=== PATIENT | female | born 1980 | race Caucasian/White ===

== ENCOUNTER 2020-10-19 16:21 | Outpatient (REF) | payer OTHER, SELFPAY | END 2020-10-19 16:22 | disposition home or self-care (01) | LOC: HO.HOSX 16:21 | PROVIDERS: Visit Provider Orthopaedic Surgery | DX: Z13.89 Encounter for screening for other disorder (principal) ==

== ENCOUNTER 2020-10-20 08:19 | Outpatient (REF) | payer OTHER, SELFPAY ==
--- NOTE | ~2020-10-20 | XR_ITS ---
EXAMINATION: XR WRIST, RIGHT CLINICAL INFORMATION: Pain right wrist COMPARISON: None TECHNIQUE: PA, lateral, and oblique views of the right wrist. FINDINGS: The bones and soft tissues are normal. No fracture. Alignment is anatomic with normal joint spaces. No erosions or abnormal soft tissue calcifications. XR/XR wrist RT min 3V IMPRESSION: Normal right wrist.
== END 2020-10-20 08:20 | disposition home or self-care (01) ==
LOC: HO.HOSX 08:19
PROVIDERS: Visit Provider Orthopaedic Surgery
DX: M77.8 Other enthesopathies, not elsewhere classified (principal); M25.531 Pain in right wrist
CPT/HCPCS: 73110

== ENCOUNTER 2020-10-28 14:20 | Outpatient (REF) | payer OTHER, SELFPAY ==
[2020-10-28 15:02] LABS: MANUAL DIFF FLAG NO
[2020-10-28 15:05] LABS: Basophils Absolute Auto 0.1 X10*3/uL (0.0-0.2); Basophils Percent Auto 0.5 % (0-2); Eosinophils Percent Auto 0.4 % (0-4); Hematocrit 37.8 % (37-47); Hemoglobin 12.3 g/dl (12.0-16.0); Imm Gran Abs Auto 0.03 X10*3/uL (0.00-0.03); Imm Gran Pct Auto 0.3 % (0.0-0.4); Lymphocytes Absolute Auto 2.3 X10*3/uL (1.2-4.9); Lymphocytes Percent Auto 23.9 % (20-40); Mean Corpuscular HGB Conc 32.5 g/dl (31.0-35.0); Mean Corpuscular Hemoglobin 28.2 pg (27.0-33.0); Mean Corpuscular Volume 86.7 fL (80-98); Mean Platelet Volume 9.1 fL (9.4-12.3); Monocytes Absolute Auto 0.8 X10*3/uL (0.1-1.2); Monocytes Percent Auto 8.7 % (2-11); Neutrophils Absolute Auto 6.4 X10*3/uL (2.0-8.3); Neutrophils Percent Auto 66.2 % (45-73); Platelet Count 349 X10*3/uL (160-400); Red Blood Count 4.36 X10*6/uL (4.20-5.50); Red Cell Distribution Width 14.4 % (11.0-16.0); White Blood Count 9.7 X10*3/uL (4.8-10.8)
[2020-10-28 16:09] LABS: Alanine Aminotransferase < 6 U/L (0-31); Alkaline Phosphatase 47 U/L (39-117); Anion Gap 11 (12-20); Aspartate Amino Transferase 16 U/L (5-31); Bilirubin Total 0.3 mg/dL (0.0-1.0); Blood Urea Nitrogen 9 mg/dL (9-16); Carbon Dioxide 22 mmol/L (22-29); Chloride 113 mmol/L (96-108); Estimated Glomerular Filt Rate > 60; Glucose Random 66 mg/dL (60-115); Iron 50 mcg/dL (30-160); Percent Iron Saturation 11 % (15-50); Potassium 4.2 mmol/L (3.3-5.1); Sodium 142 mmol/L (135-145); Total Iron Binding Capacity 456 mcg/dL (228-428); Total Protein 6.6 g/dL (6.5-8.0); Unsaturated Iron Binding 406 ug/dL
[2020-10-28 16:17] LABS: Thyroid Stimulating Hormone 0.44 uIU/mL (0.32-4.0); Vitamin D 25-OH Total 32.9 ng/mL (>30)
[2020-10-28 16:43] LABS: Ferritin 4 ng/mL (10-122)
[2020-10-29 19:11] LABS: DHEA Sulfate 78 mcg/dL (23-266)
[2020-10-31 18:11] LABS: Iodine, Serum/Plasma 58 mcg/L (52-109)
[2020-11-01 15:07] LABS: Anti Nuclear Antibody Screen POSITIVE (NEGATIVE)
== END 2020-10-28 14:21 | disposition home or self-care (01) ==
LOC: HO.LAB 14:20
PROVIDERS: PCP Family Medicine; Visit Provider Emergency Medicine
DX: L63.8 Other alopecia areata (principal)
CPT/HCPCS: 36415; 80053; 82306; 82627; 82728; 83540; 83789; 84443; 85025; 86038; 86039

== ENCOUNTER → 2020-12-31 09:35 | Outpatient (BNVA) | payer OTHER, SELFPAY | PROVIDERS: PCP Family Medicine; Visit Provider Physician Assistant | DX: M65.4 Radial styloid tenosynovitis [de Quervain] (principal) | CPT/HCPCS: 20550; J1020 ==

== ENCOUNTER 2021-04-16 10:52 | Emergency (ER) | payer OTHER, SELFPAY ==
--- NOTE | ~2021-04-16 | XR_ITS ---
EXAMINATION: XR CHEST CLINICAL INFORMATION: First time seizure COMPARISON: None TECHNIQUE: Frontal view of the chest was obtained. FINDINGS: No significant abnormality is noted involving the heart, lungs, mediastinum, bony thorax or soft tissues. XR/XR chest 1V IMPRESSION: Unremarkable chest examination.
--- NOTE | ~2021-04-16 | CT_ITS ---
EXAMINATION: CT HEAD W/O IV CONTRAST CT CERVICAL SPINE W/O IV CONTRAST CLINICAL INFORMATION: 41-year-old female with history of head strike, fall. First time seizure. COMPARISON: CT imaging of head and cervical spine from 01/26/2020. TECHNIQUE: Head - Contiguous axial imaging of the head was performed from the skull base to the vertex without the administration of intravenous contrast, and axial images are reconstructed at 2 mm and 5 mm slice thickness. Cervical spine - A volumetric, helical CT acquisition of the cervical spine was obtained without contrast; in addition to the standard set of axial images, multiplanar reformatted images were provided in the coronal and sagittal imaging planes. This CT examination was performed using dose optimization techniques as appropriate, variously including the following: *Automated exposure control *Adjustment of mA and/or kV according to patient size (this includes techniques or standardized protocols for targeted exams where dose is matched to indication/reason for exam; i.e. extremities or head) *Use of iterative reconstruction technique DLP: 799 mGy-cm (total) FINDINGS: HEAD: No evidence of intracranial hemorrhage, major vascular territory infarction or midline shift. Lanza to white matter differentiation is preserved. The ventricles have normal size and configuration. No extra-axial fluid collections. A stable, partially calcified extra-axial mass located posterior to the right petrous bone in contact with the undersurface of the right lateral tentorium measures approximately 1.7 x 0.7 x 1.2 cm. This is consistent with a meningioma. The calvarium is intact and the visualized paranasal sinuses, mastoid air cells and middle ear cavities are clear. The temporomandibular joints are unremarkable. The visualized orbits and globes are intact. CERVICAL SPINE: No acute abnormalities. The craniocervical junction is normal. The occipital condyles, dens and atlantodental articulation are intact. The vertebral body heights and alignment are maintained. No fractures in the anterior or posterior elements. No prevertebral soft tissue swelling. There is lack of lordotic curvature of the cervical spine. The disc spaces are preserved. The facet joints and uncovertebral joints are unremarkable. No stenosis of the central spinal canal or neural foramina. No spinal hematoma or focal fluid collection in the visualized neck. The examined lung apices are clear. Thyroid gland is normal. CT/CT cervical spine wo con IMPRESSION: * No hemorrhage or other acute intracranial pathology. * A stable, partially calcified extra-axial mass of the right posterior fossa overlying the cerebellar hemisphere is consistent with meningioma. * No fracture or malalignment in the cervical spine.
[2021-04-16 10:56] VITALS: BP 139/96; PULSE 120; O2SAT 98
[2021-04-16 10:59] VITALS: BP 126/76; PULSE 112; RESP 18; TEMP 36.6; O2SAT 100; BMI 24.9
--- NOTE | 2021-04-16 11:06 | ECG_ITS ---
Test Reason : SEIZURE Blood Pressure : / mmHG Vent. Rate : 073 BPM Atrial Rate : 073 BPM P-R Int : 138 ms QRS Dur : 084 ms QT Int : 366 ms P-R-T Axes : 059 044 028 degrees QTc Int : 403 ms Normal sinus rhythm Normal ECG When compared with ECG of 18-FEB-2011 14:33, No significant change was found Referred By: Nancy Diaz Electronically Signed By:TAZ GARCIA MD
--- NOTE | 2021-04-16 11:20 | ED_ITS ---
HPI - Seizure General Chief Complaint: Seizure Stated Complaint: seizure Time Seen by Provider: 04/16/21 10:55 Source: patient and EMS Mode of arrival: EMS History of Present Illness HPI Narrative: 41-year-old female with a past medical history of hypothyroid, PCOS, chronic migraines, BIBA s/p first-time witnessed tonic-clonic seizure whil e at work. 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 Denies personal history of seizure, headache, neck pain, back pain, abdominal pain, nausea/vomiting, CP/SOB, ETOH/drug use MD complaint: seizure Related Data Home Medications Medication Instructions Recorded Confirmed gabapentin 300 mg capsule 300 mg PO DAILY 10/20/20 02/07/21 hydroxyzine HCl 25 mg tablet 50 mg PO BEDTIME PRN tab 10/20/20 02/07/21 doxepin 25 mg capsule 50 mg PO DAILY cap 02/07/21 02/07/21 Previous Rx's Medication Instructions Recorded sulfamethoxazole 800 1 tab PO Q12H 5 Days #10 tab 02/07/21 mg-trimethoprim 160 mg tablet (Bactrim DS) levetiracetam 500 mg tablet 500 mg PO BID 28 Days #56 tab 04/16/21 (Keppra) Allergies Allergy/AdvReac Type Severity Reaction Status Date / Time hydrocodone [From VICODIN] Allergy Intermediate GI UPSET Verified 02/07/21 13:45 propylene glycol Allergy Intermediate EXTREME Verified 02/07/21 13:45 [PROPYLENE GLYCOL] BURNING/PAIN/RASH cobalt Allergy Unknown Verified 02/07/21 13:45 acetaminophen [Vicodin] AdvReac Unknown nausea and Verified 02/07/21 13:45 vomiting propalyn glycal Allergy Unknown Vomiting Uncoded 10/20/20 08:27 Pt states no known allergy to Allergy Unknown headacches Uncoded 10/20/20 08:27 Review of Systems Review of Systems: Constitutional: No Fever, No Chills, No Fatigue, No Malaise ENT/Mouth: No Ear Pain, No Nasal Congestion, No sore throat, No Rhinorrhea, No Swallowing Difficulty Eyes: No Eye Pain, No Swelling, No Redness, No Discharge Cardiovascular: No Chest Pain, No SOB, No Edema, No Palpitations Respiratory: No Cough, No Sputum, No Wheezing, No Dyspnea Gastrointestinal: No Nausea, No Vomiting, No Diarrhea, No Constipation, No Abdominal pain Genitourinary: No Dysuria, No Urinary Frequency, No Hematuria, No Flank Pain, No Urinary Flow Changes Musculoskeletal: No joint pain, No Myalgias, No Joint Swelling Skin: No Skin Lesions, No rash Neuro: No Weakness, No Numbness, No Paresthesias, +seizure, + Loss of Consciousness, No Dizziness, No Headache Yes all other systems are reviewed and are negative Neurologic: Denies Abnormal speech present [facility] Past Medical History Attestation statement: The following information was validated with the patient. 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 Physical Exam Vital Signs: Vital Signs: Last Vital Signs Temp 98 F 04/16/21 10:59 Pulse 87 04/16/21 12:15 Resp 16 04/16/21 12:15 BP 126/76 04/16/21 10:59 Pulse Ox 100 04/16/21 10:59 Body Mass Index 24.9 Const: General: cooperative, healthy appearing, no acute distress, alert and awake Orientation/consciousness: patient oriented x3 Limitations: no limitations HENMT: Head: Yes normal to inspection and Yes atraumatic Ears: hearing grossly normal bilaterally General nose exam: Normal external nose present Face and sinus: Yes normal facial exam Mouth: Normal oral and palatal mucosa present Eyes: General: appearance normal, both eyes and all related structures Pupils: Equal, round and reactive pupils present EOM: EOMs intact bilaterally Neck: Other: C-collar in place. No midline cervical spinous ttp Neck: Yes normal visual inspection and Yes no meningeal signs Resp: Effort & Inspection: normal respiratory effort and no respiratory distress Auscultation: clear to auscultation bilaterally, no rales, no rh onchi and no wheezes Cardio: Rate: regular rate Heart sounds: S1 normal heart sound present and S2 normal heart sound present GI: Inspection: Yes normal to inspection Palpation (GI): Soft to palpation, nontender, no guarding and not rigid : General: Yes no CVA tenderness Back/Spine/Pelvis: Other: No midline thoracic/lumbar spinous tenderness/step- off or deformity Back: no CVA tenderness Skin: Rashes: no rashes Wounds: no wounds Neuro: General: patient oriented x3, tone normal, moves all extremities, no meningeal signs, no focal motor deficits and CN's II-XI intact bilaterally Cranial nerves: Yes Equal, round and reactive pupils present and Yes Bilaterally intact EOM present Cognition (Neuro): normal cognition Speech: No Abnormal speech present Motor exam (neuro): 5/5 motor strength present throughout, Pronator motor function not present and no tremor noted Extrem: General: Yes normal to inspection and Yes no pedal edema Course Course Course Narrative: -POC low at 62 > patient given p.o. juice -1245-- lactic acid elevated to 2.2 as expected from seizure. Labs otherwise unremarkable. Troponin negative -tox screen unremarkable CT head/brain wo con / CT cervical spine wo con IMPRESSION: *? No hemorrhage or other acute intracranial pathology. *? A stable, partially calcified extra-axial mass of the right posterior fossa overlying the cerebellar hemisphere is consistent with meningioma. *? No fracture or malalignment in the cervical spine. XR chest 1V IMPRESSION: Unremarkable chest examination. -[id number]--spoke to Neurology Dr. Brenner recommended initiating patient on antiepileptics and having her follow-up with Dr. Weir -Repeat lactic acid improved to 1.7 after p.o. hydration. Patient currently eating turkey sandwich/chips in the ED, no need for repeat POC MDM - Seizure MDM Narrative Medical decision making narrative: 41-year-old female with a past medical history of hypothyroid, PCOS, chronic migraines, BIBA s/p first-time witnessed t onic-clonic seizure while at work. On exam tachycardic, awake and alert, NAD, no focal neuro deficits. Concern for first-time seizure. Rule out metabolic and infectious etiology vs IC pathology Plan: EKG, labs, UA/drug screen, head/C-spine CT, Consult neuro Medical Records Attestation: I reviewed the patient's medical records. Lab Data Attestation: I reviewed the patient's lab results. Result diagrams: 04/16/21 11:34 04/16/21 11:34 Labs: Lab Results 04/16/21 04/16/21 04/16/21 Range/Units 11:34 11:34 11:34 WBC 8.9 (4.8-10.8) X10*3/uL RBC 4.89 (4.20-5.50) X10*6/uL Hgb 13.3 (12.0-16.0) g/dl Hct 40.7 (37.0-47.0) % MCV 83.2 (80.0-98.0) fL MCH 27.2 (27.0-33.0) pg MCHC 32.7 (31.0-35.0) g/dl RDW 12.6 (11.0-16.0) % Plt Count 307 (160-400) X10*3/uL MPV 9.1 L (9.4-12.3) fL Immature Gran % (Auto) 0.2 (0.0-0.4) % Neut % (Auto) 68.0 (45-73) % Lymph % (Auto) 23.6 (20-40) % Dougherty % (Auto) 7.1 (2-11) % Eos % (Auto) 0.5 (0-4) % Baso % (Auto) 0.6 (0-2) % Lymph # (Auto) 2.1 (1.2-4.9) X10*3/uL Dougherty # (Auto) 0.6 (0.1-1.2) X10*3/uL Eos # (Auto) 0.0 (0.0-0.4) X10*3/uL Baso # (Auto) 0.1 (0.0-0.2) X10*3/uL Abs Immat Gran (auto) 0.02 (0.00-0.03) X10*3/uL Absolute Neuts (auto) 6.0 (2.0-8.3) x10*3/uL Absolute Nucleated RBC 0.000 (0.0-0.012) X10*3/uL Nucleated RBC % (auto) 0.0 (0.0-0.2) /100WBC Sodium 137 (135-145) mmol/L Potassium 4.2 (3.3-5.1) mmol/L Chloride 108 (96-108) mmol/L Carbon Dioxide 19 L (22-29) mmol/L Anion Gap 14 (12-20) BUN 16 D (9-16) mg/dL Creatinine 0.82 (0.5-1.4) mg/dL Estim Creat Clear Calc 85.9 Estimated GFR > 60 POC Glucose (60-115) mg/dL Random Glucose 83 (60-115) mg/dL Lactic Acid 2.2 H* (0.5-2.0) mmol/L Lactic Acid Fup @ 2Hr (0.5-2.0) mmol/L Calcium 9.0 (8.4-10.2) mg/dL Magnesium 2.2 (1.6-2.6) mg/dL Total Bilirubin 0.2 (0.0-1.0) mg/dL Direct Bilirubin < 0.2 (0.0-0.5) mg/dL AST 24 D (5-31) U/L ALT 8 (0-31) U/L Alkaline Phosphatase 52 (39-117) U/L Troponin I High Sens (<3.5-17.0) ng/L Total Protein 7.2 (6.5-8.0) g/dL Albumin 4.2 (3.5-5.0) g/dL Lipase 25 (8-78) U/L Urine Color Urine Appearance Urine pH (5.0-8.0) Ur Specific Converse (1.005-1.025) Urine Protein (NEG-TRACE) MG/DL Urine Glucose (UA) (NEG) MG/DL Urine Ketones (NEG) MG/DL Urine Blood (NEG) Urine Nitrite (NEG) Ur Leukocyte Esterase (NEG) Urine Opiates Screen (Not Detect) Urine Fentanyl Screen (Not Detect) Ur Barbiturates Screen (Not Detect) Ur Phencyclidine Scrn (Not Detect) Ur Amphetamines Screen (Not Detect) U Benzodiazepines Scrn (Not Detect) Urine Cocaine Screen (Not Detect) U Marijuana (THC) Screen (Not Detect) Ethyl Alcohol mg/dL COVID-19 ([facility]) (Negative) COVID-19 Clin Com 04/16/21 04/16/21 04/16/21 Range/Units 11:34 11:34 11:34 WBC (4.8-10.8) X10*3/uL RBC (4.20-5.50) X10*6/uL Hgb (12.0-16.0) g/dl Hct (37.0-47.0) % MCV (80.0-98.0) fL MCH (27.0-33.0) pg MCHC (31.0-35.0) g/dl RDW (11.0-16.0) % Plt Count (160-400) X10*3/uL MPV (9.4-12.3) fL Immature Gran % (Auto) (0.0-0.4) % Neut % (Auto) (45-73) % Lymph % (Auto) (20-40) % Dougherty % (Auto) (2-11) % Eos % (Auto) (0-4) % Baso % (Auto) (0-2) % Lymph # (Auto) (1.2-4.9) X10*3/uL Dougherty # (Auto) (0.1-1.2) X10*3/uL Eos # (Auto) (0.0-0.4) X10*3/uL Baso # (Auto) (0.0-0.2) X10*3/uL Abs Immat Gran (auto) (0.00-0.03) X10*3/uL Absolute Neuts (auto) (2.0-8.3) x10*3/uL Absolute Nucleated RBC (0.0-0.012) X10*3/uL Nucleated RBC % (auto) (0.0-0.2) /100WBC Sodium (135-145) mmol/L Potassium (3.3-5.1) mmol/L Chloride (96-108) mmol/L Carbon Dioxide (22-29) mmol/L Anion Gap (12-20) BUN (9-16) mg/dL Creatinine (0.5-1.4) mg/dL Estim Creat Clear Calc Estimated GFR POC Glucose (60-115) mg/dL Random Glucose (60-115) mg/dL Lactic Acid (0.5-2.0) mmol/L Lactic Acid Fup @ 2Hr (0.5-2.0) mmol/L Calcium (8.4-10.2) mg/dL Magnesium (1.6-2.6) mg/dL Total Bilirubin (0.0-1.0) mg/dL Direct Bilirubin (0.0-0.5) mg/dL AST (5-31) U/L ALT (0-31) U/L Alkaline Phosphatase (39-117) U/L Troponin I High Sens < 3.5 (<3.5-17.0) ng/L Total Protein (6.5-8.0) g/dL Albumin (3.5-5.0) g/dL Lipase (8-78) U/L Urine Color Urine Appearance Urine pH (5.0-8.0) Ur Specific Converse (1.005-1.025) Urine Protein (NEG-TRACE) MG/DL Urine Glucose (UA) (NEG) MG/DL Urine Ketones (NEG) MG/DL Urine Blood (NEG) Urine Nitrite (NEG) Ur Leukocyte Esterase (NEG) Urine Opiates Screen (Not Detect) Urine Fentanyl Screen (Not Detect) Ur Barbiturates Screen (Not Detect) Ur Phencyclidine Scrn (Not Detect) Ur Amphetamines Screen (Not Detect) U Benzodiazepines Scrn (Not Detect) Urine Cocaine Screen (Not Detect) U Marijuana (THC) Screen (Not Detect) Ethyl Alcohol < 10 mg/dL COVID-19 ([facility]) Negative (Negative) COVID-19 Clin Com See Note 04/16/21 04/16/21 04/16/21 Range/Units 11:44 13:23 13:23 WBC (4.8-10.8) X10*3/uL RBC (4.20-5.50) X10*6/uL Hgb (12.0-16.0) g/dl Hct (37.0-47.0) % MCV (80.0-98.0) fL MCH (27.0-33.0) pg MCHC (31.0-35.0) g/dl RDW (11.0-16.0) % Plt Count (160-400) X10*3/uL MPV (9.4-12.3) fL Immature Gran % (Auto) (0.0-0.4) % Neut % (Auto) (45-73) % Lymph % (Auto) (20-40) % Dougherty % (Auto) (2-11) % Eos % (Auto) (0-4) % Baso % (Auto) (0-2) % Lymph # (Auto) (1.2-4.9) X10*3/uL Dougherty # (Auto) (0.1-1.2) X10*3/uL Eos # (Auto) (0.0-0.4) X10*3/uL Baso # (Auto) (0.0-0.2) X10*3/uL Abs Immat Gran (auto) (0.00-0.03) X10*3/uL Absolute Neuts (auto) (2.0-8.3) x10*3/uL Absolute Nucleated RBC (0.0-0.012) X10*3/uL Nucleated RBC % (auto) (0.0-0.2) /100WBC Sodium (135-145) mmol/L Potassium (3.3-5.1) mmol/L Chloride (96-108) mmol/L Carbon Dioxide (22-29) mmol/L Anion Gap (12-20) BUN (9-16) mg/dL Creatinine (0.5-1.4) mg/dL Estim Creat Clear Calc Estimated GFR POC Glucose 62 (60-115) mg/dL Random Glucose (60-115) mg/dL Lactic Acid (0.5-2.0) mmol/L Lactic Acid Fup @ 2Hr (0.5-2.0) mmol/L Calcium (8.4-10.2) mg/dL Magnesium (1.6-2.6) mg/dL Total Bilirubin (0.0-1.0) mg/dL Direct Bilirubin (0.0-0.5) mg/dL AST (5-31) U/L ALT (0-31) U/L Alkaline Phosphatase (39-117) U/L Troponin I High Sens (<3.5-17.0) ng/L Total Protein (6.5-8.0) g/dL Albumin (3.5-5.0) g/dL Lipase (8-78) U/L Urine Color YELLOW Urine Appearance CLEAR Urine pH 6.0 (5.0-8.0) Ur Specific Converse 1.010 (1.005-1.025) Urine Protein NEG (NEG-TRACE) MG/DL Urine Glucose (UA) NEG (NEG) MG/DL Urine Ketones NEG (NEG) MG/DL Urine Blood NEG (NEG) Urine Nitrite NEG (NEG) Ur Leukocyte Esterase NEG (NEG) Urine Opiates Screen Not Detected (Not Detect) Urine Fentanyl Screen Not Detected (Not Detect) Ur Barbiturates Screen Not Detected (Not Detect) Ur Phencyclidine Scrn Not Detected (Not Detect) Ur Amphetamines Screen Not Detected (Not Detect) U Benzodiazepines Scrn Not Detected (Not Detect) Urine Cocaine Screen Not Detected (Not Detect) U Marijuana (THC) Screen Not Detected (Not Detect) Ethyl Alcohol mg/dL COVID-19 ([facility]) (Negative) COVID-19 Clin Com 04/16/21 Range/Units 13:54 WBC (4.8-10.8) X10*3/uL RBC (4.20-5.50) X10*6/uL Hgb (12.0-16.0) g/dl Hct (37.0-47.0) % MCV (80.0-98.0) fL MCH (27.0-33.0) pg MCHC (31.0-35.0) g/dl RDW (11.0-16.0) % Plt Count (160-400) X10*3/uL MPV (9.4-12.3) fL Immature Gran % (Auto) (0.0-0.4) % Neut % (Auto) (45-73) % Lymph % (Auto) (20-40) % Dougherty % (Auto) (2-11) % Eos % (Auto) (0-4) % Baso % (Auto) (0-2) % Lymph # (Auto) (1.2-4.9) X10*3/uL Dougherty # (Auto) (0.1-1.2) X10*3/uL Eos # (Auto) (0.0-0.4) X10*3/uL Baso # (Auto) (0.0-0.2) X10*3/uL Abs Immat Gran (auto) (0.00-0.03) X10*3/uL Absolute Neuts (auto) (2.0-8.3) x10*3/uL Absolute Nucleated RBC (0.0-0.012) X10*3/uL Nucleated RBC % (auto) (0.0-0.2) /100WBC Sodium (135-145) mmol/L Potassium (3.3-5.1) mmol/L Chloride (96-108) mmol/L Carbon Dioxide (22-29) mmol/L Anion Gap (12-20) BUN (9-16) mg/dL Creatinine (0.5-1.4) mg/dL Estim Creat Clear Calc Estimated GFR POC Glucose (60-115) mg/dL Random Glucose (60-115) mg/dL Lactic Acid (0.5-2.0) mmol/L Lactic Acid Fup @ 2Hr 1.7 (0.5-2.0) mmol/L Calcium (8.4-10.2) mg/dL Magnesium (1.6-2.6) mg/dL Total Bilirubin (0.0-1.0) mg/dL Direct Bilirubin (0.0-0.5) mg/dL AST (5-31) U/L ALT (0-31) U/L Alkaline Phosphatase (39-117) U/L Troponin I High Sens (<3.5-17.0) ng/L Total Protein (6.5-8.0) g/dL Albumin (3.5-5.0) g/dL Lipase (8-78) U/L Urine Color Urine Appearance Urine pH (5.0-8.0) Ur Specific Converse (1.005-1.025) Urine Protein (NEG-TRACE) MG/DL Urine Glucose (UA) (NEG) MG/DL Urine Ketones (NEG) MG/DL Urine Blood (NEG) Urine Nitrite (NEG) Ur Leukocyte Esterase (NEG) Urine Opiates Screen (Not Detect) Urine Fentanyl Screen (Not Detect) Ur Barbiturates Screen (Not Detect) Ur Phencyclidine Scrn (Not Detect) Ur Amphetamines Screen (Not Detect) U Benzodiazepines Scrn (Not Detect) Urine Cocaine Screen (Not Detect) U Marijuana (THC) Screen (Not Detect) Ethyl Alcohol mg/dL COVID-19 ([facility]) (Negative) COVID-19 Clin Com Discharge Plan Discharge Clinical Impression: First time seizure Patient Disposition: Home, Self-Care Instructions: New-Onset Seizure in Adults (ED) Additional Instructions: Edgarppra is a an anti epileptic medication, take twice daily as prescribed Please follow-up with your neurologist, call Sunday to make an appoin tment If you have repeat seizures, persistent seizures, unremitting seizures, fever, please return to the emergency department Prescriptions: New levetiracetam [Keppra] 500 mg tablet 500 mg PO BID 28 Days Qty: 56 RF: 0 No Action doxepin 25 mg capsule 50 mg PO DAILY RF: 0 sulfamethoxazole-trimethoprim [Bactrim DS] 800-160 mg tablet 1 tab PO Q12H 5 Days Qty: 10 RF: 0 gabapentin 300 mg capsule 300 mg PO DAILY RF: 0 hydroxyzine HCl 25 mg tablet 50 mg PO BEDTIME PRNRF: 0 Referrals: Vanesa Ramon MD [Physician] - 2 days
[2021-04-16 11:42] LABS: MANUAL DIFF FLAG NO
[2021-04-16 11:43] LABS: Basophils Absolute Auto 0.1 X10*3/uL (0.0-0.2); Basophils Percent Auto 0.6 % (0-2); Eosinophils Percent Auto 0.5 % (0-4); Hematocrit 40.7 % (37.0-47.0); Hemoglobin 13.3 g/dl (12.0-16.0); Imm Gran Abs Auto 0.02 X10*3/uL (0.00-0.03); Imm Gran Pct Auto 0.2 % (0.0-0.4); Lymphocytes Absolute Auto 2.1 X10*3/uL (1.2-4.9); Lymphocytes Percent Auto 23.6 % (20-40); Mean Corpuscular HGB Conc 32.7 g/dl (31.0-35.0); Mean Corpuscular Hemoglobin 27.2 pg (27.0-33.0); Mean Corpuscular Volume 83.2 fL (80.0-98.0); Mean Platelet Volume 9.1 fL (9.4-12.3); Monocytes Absolute Auto 0.6 X10*3/uL (0.1-1.2); Monocytes Percent Auto 7.1 % (2-11); Platelet Count 307 X10*3/uL (160-400); Red Blood Count 4.89 X10*6/uL (4.20-5.50); Red Cell Distribution Width 12.6 % (11.0-16.0); White Blood Count 8.9 X10*3/uL (4.8-10.8)
[2021-04-16 11:49] LABS: Glucose, Whole Blood 62 mg/dL (60-115)
[2021-04-16 11:59] LABS: COVID-19 Test Negative (Negative); IDNOW Serial# 08D9AD1C
[2021-04-16 12:03] LABS: Ethanol < 10 mg/dL
[2021-04-16 12:06] LABS: Troponin-I High Sensitivity < 3.5 ng/L (<3.5-17.0)
[2021-04-16 12:08] LABS: Lactic Acid 2.2 mmol/L (0.5-2.0)
[2021-04-16 12:12] LABS: Alanine Aminotransferase 8 U/L (0-31); Albumin Level 4.2 g/dL (3.5-5.0); Alkaline Phosphatase 52 U/L (39-117); Anion Gap 14 (12-20); Aspartate Amino Transferase 24 U/L (5-31); Bilirubin Direct < 0.2 mg/dL (0.0-0.5); Bilirubin Total 0.2 mg/dL (0.0-1.0); Blood Urea Nitrogen 16 mg/dL (9-16); Carbon Dioxide 19 mmol/L (22-29); Chloride 108 mmol/L (96-108); Creatinine Clr Calc Pharmacy 85.9; Estimated Glomerular Filt Rate > 60; Glucose Random 83 mg/dL (60-115); Lipase 25 U/L (8-78); Magnesium 2.2 mg/dL (1.6-2.6); Potassium 4.2 mmol/L (3.3-5.1); Sodium 137 mmol/L (135-145); Total Protein 7.2 g/dL (6.5-8.0)
[2021-04-16 12:15] VITALS: PULSE 87; RESP 16
[2021-04-16] MEDS: 0.9 % Sodium Chloride 1,000 ML 999 ML IVCONT (12:16)
--- NOTE | 2021-04-16 12:24 | PC.NURSE ---
pt reporting excruciating pain when receiving IV fluids, line not infiltrated, line intact and patent. IV flow rate slowed, pt offered a hot pack for the area. pt continued to report excruciating pain stating she could not tolerate the IV. IV fluids stopped and pt educated to drink two full ziegler pitchers of water instead. PEDIATRICIAN Nancy dawn
[2021-04-16 13:32] LABS: Appearance Urine CLEAR; Color Urine YELLOW; Glucose Urine UA NEG (NEG); Leukocyte Esterase Urine NEG (NEG); Nitrite Urine NEG (NEG); Urine Blood NEG (NEG); Urine Ketones NEG (NEG); Urine Protein NEG (NEG-TRACE)
[2021-04-16 13:40] LABS: Reflex Lactate? Lactic Acid Added
[2021-04-16 13:46] LABS: Amphetamine Screen Urine Not Detected (Not Detect); Barbiturates, Urine Not Detected (Not Detect); Benzodiazepines Screen Urine Not Detected (Not Detect); Cannabinoid Screen Urine Not Detected (Not Detect); Cocaine Screen Urine Not Detected (Not Detect); Fentanyl, urine Not Detected (Not Detect); Opiate Screen Urine Not Detected (Not Detect); Phencyclidine Screen Urine Not Detected (Not Detect)
[2021-04-16] MEDS: levETIRAcetam 1,000 MG TABLET 1000 MG PO (14:19)
[2021-04-16 14:20] LABS: ~Lactic Acid-LAB USE ONLY 1.7 mmol/L (0.5-2.0)
== END 2021-04-16 14:48 | disposition home or self-care (01) ==
PROVIDERS: Physician Assistant; Emergency Provider Emergency Medicine
DX: G40.409 Other generalized epilepsy and epileptic syndromes, not intractable, without status epilepticus (principal); R00.0 Tachycardia, unspecified; Z20.822 Contact with and (suspected) exposure to COVID-19
CPT/HCPCS: 36415; 70450; 71045; 72125; 80048; 80076; 80307; 81003; 82077; 82947; 83605; 83690; 83735; 84484; 85025; 87635; 93005; 96360; 99284

== ENCOUNTER 2021-06-27 15:31 | Outpatient (REF) | payer BC, SELFPAY ==
--- NOTE | ~2021-06-27 | XR_ITS ---
EXAMINATION: XR SHOULDER, RIGHT XR ELBOW, RIGHT XR WRIST, RIGHT CLINICAL INFORMATION: Pain in the right shoulder, elbow, wrist. COMPARISON: Radiographs dated 10/20/2020 TECHNIQUE: AP external rotation, Grashey, scapular Y, and axillary views of the right shoulder. 3 views of the right elbow. PA, lateral, oblique, and scaphoid views of the right wrist. FINDINGS: SHOULDER: The bones and soft tissues are normal. No fracture. Glenohumeral and acromioclavicular alignment is anatomic with normal joint space. No abnormal soft tissue calcifications. ELBOW: No fracture or malalignment. Bone mineralization is normal. Joint spaces are well-preserved. Normal soft tissues at the elbow. No effusion. RIGHT WRIST: Positive ulnar variance (2 mm). A bone island is again seen within the lunate. No acute fracture or malalignment. Scaphoid is intact. Joint spaces are well-preserved. No erosions, periostitis, or soft tissue mineralization. XR/XR shoulder RT min 2V IMPRESSION: No acute osseous abnormalities in the shoulder, elbow, and wrist. Positive ulnar variance. No radiographic findings of ulnocarpal abutment.
--- NOTE | ~2021-06-27 | XR_ITS ---
EXAMINATION: XR SHOULDER, RIGHT XR ELBOW, RIGHT XR WRIST, RIGHT CLINICAL INFORMATION: Pain in the right shoulder, elbow, wrist. COMPARISON: Radiographs dated 10/20/2020 TECHNIQUE: AP external rotation, Grashey, scapular Y, and axillary views of the right shoulder. 3 views of the right elbow. PA, lateral, oblique, and scaphoid views of the right wrist. FINDINGS: SHOULDER: The bones and soft tissues are normal. No fracture. Glenohumeral and acromioclavicular alignment is anatomic with normal joint space. No abnormal soft tissue calcifications. ELBOW: No fracture or malalignment. Bone mineralization is normal. Joint spaces are well-preserved. Normal soft tissues at the elbow. No effusion. RIGHT WRIST: Positive ulnar variance (2 mm). A bone island is again seen within the lunate. No acute fracture or malalignment. Scaphoid is intact. Joint spaces are well-preserved. No erosions, periostitis, or soft tissue mineralization. XR/XR wrist RT min 3V IMPRESSION: No acute osseous abnormalities in the shoulder, elbow, and wrist. Positive ulnar variance. No radiographic findings of ulnocarpal abutment.
--- NOTE | ~2021-06-27 | XR_ITS ---
EXAMINATION: XR SHOULDER, RIGHT XR ELBOW, RIGHT XR WRIST, RIGHT CLINICAL INFORMATION: Pain in the right shoulder, elbow, wrist. COMPARISON: Radiographs dated 10/20/2020 TECHNIQUE: AP external rotation, Grashey, scapular Y, and axillary views of the right shoulder. 3 views of the right elbow. PA, lateral, oblique, and scaphoid views of the right wrist. FINDINGS: SHOULDER: The bones and soft tissues are normal. No fracture. Glenohumeral and acromioclavicular alignment is anatomic with normal joint space. No abnormal soft tissue calcifications. ELBOW: No fracture or malalignment. Bone mineralization is normal. Joint spaces are well-preserved. Normal soft tissues at the elbow. No effusion. RIGHT WRIST: Positive ulnar variance (2 mm). A bone island is again seen within the lunate. No acute fracture or malalignment. Scaphoid is intact. Joint spaces are well-preserved. No erosions, periostitis, or soft tissue mineralization. XR/XR elbow RT min 3V IMPRESSION: No acute osseous abnormalities in the shoulder, elbow, and wrist. Positive ulnar variance. No radiographic findings of ulnocarpal abutment.
== END 2021-06-27 15:32 | disposition home or self-care (01) ==
LOC: HO.XRAY 15:31
PROVIDERS: Visit Provider Hospitalist
DX: M25.521 Pain in right elbow (principal); M25.531 Pain in right wrist; M79.601 Pain in right arm; M25.512 Pain in left shoulder; M25.532 Pain in left wrist; M79.602 Pain in left arm; W00.9XXA Unspecified fall due to ice and snow, initial encounter
CPT/HCPCS: 73030; 73080; 73110

== ENCOUNTER 2021-06-30 10:50 | Emergency (ER) | payer BC, SELFPAY ==
--- NOTE | ~2021-06-30 | XR_ITS ---
EXAMINATION: XR FOREARM, RIGHT CLINICAL INFORMATION: Pain after fall COMPARISON: Wrist study of June 27, 2021 TECHNIQUE: AP and lateral views of the right forearm were obtained. FINDINGS: There is no evidence of acute fracture or dislocation of the right radius and ulna. Soft tissue swelling seen about the dorsum of the ulnar. No elbow effusion. XR/XR forearm RT 2V IMPRESSION: Soft tissue swelling without underlying bony abnormality of the right forearm.
[2021-06-30 11:51] VITALS: BP 142/85; PULSE 74; RESP 18; TEMP 36.8; O2SAT 100; BMI 22.8
--- NOTE | 2021-06-30 12:11 | ED_ITS ---
HPI - Extremity Problem General Chief complaint: Extremity Injury, Upper Stated complaint: r arm inj Time Seen by Provider: 06/30/21 12:08 Source: patient Mode of arrival: ambulatory Limitations: no limitations History of Present Illness HPI Narrative: 41 y/o female with history of migraines, seizures, PCOS, hypothyrodism who is presenting to the ER for ongoing right forearm pain after she slipped and fell on ice on 06/27. She was seen at an Urgent Care at the time of the injury, had XR's of the elbow, shoulder and wrist that were negative for acute fractures. She was placed in a sling for comfort, prescribed ibuprofen and told to follow up with Orthopedics. She reports her pain has been worsening in her right proximal forearm. She states she has not been sleeping well due to the pain. MD Complaint: extremity pain Onset (ago): day(s) (3) Pain Consistency: constant Location: right and upper extremity Severity scale (1-10): 10 Quality: stabbing and aching Radiation: none Relieving factors: nothing Exacerbating factors: range of motion and palpation Associated symptoms: denies other symptoms Related Data Home Medications Medication Instructions Recorded Confirmed gabapentin 300 mg capsule 300 mg PO DAILY 10/20/20 02/07/21 hydroxyzine HCl 25 mg tablet 50 mg PO BEDTIME PRN tab 10/20/20 02/07/21 doxepin 25 mg capsule 50 mg PO DAILY cap 02/07/21 02/07/21 clonazepam 1 mg tablet 1 mg PO BEDTIME 06/27/21 lamotrigine 100 mg tablet 0 mg PO 06/27/21 Previous Rx's Medication Instructions Recorded levetiracetam 500 mg tablet 500 mg PO BID 28 Days #56 tab 04/16/21 (Keppra) ibuprofen 800 mg tablet 800 mg PO Q8H #90 tab 06/27/21 ketorolac 10 mg tablet 10 mg PO Q8H PRN 5 Days #15 tab 06/30/21 Allergies Allergy/AdvReac Type Severity Reaction Status Date / Time hydrocodone [From VICODIN] Allergy Intermediate GI UPSET Verified 06/27/21 14:03 propylene glycol Allergy Intermediate EXTREME Verified 06/27/21 14:03 [PROPYLENE GLYCOL] BURNING/PAIN/RASH cobalt Allergy Unknown Verified 06/27/21 14:03 acetaminophen [Vicodin] AdvReac Unknown nausea and Verified 06/27/21 14:03 vomiting propalyn glycal Allergy Unknown Vomiting Uncoded 06/27/21 14:03 Pt states no known allergy to Allergy Unknown headacches Uncoded 06/27/21 14:03 Review of Systems Review of Systems: Constitutional: No Fever, No Chills Cardiovascular: No Chest Pain, No SOB Gastrointestinal: No Nausea, No Vomiting Musculoskeletal: + joint pain, + Myalgias Skin: No Skin Lesions, No rash Neuro: No Weakness, No Numbness, No Dizziness, No Headache Psych: + Anxiety/Panic, No Depression Heme/Lymph: No Bruising, No Lymphadenopathy PMFSH Past Medical History Medical History Chronic migraine Hypothyroidism PCOS (polycystic ovarian syndrome) Surgical History H/O gastric bypass History of partial hysterectomy Hx of appendectomy Tubal ligation status Social History Social History Patient Tobacco Use Status: Never used Tobacco Advance Directives: Yes Advance Directives Information Provided: Yes Advance Directives on File: No Patient : No Current occupational status: employed 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 Oriented X3. Appears to be in pain, crying HEENT: normal inspection CVS: Normal heart rate and rhythm. Pulses normal. Respiratory: No respiratory distress. Skin: Skin warm and dry. Normal skin color. Normal skin turgor. No rashes. Extremities: Right upper extremity held in flexion and adduction she is able to fully extend and bend the right elbow with some pain on flexion. Tenderness of the dorsal aspect of the right forearm more so on the ulnar side. Compartments are soft and compressible. No ecchymosis, mild generalized swelling. 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 Neurovascularly intact distally. Neuro: Oriented X 3. No motor deficit. No sensory deficit. Course Course Course Narrative: 41 y/o female presents to the ER with right forarm pain s/p fall on ice 06/27. She had negative x-rays of the shoulder, elbow and wrist at that time. She feels like they did not image the area which is the most painful for her which is her proximal forearm. Explained the elbow XR should have seen any bony abnormality but will get dedicated forearm image today. She seems stiff from being placed in the sling for the last 3 days. She is tearful and crying. Will give a dose of IM Toradol and oral oxycodone as well as oral Ativan given her history of anxiety and her mother reports she is ?very worked up in tense because of the pain. ? Reevaluation(s) Reevaluation #1: X-ray only showing some soft tissue swelling without any bony abnormality. Patient's pain is significantly improved. She is asking for a prescription for oral Toradol to be discharged with. Due to the swelling in pain arm was wrapped in [place] wrap for compression and support. She feels improved. She was advised to stay away from using the sling as this most likely exacerbated the stiffness and muscle pains. She will follow-up with orthopedics as scheduled. Stable for discharge home with supportive care and ortho follow up. Critical Care Time Critical Care Time Critical Care Time: No Discharge Plan Discharge Clinical Impression: Contusion of forearm, right Patient Disposition: Home, Self-Care Instructions: Contusion in Adults (ED) Additional Instructions: Your x-ray today showed soft tissue swelling without any underlying bony abnormality of the right forearm. Your pain is most likely due to a contusion, possibly a sprain or strain. Recommend rest, elevation, application of ice several times a day. Follow-up with orthopedics as scheduled. Take the prescribed Toradol with food as needed for pain. Take Tylenol 975 mg every 6 hours around the clock. Do not exceed 4 g in a 24 hour. If you develop new or worsening symptoms call 911 or come back to the ER for further evaluation. Prescriptions: New ketorolac 10 mg tablet 10 mg PO Q8H PRN (Reason: pain) 5 Days Qty: 15 0RF No Action levetiracetam [Keppra] 500 mg tablet 500 mg PO BID 28 Days Qty: 56 0RF doxepin 25 mg capsule 50 mg PO DAILY 0RF clonazepam 1 mg tablet 1 mg PO BEDTIME 0RF lamotrigine 100 mg tablet 0 mg PO 0RF ibuprofen 800 mg tablet 800 mg PO Q8H Qty: 90 1RF gabapentin 300 mg capsule 300 mg PO DAILY 0RF Rx Instructions: TAKE 1 CAPSULE AT MORNING TIME, 2 CAPSULES AT BEDTIME hydroxyzine HCl 25 mg tablet 50 mg PO BEDTIME PRN0RF Stand Alone Forms: Work/School Release Interventions: ED Discharge Assessment Last Done: 06/30/21 13:54 Discharge Date/Time: 06/30/21 13:54
[2021-06-30] MEDS: oxyCODONE HCl Immed Release 5 MG TABLET PO (12:33)
[2021-06-30] MEDS: Ketorolac Tromethamine 30 MG/ML VIAL IM (12:34)
[2021-06-30] MEDS: LORazepam 1 MG TABLET PO (12:34)
[2021-06-30 13:48] VITALS: RESP 18
== END 2021-06-30 13:54 | disposition home or self-care (01) ==
PROVIDERS: Emergency Provider Emergency Medicine Emergency Medical Services
DX: S50.11XA Contusion of right forearm, initial encounter (principal); M79.631 Pain in right forearm; W00.0XXA Fall on same level due to ice and snow, initial encounter; Y93.9 Activity, unspecified; Y92.9 Unspecified place or not applicable; Y99.9 Unspecified external cause status; Z79.899 Other long term (current) drug therapy
CPT/HCPCS: 73090; 96372; 99284; J1885

== ENCOUNTER → 2021-07-19 13:44 | Outpatient (BNVA) | payer BC, SELFPAY | PROVIDERS: Visit Provider Physician Assistant ==

== ENCOUNTER → 2021-08-16 09:53 | Outpatient (BNVA) | payer BC, SELFPAY | PROVIDERS: PCP Internal Medicine; Visit Provider Surgery Vascular Surgery | DX: Z13.89 Encounter for screening for other disorder (principal) ==

== ENCOUNTER 2021-12-22 10:29 | Outpatient (REF) | payer BC, SELFPAY ==
[2021-12-22 10:51] LABS: MANUAL DIFF FLAG NO
[2021-12-22 11:07] LABS: Basophils Absolute Auto 0.1 X10*3/uL (0.0-0.2); Basophils Percent Auto 0.7 % (0-2); Eosinophils Percent Auto 0.4 % (0-4); Hematocrit 38.1 % (37.0-47.0); Hemoglobin 11.8 g/dl (12.0-16.0); Imm Gran Abs Auto 0.01 X10*3/uL (0.00-0.03); Imm Gran Pct Auto 0.1 % (0.0-0.4); Mean Corpuscular Hemoglobin 25.6 pg (27.0-33.0); Mean Corpuscular Volume 82.6 fL (80.0-98.0); Mean Platelet Volume 9.4 fL (9.4-12.3); Monocytes Absolute Auto 0.7 X10*3/uL (0.1-1.2); Monocytes Percent Auto 9.9 % (2-11); Neutrophils Absolute Auto 3.3 x10*3/uL (2.0-8.3); Neutrophils Percent Auto 46.9 % (45-73); Platelet Count 304 X10*3/uL (160-400); Red Blood Count 4.61 X10*6/uL (4.20-5.50); Red Cell Distribution Width 13.8 % (11.0-16.0); White Blood Count 7.1 X10*3/uL (4.8-10.8)
[2021-12-22 11:35] LABS: Alanine Aminotransferase 9 U/L (0-31); Albumin Level 4.4 g/dL (3.5-5.0); Alkaline Phosphatase 50 U/L (39-117); Anion Gap 17 (12-20); Aspartate Amino Transferase 28 U/L (5-31); Bilirubin Total 0.4 mg/dL (0.0-1.0); Blood Urea Nitrogen 17 mg/dL (9-16); Carbon Dioxide 20 mmol/L (22-29); Chloride 106 mmol/L (96-108); Cholesterol 203 mg/dL; Estimated Glomerular Filt Rate > 60; Glucose Fasting 82 mg/dL (60-99); HDL Cholesterol 82 mg/dL; LDL Cholesterol Calculated 107 mg/dl; Potassium 3.9 mmol/L (3.3-5.1); Sodium 139 mmol/L (135-145); Total Protein 7.2 g/dL (6.5-8.0); Triglycerides 74 mg/dL
[2021-12-22 11:56] LABS: Thyroid Stimulating Hormone 0.87 uIU/mL (0.32-4.0); Vitamin D 25-OH Total 49.7 ng/mL (>30)
[2021-12-22 12:09] LABS: Folate 16.2 ng/mL (> or = 4.0); Vitamin B12 1224 pg/mL (200-900)
== END 2021-12-22 10:30 | disposition home or self-care (01) ==
LOC: HO.LAB 10:29
PROVIDERS: PCP Internal Medicine; Visit Provider Internal Medicine
DX: Z00.00 Encounter for general adult medical examination without abnormal findings (principal); E53.8 Deficiency of other specified B group vitamins; M77.8 Other enthesopathies, not elsewhere classified; E06.3 Autoimmune thyroiditis; E55.9 Vitamin D deficiency, unspecified
CPT/HCPCS: 36415; 80053; 80061; 82306; 82607; 82746; 84443; 85025

== ENCOUNTER 2022-01-22 08:37 | Emergency (ER) | payer BC, SELFPAY ==
[2022-01-22 08:48] VITALS: BP 124/83; PULSE 85; RESP 16; TEMP 36.2; O2SAT 99; BMI 22.8
--- NOTE | 2022-01-22 10:43 | ED_ITS ---
HPI - URI/Sore Throat General Chief Complaint: Ear Problems Stated Complaint: sinus, ear infection, can't hear Time Seen by Provider: 01/22/22 10:43 Source: patient Mode of arrival: ambulatory Limitations: no limitations History of Present Illness HPI Narrative: Patient presents to the emergency department for evaluation of sinusitis type symptoms x3 weeks. She states that she initially began with facial pressure, eyes feeling dry, both ears feeling blocked, pain radiating down into her jaw. She does with the symptoms for approximately 1 week when she presented to urgent care and received a prescription for Augmentin 500-125 x7 days, was taking additionally Claritin, Zyrtec, and Flonase. She took these medications for 5 days and did not have improvement in her symptoms, she returned back to the [facility] where she was given a prescription for azithromycin and was advised to overlap the 2 antibiotics and complete the course of azithrmycin. she has been unable to follow-up with her primary care provider thus far, states that she has an appointment to see ENT, February 2022. Denies fevers or chills. Denies chest pain, shortness of breath, difficulty breathing. Related Data Home Medications Medication Instructions Recorded Confirmed gabapentin 300 mg capsule 300 mg PO DAILY 10/20/20 01/11/22 hydroxyzine HCl 25 mg tablet 50 mg PO BEDTIME PRN 10/20/20 01/11/22 doxepin 25 mg capsule 50 mg PO DAILY 02/07/21 01/11/22 clonazepam 1 mg tablet 1 mg PO BEDTIME 06/27/21 01/11/22 zolpidem 10 mg tablet 10 mg PO BEDTIME PRN 08/16/21 01/11/22 Previous Rx's Medication Instructions Recorded ibuprofen 800 mg tablet 800 mg PO Q8H #90 tabs 06/27/21 amoxicillin 500 mg-potassium 1 tab PO Q12H 7 days #14 tabs 01/11/22 clavulanate 125 mg tablet (Augmentin) fluticasone propionate 50 1 spray intranasal Q12H 30 days 01/11/22 mcg/actuation nasal #16 grams spray,suspension (Flonase Allergy Relief) azithromycin 250 mg tablet 250 mg PO DAILY 5 days #6 tabs 01/16/22 amoxicillin-potassium clavulanate 2 tab PO BID 5 days #20 tabs 09/04/22 1,000 mg-62.5 mg tablet,ext.rel 12hr (Augmentin XR) azelastine 137 mcg (0.1 %) nasal 2 spray intranasal BID 7 days #30 01/22/22 spray aerosol mL Allergies Allergy/AdvReac Type Severity Reaction Status Date / Time hydrocodone [From VICODIN] Allergy Intermediate GI UPSET Verified 01/11/22 11:48 propylene glycol Allergy Intermediate EXTREME Verified 01/11/22 11:48 [PROPYLENE GLYCOL] BURNING/PAIN/RASH cobalt Allergy Unknown Verified 01/11/22 11:48 lamotrigine AdvReac Intermediate foggy Verified 01/11/22 11:48 levetiracetam [From Keppra] AdvReac Intermediate foggy Verified 01/11/22 11:48 propranolol AdvReac Intermediate inadequate Verified 01/11/22 11:48 response acetaminophen [Vicodin] AdvReac Unknown nausea and Verified 01/11/22 11:48 vomiting propalyn glycal Allergy Unknown Vomiting Uncoded 01/11/22 11:48 Pt states no known allergy to Allergy Unknown headacches Uncoded 01/11/22 11:48 ethylene AdvReac Severe Blister Uncoded 01/11/22 11:48 Review of Systems Review of Systems: Constitutional: No fever. no chills. No weakness. no fatigue. ENT/ Mouth: positive Ear Pain, positive Nasal Congestion, positive sinus pressure, positive sore throat, No Rhinorrhea, No Swallowing Difficulty Skin: No rash or itching. Cardiovascular: No chest pain. No palpitations. Respiratory: No shortness of breath. no cough. No sputum production. Gastrointestinal: No nausea. No vomiting. No diarrhea. No abdominal pain. Genitourinary: No burning micturition. No urinary frequency. Neurologic: No headache. No dizziness. No syncope. No numbness or tingling in the extremities. Musculoskeletal: No muscle pain. No back pain. No joint pain or stiffness. Yes all other systems are reviewed and are negative PMFSH Past Medical History Attestation statement: The following information was validated with the patient. Source: old records reviewed Medical History (Updated 01/22/22 @ 10:47 by Nupur Rivera CNP) Chronic migraine Hypothyroidism PCOS (polycystic ovarian syndrome) Surgical History H/O gastric bypass H/O right knee surgery History of intestinal obstruction History of lumbar puncture History of partial hysterectomy Hx of appendectomy Tubal ligation status Family History Family History Mother No problems noted. 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 Blood pressure normal.? Heart rate normal.? Respiration rate normal. Temperature normal.? Oxygen saturation normal. Appearance: Alert.?Oriented to person, place and time. No acute distress.?Normal affect. Eyes: Pupils equal, round and reactive to light.? ENT: Left ear with partial visualization of the tympanic membrane around 06:00 o'clock appears intact, no bulging or erythema, otherwise occluded by cerumen, right ear with cerumen impaction unable to visualize the tympanic membrane. palpable maxillary sinus tenderness bilaterally. Pharynx Mildly erythematous, no hypertrophy, or exudate.?? Neck: Normal inspection.? Neck supple.??No cervical adenopathy CVS: Heart sounds normal. Normal heart rate and rhythm.? Pulses normal.?? Respiratory: No respiratory distress.? Lung sounds clear to auscultation bilaterally?? Abdomen: Soft and non-tender. Normoactive bowel sounds. Skin: Skin warm and dry.? Normal skin color.? ? Extremities: No lower extremity edema.? Neuro: Moves all extremities spontaneously. Sensation intact bilaterally. No motor deficits. Ambulates with normal steady gait. Course Course Course Narrative: Patient is a 41-year-old female with past medical history of chronic migraine, PCOS, hypothyroidism, presenting for evaluation of sinusitis, reportedly failing previous outpatient treatment. Reports having prior COVID- 19 testing which was negative, declines repeat. Physical exam notable for palpable sinus tenderness particularly maxillary bilaterally. cerumen impaction is chronic per patient. Unable to determine whether there is any rupture of the tympanic membrane or acute otitis media. Has appointment with ENT in February 2022. Has failed initial course of treatment with low-dose Augmentin, therefore will trial high-dose Augmentin, azelastine nasal spray as Flonase was not helpful, and she felt dizzy and lightheaded after taking that medication. Advised that should her symptoms not improve after this course of antibiotics she needs to follow-up with her primary care provider or ENT alternatively if they are able to get her in sooner. At this time history and physical exam not consistent with pneumonia. Well-appearing, nontoxic, afebrile, no tachycardia or tachypnea/hypoxia. Speaking clear full sentences, ambulatory with steady gait. Discussed conservative treatment including rest, hydration, Tylenol/ibuprofen as needed for aches, saline nasal spray, humidifier, [id number] cold medications/ antihistamine. Advised to follow-up with primary care provider as needed, discussed reasons to return back to the emergency department. All questions were answered. Patient discharged home in stable condition. MDM - URI/Sore Throat Medical Records Attestation: I reviewed the patient's medical records. Lab Data Attestation: I reviewed the patient's lab results. Discharge Plan Discharge Clinical Impression: Sinusitis, acute maxillary Patient Disposition: Home, Self-Care Instructions: Sinusitis (ED) Additional Instructions: You have been given a new prescription for Augmentin, this is a stronger dosage then your initial course. please complete this entire course. In addition, you have been given a new prescription for a nasal antihistamine spray to trial, you may use this instead of the Flonase. Azelastine 2 sprays to both nostrils once daily. If your symptoms have not improved despite the use of this additional course of antibiotics, you will need to follow-up for further evaluation and treatment. Please contact your primary care provider/ ENT provider to schedule a follow-up visit within 1 week. you may return to the emergency department for any new or worsening symptoms or concerns. Prescriptions: New amoxicillin-pot clavulanate [Augmentin XR] 1,000-62.5 mg tablet extended release 12 hr 2 tab PO BID 5 Days Qty: 20 0RF azelastine 137 mcg (0.1 %) aerosol,spray 2 spray intranasal BID 7 Days Qty: 30 0RF Rx Instructions: administer into each nostril No Action azithromycin 250 mg tablet 250 mg PO DAILY 5 Days Qty: 6 0RF Rx Instructions: Take 2 tabs the first day, then take 1 tab for the next 4 days doxepin 25 mg capsule 50 mg PO DAILY fluticasone propionate [Flonase Allergy Relief] 50 mcg/actuation spray,suspension 1 spray intranasal Q12H 30 Days Qty: 16 0RF Rx Instructions: administer into each nostril amoxicillin-pot clavulanate [Augmentin] 500-125 mg tablet 1 tab PO Q12H 7 Days Qty: 14 0RF clonazepam 1 mg tablet 1 mg PO BEDTIME ibuprofen 800 mg tablet 800 mg PO Q8H Qty: 90 1RF gabapentin 300 mg capsule 300 mg PO DAILY Rx Instructions: TAKE 1 CAPSULE AT MORNING TIME, 2 CAPSULES AT BEDTIME hydroxyzine HCl 25 mg tablet 50 mg PO BEDTIME PRN zolpidem 10 mg tablet 10 mg PO BEDTIME PRN Referrals: Era Yeager MD [Primary Care Provider] - 1 week Interventions: ED Discharge Assessment Last Done: 01/22/22 11:00 Discharge Date/Time: 01/22/22 11:00
== END 2022-01-22 11:00 | disposition home or self-care (01) ==
PROVIDERS: Emergency Provider Emergency Medicine; PCP Internal Medicine
DX: J01.00 Acute maxillary sinusitis, unspecified (principal); Z79.899 Other long term (current) drug therapy
CPT/HCPCS: 99282; 99283

== ENCOUNTER 2022-03-02 14:48 | Outpatient (REF) | payer BC, SELFPAY ==
--- NOTE | ~2022-03-02 | XR_ITS ---
EXAMINATION: XR SINUSES CLINICAL INFORMATION: Recurrent sinusitis COMPARISON: None TECHNIQUE: 3 views of the sinuses were obtained. FINDINGS: There is normal aeration of paranasal sinuses and mastoid air cells. No mucoperiosteal thickening or air-fluid levels seen. The bony sinus miner are normal. The soft tissues are normal. XR/XR sinus <3V IMPRESSION: Unremarkable sinus examination. .
== END 2022-03-02 14:49 | disposition home or self-care (01) ==
LOC: HO.XRAY 14:48
PROVIDERS: PCP Internal Medicine; Visit Provider Otolaryngology
DX: J32.9 Chronic sinusitis, unspecified (principal)
CPT/HCPCS: 70210

== ENCOUNTER 2022-03-21 13:23 | Outpatient (REF) | payer BC, SELFPAY ==
--- NOTE | ~2022-03-21 | US_ITS ---
EXAMINATION: US THYROID CLINICAL INFORMATION: Goiter COMPARISON: 11/24/2010 TECHNIQUE: Linear transducer grayscale and color Doppler examination with attention to the region of the thyroid. FINDINGS: SIZE: Measurements of the thyroid lobes and nodules are given in sagittal, anteroposterior and transverse dimensions respectively. Right Thyroid Lobe: 5.4 x 1.9 x 1.9 cm, volume 10.2 mL. Previously 5.2 x 2.4 x 2.2 cm, volume 14.4 mL. Parenchyma: The gland echotexture is heterogeneous. Thyroid vascularity is increased. Left Thyroid Lobe: 5 x 1.6 x 1.9 cm, volume 7.9 mL. Previously 5.1 x 2 x 2.2 cm, volume 11.7 mL. Parenchyma: The gland echotexture is heterogeneous. Thyroid vascularity is increased. Isthmus: 0.3 cm in maximum AP dimension. Previously 0.4 cm. Estimated total number of nodules greater than or equal to 1 cm: 1. 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 Location: Left mid. Size: 1 x 0.6 x 0.3 cm, volume 0.17 mL. Nodule characteristics: Composition: Solid (2). Echogenicity: Hyperechoic (1). Shape: Not taller than wide (0). Margins: Smooth (0). Echogenic Foci: None (0). ACR TI-RADS total points: 3 ACR TI-RADS category: 3 NODES: No lymphadenopathy is seen in the tissue surrounding the thyroid gland. US/US thyroid IMPRESSION: Mildly enlarged, heterogeneous thyroid with increased vascularity. Correlate with thyroid function. There is a solitary nodule measuring 1 cm in the left lobe identified. Based on the size and appearance, no further follow-up is recommended. ACR TI-RADS RECOMMENDATION REFERENCE: Ultrasound-guided fine-needle aspiration, followup ultrasound, no further follow up. * TR1 (0 point) and TR 2 (2 points): No FNA or follow up. * TR3 (3 points): FNA if more than or equal to 2.5 cm in maximum dimension, followup ultrasound in 1, 3 and 5 years if 1.5 to 2.4 cm in maximum dimension. * TR4 (4-6 points): FNA if more than or equal to 1.5 cm in maximum dimension, followup ultrasound in 1, 2, 3 and 5 years if 1 to 1.4 cm in maximum dimension. * TR5 (more than or equal to 7 points): FNA if more than or equal to 1 cm in maximum dimension, followup ultrasound every year for 5 years if 0.5 to 0.9 cm in maximum dimension. * TR3, TR4 or TR5 nodules that are below the size threshold for followup receive no follow up.
== END 2022-03-21 13:24 | disposition home or self-care (01) ==
LOC: HO.US 13:23
PROVIDERS: Visit Provider Internal Medicine
DX: E04.9 Nontoxic goiter, unspecified (principal)
CPT/HCPCS: 76536

== ENCOUNTER 2022-03-28 09:36 | Outpatient (REF) | payer BC, SELFPAY ==
--- NOTE | ~2022-03-28 | XR_ITS ---
EXAMINATION: XR cervical spine 2V CLINICAL INFORMATION: Pain COMPARISON: None TECHNIQUE: 5 views of the cervical spine were obtained. FINDINGS: The cervical spine is visualized to the level of C7 on the lateral view. Vertebral body alignment is maintained. Vertebral body heights are maintained. Lateral masses of C1 are well aligned on C2. Visualized portion of the dens is intact. Intervertebral disc spaces are preserved. No prevertebral soft tissue swelling. XR/XR cervical spine 2V IMPRESSION: Unremarkable examination.
[2022-03-28 11:21] LABS: Free T4 (Free Thyroxine) 0.96 ng/dL (0.71-1.85); Thyroid Stimulating Hormone 0.81 uIU/mL (0.32-4.0)
== END 2022-03-28 09:37 | disposition home or self-care (01) ==
LOC: HO.LAB 09:36
PROVIDERS: Absent Provider Internal Medicine; PCP Internal Medicine; Visit Provider Internal Medicine Hypertension Specialist
DX: E04.9 Nontoxic goiter, unspecified (principal); M54.2 Cervicalgia
CPT/HCPCS: 36415; 72040; 84439; 84443

== ENCOUNTER 2022-04-25 14:00 | Outpatient (RCR) | payer BC, SELFPAY ==
--- NOTE | 2022-04-07 16:56 | MHC.PT.EP ---
[facility] [place] Office [place] [facility] [place] Office [address] Eloise Fan [address] [phone] F: [phone] F: [phone] F: [phone] F: [phone] Physical Therapy Plan of Care Date of Evaluation: Date of Surgery: NA Diagnosis: cervicalgia Assessment: Pt IS 42 YO F REFERRED TO PT FROM DR HALE WITH CERVICALGIA. Pt REPORTS NO NECK PAIN. REPORTS LONG HX OF MIGRAINES. PRESENTS WITH GOOD CERV AND SHLDER ROM WITHOUT C/O PAIN. MAY HAVE SOME TIGHTNESS HIGH CERV MMS. WILL TRY PT X 2-3 SESSIONS FOR CERV/PEC STRETCH AND UPPER BACK STRENGTHEN TO ASSESS AFFECT ON MIGRAINE Frequency and Duration: The patient will be seen 1X/WK X 3-4 WKS Short Term Goals: 1. INCREASED POSTURE AWARENESS AND AWARENESS NECK CARE 2. I HEP WITH DC EX PLAN Shelter Goals: 1. DECREASED MIGRAINE FREQ 2. DECREASED MIGRAINE INTENSITY Treatment Plan: Modalities to reduce pain, spasms and effusion. Manual therapy to restore motion and function. Therapeutic exercise to improve strength and flexibility. Neuromuscular re-education for posture and balance. Therapeutic activities to return to functional activities of daily living. Electronically signed by: KRISHNA LOPEZ PT Please sign and return to therapist. Thank you for your referral.
--- NOTE | 2022-05-05 10:17 | MHC.PT.DC ---
[facility] [place] Office [place] Office [place] Office [address] Eloise Fan [address] [phone] F: [phone] F: [phone] F: [phone] F: [phone] Physical Therapy Discharge Report Diagnosis: cervicalgia Date of Surgery: NA Date of Evaluation: 04/07/22 Date of Discharge: 05/05/22 Treatments to Date: 3 Cancellations to Date: No Shows to Date: Discharge Status: Patient Elected to Stop Discharge Summary: C SPINE XRAY NEGATIVE. NO RELIEF WITH STRETCHING. REPORTS DIZZY UPON RETURN TO SIT AFTER RELAXATION/BREATHING EXS, TO SEE PCP TOMORROW. Pt TO CALL AFTER FOR CONT (UPPER BACK STRENGTHENING) OR DC. Pt CALLED TO SELF DC. ACCORDING TO PCP NOTE, Pt IS BEING REFERRED TO ENDOCRINOLOGY Electronically signed by: KRISHNA LOPEZ PT Please sign and return to therapist. Thank you for your referral.
== END 2022-05-05 10:17 | disposition home or self-care (01) ==
LOC: HO.PT 14:00
PROVIDERS: PCP Internal Medicine; Visit Provider Psychiatry & Neurology Neurology
DX: M54.2 Cervicalgia (principal)
CPT/HCPCS: 97110; 97140; 97162; 97535

== ENCOUNTER 2022-06-15 14:16 | Outpatient (REF) | payer BC, SELFPAY ==
--- NOTE | 2022-06-15 09:30 | EMG_ITS ---
Right median and ulnar motor and sensory studies were performed. Right radial sensory study was performed. Medial and lateral antecubital sensory studies were performed and needle examination was performed. IMPRESSION: This is an unremarkable study with no evidence of entrapment neuropathy of median or ulnar nerve. MD RANULFO Pride/MAULIK / [id number]
== END 2022-06-15 14:17 | disposition home or self-care (01) ==
LOC: HO.NEURO 14:16
PROVIDERS: Visit Provider Psychiatry & Neurology Neurology
DX: M79.601 Pain in right arm (principal)
CPT/HCPCS: 95886; 95910

== ENCOUNTER → 2022-06-20 13:00 | Outpatient (BNVA) | payer BC, SELFPAY | PROVIDERS: PCP Internal Medicine; Visit Provider Psychiatry & Neurology Neurology | DX: Z13.89 Encounter for screening for other disorder (principal) ==

== ENCOUNTER 2022-07-06 18:22 | Outpatient (REF) | payer BC, SELFPAY ==
--- NOTE | ~2022-07-06 | MR_ITS ---
EXAMINATION: MR BRAIN WITHOUT CONTRAST CLINICAL INFORMATION: Convulsions COMPARISON: MRI of the brain with and without contrast 01/15/2016, CT head without contrast 04/16/2021 TECHNIQUE: Multiplanar multisequence MR imaging of the brain was obtained without intravenous contrast. FINDINGS: There is susceptibility artifact in the right petromastoid region, possibly related to metallic earing demonstrated on CT head from 04/16/2021 and limiting evaluation of the adjacent brain parenchyma. Stable extra-axial calcified mass along the right petrous face measuring up to 2.0 x 1.0 cm in maximal axial dimensions (series 8 image 8), compatible with the meningioma. There is mild mass effect on the right cerebellar hemisphere. There is no acute infarct on diffusion-weighted imaging. There is no intracranial hemorrhage on iron-sensitive imaging. No extra-axial collection or mass effect/herniation. Normal parenchymal signal characteristics. No hydrocephalus. The ventricles are normal in morphology and size. The major flow voids at the skull base are preserved. There is a partially empty sella and tortuosity and mild distention of the optic nerve sheaths, new since MRI of the brain from 01/15/2016 The cerebellar tonsils are normally positioned. The craniocervical junction is normal. Marrow signal is within normal limits. The visualized soft tissues are without significant abnormality. No signal abnormality within the paranasal sinuses or within the mastoid air cells. MR/MR head/brain wo con IMPRESSION: 1. Partially empty sella and tortuosity/distention of the optic nerve sheaths. Recommend clinical correlation for idiopathic intracranial hypertension. 2. Stable appearance of a calcified meningioma along the right petrous face
== END 2022-07-06 18:23 | disposition home or self-care (01) ==
LOC: HO.MRI 18:22
PROVIDERS: Visit Provider Psychiatry & Neurology Neurology
DX: R56.9 Unspecified convulsions (principal); R25.1 Tremor, unspecified
CPT/HCPCS: 70551

== ENCOUNTER → 2022-08-02 12:58 | Outpatient (BNVA) | payer BC, SELFPAY | PROVIDERS: PCP Internal Medicine; Visit Provider Psychiatry & Neurology Neurology | DX: Z13.89 Encounter for screening for other disorder (principal) ==

== ENCOUNTER 2022-09-29 15:11 | Outpatient (REF) | payer BC, SELFPAY ==
--- NOTE | ~2022-09-29 | XR_ITS ---
EXAMINATION: XR WRIST, RIGHT XR HAND, RIGHT CLINICAL INFORMATION: Pain COMPARISON: Previous forearm and wrist x-ray June 2021 TECHNIQUE: PA, lateral, and oblique views of the right wrist and PA, lateral, and oblique views of the right hand FINDINGS: RIGHT WRIST: The bones and soft tissues are normal. No fracture. Alignment is anatomic. Joint spaces are maintained. No erosions or soft tissue calcifications. RIGHT HAND: The bones and soft tissues are normal. No fracture. Alignment is anatomic. Joint spaces are maintained. No erosions or soft tissue calcifications. XR/XR hand wrist RT IMPRESSION: Normal right hand and wrist.
== END 2022-09-29 15:12 | disposition home or self-care (01) ==
LOC: HO.HMGCX 15:11
PROVIDERS: PCP Internal Medicine; Visit Provider Nurse Practitioner Acute Care
DX: M25.531 Pain in right wrist (principal)
CPT/HCPCS: 73110; 73130

== ENCOUNTER 2022-12-01 09:21 | Outpatient (AMB) | payer BC, SELFPAY ==
--- NOTE | 2022-12-01 09:35 | A.OFFVIS_ITS ---
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 Patient reports having ongoing pain for 3 year with her right wrist and her left wrist started to cause her pain about 6 months ago. Pain is on the sides of the wrist also having pain on the dorsal aspect of the wrist and radiates up to mid forearm per patient. Denies numbness and tingling. Allergies hydrocodone [From VICODIN] Allergy (Intermediate, Verified 12/01/22 09:41) GI UPSET propylene glycol [PROPYLENE GLYCOL] Allergy (Intermediate, Verified 12/01/22 09:41) EXTREME BURNING/PAIN/RASH trazodone Allergy (Intermediate, Verified 12/01/22 09:41) Shortness of Breath cobalt Allergy (Verified 12/01/22 09:41) Unknown lamotrigine Adverse Reaction (Intermediate, Verified 12/01/22 09:41) foggy levetiracetam [From Keppra] Adverse Reaction (Intermediate, Verified 12/01/22 09:41) foggy propranolol Adverse Reaction (Intermediate, Verified 12/01/22 09:41) inadequate response acetaminophen [Vicodin] Adverse Reaction (Unknown, Verified 12/01/22 09:41) nausea and vomiting propalyn glycal Allergy (Unknown, Uncoded 10/24/22 14:40) Vomiting Pt states no known allergy to Allergy (Unknown, Uncoded 10/24/22 14:40) headacches ethylene Adverse Reaction (Severe, Uncoded 10/24/22 14:40) Blister diamox Adverse Reaction (Intermediate, Uncoded 10/24/22 14:40) metalic taste, did not feel comfortable HPI 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 The patient reports chronic pain for 3 years, since 2019, in the right wrist. She states the pain in her left wrist has been present for the last 6 months, since 05/2022. She confirms pain on the dorsal aspect of the wrist that radiates up to the mid- forearm. She denies numbness or tingling. 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 Patient is also noted to have resting baseline tremor. PFSH Medical History Anxiety Chronic migraine Hypothyroidism Insomnia PCOS (polycystic ovarian syndrome) Tremors of nervous system Surgical History H/O gastric bypass H/O right knee surgery History of intestinal obstruction History of lumbar puncture History of partial hysterectomy Hx of appendectomy Tubal ligation status Family History Mother No problems noted. 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 Current occupational exposures/hazards: No Cognitive needs: No Hearing needs: No Vision needs: No Review of Systems Const All systems reviewed & are unremarkable except as noted in HPI and below Physical Exam Vital Signs: BMI result Body Mass Index 24.3 Const General: cooperative and no acute distress Orientation/consciousness: patient oriented x3 Resp Effort & Inspection: normal respiratory effort and able to speak in complete sentences Cardio Rate: regular rate Peripheral pulses: Peripheral pulses 2+ throughout GI Palpation (GI): Soft to palpation Skin Lesions: no lesions Rashes: no rashes Neuro General: patient oriented x3 Extrem Other: Right hand: Normal to inspection. No ecchymosis, erythema, or edema. Able to perform full finger flexion, extension, abduction, adduction, finger cross, okay sign, and thumbs up without deficit. Able to make a closed fist. Positive Tamir. Sensation intact. Capillary refill is brisk. Radial pulse intact. Psych Mental Status: mental status grossly normal Assessment & Plan Assessment & Plan (1) De Quervain's tenosynovitis, right: Code(s): M65.4 - Radial styloid tenosynovitis [de Quervain] (2) De Quervain's tenosynovitis, left: Code(s): M65.4 - Radial styloid tenosynovitis [de Quervain] Plan Ms. Baez is a 42-year-old right hand dominant female who presents in the office today, as a new patient, for an evaluation of bilateral hand pain. The patient reports chronic pain for 3 years, since 2019, in the right wrist. She states the pain in her left wrist has been present for the last 6 months, since 05/2022. She confirms pain on the dorsal aspect of the wrist that radiates up to the mid- forearm. She denies numbness or tingling. The patient reports a history of cortisone injections with reported adverse reaction of burning. She has also tried immobilization with no relief. She will follow up with Dr. Carpio for further evaluation and treatment of De Quervain?s tenosynovitis bilaterally. Follow up will be with Dr. Carpio for her next available appointment, or sooner if needed. EMG of the right upper upper extremity, obtained on 06/15/2022, revealed: This is an unremarkable study with no evidence of entrapment neuropathy of median or ulnar nerve. X-rays of the right hand, obtained on 09/29/2022, revealed: Normal right hand and wrist. Patient Instructions: Scribed for Abigail Pham PA-C by Nora Combs biomedical equipment technician, on 12/01/2022 at 9:27 am, EST. Your attestation Coding Level of Care Code Est Pt Level 3 (50397) Diagnoses De Quervain's tenosynovitis, right M65.4 De Quervain's tenosynovitis, left M65.4
[2022-12-01 09:36] VITALS: BMI 24.3
== END 2022-12-01 10:14 | disposition home or self-care (01) ==
PROVIDERS: PCP Internal Medicine; Visit Provider Physician Assistant
DX: M65.4 Radial styloid tenosynovitis [de Quervain] (principal)
CPT/HCPCS: 99213

== ENCOUNTER → 2022-12-01 09:21 | Outpatient (BNVA) | payer BC, SELFPAY | PROVIDERS: PCP Internal Medicine; Visit Provider Physician Assistant ==

== ENCOUNTER 2022-12-20 14:23 | Outpatient (AMB) | payer BC, SELFPAY ==
--- NOTE | 2022-12-20 14:54 | A.OFFVIS_ITS ---
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 Right is currently worse. She has history of cortisone injections with reported adverse reaction of burning. She has also tried immobilization with no relief. Seen with Sara Judd who wants patient to be for further evaluated and treated for De Quervain?s tenosynovitis bilaterally. Allergies hydrocodone [From VICODIN] Allergy (Intermediate, Verified 12/20/22 15:00) GI UPSET propylene glycol [PROPYLENE GLYCOL] Allergy (Intermediate, Verified 12/20/22 15:00) EXTREME BURNING/PAIN/RASH trazodone Allergy (Intermediate, Verified 12/20/22 15:00) Shortness of Breath cobalt Allergy (Verified 12/20/22 15:00) Unknown lamotrigine Adverse Reaction (Intermediate, Verified 12/20/22 15:00) foggy levetiracetam [From Keppra] Adverse Reaction (Intermediate, Verified 12/20/22 15:00) foggy propranolol Adverse Reaction (Intermediate, Verified 12/20/22 15:00) inadequate response acetaminophen [Vicodin] Adverse Reaction (Unknown, Verified 12/20/22 15:00) nausea and vomiting propalyn glycal Allergy (Unknown, Uncoded 12/20/22 15:00) Vomiting Pt states no known allergy to Allergy (Unknown, Uncoded 12/20/22 15:00) headacches ethylene Adverse Reaction (Severe, Uncoded 12/20/22 15:00) Blister diamox Adverse Reaction (Intermediate, Uncoded 12/20/22 15:00) metalic taste, did not feel comfortable HPI OV-B/L hand pain HPI Details Nakita is a 42 year old right hand dominant woman who presents to discuss her bilateral De Quervains'. She has been seen multiple times in the past for right De Quervains', beginning with me on 10/20/20. She declined an injection and was given a brace at that time. She was seen by MASOUD Judd on 12/31/20 and received an injection. She was seen by MASOUD Hayes on 07/19/21 for arm pain, and said the injection caused an extreme burning sensation afterwards. She was seen again by MASOUD Hayes on 12/01/22 for right De Quervains', and newer left De Quervains'. She presents today saying her pain is worsening, and her right side is parti cularly painful. She had no relief from injections or bracing in the past, and evidently had significant pain for a few days after the injection she received on 12/31/2020 She has worse pain with pinching and gripping activities. 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 She says she had some bad reactions to steroids at other times, but did not give more details. She reports having an allergy to both propylene glycol & ethylene glycol, causing severe burning and and a rash. 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 She has a Hx of Janna's disease. She has an upcoming Thyroidectomy sometime in February [facility] Medical History Anxiety Chronic migraine Hypothyroidism Insomnia PCOS (polycystic ovarian syndrome) Tremors of nervous system Surgical History H/O gastric bypass H/O right knee surgery History of intestinal obstruction History of lumbar puncture History of partial hysterectomy Hx of appendectomy Tubal ligation status Family History Mother No problems noted. 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 Current occupational exposures/hazards: No Cognitive needs: No Hearing needs: No Vision needs: No Review of Systems Const All systems reviewed & are unremarkable except as noted in HPI and below Physical Exam Vital Signs: BMI result Body Mass Index 24.3 Const General: cooperative, healthy appearing and no acute distress Orientation/consciousness: patient oriented x3 HEENT Head: Yes normocephalic and Yes atraumatic Eyes EOM: EOMs intact bilaterally Resp Effort & Inspection: normal respiratory effort and able to speak in complete sentences Cardio Jugular venous distension: no JVD Skin General skin exam: turgor normal Rashes: no rashes Neuro General: patient oriented x3 Extrem Other: Evaluation of right Upper Extremity: The patient is alert, oriented, and in no acute distress Neuro: Median, Ulnar, Radial nerves motor and sensory intact and sensation is normal to the tips of all digits No thenar or intrinsic wasting Good APB muscle belly firing and good finger cross Vascular: Cap refill brisk ROM: She can make a fist and extend all her digits No locking or catching Skin: No lacerations or abrasions. General: No Ecchymosis. No Erythema or evidence of infection. Tender over the right 1st dorsal compartment Positive Tamir test No appreciable swelling of the 1st dorsal compartment. No tenderness over the intersection of the 2nd and 3rd dorsal compartments No tenderness over the basal joint No tenderness over the MCP joint No tenderness over the a1 renny Nerve Conduction Study: IMPRESSION: This is an unremarkable study with no evidence of entrapment neuropathy of median or ulnar nerve. Nelia Brenner MD 06/15/2022 Psych Appearance: grossly normal Affect: normal affect Attitude: cooperative Assessment & Plan Assessment & Plan (1) De Quervain's tenosynovitis, right: Code(s): M65.4 - Radial styloid tenosynovitis [de Quervain] (2) De Quervain's tenosynovitis, left: Code(s): M65.4 - Radial styloid tenosynovitis [de Quervain] Plan Assessment & Plan: 1. Right De Quervain's Tenosynovitis, S/P injection by MASOUD Judd Date of injection: 12/31/20, patient reports burning pain and erythema for several days following injection, with no relief Positive Tamir test I educated her about this condition I discussed operative and non-operative treatment options The patient would like to proceed with surgery The risks and benefits of operative treatment were discussed with the patient and the patient wishes to proceed with surgery. These risks include, but are not limited to risk of damage to blood vessels, nerves, tendons, infection, recurrence, incomplete relief of preoperative symptoms, persistent pain, possible need for further surgery and the risks associated with regional blocks and anesthesia. The plan is to take the patient to the operating room sometime on 12/25/22 for the following procedure: 1. Right 1st dorsal compartment release, under general All of the preoperative paperwork including the consent was filled out today. All the patient's questions were answered. The patient understands that they will be contacted by our java systems analyst soon to schedule this procedure She has anxiety and for this reason does not want to have the procedure done under local. She denies Diabetes, blood thinners, asthma, heart, lung, kidney issues She reports having an allergy to both propylene glycol & ethylene glycol which she says is in [id number] lidocaine products. This is listed in her allergies. Scribed for Rachele Heart MD by Leonardo Gonzales, medical genetics director, on 12/20/22 at 3:15 PM, EST. Coding Level of Care Code Est Pt Level 4 (17592) Diagnoses De Quervain's tenosynovitis, right M65.4 De Quervain's tenosynovitis, left M65.4
[2022-12-20 14:56] VITALS: BMI 24.3
== END 2022-12-20 15:54 | disposition home or self-care (01) ==
PROVIDERS: PCP Internal Medicine; Visit Provider Orthopaedic Surgery
DX: M65.4 Radial styloid tenosynovitis [de Quervain] (principal)
CPT/HCPCS: 99214

== ENCOUNTER → 2022-12-20 14:23 | Outpatient (BNVA) | payer BC, SELFPAY | PROVIDERS: PCP Internal Medicine; Visit Provider Orthopaedic Surgery ==

== ENCOUNTER 2022-12-25 06:57 | Day surgery (SDC) | payer BC, SELFPAY ==
[2022-12-25] VITALS (11 sets, daily range): BP systolic 109–124; BP diastolic 51–83; PULSE 65–88; RESP 15–20; TEMP 36.7–36.9; O2SAT 95–98; BMI 23.8
[2022-12-25] MEDS: Lactated Ringers 1,000 ML 100 ML IVCONT (07:45)
--- NOTE | 2022-12-25 08:06 | MHC.SHP ---
Pre-Procedural Eval Section A Date of Service: 12/25/22 The patient is an INPATIENT: No Changes since office visit: No Cold of Flu in the past 2 weeks, No New Medical Problems, No Changes in Medication and No Patient answered all questions The History & Physical has been completed within 30 days and I have reviewed it.: Yes Section B Chief Complaint: Radial styloid tenosynovitis [de Quervain] Allergies: Allergies Allergy/AdvReac Type Severity Reaction Status Date / Time hydrocodone [From VICODIN] Allergy Intermediate GI UPSET Verified 12/25/22 07:30 propylene glycol Allergy Intermediate EXTREME Verified 12/25/22 07:30 [PROPYLENE GLYCOL] BURNING/PAIN/RASH trazodone Allergy Intermediate Shortness Verified 12/25/22 07:30 of Breath cobalt Allergy Unknown Verified 12/25/22 07:30 lamotrigine AdvReac Intermediate foggy Verified 12/25/22 07:30 levetiracetam [From Keppra] AdvReac Intermediate foggy Verified 12/25/22 07:30 propranolol AdvReac Intermediate inadequate Verified 12/25/22 07:30 response acetaminophen [Vicodin] AdvReac Unknown nausea and Verified 12/25/22 07:30 vomiting propalyn glycal Allergy Unknown Vomiting Uncoded 12/20/22 15:00 Pt states no known allergy to Allergy Unknown headacches Uncoded 12/20/22 15:00 ethylene AdvReac Severe Blister Uncoded 12/20/22 15:00 diamox AdvReac Intermediate metalic Uncoded 12/20/22 15:00 taste, did not feel comfortable Plan I have reviewed the history and physical and performed a pertinent physical examination on my patient. No changes have occurred unless specified. Time Spent With Patient Time: Total time managing care of this patient today ____ minutes.
--- NOTE | 2022-12-25 08:06 | W.PM.OPN ---
Operative Note Operative Note Date of Service: 12/25/22 Narrative: Operative Note Preop diagnosis: 1. Right DeQuervain's tenosynovitis Postop diagnosis: 1. Right DeQuervain's tenosynovitis Procedure: 1. Right 1st dorsal compartment release Surgeon: Rachele Heart MD Anesthesia: general Findings: Only very mildly thickened 1st dorsal compartment. No visible inflammation about the tendons. The tendons were in good condition. The EPB tendon which was partially in its own compartment and this was also released longitudinally under direct visualization. As she also complained of pain radiating in the direction of the mild tendinous junction I also evaluated the intersection between the 1st dorsal compartment and the 2nd dorsal compartment. There was no tightness in this area and no evidence of inflammation or irritation in this area. EBL: Less than 5 mL Tourniquet time: 16 minutes Specimens: None Complications: None Disposition: Brought to recovery room in stable condition Plan: Follow-up for 7-10 days for wound check and suture removal Indications: The patient is 42 years old, with right DeQuervain's tenosynovitis that has been unresponsive to nonoperative management. she also had anxiety about having the procedure done under local anesthesia. The risks and benefits of operative treatment including but not limited to risk of damage to blood vessels, nerves, tendons, infection, persistent pain, persistent symptoms, recurrence or possible need for additional surgery were discussed with the patient and the patient wishes to proceed with surgery. Procedure: Once consent was obtained The patient was brought back to the operating suite and placed on the operating table in the supine position. Anesthesia was performed by the anesthesia team. A tourniquet was applied to the proximal aspect of the Rightupper extremity and the limb was prepped and draped in a standard surgical fashion. the limb was elevated and exsanguinated with an Esmarch bandage and the tourniquet inflated for a total tourniquet time of 16 minutes. A 2 cm longitudinal incision was made centered over the 1st dorsal compartment as it passed over the radial styloid of the right wrist. The incision was made through the skin to the subcutaneous tissues using a #15 blade. Careful dissection was made down to the level of the 1st dorsal compartment using tenotomy scissors, with care being taken to protect the nearby branches of the superficial radial nerve. Once the 1st dorsal compartment was exposed, A longitudinal incision was made in the 1st dorsal compartment 1st using a #15 blade, then using tenotomy scissors under direct visualization. The 1st dorsal compartment was noted to be only very mildly thickened. Tendons were in good condition. The EPB tendon was partially in its own compartment and this was also released longitudinally under direct visualization.. Following our release, we saw smooth gliding abductor pollicis longus and extensor pollicis brevis tendons. The myotendinous junction also appeared to be in good condition. I then evaluated the intersection between the 1st dorsal compartment and the underlying tendons of the 2nd dorsal compartment. I did not see any evidence of tightness I did not see any evidence of inflammation or other problems in this area. Once satisfied with our 1st dorsal compartment release the wound was copiously irrigated with normal saline . The tourniquet was deflatedand hemostasis was obtained with a brief period of local pressure. The subcutaneous layer was closed with some 4-0 Vicryl suture, and the skin edges were reapproximated with some 5.0 nylon suture material. A sterile dressing was applied. The patient appears to have tolerated the procedure well and with no complications. All digits were well vascularized at the conclusion of the case.
--- NOTE | 2022-12-25 09:04 | P.CONAN_ITS ---
[facility] Active Problems Active Problems: All Active Problems (Updated 12/01/22 @ 10:17 by Nora Combs) De Quervain's tenosynovitis, left (Acute) Chronic idiopathic constipation (Acute) Bilateral hand pain (Acute) Pseudotumor cerebri (Acute) Pseudotumor cerebri (Acute) Anxiety (Acute) Insomnia (Acute) Cervicalgia (Acute) Pain of right upper extremity (Acute) Chronic migraine with aura (Acute) Tremors of nervous system (Acute) Impacted cerumen of both ears (Acute) Acute sinusitis (Acute) Acute right otitis media (Acute) B12 deficiency (Acute) Goiter (Acute) Seizures (Acute) Janna's thyroiditis (Acute) Physical exam (Acute) Contusion of right forearm (Acute) Right elbow pain (Acute) Right wrist pain (Acute) Right arm pain (Acute) Fall from slipping on ice (Acute) Sinus infection (Acute) De Quervain's tenosynovitis, right (Acute) Right wrist tendinitis (Acute) Pain in joint of right wrist (Acute) Past Medical History Medical History Anxiety Chronic migraine Hypothyroidism Insomnia PCOS (polycystic ovarian syndrome) Tremors of nervous system Family History Family History Mother No problems noted. Father Degenerative disc disease, lumbar Maternal Grandmother Tremors of nervous system Chronic headaches Family history of problems with anesthesia: No Surgical History Surgical History H/O gastric bypass H/O right knee surgery History of intestinal obstruction History of lumbar puncture History of partial hysterectomy Hx of appendectomy Tubal ligation status History of Problems with Anesthesia: No Social History Social History Housing: House Alcohol intake: current Alcohol intake frequency: holidays/special occasions only Patient Tobacco Use Status: Never used Tobacco e-Cigarette/Vaping Use: Never Used Second Hand Smoke Exposure: No Use of substances other than those prescribed or required for medical reasons: No Are you DNR?: No Advance Directives: No Advance Directives Information Provided: Yes service: No Current occupational status: employed 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 Current occupational exposures/hazards: No Cognitive needs: No Hearing needs: No Vision needs: No Meds Allergies Allergy/AdvReac Type Severity Reaction Status Date / Time hydrocodone [From VICODIN] Allergy Intermediate GI UPSET Verified 12/25/22 07:30 propylene glycol Allergy Intermediate EXTREME Verified 12/25/22 07:30 [PROPYLENE GLYCOL] BURNING/PAIN/RASH trazodone Allergy Intermediate Shortness Verified 12/25/22 07:30 of Breath cobalt Allergy Unknown Verified 12/25/22 07:30 lamotrigine AdvReac Intermediate foggy Verified 12/25/22 07:30 levetiracetam [From Keppra] AdvReac Intermediate foggy Verified 12/25/22 07:30 propranolol AdvReac Intermediate inadequate Verified 12/25/22 07:30 response acetaminophen [Vicodin] AdvReac Unknown nausea and Verified 12/25/22 07:30 vomiting propalyn glycal Allergy Unknown Vomiting Uncoded 12/20/22 15:00 Pt states no known allergy to Allergy Unknown headacches Uncoded 12/20/22 15:00 ethylene AdvReac Severe Blister Uncoded 12/20/22 15:00 diamox AdvReac Intermediate metalic Uncoded 12/20/22 15:00 taste, did not feel comfortable Active Medications: Current Medications Fentanyl (Fentanyl Citrate/Pf 100 Mcg/2 Ml Vial) 25 mcg IVPUSH Q5M PRN; Protocol PRN Reason: Pain, Moderate(Pain Scale 4-6) Lactated Ringer's (Lr) 1,000 mls @ 100 mls/hr IVCONT .Q10H KIMBERLI Ondansetron HCl (Ondansetron Hcl 4 Mg/2 Ml Vial) 4 mg IVPUSH ONCE PRN PRN Reason: Nausea and Vomiting Oxycodone HCl (Oxycodone Hcl Immed Release 5 Mg Tablet) 5 mg PO ONCE PRN PRN Reason: Pain, Severe (Pain Scale 7-10) Home Medications Medication Instructions Recorded Confirmed Last Taken Type hydroxyzine HCl 25 mg tablet 50 mg PO BEDTIME PRN Insomnia 10/20/20 12/25/22 Unknown History doxepin 25 mg capsule 50 mg PO DAILY 02/07/21 12/25/22 Unknown History bisacodyl 5 mg tablet 5 mg PO DAILY 03/28/22 12/25/22 Unknown History cholecalciferol (vitamin D3) 25 25 mcg PO DAILY 03/28/22 12/25/22 Unknown History mcg (1,000 unit) capsule magnesium 200 mg tablet 200 mg PO DAILY 03/28/22 12/25/22 Unknown History riboflavin (vitamin B2) 100 mg 100 mg PO DAILY 03/28/22 12/25/22 Unknown History tablet thiamine HCl (vitamin B1) 100 mg 100 mg PO DAILY 03/28/22 12/25/22 Unknown Hi story tablet vitamin B complex (B 1 tab PO DAILY 03/28/22 12/25/22 Unknown History Complex-Vitamin B12 tablet) Exam Exam Date and Time: December 25, 2022 0904 Height,Weight and Vital Signs: Height 5 ft 2 in Weight 58.967 kg Last Vital Signs Temp 98.0 F 12/25/22 08:06 Pulse 65 12/25/22 08:06 Resp 15 12/25/22 08:06 BP 124/62 12/25/22 08:06 Pulse Ox 98 12/25/22 08:06 O2 Del Method Room Air 12/25/22 08:06 Airway Mallampati Class: I TM Dist: >3cm Neck ROM: Full Loose/Missing/Broken Teeth: No Heart: rrr Lungs: lear Assessment and Plan Final Anesthetic Review Family History of Problems with Anesthesia: No History of Problems with Anesthesia: No NPO: Yes ASA Class: II Final Preanesthetic Review: No Changes in Pt Med Stat, Meds/Allgs Chart Reviewed, Consent Obtained/Reviewed and Anes Risks/Benef Reviewed Patient Risk: Low Procedure Risk: Low Anesthetic Plan Anesthetic Plan: GA Disposition: Standard PACU
[2022-12-25] MEDS: oxyCODONE HCl Immed Release 5 MG TABLET PO (10:26)
[2022-12-25] MEDS: fentaNYL citrate/PF 100 MCG/2 ML VIAL 25 MCG IVPUSH ×4 (10:52→11:07)
== END 2022-12-25 11:50 | disposition home or self-care (01) ==
PROVIDERS: PCP Internal Medicine; Visit Provider Orthopaedic Surgery
PROC: (CPT 25000; principal; 2022-12-25 08:40)
DX: M65.4 Radial styloid tenosynovitis [de Quervain] (principal); M79.641 Pain in right hand; E03.9 Hypothyroidism, unspecified; R25.1 Tremor, unspecified; F41.1 Generalized anxiety disorder; Z88.8 Allergy status to other drugs, medicaments and biological substances; Z98.84 Bariatric surgery status; Z98.890 Other specified postprocedural states
CPT/HCPCS: 25000; J0171; J1100; J2250; J2405; J2795; J3010

== ENCOUNTER → 2022-12-25 06:57 | Outpatient (BNV) | payer BC, SELFPAY | PROVIDERS: PCP Internal Medicine; Visit Provider Orthopaedic Surgery | DX: M65.4 Radial styloid tenosynovitis [de Quervain] (principal) | CPT/HCPCS: 25000 ==

== ENCOUNTER 2023-01-04 11:53 | Outpatient (AMB) | payer BC, SELFPAY ==
--- NOTE | 2023-01-04 12:16 | MHC.OFFVIS ---
Intake Intake Visit Reasons: PO- RT DC release 12/25/22 AR Intake Note: Nakita is a 42 year old right hand dominant female who presents today for a post op appointment s/p right DC release, 12/25/22 AR. Patient is doing well and reports no concerns. Allergies hydrocodone [From VICODIN] Allergy (Intermediate, Verified 01/04/23 12:16) GI UPSET propylene glycol [PROPYLENE GLYCOL] Allergy (Intermediate, Verified 01/04/23 12:16) EXTREME BURNING/PAIN/RASH trazodone Allergy (Intermediate, Verified 01/04/23 12:16) Shortness of Breath cobalt Allergy (Verified 01/04/23 12:16) Unknown lamotrigine Adverse Reaction (Intermediate, Verified 01/04/23 12:16) foggy levetiracetam [From Keppra] Adverse Reaction (Intermediate, Verified 01/04/23 12:16) foggy propranolol Adverse Reaction (Intermediate, Verified 01/04/23 12:16) inadequate response acetaminophen [Vicodin] Adverse Reaction (Unknown, Verified 01/04/23 12:16) nausea and vomiting propalyn glycal Allergy (Unknown, Uncoded 12/20/22 15:00) Vomiting Pt states no known allergy to Allergy (Unknown, Uncoded 12/20/22 15:00) headacches ethylene Adverse Reaction (Severe, Uncoded 12/20/22 15:00) Blister diamox Adverse Reaction (Intermediate, Uncoded 12/20/22 15:00) metalic taste, did not feel comfortable HPI PO- RT DC release 12/25/22 AR HPI Details 42-year-old right hand dominant female who presents in the office today 10 days status post right 1st dorsal compartment release, which was performed on 12/25/[address] Heart. The patient reports doing well and reports no concerns. [facility] Medical History Anxiety Chronic migraine Hypothyroidism Insomnia PCOS (polycystic ovarian syndrome) Tremors of nervous system Surgical History (Updated 01/04/23 @ 12:23 by Sunday Chao CMA) H/O gastric bypass H/O right knee surgery History of intestinal obstruction History of lumbar puncture History of partial hysterectomy Hx of appendectomy Hx of hand surgery (12/25/22) Tubal ligation status Family History Mother No problems noted. 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 Sutures intact. No surrounding erythema or drainage. No signs of infection. Able to perform thumb repositioning and opposition with difficulty. Slight stiffness with ROM. Capillary refill is brisk. Sensation intact. Assessment & Plan Assessment & Plan (1) De Quervain's tenosynovitis, right: Code(s): M65.4 - Radial styloid tenosynovitis [de Quervain] (2) De Quervain's tenosynovitis, left: Code(s): M65.4 - Radial styloid tenosynovitis [de Quervain] Plan Ms. Baez is a 42-year-old right hand dominant female who presents in the office today 10 days status post right 1st dorsal compartment release, which was performed on 12/25/[address] Heart. The patient reports doing well and reports no concerns. The patient will be referred to occupational therapy. She will follow up in 2-3 weeks for a ROM check, or sooner if needed. Orders: Orders OT Evaluation and Treatment Today M65.4 - Radial styloid tenosynovitis [de Quervain] Patient Instructions: Scribed for Abigail Pham PA-C by Nora Rodeen, medical receptionist medical assistant, on 01/04/2023 at 11:56 am, EST. Coding Level of Care Code Global (71165) Diagnoses De Quervain's tenosynovitis, right M65.4 De Quervain's tenosynovitis, left M65.4
== END 2023-01-04 13:01 | disposition home or self-care (01) ==
PROVIDERS: PCP Internal Medicine; Visit Provider Physician Assistant
DX: M65.4 Radial styloid tenosynovitis [de Quervain] (principal)
CPT/HCPCS: 99024

== ENCOUNTER → 2023-01-04 11:53 | Outpatient (BNVA) | payer BC, SELFPAY | PROVIDERS: PCP Internal Medicine; Visit Provider Physician Assistant ==

== ENCOUNTER 2023-01-09 15:23 | Outpatient (AMB) | payer BC, SELFPAY ==
--- NOTE | 2023-01-09 15:32 | MHC.PC.OV ---
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 Accompanied by: Self / Same As Patient Allergies hydrocodone [From VICODIN] Allergy (Intermediate, Verified 01/09/23 15:50) GI UPSET propylene glycol [PROPYLENE GLYCOL] Allergy (Intermediate, Verified 01/09/23 15:50) EXTREME BURNING/PAIN/RASH trazodone Allergy (Intermediate, Verified 01/09/23 15:50) Shortness of Breath cobalt Allergy (Verified 01/09/23 15:50) Unknown lamotrigine Adverse Reaction (Intermediate, Verified 01/09/23 15:50) foggy levetiracetam [From Keppra] Adverse Reaction (Intermediate, Verified 01/09/23 15:50) foggy propranolol Adverse Reaction (Intermediate, Verified 01/09/23 15:50) inadequate response acetaminophen [Vicodin] Adverse Reaction (Unknown, Verified 01/09/23 15:50) nausea and vomiting propalyn glycal Allergy (Unknown, Uncoded 01/09/23 15:50) Vomiting Pt states no known allergy to Allergy (Unknown, Uncoded 01/09/23 15:50) headacches ethylene Adverse Reaction (Severe, Uncoded 01/09/23 15:50) Blister diamox Adverse Reaction (Intermediate, Uncoded 01/09/23 15:50) metalic taste, did not feel comfortable Medication List - Last Reconciled 01/09/23 by Era Ham MD bisacodyl 5 mg PO DAILY calcium citrate-vitamin D3 500-200 mg-unit tabs PO cholecalciferol (vitamin D3) 25 mcg PO DAILY doxepin 50 mg PO DAILY gabapentin 300 mg PO Q8H 30 days hydroxyzine HCl 50 mg PO BEDTIME PRN lactulose 15 mL PO BID PRN 30 days magnesium 200 mg PO DAILY riboflavin (vitamin B2) 100 mg PO DAILY thiamine HCl (vitamin B1) 100 mg PO DAILY vitamin B complex (B Complex-Vitamin B12 tablet) 1 tab PO DAILY Tobacco use date assessed: 10/24/22 Dental Screening Dental Screen Date: 01/09/23 Did you have a dental visit in the last 12 months?: Yes Did you have a dental problem in the last 6 months where you did not have access to dental care?: No Was dental information given to patient?: Patient has dentist HPI HPI Comments History of Present Illness Details This is a 42-year-old female that comes for her physical exam. No need for Pap smears due to hysterectomy. Has goiter with symptoms and was evaluated by surgeon Dr. Peace will do thyroidectomy in February. No chest pain or shortness of breath. No fever or cough. Declines mammogram. [facility] Medical History Anxiety Chronic migraine Hypothyroidism Insomnia PCOS (polycystic ovarian syndrome) Tremors of nervous system Surgical History H/O gastric bypass H/O right knee surgery History of intestinal obstruction History of lumbar puncture History of partial hysterectomy Hx of appendectomy Hx of hand surgery (12/25/22) Tubal ligation status Family History Mother No problems noted. 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 Dileep Davidson, Carissa Martini, Julian Rivera and colleagues, with an educational terell from [employer]. Review of Systems Const All systems reviewed & are unremarkable except as noted in HPI and below Eyes Reports no additional complaints, Denies change in vision and Denies other visual disturbances Card Denies chest pain at rest, Denies chest pain with activity, Denies edema, Denies irregular heart rhythm, Denies claudication, Denies dyspnea, Denies dyspnea on exertion, Denies orthopnea, Denies paroxysmal nocturnal dyspnea and Denies slow heart rate Resp Denies cough, Denies dyspnea and Denies dyspnea on exertion GI Denies abdominal pain, Denies change in bowel habits, Denies excessive flatus, Denies nausea and Denies vomiting Denies urinary incontinence, Denies urinary hesitancy and Denies urinary urgency Musc Denies abnormal gait, Denies atrophy, Denies deformity and Denies limited range of motion Skin/Breast Denies bleeding lesions, Denies changing lesions and Denies rash Neuro Denies abnormal gait and Denies lack of coordination Physical exam (Primary Care) Vital Signs: Last Vital Signs BP 110/68 01/09/23 15:33 BMI result Body Mass Index 22.1 Tobacco/Smoking Status: Tobacco use Status Tobacco use date assessed 10/24/22 01/09/23 15:38 Patient Tobacco Use Status Never used Tobacco 01/09/23 15:38 e-Cigarette/Vaping Use Never Used 01/09/23 15:38 Thrive Assessment: Date of Thrive Assessment Date Thrive assessed 10/24/22 01/09/23 15:38 Const Orientation/consciousness: patient oriented x3 HENMT Head: Yes normal to inspection, Yes normocephalic and Yes atraumatic Ears: external ears normal Eyes General: appearance normal, both eyes and all related structures Eyelids: Yes eyelids normal Conjunctivae: conjunctivae normal Neck Thyroid: diffusely enlarged Resp Effort & Inspection: normal respiratory effort Auscultation: clear to auscultation bilaterally Cardio Jugular venous distension: no JVD Rate: regular rate Rhythm: regular rhythm Heart sounds: S1 normal heart sound present and S2 normal heart sound present GI Inspection: Yes normal to inspection Palpation (GI): Soft to palpation and nontender Auscultation: normal bowel sounds Skin General skin exam: no rashes or lesions noted Neuro General: patient oriented x3 and no focal motor deficits Extrem General: Yes full ROM Psych Appearance: grossly normal Assessment and Plan Assessment & Plan (1) Physical exam: Code(s): Z00.00 - Encounter for general adult medical examination without abnormal findings Plan: Repeat in a year Orders: Orders Comprehensive [place]. Panel Fast Today G43.109 - Migraine with aura, not intractable, without status migrainosus Lipid Panel Today Z00.00 - Encounter for general adult medical examination without abnormal findings Vitamin B12 and Folate Today E53.8 - Deficiency of other specified B group vitamins Thyroid Stimulating Hormone 2 Months E06.3 - Autoimmune thyroiditis Vitamin D 25-OH Total Today E55.9 - Vitamin D deficiency, unspecified Referrals General Surgery Referral E04.9 - Nontoxic goiter, unspecified Endocrinology Referral E04.9 - Nontoxic goiter, unspecified, E06.3 - Autoimmune thyroiditis Coding Level of Care Code Est Pt Prev Care 40-64y(30420) Diagnoses Physical exam Z00.00 Time Spent (min) 32
[2023-01-09 15:33] VITALS: BP 110/68; BMI 22.1
== END 2023-01-09 16:09 | disposition home or self-care (01) ==
PROVIDERS: PCP Internal Medicine; Visit Provider Internal Medicine
DX: Z00.00 Encounter for general adult medical examination without abnormal findings (principal)
CPT/HCPCS: 99396

== ENCOUNTER 2023-01-16 13:20 | Outpatient (AMB) | payer BC, SELFPAY ==
--- NOTE | 2023-01-16 13:22 | MHC.OFFVIS ---
Intake Intake Visit Reasons: PO- RT DC release 12/25/22 AR ROM Check Intake Note: Nakita is a 42 year old right hand dominant female who presents today for a ROM check s/p right DC release, 12/25/22 AR. Patient reports still having constant pain. She states that her ROM is still limited. Patient reports that her OT session was yesterday and it was cancelled. Allergies hydrocodone [From VICODIN] Allergy (Intermediate, Verified 01/16/23 13:23) GI UPSET propylene glycol [PROPYLENE GLYCOL] Allergy (Intermediate, Verified 01/16/23 13:23) EXTREME BURNING/PAIN/RASH trazodone Allergy (Intermediate, Verified 01/16/23 13:23) Shortness of Breath cobalt Allergy (Verified 01/16/23 13:23) Unknown lamotrigine Adverse Reaction (Intermediate, Verified 01/16/23 13:23) foggy levetiracetam [From Keppra] Adverse Reaction (Intermediate, Verified 01/16/23 13:23) foggy propranolol Adverse Reaction (Intermediate, Verified 01/16/23 13:23) inadequate response acetaminophen [Vicodin] Adverse Reaction (Unknown, Verified 01/16/23 13:23) nausea and vomiting propalyn glycal Allergy (Unknown, Uncoded 01/16/23 13:23) Vomiting Pt states no known allergy to Allergy (Unknown, Uncoded 01/16/23 13:23) headacches ethylene Adverse Reaction (Severe, Uncoded 01/16/23 13:23) Blister diamox Adverse Reaction (Intermediate, Uncoded 01/16/23 13:23) metalic taste, did not feel comfortable [facility] Medical History Anxiety Chronic migraine Hypothyroidism Insomnia PCOS (polycystic ovarian syndrome) Tremors of nervous system Surgical History H/O gastric bypass H/O right knee surgery History of intestinal obstruction History of lumbar puncture History of partial hysterectomy Hx of appendectomy Hx of hand surgery (12/25/22) Tubal ligation status Family History Mother No problems noted. 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
--- NOTE | 2023-01-16 13:22 | MHC.OFFVIS ---
Intake Intake Visit Reasons: PO- RT DC release 12/25/22 AR ROM Check Intake Note: Nakita is a 42 year old right hand dominant female who presents today for a ROM check s/p right DC release, 12/25/22 AR. Patient reports - . Allergies hydrocodone [From VICODIN] Allergy (Intermediate, Verified 01/16/23 13:23) GI UPSET propylene glycol [PROPYLENE GLYCOL] Allergy (Intermediate, Verified 01/16/23 13:23) EXTREME BURNING/PAIN/RASH trazodone Allergy (Intermediate, Verified 01/16/23 13:23) Shortness of Breath cobalt Allergy (Verified 01/16/23 13:23) Unknown lamotrigine Adverse Reaction (Intermediate, Verified 01/16/23 13:23) foggy levetiracetam [From Keppra] Adverse Reaction (Intermediate, Verified 01/16/23 13:23) foggy propranolol Adverse Reaction (Intermediate, Verified 01/16/23 13:23) inadequate response acetaminophen [Vicodin] Adverse Reaction (Unknown, Verified 01/16/23 13:23) nausea and vomiting propalyn glycal Allergy (Unknown, Uncoded 01/16/23 13:23) Vomiting Pt states no known allergy to Allergy (Unknown, Uncoded 01/16/23 13:23) headacches ethylene Adverse Reaction (Severe, Uncoded 01/16/23 13:23) Blister diamox Adverse Reaction (Intermediate, Uncoded 01/16/23 13:23) metalic taste, did not feel comfortable HPI PO- RT DC release 12/25/22 AR ROM Check HPI Details 42-year-old right hand dominant female who presents in the office today for a ROM check; 3 weeks status post right 1st dorsal compartment release, which was performed on 12/25/[address] Heart. [facility] Medical History Anxiety Chronic migraine Hypothyroidism Insomnia PCOS (polycystic ovarian syndrome) Tremors of nervous system Surgical History H/O gastric bypass H/O right knee surgery History of intestinal obstruction History of lumbar puncture History of partial hysterectomy Hx of appendectomy Hx of hand surgery (12/25/22) Tubal ligation status Family History Mother No problems noted. 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 Current occupational exposures/hazards: No Cognitive needs: No Hearing needs: No Vision needs: Yes Review of Systems Const All systems reviewed & are unremarkable except as noted in HPI and below Physical Exam Const General: cooperative, healthy appearing and no acute distress Resp Effort & Inspection: normal respiratory effort and able to speak in complete sentences Cardio Rate: regular rate Peripheral pulses: Peripheral pulses 2+ throughout GI Palpation (GI): Soft to palpation Skin Lesions: no lesions Rashes: no rashes Extrem Other: Right hand: Incision site is nicely healing with no signs of infection. Some stiffness with wrist extension. Able to perform full finger flexion, extension, abduction, adduction, finger cross, okay sign, and thumbs up without deficit. Able to make a closed fist. Sensation intact. Capillary refill is brisk. Radial pulse intact. Assessment & Plan Assessment & Plan (1) De Quervain's tenosynovitis, right: Code(s): M65.4 - Radial styloid tenosynovitis [de Quervain] Plan Ms. Baez is a 42-year-old right hand dominant female who presents in the office today for a ROM check; 3 weeks status post right 1st dorsal compartment release, which was performed on 12/25/[address] Heart. The patient was supposed to attend occupational therapy yesterday (01/15/2023), however, the therapist was sick therefore she was unable to attend. Her next scheduled appointment is on 01/23/2023. She will follow up in 2-3 weeks for a ROM check, or sooner if needed. Patient Instructions: Scribed for Abigail Pham PA-C by Nora Combs medical education coordinator, on 01/16/2023 at 1:40 pm, EST. Coding Level of Care Code Global (02290) Diagnoses De Quervain's tenosynovitis, right M65.4
== END 2023-01-16 14:29 | disposition home or self-care (01) ==
PROVIDERS: PCP Internal Medicine; Visit Provider Physician Assistant
DX: M65.4 Radial styloid tenosynovitis [de Quervain] (principal)
CPT/HCPCS: 99024

== ENCOUNTER → 2023-01-16 13:20 | Outpatient (BNVA) | payer BC, SELFPAY | PROVIDERS: PCP Internal Medicine; Visit Provider Physician Assistant ==

== ENCOUNTER 2023-01-23 13:32 | Outpatient (RCR) | payer BC, SELFPAY ==
--- NOTE | 2023-01-23 14:59 | MHC.OT.EP ---
[address] [phone] Occupational Therapy Plan of Care Patient Name: Nakita Baez Date of Evaluation: 01/23/23 Diagnosis: 1st Dorsal Compartment Release Pain Location: 4/10 resting pain in right radial wrist over surgical site, sharp 10/10 sharp stabbing pain at times w/ forceful use Pain Score: 10 Pain Scale Used: Numeric (0 - 10) Aggravating Factors: General use, lifting Alleviating Factors: Mortin, Ice daily Assessment: 42 yo female w/ hx of right wrist pain for several years. She was referred to [facility] w/ trials of immobilization periods and cortisone injection. She is now four weeks post-op 1st dorsal compartment release 12/25/22 w/ Dr Heart. 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 On assessment today, she is minimal swelling, localized to right radial wrist. She has good ROM, but strength is low and she reports occasional numbness over radial wrist into dorsal thumb. She also continues to have tenderness and hypersensitivity over well healed surgical incision. We have discussed therapy process and progression of exercise and use of desensitization for pain and sensitivity. I anticipate she will do well w/ course of OT to progress strength, sensation and overall functional return. Frequency and Duration: The patient will be seen 1x/wk for 6 weeks Short Term Goals: Ind w/ AROM exercises Ind w/ scar massage/mobilization Ind w/ desensitization techniques w/ tapping and textures Right gross grasp >15lb Skilled Nursing Goals: Progress to strengthening program Right gross grasp >40lb Pt to demo good use of right hand w/ modified lifting/grasping/stirring for work tasks Pain free right radial wrist Treatment Plan: Therapeutic Exercise Therapeutic Activity Home Exercise Program Patient Education Desensitization/Sensory Re-ed Edema Control ADL Training Ultrasound Paraffin Fluidotherapy Cold Packs Soft Tissue Mobilization Kinesiotaping Electronically Signed By: Aleisha Del Rosario OTR/L CHT Please Sign and return to therapist. Thank you once again for your referral.
--- NOTE | 2023-03-01 14:24 | MHC.OT.DC ---
[address] [phone] F: [phone] Occupational Therapy Discharge Note Patient Name: Nakita Baez Provider: Abigail Pham PA-C Diagnosis: 1st Dorsal Compartment Release Date of Surgery: 12/25/22 Date of Evaluation: 01/23/23 Date of Discharge: 03/01/23 Treatments to Date: 1 Cancellations to Date: 2 Discharge Status: Patient Elected to Stop Visit Non-compliance Discharge Summary: Nakita is a 42 yo female w/ hx of right wrist pain and 1st dorsal compartment release 12/25/22. She was referred to OT for post-op management and recommendation was for continued therapy services. She has missed all scheduled therapy sessions and has not followed up for further visits. We will be discharging at this time due to visit non-compliance policy. Electronically Signed By: CANDACE Oliveira/Maggie CHT Reviewed/agree with student documentation: Therapist: Please Sign and return to therapist, thank you for your referral.
== END 2023-03-01 14:25 | disposition home or self-care (01) ==
LOC: HO.OT 13:32
PROVIDERS: PCP Internal Medicine; Visit Provider Physician Assistant
DX: M65.4 Radial styloid tenosynovitis [de Quervain] (principal)
CPT/HCPCS: 97110; 97165

== ENCOUNTER 2023-01-24 07:31 | Outpatient (REF) | payer BC, SELFPAY ==
[2023-01-24 07:40] LABS: MANUAL DIFF FLAG NO
[2023-01-24 08:03] LABS: Basophils Absolute Auto 0.1 X10*3/uL (0.0-0.2); Basophils Percent Auto 0.6 % (0-2); Eosinophils Absolute Auto 0.1 X10*3/uL (0.0-0.4); Eosinophils Percent Auto 1.6 % (0-4); Hematocrit 36.2 % (37.0-47.0); Hemoglobin 11.2 g/dl (12.0-16.0); Imm Gran Abs Auto 0.02 X10*3/uL (0.00-0.03); Imm Gran Pct Auto 0.3 % (0.0-0.4); Lymphocytes Absolute Auto 3.7 X10*3/uL (1.2-4.9); Mean Corpuscular HGB Conc 30.9 g/dl (31.0-35.0); Mean Corpuscular Hemoglobin 23.9 pg (27.0-33.0); Mean Corpuscular Volume 77.2 fL (80.0-98.0); Monocytes Absolute Auto 0.7 X10*3/uL (0.1-1.2); Monocytes Percent Auto 8.2 % (2-11); Neutrophils Absolute Auto 3.5 x10*3/uL (2.0-8.3); Neutrophils Percent Auto 43.3 % (45-73); Platelet Count 342 X10*3/uL (160-400); Red Blood Count 4.69 X10*6/uL (4.20-5.50); Red Cell Distribution Width 15.7 % (11.0-16.0)
[2023-01-24 08:40] LABS: Alanine Aminotransferase < 5 U/L (0-31); Albumin Level 3.8 g/dL (3.5-5.0); Alkaline Phosphatase 52 U/L (39-117); Anion Gap 11 (12-20); Aspartate Amino Transferase 17 U/L (5-31); Bilirubin Total 0.3 mg/dL (0.0-1.0); Blood Urea Nitrogen 15 mg/dL (9-16); Calcium 8.8 mg/dL (8.4-10.2); Carbon Dioxide 22 mmol/L (22-29); Chloride 110 mmol/L (96-108); Cholesterol 180 mg/dL (<200); Estimated Glomerular Filt Rate > 60; Glucose Fasting 77 mg/dL (60-99); HDL Cholesterol 67 mg/dL (>40); Iron 27 mcg/dL (30-160); LDL Cholesterol Calculated 95 mg/dL (<100); Percent Iron Saturation 7 % (15-50); Potassium 3.7 mmol/L (3.3-5.1); Sodium 139 mmol/L (135-145); Total Iron Binding Capacity 376 mcg/dL (228-428); Total Protein 6.5 g/dL (6.5-8.0); Triglycerides 92 mg/dL (<150); Unsaturated Iron Binding 349 ug/dL
[2023-01-24 08:58] LABS: Free T4 (Free Thyroxine) 0.87 ng/dL (0.71-1.85); Thyroid Stimulating Hormone 0.88 uIU/mL (0.32-4.0); Vitamin D 25-OH Total 40.8 ng/mL (>30)
[2023-01-24 09:04] LABS: Folate 10.4 ng/mL (> or = 4.0); Vitamin B12 847 pg/mL (200-900)
== END 2023-01-24 07:32 | disposition home or self-care (01) ==
LOC: HO.LAB 07:31
PROVIDERS: PCP Internal Medicine; Visit Provider Internal Medicine
DX: Z00.00 Encounter for general adult medical examination without abnormal findings (principal); E55.9 Vitamin D deficiency, unspecified; E53.8 Deficiency of other specified B group vitamins; E04.9 Nontoxic goiter, unspecified; D64.9 Anemia, unspecified; G43.109 Migraine with aura, not intractable, without status migrainosus
CPT/HCPCS: 36415; 80053; 80061; 82306; 82607; 82746; 83540; 84439; 84443; 85025

== ENCOUNTER 2023-07-10 15:35 | Outpatient (AMB) | payer BC, SELFPAY ==
--- NOTE | 2023-07-10 15:45 | MHC.PC.OV ---
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 Required: No Accompanied by: Self / Same As Patient Allergies hydrocodone [From VICODIN] Allergy (Intermediate, Verified 07/10/23 15:56) GI UPSET propylene glycol [PROPYLENE GLYCOL] Allergy (Intermediate, Verified 07/10/23 15:56) EXTREME BURNING/PAIN/RASH trazodone Allergy (Intermediate, Verified 07/10/23 15:56) Shortness of Breath cobalt Allergy (Verified 07/10/23 15:56) Unknown lamotrigine Adverse Reaction (Intermediate, Verified 07/10/23 15:56) foggy levetiracetam [From Keppra] Adverse Reaction (Intermediate, Verified 07/10/23 15:56) foggy propranolol Adverse Reaction (Intermediate, Verified 07/10/23 15:56) inadequate response acetaminophen [Vicodin] Adverse Reaction (Unknown, Verified 07/10/23 15:56) nausea and vomiting propalyn glycal Allergy (Unknown, Uncoded 07/10/23 15:56) Vomiting Pt states no known allergy to Allergy (Unknown, Uncoded 07/10/23 15:56) headacches ethylene Adverse Reaction (Severe, Uncoded 07/10/23 15:56) Blister diamox Adverse Reaction (Intermediate, Uncoded 07/10/23 15:56) metalic taste, did not feel comfortable Medication List - Last Reconciled 07/10/23 by Era Ham MD bisacodyl 5 mg PO DAILY calcium citrate-vitamin D3 500-200 mg-unit tabs PO doxepin 50 mg PO DAILY gabapentin 300 mg PO Q8H 30 days hydroxyzine HCl 50 mg PO BEDTIME PRN lactulose 15 mL PO BID PRN 30 days levothyroxine (Levoxyl) 100 mcg PO DAILY magnesium 200 mg PO DAILY ondansetron 8 mg PO Q8H PRN 10 days riboflavin (vitamin B2) 100 mg PO DAILY thiamine HCl (vitamin B1) 100 mg PO DAILY vitamin B complex (B Complex-Vitamin B12 tablet) 1 tab PO DAILY Tobacco use date assessed: 07/10/23 Dental Screening Dental Screen Date: 02/20/24 Did you have a dental visit in the last 12 months?: Yes Did you have a dental problem in the last 6 months where you did not have access to dental care?: No Was dental information given to patient?: Patient has dentist HPI HPI Comments History of Present Illness Details This is 43-year-old female with hypothyroidism and constipation that comes today for follow-up on her conditions. Constipation stable with lactulose as needed. Had thyroidectomy in February and has not had thyroid labs since March 2023. TSH will be order. Compliant with medications. No chest pain or shortness of breath. No tingling. [facility] Medical History (Updated 07/10/23 @ 16:00 by Era Ham MD) Anxiety Insomnia Tremors of nervous system Hypothyroidism Chronic migraine PCOS (polycystic ovarian syndrome) Surgical History History of thyroidectomy Hx of hand surgery (12/25/22) H/O right knee surgery History of intestinal obstruction History of lumbar puncture Tubal ligation status Hx of appendectomy H/O gastric bypass History of partial hysterectomy Family History Mother No problems noted. 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 1. Little interest or pleasure in doing things: not at all 2. Feeling down, depressed, or hopeless: not at all 3. Trouble falling or staying asleep, or sleeping too much: not at all 4. Feeling tired or having little energy: not at all 5. Poor appetite or overeating: not at all 6. Feeling bad about yourself - or that you are a failure or have let yourself or your family down: not at all 7. Trouble concentrating on things, such as reading the newspaper or watching television: not at all 8. Moving or speaking so slowly that other people could have noticed. Or the opposite - being so fidgety or restless that you have been moving around a lot more than usual: not at all 9. Thoughts that you would be better off or of hurting yourself in some way: not at all Total score: 0 Depression Screening Interpretation: Negative Depression Screening Done: Yes 91617 - PHQ-9 Billing: Yes Source: Developed by Drs. Dileep Davidson, Carissa Martini, Julian Rivera and colleagues, with an educational terell from [employer]. Thrive Questionnaire Date Thrive assessed: 07/10/23 I am a: Patient What is your living situation today?: I have a steady place to live Within the past 12 months, did the food you bought not last and you didn't have the money to get more?: Never true Within the past 12 months, did you worry whether your food would run out before you got money to buy more?: Never true Do you have trouble paying for medicines?: No Do you have trouble getting transportation to medical appointments?: No Do you have trouble paying your heating and electricity bill?: No Do you have trouble taking care of your child, family member or friend?: No Do you have trouble with day-to-day activities such as bathing, preparing meals, shopping, managing finances, etc.?: No Are you currently unemployed and looking for a job?: No Are you interested in more education?: No Please select the resources that you would like help with: None Currently or been in a relationship where the following occur: no concerns reported THRIVE Score: 0 AUDIT C Alcohol Use Questionnaire (AUDIT-C) 1. How often do you have a drink containing alcohol?: Never Total Score: 0 ROSSY-7 AMB Questionnaire ROSSY-7 Date ROSSY - 7 assessed: 07/10/23 Feeling nervous, anxious, or on edge: 0 = Not at all Not being able to stop or control worryin = Not at all Worrying too much about different things: 0 = Not at all Trouble relaxin = Not at all Being so restless that it is hard to sit still: 0 = Not at all Becoming easily annoyed or irritable: 0 = Not at all Feeling afraid as if something awful might happen: 0 = Not at all Total ROSSY-7 score (0-4 normal; 5-9 mild; 10-14 moderate; 15-21 severe): 0 Source: Developed by Drs. Dileep Davidson, Carissa Martini, Julian Rivera and colleagues, with an educational terell from [employer]. ROSSY-7 Assessment Billing ROSSY-7 Assessment Tool: ROSSY-7 Assessment 11753 Review of Systems Const All systems reviewed & are unremarkable except as noted in HPI and below Eyes Reports no additional complaints, Denies change in vision and Denies other visual disturbances Card Denies chest pain at rest, Denies chest pain with activity, Denies edema, Denies irregular heart rhythm, Denies claudication, Denies dyspnea, Denies dyspnea on exertion, Denies orthopnea, Denies paroxysmal nocturnal dyspnea and Denies slow heart rate Resp Denies cough, Denies dyspnea and Denies dyspnea on exertion GI Denies abdominal pain, Denies change in bowel habits, Denies excessive flatus, Denies nausea and Denies vomiting Denies urinary incontinence, Denies urinary hesitancy and Denies urinary urgency Musc Denies abnormal gait, Denies atrophy, Denies deformity and Denies limited range of motion Skin/Breast Denies bleeding lesions, Denies changing lesions and Denies rash Neuro Denies abnormal gait and Denies lack of coordination Physical exam (Primary Care) Vital Signs: Last Vital Signs BP 110/70 07/10/23 15:47 BMI result Body Mass Index 23.6 Tobacco/Smoking Status: Tobacco use Status Tobacco use date assessed 07/10/23 07/10/23 15:52 Patient Tobacco Use Status Never used Tobacco 07/10/23 15:51 e-Cigarette/Vaping Use Never Used 07/10/23 15:51 PHQ-9: PHQ-9 Score PHQ-9: Total score 0 07/10/23 16:03 Depression Screening Interpretation: Negative Thrive Assessment: Date of Thrive Assessment Date Thrive assessed 07/10/23 07/10/23 15:52 Currently or been in a relationship where the following occur: no concerns reported Eyes General: appearance normal, both eyes and all related structures Eyelids: Yes eyelids normal Conjunctivae: conjunctivae normal Neck Neck: Yes normal visual inspection and Yes supple Resp Effort & Inspection: normal respiratory effort Auscultation: clear to auscultation bilaterally Cardio Jugular venous distension: no JVD Rate: regular rate Rhythm: regular rhythm Heart sounds: S1 normal heart sound present and S2 normal heart sound present Extrem General: Yes full ROM Assessment and Plan Assessment & Plan (1) Postoperative hypothyroidism: Code(s): E89.0 - Postprocedural hypothyroidism Plan: Continue levothyroxine. Follow-up with endocrinology in August 2023. (2) Chronic idiopathic constipation: Code(s): K59.04 - Chronic idiopathic constipation Plan: Continue lactulose as needed. Orders: Orders Thyroid Stimulating Hormone Today E89.0 - Postprocedural hypothyroidism Coding Level of Care Code Est Pt Level 3 (33716) Diagnoses Postoperative hypothyroidism E89.0 Chronic idiopathic constipation K59.04 Additional Codes ROSSY-7 Assessment Billing - ROSSY-7 Assessment Tool: ROSSY-7 Assessment 45230 ([id number]) Time Spent (min) 19
[2023-07-10 15:47] VITALS: BP 110/70; BMI 23.6
== END 2023-07-10 16:04 | disposition home or self-care (01) ==
PROVIDERS: PCP Internal Medicine; Visit Provider Internal Medicine
DX: E89.0 Postprocedural hypothyroidism (principal); K59.04 Chronic idiopathic constipation
CPT/HCPCS: 99213

== ENCOUNTER 2023-07-10 16:12 | Outpatient (REF) | payer BC, SELFPAY ==
[2023-07-10 17:48] LABS: Thyroid Stimulating Hormone 12.54 uIU/mL (0.32-4.0)
== END 2023-07-10 16:13 | disposition home or self-care (01) ==
LOC: HO.LAB 16:12
PROVIDERS: PCP Internal Medicine; Visit Provider Internal Medicine
DX: E89.0 Postprocedural hypothyroidism (principal)
CPT/HCPCS: 36415; 84443

== ENCOUNTER 2023-10-01 17:08 | Emergency (ER) | payer BC, SELFPAY ==
--- NOTE | ~2023-10-01 | XR_ITS ---
EXAMINATION: XR SOFT TISSUE NECK CLINICAL INDICATION: Odynophagia and dysphagia COMPARISON: Cervical spine radiographs 03/28/2022 CT cervical spine 04/16/2021 TECHNIQUE: 2 views of the soft tissue neck were obtained. FINDINGS: Soft tissue films of the neck demonstrate a normal larynx, pharynx and upper trachea. No soft tissue swelling is demonstrated. On the lateral radiograph, 4 surgical clips project over the trachea which are new when compared to the prior, on the eighth PE radiograph these are most likely superimposed over the left thyroid bed. XR/XR soft tissue neck IMPRESSION: No acute finding.
[2023-10-01 17:54] VITALS: BP 130/50; PULSE 76; RESP 18; TEMP 36.6; O2SAT 100; BMI 20.2
--- NOTE | 2023-10-01 17:57 | ED_ITS ---
HPI - General Adult General Chief complaint: General Medical Stated complaint: throat pain trouble swallowing Time Seen by Provider: 10/01/23 20:09 Source: patient Mode of arrival: ambulatory Limitations: no limitations History of Present Illness HPI narrative: Patient's history of Graves disease status post thyroid lobectomy about 6 months ago asymptomatic for last few days noticed pain in the throat when she swallows other liquids or solids no sore throat no fever no chills does feels pain in lower part of the neck when she swallows or drinks Related Data Home Medications ?Medication ?Instructions ?Recorded ?Confirmed hydroxyzine HCl 25 mg tablet 50 mg PO BEDTIME PRN Insomnia 10/20/20 07/10/23 doxepin 25 mg capsule 50 mg PO DAILY 02/07/21 07/10/23 bisacodyl 5 mg tablet 5 mg PO DAILY 03/28/22 07/10/23 magnesium 200 mg tablet 200 mg PO DAILY 03/28/22 07/10/23 riboflavin (vitamin B2) 100 mg 100 mg PO DAILY 03/28/22 07/10/23 tablet thiamine HCl (vitamin B1) 100 mg 100 mg PO DAILY 03/28/22 07/10/23 tablet vitamin B complex (B 1 tab PO DAILY 03/28/22 07/10/23 Complex-Vitamin B12 tablet) calcium citrate-vitamin D3 500 tab PO 01/09/23 07/10/23 mg-200 unit chewable tablet Previous Rx's ?Medication ?Instructions ?Recorded lactulose 10 gram/15 mL oral 15 ml PO BID PRN constipation 30 02/26/23 solution days #473 mL ondansetron 8 mg disintegrating 8 mg PO Q8H PRN nausea and 06/17/23 tablet vomiting 10 days #30 tabs levothyroxine 125 mcg tablet 125 mcg PO DAILY 90 days #90 tabs 07/10/23 gabapentin 300 mg capsule 300 mg PO Q8H migraines 30 days 08/13/23 #150 caps Allergies Allergy/AdvReac Type Severity Reaction Status Date / Time hydrocodone [From VICODIN] Allergy Intermediate GI UPSET Verified 10/01/23 17:58 propylene glycol Allergy Intermediate EXTREME Verified 10/01/23 17:58 [PROPYLENE GLYCOL] BURNING/PAIN/RASH trazodone Allergy Intermediate Shortness Verified 10/01/23 17:58 of Breath cobalt Allergy Unknown Verified 10/01/23 17:58 lamotrigine AdvReac Intermediate foggy Verified 10/01/23 17:58 levetiracetam [From Keppra] AdvReac Intermediate foggy Verified 10/01/23 17:58 propranolol AdvReac Intermediate inadequate Verified 10/01/23 17:58 response acetaminophen [Vicodin] AdvReac Unknown nausea and Verified 10/01/23 17:58 vomiting propalyn glycal Allergy Unknown Vomiting Uncoded 07/10/23 15:56 Pt states no known allergy to Allergy Unknown headacches Uncoded 07/10/23 15:56 ethylene AdvReac Severe Blister Uncoded 07/10/23 15:56 diamox AdvReac Intermediate metalic Uncoded 07/10/23 15:56 taste, did not feel comfortable Review of Systems Review of Systems: Yes all other systems are reviewed and are negative [facility] Past Medical History Medical History Anxiety Insomnia Tremors of nervous system Hypothyroidism Chronic migraine PCOS (polycystic ovarian syndrome) Surgical History History of thyroidectomy Hx of hand surgery (12/25/22) H/O right knee surgery History of intestinal obstruction History of lumbar puncture Tubal ligation status Hx of appendectomy H/O gastric bypass History of partial hysterectomy Family History Family History Mother No problems noted. 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 Oriented X3. No acute distress. ENT: Pharynx normal. Oral Mucosa moist thyroid not palpable post surgical no stridor Neck: Normal inspection. Neck supple. CVS: Normal heart rate and rhythm. Pulses normal. Respiratory: No respiratory distress. Equal air entry bilateral, no wheezing/rales/rhonchi Abdomen: Soft and nontender. Bowel sounds are present, no mass palpable, no CVA tenderness Skin: Skin warm and dry. Normal skin color. Normal skin turgor. Extremities: No lower extremity edema. No calf tenderness Neuro: Oriented X 3. Course Course Course Narrative: This is a Rapid Medical Examination (RME) performed by Elo Knight PA-C in triage. Full HPI, ROS, assessment and treatment plan per primary provider in the Main ED. 43 yo female with history of thyroidectomy Feb 2023 who is presenting w/ dysphagia and odonophagia that started a couple of weeks ago and has been worsening. Present with both liquids and solids. Plan: X-ray soft tissue of the neck, strep swab Medical Decision Making Medical Decision Making MDM Narrative: Patient with dysphagia advised to follow with GI Lab Data [facility] Lab Attestation statement: I reviewed the patient's lab results. Labs: Lab Results 10/01/23 Range/Units 18:19 S. pyogenes GrpA BETTYE Negative (Negative) Independent Interpretation I performed an independent interpretation of an: Plain X-Ray Radiology Impression Discussion of test interpretation with radiology: I have reviewed the radiologist's reading. Discharge Plan Discharge Clinical Impression: Dysphagia Patient Disposition: Home, Self-Care Instructions: Dysphagia (ED) Additional Instructions: Follow with churner for further evaluation Have liquids/semi solid diet Prescriptions: No Action lactulose 10 gram/15 mL solution 15 ml PO BID PRN (Reason: constipation) 30 Days Qty: 473 1RF ondansetron 8 mg tablet,disintegrating 8 mg PO Q8H PRN (Reason: nausea and vomiting) 10 Days Qty: 30 0RF levothyroxine 125 mcg tablet 125 mcg PO DAILY 90 Days Qty: 90 1RF gabapentin 300 mg capsule 300 mg PO Q8H 30 Days Qty: 150 0RF Rx Instructions: Take 1 at am, 1 in the afternoon and 3 at bedtime doxepin 25 mg capsule 50 mg PO DAILY calcium citrate-vitamin D3 500-200 mg-unit tablet,chewable PO hydroxyzine HCl 25 mg tablet 50 mg PO BEDTIME PRN (Reason: Insomnia) bisacodyl 5 mg tablet 5 mg PO DAILY thiamine HCl (vitamin B1) 100 mg tablet 100 mg PO DAILY vitamin B complex [B Complex-Vitamin B12] Tablet 1 tab PO DAILY riboflavin (vitamin B2) 100 mg tablet 100 mg PO DAILY magnesium 200 mg tablet 200 mg PO DAILY Referrals: Maryam Hollins MD [Physician] - 1 week Interventions: ED Discharge Assessment Last Done: 10/01/23 21:47 Discharge Date/Time: 10/01/23 21:45 Print Language: Amharic
[2023-10-01 18:46] LABS: IDNOW Serial# 58CA691E; Strep A Nucleic Acid Negative (Negative)
[2023-10-01 20:59] VITALS: BP 115/48; PULSE 66; RESP 16; TEMP 36.8; O2SAT 100
[2023-10-01 21:47] VITALS: BP 106/56; PULSE 57; RESP 18; TEMP 36.6; O2SAT 100
== END 2023-10-01 21:45 | disposition home or self-care (01) ==
PROVIDERS: Physician Assistant; Emergency Provider Internal Medicine; PCP Internal Medicine
DX: R13.10 Dysphagia, unspecified (principal); R07.0 Pain in throat; M54.2 Cervicalgia; Z79.899 Other long term (current) drug therapy
CPT/HCPCS: 70360; 87651; 99283

== ENCOUNTER 2023-11-09 15:19 | Outpatient (AMB) | payer BC, SELFPAY ==
[2023-11-09 15:21] VITALS: BP 107/52; PULSE 75; BMI 20.4
--- NOTE | 2023-11-09 15:21 | A.OFFVIS_ITS ---
Vital Signs 11/09/23 15:21 Height 5 ft 6 in Weight 126 lb 1.671 oz BMI 20.4 BP 107/52 L Blood Pressure Location Lt brachial Position Sitting Pulse 75 Intake Visit Reasons: Dysphagia Intake Note: New patient in office today for evaluation and management of dysphagia. CC: Patient reports that she feels her throat is sometimes very tight and food gets stuck and, she is gasping and struggling to get it down. She also coughs a lot. Onset of symptoms around the end of August per patient. She was seen in the ER on 09/30 with c/o dysphagia. She also c/o heartburn, constipation, blood in stool sometimes. She is s/p gastric bypass 06/2016. 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[employer] Required: No Accompanied by: Self / Same As Patient Allergies hydrocodone [From VICODIN] Allergy (Intermediate, Verified 11/09/23 15:29) GI UPSET propylene glycol [PROPYLENE GLYCOL] Allergy (Intermediate, Verified 11/09/23 15:29) EXTREME BURNING/PAIN/RASH trazodone Allergy (Intermediate, Verified 11/09/23 15:29) Shortness of Breath cobalt Allergy (Verified 11/09/23 15:29) Unknown lamotrigine Adverse Reaction (Intermediate, Verified 11/09/23 15:29) foggy levetiracetam [From Keppra] Adverse Reaction (Intermediate, Verified 11/09/23 15:29) foggy propranolol Adverse Reaction (Intermediate, Verified 11/09/23 15:29) inadequate response acetaminophen [Vicodin] Adverse Reaction (Unknown, Verified 11/09/23 15:29) nausea and vomiting diamox Adverse Reaction (Intermediate, Uncoded 07/10/23 15:56) metalic taste, did not feel comfortable HPI HPI Dysphagia: Details: 43-year-old female here for initial evaluation of dysphagia. She is referred by Era Yeager X Seizures Hypothyroid PCOS Pseudotumor cerebri Chronic migraines Tremor Anxiety/insomnia History of small-bowel obstruction * SURGICAL HISTORY Thyroidectomy Hand surgery Right knee surgery Tubal ligation Appendectomy Gastric bypass Partial hysterectomy Lymphadema unknown etiology * ALLERGIES Hydrocodone Propylene glycol adn ethylene glycol - chemical burn, welts wit ingestion Trazodone Cascilla Lamictal Propranolol Diamox Levetiracetam * [employer] LABS: No labs since 02/2023 except elevated TSH XR NECK FINDINGS: Soft tissue films of the neck demonstrate a normal larynx, pharynx and upper trachea. No soft tissue swelling is demonstrated. On the lateral radiograph, 4 surgical clips project over the trachea which are new when compared to the prior, on the eighth PE radiograph these are most likely superimposed over the left thyroid bed. XR/XR soft tissue neck IMPRESSION: No acute finding. TODAY'S VISIT Onset end of 08/2023 may of gradual onset and then she got to a point where she couod only swallow liquids. It is a very tight feeling around the voicebox area and at times she will feel like she is gasping for air. She can't cough strong enough to get it back up and can't swallow hard enough to get it back down. She has been unable to get in to see her PCP about this so she presented to the ER. She was starving because she could not eat any solid foods. She has a thyroidectomy in February of 2023. She was doing very well with swallowing and her recovery initially. She has only experienced GERd when she was , which has been over 17 years!! But she at times feels a sort of burning in the area. She suffers chronic CIC and she is on chronic lactulose and dulcolax. Her father suffers bad HB no other familial problems. ROV 8 weeks. to eval omeprazole [facility] Medical History (Updated 11/09/23 @ 16:20 by ROD Briones) Janna's thyroiditis Bilateral hand pain Pain in joint of right wrist Right wrist tendinitis Pseudotumor cerebri Goiter Impacted cerumen of both ears Acute sinusitis Acute right otitis media Contusion of right forearm Sinus infection Right elbow pain Right wrist pain Right arm pain Fall from slipping on ice Physical exam Dysphagia Anxiety Insomnia Tremors of nervous system Hypothyroidism Chronic migraine PCOS (polycystic ovarian syndrome) Surgical History History of thyroidectomy Hx of hand surgery (12/25/22) H/O right knee surgery History of intestinal obstruction History of lumbar puncture Tubal ligation status Hx of appendectomy H/O gastric bypass History of partial hysterectomy Family History Mother No problems noted. 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 Current occupational exposures/hazards: No Cognitive needs: No Hearing needs: No Vision needs: Yes Review of Systems Const Denies fatigue, Denies fever(s), Denies night sweats, Denies poor appetite and Denies weight loss Eyes Details: glasses Reports requires corrective lenses ENT Reports Normal hearing present, Denies dental pain, Reports dysphagia, Denies hearing loss, Denies mouth pain, Denies odynophagia, Denies throat swelling, Denies tongue swelling and Reports other (Dentition adequate) Card Reports no additional complaints Resp Reports no additional complaints GI Details: Denies abdominal pain, Denies melena, Denies bloating, Denies hematochezia, Reports constipation, Denies GI cramping, Reports dysphagia, Denies excessive flatus, Denies early satiety, Denies heartburn, Denies diarrhea, Denies nausea, Denies odynophagia, Denies vomiting and Denies hematemesis Skin/Breast Denies pruritus, Denies lesions, Denies rash and Denies jaundice Neuro Reports Normal hearing present and Denies Abnormal speech present Endo Denies fatigue Aller/Immun Denies throat swelling and Denies tongue swelling Physical Exam Vital Signs: Last Vital Signs Pulse 75 11/09/23 15:21 BP 107/52 L 11/09/23 15:21 BMI result Body Mass Index 20.4 Const General: cooperative, no acute distress, well developed and well groomed Nutritional Appearance: average body habitus and well nourished Orientation/consciousness: oriented to person, oriented to place and oriented to time Limitations: No language barrier HEENT Head: Yes normocephalic and Yes atraumatic Eyes General: appearance normal, both eyes and all related structures Pupils: Equal, round and reactive pupils present Neck Neck: Yes normal visual inspection and Yes no lymphadenopathy Thyroid: Thyroid normal Resp Effort & Inspection: normal respiratory effort and able to speak in complete sentences Auscultation: clear to auscultation bilaterally Cardio Rate: regular rate Rhythm: regular rhythm Heart sounds: Normal, physiologic split S2 sound present Peripheral pulses: radial pulses present and posterior tibial pulses present GI Inspection: No distended and No Abdominal panniculus present Palpation (GI): Soft to palpation, nontender, no guarding, not rigid and No hepatosplenomegaly present Percussion: Yes normal to percussion Auscultation: normal bowel sounds Rectal Exam - Female: deferred Skin General skin exam: no rashes or lesions noted, turgor normal, skin not dry, no jaundice, No spider nevi and no striae Rashes: no rashes Nails: normal Neuro General: oriented to person, oriented to place and oriented to time Cranial nerves: Yes Equal, round and reactive pupils present and Yes Normal hearing present Speech: No Abnormal speech present Extrem General: Yes normal to inspection, No clubbing, No cyanosis and Yes edema (non pitting bilaterally) Psych Appearance: grossly normal and well kempt Mental Status: mental status grossly normal Speech and movement: Normal speech and movement present Affect: normal affect Attitude: cooperative Thought process: Normal thought process present and not confabulating Thought content: Normal thought content present Insight: Fair insight present (Psych) Judgement: Fair judgement present (Psych) Assessment & Plan Assessment & Plan (1) Oropharyngeal dysphagia: Code(s): R13.12 - Dysphagia, oropharyngeal phase Category: Medical (2) Multiple drug allergies: Code(s): Z88.9 - Allergy status to unspecified drugs, medicaments and biological substances Category: Medical Plan Onset end of 08/2023 may of gradual onset and then she got to a point where she couod only swallow liquids. It is a very tight feeling around the voicebox area and at times she will feel like she is gasping for air. She can't cough strong enough to get it back up and can't swallow hard enough to get it back down. She has been unable to get in to see her PCP about this so she presented to the ER. She was starving because she could not eat any solid foods. She has a thyroidectomy in February of 2023. She was doing very well with swallowing and her recovery initially. She has only experienced GERd when she was , which has been over 17 years!! But she at times feels a sort of burning in the area. She suffers chronic CIC and she is on chronic lactulose and dulcolax. Her father suffers bad HB no other familial problems. ROV 8 weeks. to eval omeprazole next office visit have her get basic lab work for the EGD. Orders: Orders Comprehensive Met. Panel Today R13.12 - Dysphagia, oropharyngeal phase Complete Blood Count Auto Diff Today R13.12 - Dysphagia, oropharyngeal phase EGD with Mcneal - GI Use Only Today R13.12 - Dysphagia, oropharyngeal phase FL barium swallow modified Today R13.12 - Dysphagia, oropharyngeal phase Medications: New omeprazole 40 mg PO DAILY 30 days 30 caps 6RF Coding Level of Care Code New Pt Level 3 (89217) Diagnoses Oropharyngeal dysphagia R13.12 Multiple drug allergies Z88.9
== END 2023-11-09 15:57 | disposition home or self-care (01) ==
PROVIDERS: PCP Internal Medicine; Visit Provider Nurse Practitioner
DX: R13.12 Dysphagia, oropharyngeal phase (principal); Z88.9 Allergy status to unspecified drugs, medicaments and biological substances
CPT/HCPCS: 99203

== ENCOUNTER → 2023-11-09 15:19 | Outpatient (BNVA) | payer BC, SELFPAY | PROVIDERS: PCP Internal Medicine; Visit Provider Nurse Practitioner ==

== ENCOUNTER 2023-11-19 11:47 | Day surgery (SDC) | payer BC, SELFPAY ==
--- NOTE | 2023-11-16 10:06 | HO.ANESPROP2 ---
Documented by User: Nakita Martinez NP 11/16/23 10:07 HPI - Anesthesia Eval Consult details Narrative: 43yo F for Upper Endoscopy PMFSH Active Problems Active Problems: All Active Problems Lymphedema (Acute) Oropharyngeal dysphagia (Acute) Multiple drug allergies (Acute) Postoperative hypothyroidism (Acute) De Quervain's tenosynovitis, left (Acute) Chronic idiopathic constipation (Acute) Pseudotumor cerebri (Acute) Anxiety (Acute) Insomnia (Acute) Cervicalgia (Acute) Pain of right upper extremity (Acute) Chronic migraine with aura (Acute) Tremors of nervous system (Acute) B12 deficiency (Acute) Seizures (Acute) De Quervain's tenosynovitis, right (Acute) Past Medical History Medical History Janna's thyroiditis Bilateral hand pain Pain in joint of right wrist Right wrist tendinitis Pseudotumor cerebri Goiter Impacted cerumen of both ears Acute sinusitis Acute right otitis media Contusion of right forearm Sinus infection Right elbow pain Right wrist pain Right arm pain Fall from slipping on ice Physical exam Dysphagia Anxiety Insomnia Tremors of nervous system Hypothyroidism Chronic migraine PCOS (polycystic ovarian syndrome) Family History Family History Mother No problems noted. Father Degenerative disc disease, lumbar Maternal Grandmother Tremors of nervous system Chronic headaches Family history of problems with anesthesia: No Surgical History Surgical History History of thyroidectomy Hx of hand surgery (12/25/22) H/O right knee surgery History of intestinal obstruction History of lumbar puncture Tubal ligation status Hx of appendectomy H/O gastric bypass History of partial hysterectomy History of Problems with Anesthesia: No Social History Social History Housing: House Alcohol intake: former Patient Tobacco Use Status: Never used Tobacco e-Cigarette/Vaping Use: Never Used Second Hand Smoke Exposure: No Are you DNR?: No Advance Directives: No Advance Directives Information Provided: Yes Nutrition Risks: No Nutritional Risk FDLMP: NA service: No Current occupational status: employed 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 Current occupational exposures/hazards: No Cognitive needs: No Hearing needs: No Vision needs: Yes Meds Allergies Allergy/AdvReac Type Severity Reaction Status Date / Time hydrocodone [From VICODIN] Allergy Intermediate GI UPSET Verified 11/19/23 13:09 propylene glycol Allergy Intermediate EXTREME Verified 11/19/23 13:09 [PROPYLENE GLYCOL] BURNING/PAIN/RASH trazodone Allergy Intermediate Shortness Verified 11/19/23 13:09 of Breath cobalt Allergy Unknown Verified 11/19/23 13:09 lamotrigine AdvReac Intermediate foggy Verified 11/19/23 13:09 propranolol AdvReac Intermediate inadequate Verified 11/19/23 13:09 response acetaminophen [Vicodin] AdvReac Unknown nausea and Verified 11/19/23 13:09 vomiting levetiracetam [From Keppra] AdvReac foggy Verified 11/19/23 13:09 diamox AdvReac Intermediate metalic Uncoded 11/19/23 13:09 taste, did not feel comfortable Home Medications ?Medication ?Instructions ?Recorded ?Confirmed ?Last Taken ?Type hydroxyzine HCl 25 mg tablet 50 mg PO BEDTIME PRN Insomnia 10/20/20 11/19/23 Unknown History doxepin 25 mg capsule 50 mg PO DAILY 02/07/21 11/19/23 11/19/23 History bisacodyl 5 mg tablet 5 mg PO DAILY 03/28/22 11/19/23 Unknown History magnesium 200 mg tablet 200 mg PO DAILY 03/28/22 11/19/23 Unknown History riboflavin (vitamin B2) 100 mg 100 mg PO DAILY 03/28/22 11/19/23 Unknown History tablet thiamine HCl (vitamin B1) 100 mg 100 mg PO DAILY 03/28/22 11/19/23 Unknown History tablet vitamin B complex (B 1 tab PO DAILY 03/28/22 11/19/23 Unknown History Complex-Vitamin B12 tablet) calcium citrate-vitamin D3 500 tab PO 01/09/23 07/10/23 Unknown History mg-200 unit chewable tablet Assessment and Plan Assessment Anesthesia Assessment: Chart Reviewed Final Anesthetic Review Family History of Problems with Anesthesia: No History of Problems with Anesthesia: No Documented by User: Darcy Walker MD 11/19/23 14:01 [facility] Past Medical History Medical History Janna's thyroiditis Bilateral hand pain Pain in joint of right wrist Right wrist tendinitis Pseudotumor cerebri Goiter Impacted cerumen of both ears Acute sinusitis Acute right otitis media Contusion of right forearm Sinus infection Right elbow pain Right wrist pain Right arm pain Fall from slipping on ice Physical exam Dysphagia Anxiety Insomnia Tremors of nervous system Hypothyroidism Chronic migraine PCOS (polycystic ovarian syndrome) Family History Family History Mother No problems noted. Father Degenerative disc disease, lumbar Maternal Grandmother Tremors of nervous system Chronic headaches Surgical History Surgical History History of thyroidectomy Hx of hand surgery (12/25/22) H/O right knee surgery History of intestinal obstruction History of lumbar puncture Tubal ligation status Hx of appendectomy H/O gastric bypass History of partial hysterectomy Social History Social History Housing: House Alcohol intake: former Patient Tobacco Use Status: Never used Tobacco e-Cigarette/Vaping Use: Never Used Second Hand Smoke Exposure: No Are you DNR?: No Advance Directives: No Advance Directives Information Provided: Yes Nutrition Risks: No Nutritional Risk FDLMP: NA service: No Current occupational status: employed 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 Current occupational exposures/hazards: No Cognitive needs: No Hearing needs: No Vision needs: Yes Meds Allergies Allergy/AdvReac Type Severity Reaction Status Date / Time hydrocodone [From VICODIN] Allergy Intermediate GI UPSET Verified 11/19/23 13:09 propylene glycol Allergy Intermediate EXTREME Verified 11/19/23 13:09 [PROPYLENE GLYCOL] BURNING/PAIN/RASH trazodone Allergy Intermediate Shortness Verified 11/19/23 13:09 of Breath cobalt Allergy Unknown Verified 11/19/23 13:09 lamotrigine AdvReac Intermediate foggy Verified 11/19/23 13:09 propranolol AdvReac Intermediate inadequate Verified 11/19/23 13:09 response acetaminophen [Vicodin] AdvReac Unknown nausea and Verified 11/19/23 13:09 vomiting levetiracetam [From Keppra] AdvReac foggy Verified 11/19/23 13:09 diamox AdvReac Intermediate metalic Uncoded 11/19/23 13:09 taste, did not feel comfortable Home Medications ?Medication ?Instructions ?Recorded ?Confirmed ?Last Taken ?Type hydroxyzine HCl 25 mg tablet 50 mg PO BEDTIME PRN Insomnia 10/20/20 11/19/23 Unknown History doxepin 25 mg capsule 50 mg PO DAILY 02/07/21 11/19/23 11/19/23 History bisacodyl 5 mg tablet 5 mg PO DAILY 03/28/22 11/19/23 Unknown History magnesium 200 mg tablet 200 mg PO DAILY 03/28/22 11/19/23 Unknown History riboflavin (vitamin B2) 100 mg 100 mg PO DAILY 03/28/22 11/19/23 Unknown History tablet thiamine HCl (vitamin B1) 100 mg 100 mg PO DAILY 03/28/22 11/19/23 Unknown History tablet vitamin B complex (B 1 tab PO DAILY 03/28/22 11/19/23 Unknown History Complex-Vitamin B12 tablet) calcium citrate-vitamin D3 500 tab PO 01/09/23 07/10/23 Unknown History mg-200 unit chewable tablet Exam Airway Mallampati Class: II TM Dist: >3cm Neck ROM: Full Heart: rrr Lungs: cta Assessment and Plan Assessment Anesthesia Assessment: Anesthesia Plan Discussed Final Anesthetic Review NPO: Yes ASA Class: II Final Preanesthetic Review: No Changes in Pt Med Stat, Meds/Allgs Chart Reviewed and Consent Obtained/Reviewed Patient Risk: Low Procedure Risk: Intermediate Anesthetic Plan Anesthetic Plan: MAC: Disposition: Standard PACU
[2023-11-19 13:11] VITALS: BMI 20.4
[2023-11-19] MEDS: Lactated Ringers 1,000 ML 100 ML IVCONT (13:17)
[2023-11-19 13:41] VITALS: BP 104/42; PULSE 62; RESP 18; TEMP 36.9; O2SAT 100
--- NOTE | 2023-11-19 13:41 | PC.NURSE ---
Patient is a difficult IV access. One attempt by autor. Attempt and insertion by shree alcala rn.
[2023-11-19 14:59] VITALS: BP 90/43; PULSE 69; RESP 16; TEMP 36.8; O2SAT 100
--- NOTE | 2023-11-19 14:59 | W.PM.OPN ---
Operative Note Operative Note Date of Service: 11/19/23 Narrative: FLEXIBLE TRANSORAL UPPER GASTROINTESTINAL ENDOSCOPY WITH BIOPSIES AND ESOPHAGEAL BRUSHINGS Pre-op diagnosis: Dysphagia and odynophagia Post-op diagnosis: Esophageal candidiasis, small bowel erosions/ulcers, gastric bypass status Endoscopist:? Ghulma Villa MD Anesthesia:?MAC UPPER ENDOSCOPY Consent: Indications for the procedure and potential complications of bleeding, perforation, reaction to medications and missed diagnosis were discussed with the patient and informed consent was obtained. Instrument: Olympus GIF H 190 mid size upper endoscope Monitoring: Vital signs and clinical assessment, continuous EKG monitoring, Pulse oximetry, Carbon Dioxide monitoring and blood pressure monitoring were done throughout the procedure. Procedure: The patient was placed in the left lateral decubitis position and pre-procedure medications were administered and a bite block was placed. The endoscope was inserted into the mouth and advanced under direct vision to the third part of duodenum. A careful inspection was made as the upper endoscope was withdrawn including a retroflexed examination of the proximal stomach; Findings and interventions are described below. Findings: Larynx: Normal Esophagus: GE junction at 35 cms. Esophageal erythema with white exudate throughout the esophagus. No stricture or narrowing noted. Stomach: Gastrojejunal anastomosis at 38 cms. Biopsies are obtained from the gastric pouch to check for Helicobacter pylori Grade 2 flap valve on retroflexed examination of the cardia. Duodenum: Superficial erosions and ulcers in the jejunum just distal to the anastomosis Intervention: Biopsies as noted above Impression and Post Procedure Diagnosis: Endoscopy Findings: ESOPHAGUS: GE junction at 35 cms. Mildly tortuous esophagus STOMACH: Nodular appearing mucosa in the gastric body and fundus - biopsied. Moderate diffuse gastric erythema - biopsies were obtained from the antrum. Plan: Pt has a FU appointment on [] with [MASOUD Tovar], [Noemi Ryan NP]. Above findings were reviewed with the patient and relevant handouts were given and the discharge area.
[2023-11-19 15:14] VITALS: BP 98/53; PULSE 69; RESP 60; TEMP 36.7; O2SAT 100
== END 2023-11-19 15:33 | disposition home or self-care (01) ==
PROVIDERS: PCP Internal Medicine; Visit Provider Internal Medicine Gastroenterology
PROC: 0DJ08ZZ Inspection of Upper Intestinal Tract, Via Natural or Artificial Opening Endoscopic (ICD-10-PCS; CPT 43235; principal; 2023-11-19 13:50)
DX: K31.7 Polyp of stomach and duodenum (principal); K52.9 Noninfective gastroenteritis and colitis, unspecified; K63.3 Ulcer of intestine; K29.60 Other gastritis without bleeding; B37.81 Candidal esophagitis; K22.2 Esophageal obstruction; K63.89 Other specified diseases of intestine; R13.12 Dysphagia, oropharyngeal phase; Z98.84 Bariatric surgery status
CPT/HCPCS: 43239; 87102; 87106; 88305; 88313; 88342; J2704

== ENCOUNTER 2023-11-21 15:33 | Outpatient (REF) | payer BC, SELFPAY ==
[2023-11-21 16:56] LABS: Albumin Level 3.9 g/dL (3.5-5.0); Calcium 8.8 mg/dL (8.4-10.2)
[2023-11-21 17:12] LABS: PTH Intact Intraoperative 70.4 pg/mL (8.7-77.1)
[2023-11-21 17:17] LABS: Free T4 (Free Thyroxine) 1.01 ng/dL (0.71-1.85); Thyroid Stimulating Hormone 0.58 uIU/mL (0.32-4.0); Vitamin D 25-OH Total 27.1 ng/mL (>30)
== END 2023-11-21 15:34 | disposition home or self-care (01) ==
LOC: HO.LAB 15:33
PROVIDERS: PCP Internal Medicine; Referring Provider Internal Medicine; Visit Provider Student in an Organized Health Care Education/Training Program
DX: E03.9 Hypothyroidism, unspecified (principal); E83.51 Hypocalcemia
CPT/HCPCS: 36415; 82040; 82306; 82310; 83970; 84439; 84443

== ENCOUNTER 2023-12-12 13:52 | Outpatient (REF) | payer BC, SELFPAY ==
--- NOTE | ~2023-12-12 | FL_ITS ---
EXAMINATION: Modified Barium Swallows CLINICAL INFORMATION: Dysphagia COMPARISON: None TECHNIQUE: Modified barium swallow was performed under lateral fluoroscopy with patient in standing position. Barium mixed with solids and liquids of different consistencies was administered by the speech pathologist. Examination was recorded in the fluoroscopy suite. FINDINGS: No laryngeal penetration or aspiration was observed during this examination. FLUOROSCOPY TIME: 1 minute 9 seconds Number of Spot Images: N/A DOSE AREA PRODUCT: 392.1 uGy-m2 (microgray-meter squared) FL/FL barium swallow modified IMPRESSION: No laryngeal penetration or aspiration was observed during this examination. Refer to the speech therapy report for further clarification This procedure was performed by Kraig Meehan PA-C, and supervised by Dr. Shannon
--- NOTE | 2023-12-14 10:09 | MHC.SL.IMP ---
Date of Plan of Treatment: 12/12/23 Onset of Symptoms/Illness: 10/01/23 Date Treatment Started: 12/12/23 Admitting Diagnosis: Dysphagia Primary Speech & Language Diagnosis: R13.12 Oropharyngeal Phase Dysphagia Reason for Today's Visit: 24017 Modified Barium Swallow Study Pre-evaluation Dietary Consistencies: Regular Pre-evaluation Liquid Consistency: Thin Pre-evaluation Medication Administration: Whole with Liquid Medical History: Modified Barium Swallow Study Fluoroscopic Evaluation of Swallowing Function CPT Code 19299 Evaluation Year: 2023 Reason for Study: Patient reporting difficulty swallowing. Referring Physician: Noemi VELASCO Evaluating Clinician: Lizette Zaidi MA, CCC-EMAIL DEVELOPER Study Number: 1 Patient Name: Nakita Baez Status: Outpatient, Ambulatory Age: 43 Gender: Female Medical History Medical History (Updated 07/10/23 @ 16:00 by Era Ham MD) Anxiety Insomnia Tremors of nervous system Hypothyroidism Chronic migraine PCOS (polycystic ovarian syndrome) Surgical History History of thyroidectomy Hx of hand surgery (12/25/22) H/O right knee surgery History of intestinal obstruction History of lumbar puncture Tubal ligation status Hx of appendectomy H/O gastric bypass History of partial hysterectomy Current (pre-evaluation) Intake/Diet: Route: PO Diet Grade: Regular Liquid Consistencies: Thin Pre-Study Functional Oral Intake Scale (FOIS): 7- Total oral intake with no restrictions Pain: None reported at time of study SUBJECTIVE: Patient is a 43 year old female with history of thyroidectomy and gastric bypass presenting today for a modified barium swallow study. She reported that her throat felt tight and at times feeling like she is gasping for air when eating and drinking. She stated she could not cough strong enough to expel the food or liquid, but could not swallow it down either. She reported her difficulties got to the point of only being able to swallow liquids, which prompted her to go to the ED in September 2023 because she was ?starving? and could not eat any solid food. Her work-up included a strep swab and an x-ray of the soft tissue of the neck, which came out without any acute findings. At discharge, she was recommended a liquid/semi-solid diet and to follow-up with Gastroenterology. She was seen by Noemi VELASCO from the G.I. office on 11/09/23. She reported that her recovery after her thyroidectomy in February 2023 was uncomplicated and that she was swallowing well for about 6 months after this procedure. She reports she experienced GERD in the past, only during her 17 years ago, but does feel some burning sensation. She was sent for a flexible trans-oral upper gastrointestinal endoscopy on 11/19/23 with post-op diagnoses including esophageal candidiasis, small bowel erosions, and s/p gastric bypass. Patient says her symptoms have mostly improved after the fungal infection was treated, though she feels she now has oral thrush from the medication and still has trouble with large pills sticking in her throat. Oral Motor Exam Facial Symmetry: Symmetrical Mouth Occlusion: Normal Oral-Facial Teeth Characteristics: Intact/Normal Oral-Facial Lip Pucker Description: Normal Oral-Facial Smile (Lips) Description: Normal Oral-Facial Puff Cheeks Description: Normal Tongue Size: Normal Tongue Excursion Description: Normal Tongue Range of Movement Description: Normal Tongue Speed of Movement Description: Normal Tongue Strength of Movement (against opposing pressure): Normal Tongue Movement Characteristics: Normal/Absent Food and Liquid Trials: Oral Impairment: Lip Closure: 1=Interlabial escape; no progression to anterior tip Oral Impairment: Tongue Control During Bolus Hold: 0=Cohesive bolus between tongue to palatal seal Oral Impairment: Bolus Preparation/Mastication: 1=Slow prolonged chewing/mashing with complete re-collection Oral Impairment: Bolus Transport/Lingual Motion: 0=Brisk tongue motion Oral Impairment: Oral Residue: 2=Residue collection on oral structures Oral Impairment:Initiation of Pharyngeal Swallow: 0=Bolus head at posterior angle of ramus (first hyoid excursion) Pharyngeal Impairment: Soft Palate Elevation: 0=No bolus between soft palate (SP)/pharyngeal wall (PW) Pharyngeal Impairment: Laryngeal Elevation: 1=Partial thyroid cartilage/arytenoids to epiglottic petiole movement Pharyngeal Impairment: Anterior Hyoid Excursion: 1=Partial anterior movement Pharyngeal Impairment: Epiglottic Movement: 0=Complete inversion Pharyngeal Impairment: Laryngeal Vestibular Closure:: 0=Complete: no air/contrast in laryngeal vestibule Pharyngeal Impairment: Pharyngeal Stripping Wave: 0=Present: complete Pharyngeal Impairment: Pharyngeal Contraction: Did not test Pharyngeal Impairment: Pharyngoesophageal Segment Openin=Partial distention/partial duration: partial obstruction of flow Pharyngeal Impairment: Tongue Base (TB) Retraction: 0=No contrast between tongue base and posterior pharyngeal wall Pharyngeal Impairment: Pharyngeal Residue: 2=Collection of residue within or on pharyngeal structures Pharyngeal Impairment: Esophageal Clearance Upright Position: Did not test Impressions and Recommendations Clinical Observations: OBJECTIVE: Time-out: performed at 15:00 Evaluation Start: 14:30; Stop: 14:35 Patient Positioning: Standing Viewing Planes: LATERAL ONLY Contrast: MBSImP? Standardized Protocol using commercially prepared, standardized Barium viscosities, including: Varibar? THIN LIQUID (40% w/v, <15 cps) , 1/2 Shortbread Cookie (1 x1 x.25 ) [facility]BS[facility] ID: [id number] [facility]: Lip closure for intraoral bolus containment resulted in interlabial escape, without progression to the anterior lip. Tongue control during bolus hold maintained a cohesive bolus held between tongue to palate seal. Bolus preparation and mastication resulted in slow, prolonged chewing/mashing but with complete re-collection. Bolus transport/lingual motion was with brisk tongue motion. Oral residue was a collection on oral structures. Initiation of the pharyngeal swallow occurred as the bolus head reached the posterior angle of the mandibular ramus. Soft palate elevation resulted in no bolus between the soft palate and the pharyngeal wall. Laryngeal elevation was decreased, with partial superior movement of the thyroid cartilage/partial approximation of the arytenoids to the epiglottic petiole. Anterior hyoid excursion demonstrated partial anterior movement. Epiglottic movement resulted in complete inversion. Laryngeal vestibular closure was complete, as indicated by no air or contrast within the laryngeal vestibule at the height of the swallow. Pharyngeal stripping wave was present and complete. Pharyngeal contraction could not be determined due to logistical reasons not related to physiologic impairment. Pharyngoesophageal segment opening demonstrated partial distension/partial duration, with partial obstruction of bolus flow. Tongue base retraction allowed no contrast between the retracted tongue base and the posterior pharyngeal wall. Pharyngeal residue was a collection of residue within or on pharyngeal structures. Esophageal clearance in the upright position could not be assessed due to logistical reasons not related to physiologic impairment. Oral Impairment Score: 3 Pharyngeal Impairment Score: 5 (absence of score, component 13) Esophageal Impairment Score: --- (absence of score, component 17) Laryngeal Penetration and Aspiration: Neither penetration nor aspiration was observed in today's study with Cookie, Puree, Thin. ASSESSMENT: This exam was conducted by the radiologist and the speech pathologist. Patient was standing for lateral and AP views. She was able to feed herself without any difficulty and trialed the following liquid and solid consistencies: -Thin Liquid (via cup; individual sips and rapid sequential sips) -Puree (applesauce) -Regular Solid (shortbread cookies) Patient demonstrated good lingual control with no premature posterior escape of bolus. Mastication was mildly prolonged with piece meal deglutition. Brisk lingual movement. Timely pharyngeal swallow trigger. Post-swallow there was minimal residue coating the tongue, which cleared with sips of liquid. No evidence of nasopharyngeal reflux. Partial laryngeal elevation. Complete epiglottic inversion and complete laryngeal vestibular closure. No evidence of penetration or aspiration during this exam. There was mild residue collecting in the valleculae and pyriform sinuses, which cleared with a dry swallow or liquid wash. Partial distention through the pharyngoesophageal segment opening. Patient swallowed whole barium pill tablet, which passed through the oral cavity, pharynx, and esophagus without any hang up. The following compensatory strategies have not been used until today's study, but when employed, improved swallowing function: Liquid Wash eliminated Oral Residue, Pharyngeal Residue Additional Swallow(s) per Bolus eliminated Oral Residue, Pharyngeal Residue Liquid Intake Recommendation: Thin Liquid Intake Strategies: Unrestricted Dietary Recommendations: Regular Medication Administration: Whole with Liquid Please contact the pharmacy regarding appropriate crushable or liquid drug formulations that are available whenever modified delivery is recommended. Compensatory Strategies Recommended: Sitting Upright (90 deg), Small Bites and Sips, Alternate Liquids/Solids, Rate of Ingestion Change Supervision during eating and or drinking: None Needed Recommendation for Speech Therapy: NA:Typical Evaluation Text Comment: Intake Recommendations: Route: PO Diet Grade: Regular Liquid Consistencies: Thin Post-Study Functional Oral Intake Scale (FOIS): 7- Total oral intake with no restrictions No evidence of aspiration or penetration during this exam. Mild residue in the oral cavity and the pharynx completely cleared with liquid wash. Suggested Referrals: The patient might benefit from a referral to: Gastroenterology Indication for Referral: Follow-up to dx esophageal candidiasis, hx reflux The patient might benefit from a referral to: General Physician Indication for Referral: ? Oral thrush Therapy Recommendations: We discussed recommendation for patient to take small bites, chew food well, alternate bites with sips of liquid or dry swallow to promote oral and pharyngeal clearance, take pills one at a time with multiple sips of liquid or in puree medium if needed. Patient verbalized understanding and denied having any further questions. Therapy will be discontinued at this time. Patient says she has a follow-up with [facility]. the first week of December. This report will be faxed to the G.[facility]. office. Clinician - Supplemental, Miscellaneous Communication: It is important to note MBSS objective studies are snapshots in time and Patient function might vary with factors such as time of day or concomitant medical conditions. For this reason, the final treatment plan for this patient should rest with their medical care team. Additional recommendations should be considered with the totality of the Patient in mind. Thank for the opportunity to participate in the care of this patient. If you have any questions about the content of this report, please contact the [facility] at [facility]. Education: Education regarding findings from today's study and plans for therapy were provided to Patient only through Verbal Instruction. Understanding was expressed by the Patient only. Coin Machine Service Repairer Clinician/Clinical Fellow: No Supervisory Statement: N/A Speech Language Pathologist: Lizette Zaidi M.A., CCC-EMAIL DEVELOPER
== END 2023-12-12 13:53 | disposition home or self-care (01) ==
LOC: HO.XRAY 13:52
PROVIDERS: PCP Internal Medicine; Visit Provider Nurse Practitioner
DX: R13.12 Dysphagia, oropharyngeal phase (principal)
CPT/HCPCS: 74230; 92611

== ENCOUNTER → 2023-12-12 13:54 | Outpatient (BNV) | payer BC, SELFPAY | PROVIDERS: PCP Internal Medicine; Visit Provider Physician Assistant Surgical | DX: R13.10 Dysphagia, unspecified (principal) | CPT/HCPCS: 74230 ==

== ENCOUNTER 2024-01-04 15:19 | Outpatient (AMB) | payer BC, SELFPAY ==
--- NOTE | 2024-01-04 15:24 | A.OFFVIS_ITS ---
Vital Signs 01/04/24 15:39 Height 5 ft 6 in Weight 127 lb 13.89 oz BMI 20.6 BP 95/54 L Blood Pressure Location Lt brachial Position Sitting Pulse 70 Intake Visit Reasons: 8 week follow up Intake Note: Nakita presents to in office follow up s/p EGD and barium swallow. CC: Patient reports that she is doing better from dysphagia. Denies other GI concerns today. Hand Booked Folder And Stitcher Required: No Accompanied by: Self / Same As Patient Allergies hydrocodone [From VICODIN] Allergy (Intermediate, Verified 01/30/24 14:27) GI UPSET propylene glycol [PROPYLENE GLYCOL] Allergy (Intermediate, Verified 01/30/24 14:27) EXTREME BURNING/PAIN/RASH trazodone Allergy (Intermediate, Verified 01/30/24 14:27) Shortness of Breath cobalt Allergy (Verified 01/30/24 14:27) Unknown lamotrigine Adverse Reaction (Intermediate, Verified 01/30/24 14:27) foggy propranolol Adverse Reaction (Intermediate, Verified 01/30/24 14:27) inadequate response acetaminophen [Vicodin] Adverse Reaction (Unknown, Verified 01/30/24 14:27) nausea and vomiting levetiracetam [From Keppra] Adverse Reaction (Verified 01/30/24 14:27) foggy diamox Adverse Reaction (Intermediate, Uncoded 01/30/24 14:27) metalic taste, did not feel comfortable HPI HPI 8 week follow up: Details: Assessment & Plan (1) Oropharyngeal dysphagia: Code(s): R13.12 - Dysphagia, oropharyngeal phase Category: Medical (2) Multiple drug allergies: Code(s): Z88.9 - Allergy status to unspecified drugs, medicaments and biological substances Category: Medical Plan Onset end of 08/2023 may of gradual onset and then she got to a point where she could only swallow liquids. It is a very tight feeling around the voicebox area and at times she will feel like she is gasping for air. She can't cough strong enough to get it back up and can't swallow hard enough to get it back down. She has been unable to get in to see her PCP about this so she presented to the ER. She was starving because she could not eat any solid foods. She has a thyroidectomy in February of 2023. She was doing very well with swallowing and her recovery initially. She has only experienced GERd when she was , which has been over 17 years!! But she at times feels a sort of burning in the area. She suffers chronic CIC and she is on chronic lactulose and dulcolax. Her father suffers bad HB no other familial problems. ROV 8 weeks. to eval omeprazole next office visit have her get basic lab work for the EGD. Orders: Orders Comprehensive Met. Panel Today R13.12 - Dysphagia, oropharyngeal phase Complete Blood Count Auto Diff Today R13.12 - Dysphagia, oropharyngeal phase EGD with [facility] - GI Use Only Today R13.12 - Dysphagia, oropharyngeal phase FL barium swallow modified Today R13.12 - Dysphagia, oropharyngeal phase Medications: New omeprazole 40 mg PO DAILY 30 days 30 caps 6RF LABS: not obtained. MODIFIED BARIUM SWALLOW 12/12/23 FINDINGS: No laryngeal penetration or aspiration was observed during this examination. FLUOROSCOPY TIME: 1 minute 9 seconds Number of Spot Images: N/A DOSE AREA PRODUCT: 392.1 uGy-m2 (microgray-meter squared) FL/FL barium swallow modified IMPRESSION: No laryngeal penetration or aspiration was observed during this examination. Refer to the speech therapy report for further clarification SPEECH THERAPY REPORT Patient demonstrated good lingual control with no premature posterior escape of bolus. Mastication was mildly prolonged with piece meal deglutition. Brisk lingual movement. Timely pharyngeal swallow trigger. Post-swallow there was minimal residue coating the tongue, which cleared with sips of liquid. No evidence of nasopharyngeal reflux. Partial laryngeal elevation. Complete epiglottic inversion and complete laryngeal vestibular closure. No evidence of penetration or aspiration during this exam. There was mild residue collecting in the valleculae and pyriform sinuses, which cleared with a dry swallow or liquid wash. Partial distention through the pharyngoesophageal segment opening. Patient swallowed whole barium pill tablet, which passed through the oral cavity, pharynx, and esophagus without any hang up. The following compensatory strategies have not been used until today's study, but when employed, improved swallowing function: Liquid Wash eliminated Oral Residue, Pharyngeal Residue Additional Swallow(s) per Bolus eliminated Oral Residue, Pharyngeal Residue Liquid Intake Recommendation: Thin Liquid Intake Strategies: Unrestricted Dietary Recommendations: Regular Medication Administration: Whole with Liquid Please contact the pharmacy regarding appropriate crushable or liquid drug formulations that are available whenever modified delivery is recommended. Compensatory Strategies Recommended: Sitting Upright (90 deg), Small Bites and Sips, Alternate Liquids/Solids, Rate of Ingestion Change Supervision during eating and or drinking: None Needed Recommendation for Speech Therapy: NA:Typical EvaluationText Comment: Intake Recommendations: Route: PO Diet Grade: Regular Liquid Consistencies: Thin EGD 11/20/23 Findings: Larynx: Normal Esophagus: GE junction at 35 cms. Esophageal erythema with white exudate throughout the esophagus. No stricture or narrowing noted. Stomach: Gastrojejunal anastomosis at 38 cms. Biopsies are obtained from the gastric pouch to check for Helicobacter pylori Grade 2 flap valve on retroflexed examination of the cardia. Duodenum: Superficial erosions and ulcers in the jejunum just distal to the anastomosis Intervention: Biopsies as noted above Impression and Post Procedure Diagnosis: Endoscopy Findings: ESOPHAGUS: GE junction at 35 cms. Mildly tortuous esophagus STOMACH: Nodular appearing mucosa in the gastric body and fundus - biopsied. Moderate diffuse gastric erythema - biopsies were obtained from the antrum. BIOPSY Received: 11/20/23 Diagnosis A. Small bowel, biopsy: Mild active enteritis with mildly blunted villi; no granulomas or dysplasia; no evidence of celiac disease (see comment). B. Gastric pouch, biopsy: Gastric antral mucosa with focal lamina propria hemorrhage and minimal chronic inactive gastritis; negative for H pylori, intestinal metaplasia and dysplasia. Comment: (A): The findings may be due to infection, NSAID/drugs, or reactive secondary to gastric bypass, and clinical correlation is necessary TODAY'S VISIT She is doing much better Will treat with diflucan for another 14 days as she still will have to hard swallow at times. ROV 6 weeks. [facility] Medical History (Updated 02/08/24 @ 17:16 by ROD Briones) Physical exam Janna's thyroiditis Bilateral hand pain Pain in joint of right wrist Right wrist tendinitis Pseudotumor cerebri Goiter Impacted cerumen of both ears Acute sinusitis Acute right otitis media Contusion of right forearm Sinus infection Right elbow pain Right wrist pain Right arm pain Fall from slipping on ice Dysphagia Anxiety Insomnia Tremors of nervous system Hypothyroidism Chronic migraine PCOS (polycystic ovarian syndrome) Surgical History History of esophagogastroduodenoscopy (EGD) History of thyroidectomy Hx of hand surgery (12/25/22) H/O right knee surgery History of intestinal obstruction History of lumbar puncture Tubal ligation status Hx of appendectomy H/O gastric bypass History of partial hysterectomy Family History Mother No problems noted. 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 Current occupational exposures/hazards: No Cognitive needs: No Hearing needs: No Vision needs: Yes Review of Systems Const Denies fatigue, Denies fever(s), Denies night sweats, Denies poor appetite and Denies weight loss Eyes Details: glasses Reports requires corrective lenses ENT Reports Normal hearing present, Denies dental pain, Reports dysphagia, Denies hearing loss, Denies mouth pain, Denies odynophagia, Denies throat swelling, Denies tongue swelling and Reports other (Dentition adequate) Card Reports no additional complaints Resp Reports no additional complaints GI Details: Denies abdominal pain, Denies melena, Denies bloating, Denies hematochezia, Denies constipation, Denies GI cramping, Reports dysphagia, Denies excessive flatus, Denies early satiety, Reports heartburn, Denies diarrhea, Denies nausea, Denies odynophagia, Denies vomiting and Denies hematemesis Skin/Breast Denies pruritus, Denies lesions, Denies rash and Denies jaundice Neuro Reports Normal hearing present and Denies Abnormal speech present Endo Denies fatigue Aller/Immun Denies throat swelling and Denies tongue swelling Physical Exam Vital Signs: Last Vital Signs Pulse 70 01/04/24 15:39 BP 95/54 L 01/04/24 15:39 BMI result Body Mass Index 20.6 Const General: cooperative, no acute distress, well developed and well groomed Nutritional Appearance: average body habitus and well nourished Orientation/consciousness: oriented to person, oriented to place and oriented to time Limitations: No language barrier HEENT Head: Yes normocephalic and Yes atraumatic Eyes General: appearance normal, both eyes and all related structures Pupils: Equal, round and reactive pupils present Neck Neck: Yes normal visual inspection and Yes no lymphadenopathy Thyroid: Thyroid normal Resp Effort & Inspection: normal respiratory effort and able to speak in complete sentences Auscultation: clear to auscultation bilaterally Cardio Rate: regular rate Rhythm: regular rhythm Heart sounds: Normal, physiologic split S2 sound present Peripheral pulses: radial pulses present and posterior tibial pulses present GI Inspection: No distended and No Abdominal panniculus present Palpation (GI): Soft to palpation, nontender, no guarding, not rigid and No hepatosplenomegaly present Percussion: Yes normal to percussion Auscultation: normal bowel sounds Rectal Exam - Female: deferred Skin General skin exam: no rashes or lesions noted, turgor normal, skin not dry, no jaundice, No spider nevi and no striae Rashes: no rashes Nails: normal Neuro General: oriented to person, oriented to place and oriented to time Cranial nerves: Yes Equal, round and reactive pupils present and Yes Normal hearing present Speech: No Abnormal speech present Extrem General: Yes normal to inspection, No clubbing, No cyanosis and No edema Psych Appearance: grossly normal and well kempt Mental Status: mental status grossly normal Speech and movement: Normal speech and movement present Affect: normal affect Attitude: cooperative Thought process: Normal thought process present and not confabulating Thought content: Normal thought content present Insight: Fair insight present (Psych) Judgement: Fair judgement present (Psych) Assessment & Plan Assessment & Plan (1) Oropharyngeal dysphagia: Code(s): R13.12 - Dysphagia, oropharyngeal phase Category: Medical (2) Esophageal candidiasis: Code(s): B37.81 - Candidal esophagitis Category: Medical (3) Chronic idiopathic constipation: Code(s): K59.04 - Chronic idiopathic constipation Category: Medical Plan She is doing much better Will treat with diflucan for another 14 days as she still will have to hard swallow at times. ROV 6 weeks. Medications: Refilled fluconazole Advise to hold hydroxyzine while taking Fluconazole due to drug interaction 200 mg PO DAILY 14 tabs 0RF 14 days B37.81 - Candidal esophagitis Coding Level of Care Code Est Pt Level 3 (99418) Diagnoses Oropharyngeal dysphagia R13.12 Esophageal candidiasis B37.81 Chronic idiopathic constipation K59.04
[2024-01-04 15:39] VITALS: BP 95/54; PULSE 70; BMI 20.6
== END 2024-01-04 16:06 | disposition home or self-care (01) ==
PROVIDERS: PCP Internal Medicine; Visit Provider Nurse Practitioner
DX: R13.12 Dysphagia, oropharyngeal phase (principal); B37.81 Candidal esophagitis; K59.04 Chronic idiopathic constipation
CPT/HCPCS: 99213

== ENCOUNTER → 2024-01-04 15:19 | Outpatient (BNVA) | payer BC, SELFPAY | PROVIDERS: PCP Internal Medicine; Visit Provider Nurse Practitioner ==

== ENCOUNTER 2024-01-24 16:16 | Outpatient (AMB) | payer BC, SELFPAY ==
--- NOTE | 2024-01-24 16:30 | MHC.PC.OV ---
Vital Signs 01/24/24 16:31 Height 5 ft 6 in Weight 122 lb BMI 19.7 BP 118/70 Blood Pressure Location Lt brachial Position Sitting Intake Visit Reasons: annual exam Intake Note: Patient here for an annual physical exam [employer] Required: No Accompanied by: Self / Same As Patient Allergies hydrocodone [From VICODIN] Allergy (Intermediate, Verified 01/25/24 10:45) GI UPSET propylene glycol [PROPYLENE GLYCOL] Allergy (Intermediate, Verified 01/25/24 10:45) EXTREME BURNING/PAIN/RASH trazodone Allergy (Intermediate, Verified 01/25/24 10:45) Shortness of Breath cobalt Allergy (Verified 01/25/24 10:45) Unknown lamotrigine Adverse Reaction (Intermediate, Verified 01/25/24 10:45) foggy propranolol Adverse Reaction (Intermediate, Verified 01/25/24 10:45) inadequate response acetaminophen [Vicodin] Adverse Reaction (Unknown, Verified 01/25/24 10:45) nausea and vomiting levetiracetam [From Keppra] Adverse Reaction (Verified 01/25/24 10:45) foggy diamox Adverse Reaction (Intermediate, Uncoded 01/24/24 16:45) metalic taste, did not feel comfortable Medication List - Last Reconciled 01/24/24 by Era Ham MD bisacodyl 5 mg PO DAILY calcium citrate-vitamin D3 500-200 mg-unit tabs PO doxepin 50 mg PO DAILY gabapentin 300 mg PO Q8H 30 days gabapentin 1/2 qam and q noon 1 1/2 at bedtime orally 3 times a day; hydroxyzine HCl 50 mg PO BEDTIME PRN lactulose 15 mL PO BID PRN 30 days levothyroxine 125 mcg PO DAILY 90 days magnesium 200 mg PO DAILY omeprazole 40 mg PO DAILY 30 days ondansetron 8 mg PO Q8H PRN 10 days riboflavin (vitamin B2) 100 mg PO DAILY thiamine HCl (vitamin B1) 100 mg PO DAILY vitamin B complex (B Complex-Vitamin B12 tablet) 1 tab PO DAILY Tobacco use date assessed: 07/10/23 Dental Screening Dental Screen Date: 07/10/23 HPI HPI Comments History of Present Illness Details This is a 43-year-old female with seizures that comes for her physical exam. She complains of an epigastric pain that started last week and radiates to the thoracic spine. Laying down flat relieves this pain. Does not recall any association with food. Started be nauseous today. Was recommended to screening her mammogram. [facility] Medical History (Updated 01/24/24 @ 17:06 by Era Ham MD) Physical exam Janna's thyroiditis Bilateral hand pain Pain in joint of right wrist Right wrist tendinitis Pseudotumor cerebri Goiter Impacted cerumen of both ears Acute sinusitis Acute right otitis media Contusion of right forearm Sinus infection Right elbow pain Right wrist pain Right arm pain Fall from slipping on ice Dysphagia Anxiety Insomnia Tremors of nervous system Hypothyroidism Chronic migraine PCOS (polycystic ovarian syndrome) Surgical History History of esophagogastroduodenoscopy (EGD) History of thyroidectomy Hx of hand surgery (12/25/22) H/O right knee surgery History of intestinal obstruction History of lumbar puncture Tubal ligation status Hx of appendectomy H/O gastric bypass History of partial hysterectomy Family History Mother No problems noted. 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 1. Little interest or pleasure in doing things: not at all 2. Feeling down, depressed, or hopeless: not at all 3. Trouble falling or staying asleep, or sleeping too much: nearly every day 4. Feeling tired or having little energy: more than half the days 5. Poor appetite or overeating: not at all 6. Feeling bad about yourself - or that you are a failure or have let yourself or your family down: not at all 7. Trouble concentrating on things, such as reading the newspaper or watching television: not at all 8. Moving or speaking so slowly that other people could have noticed. Or the opposite - being so fidgety or restless that you have been moving around a lot more than usual: not at all 9. Thoughts that you would be better off or of hurting yourself in some way: not at all Total score: 5 Depression Screening Interpretation: Positive Depression Screening Follow-up: Existing condition and Follow-up Visit Requested Depression Screening Done: Yes 43483 - PHQ-9 Billing: Yes Source: Developed by Drs. Dileep Davidson, Carissa Martini, Julian Rivera and colleagues, with an educational terell from [employer]. Thrive Questionnaire Date Thrive assessed: 01/24/24 I am a: Patient What is your living situation today?: I have a steady place to live Within the past 12 months, did the food you bought not last and you didn't have the money to get more?: Never true Within the past 12 months, did you worry whether your food would run out before you got money to buy more?: Never true Do you have trouble paying for medicines?: No Do you have trouble getting transportation to medical appointments?: No Do you have trouble paying your heating and electricity bill?: No Do you have trouble taking care of your child, family member or friend?: No Do you have trouble with day-to-day activities such as bathing, preparing meals, shopping, managing finances, etc.?: No Are you currently unemployed and looking for a job?: No Are you interested in more education?: No Please select the resources that you would like help with: None Currently or been in a relationship where the following occur: No concerns reported THRIVE Score: 0 AUDIT C Alcohol Use Questionnaire (AUDIT-C) 1. How often do you have a drink containing alcohol?: Monthly or less 2. How many drinks containing alcohol do you have on a typical day when you are drinking?: 1 or 2 3. How often do you have six or more drinks on one occasion?: Less than monthly Total Score: 2 ROSSY-7 AMB Questionnaire ROSSY-7 Date ROSSY - 7 assessed: 09/05/24 Feeling nervous, anxious, or on edge: 0 = Not at all Not being able to stop or control worryin = Not at all Worrying too much about different things: 0 = Not at all Trouble relaxin = Not at all Being so restless that it is hard to sit still: 0 = Not at all Becoming easily annoyed or irritable: 0 = Not at all Feeling afraid as if something awful might happen: 0 = Not at all Total ROSSY-7 score (0-4 normal; 5-9 mild; 10-14 moderate; 15-21 severe): 0 Source: Developed by Drs. Dileep Davidson, Carissa Martini, Julian Rivera and colleagues, with an educational terell from [employer]. Review of Systems Const All systems reviewed & are unremarkable except as noted in HPI and below Card Denies chest pain at rest, Denies chest pain with activity, Denies edema, Denies irregular heart rhythm, Denies claudication, Denies dyspnea, Denies dyspnea on exertion, Denies orthopnea, Denies paroxysmal nocturnal dyspnea and Denies slow heart rate Resp Denies cough, Denies dyspnea and Denies dyspnea on exertion GI Reports abdominal pain, Denies change in bowel habits, Denies excessive flatus, Denies nausea and Denies vomiting Physical exam (Primary Care) Vital Signs: Last Vital Signs BP 118/70 01/24/24 16:31 BMI result Body Mass Index 19.7 Tobacco/Smoking Status: Tobacco use Status Tobacco use date assessed 07/10/23 01/24/24 16:37 Patient Tobacco Use Status Never used Tobacco 01/24/24 16:37 e-Cigarette/Vaping Use Never Used 01/24/24 16:37 PHQ-9: PHQ-9 Score PHQ-9: Total score 5 01/24/24 16:50 Depression Screening Interpretation: Positive Depression Screening Follow-up: Existing condition and Follow-up Visit Requested Thrive Assessment: Date of Thrive Assessment Date Thrive assessed 01/24/24 01/24/24 16:37 Currently or been in a relationship where the following occur: No concerns reported [facility] Head: Yes normal to inspection, Yes normocephalic and Yes atraumatic Ears: external ears normal Eyes General: appearance normal, both eyes and all related structures Eyelids: Yes eyelids normal Conjunctivae: conjunctivae normal Neck Neck: Yes normal visual inspection and Yes supple Resp Effort & Inspection: normal respiratory effort Auscultation: clear to auscultation bilaterally Cardio Jugular venous distension: no JVD Rate: regular rate Rhythm: regular rhythm Heart sounds: S1 normal heart sound present and S2 normal heart sound present GI Inspection: Yes normal to inspection Palpation (GI): Soft to palpation and Tenderness to palpation present (GI) in the epigastrum Auscultation: normal bowel sounds Skin General skin exam: no rashes or lesions noted Neuro General: no focal motor deficits Extrem General: Yes full ROM Psych Appearance: grossly normal Assessment and Plan Assessment & Plan (1) Physical exam: Code(s): Z00.00 - Encounter for general adult medical examination without abnormal findings Plan: Repeat in a year. (2) Thoracic spine pain: Code(s): M54.6 - Pain in thoracic spine Plan: X-ray ordered. (3) Epigastric pain: Code(s): R10.13 - Epigastric pain Plan: CT scan of abdomen order urgently. Labs ordered. (4) Seizures: Code(s): R56.9 - Unspecified convulsions Plan: Continue gabapentin. Orders: Orders Lipase 01/24/24 R10.13 - Epigastric pain Comprehensive [place]. Panel Fast 01/24/24 R10.13 - Epigastric pain Vitamin B12 and Folate 01/24/24 E53.8 - Deficiency of other specified B group vitamins Thyroid Stimulating Hormone 01/24/24 E89.0 - Postprocedural hypothyroidism Complete Blood Count Auto Diff 01/24/24 G25.81 - Restless legs syndrome Lipid Panel 01/24/24 Z00.00 - Encounter for general adult medical examination without abnormal findings CT abdomen wo IV con 01/24/24 R10.13 - Epigastric pain Vitamin D 25-OH Total 01/24/24 E55.9 - Vitamin D deficiency, unspecified XR thoracic spine 2V 01/24/24 M54.6 - Pain in thoracic spine Medications: New sucralfate (Carafate) swish in mouth and swallow; use after food/drink 5 mL PO QID 30 days 600 mL 0RF ropinirole administer 1-3 hours before bedtime 0.5 mg PO BEDTIME 30 days 30 tabs 0RF ropinirole administer 1-3 hours before bedtime 0.5 mg PO BEDTIME 30 days 30 tabs 0RF G25.81 - Restless legs syndrome Coding Level of Care Code Est Pt Level 3 (40320) Est Pt Prev Care 40-64y(15266) Diagnoses Physical exam Z00.00 Thoracic spine pain M54.6 Epigastric pain R10.13 Seizures R56.9 Time Spent (min) 31
[2024-01-24 16:31] VITALS: BP 118/70; BMI 19.7
== END 2024-01-24 17:27 | disposition home or self-care (01) ==
PROVIDERS: PCP Internal Medicine; Visit Provider Internal Medicine
DX: Z00.00 Encounter for general adult medical examination without abnormal findings (principal); M54.6 Pain in thoracic spine; R10.13 Epigastric pain; R56.9 Unspecified convulsions
CPT/HCPCS: 99213; 99396

== ENCOUNTER 2024-01-25 10:23 | Emergency (ER) | payer BC, SELFPAY ==
--- NOTE | ~2024-01-25 | CT_ITS ---
EXAMINATION: CT ABDOMEN AND PELVIS WITH CONTRAST CLINICAL INFORMATION: Epigastric pain COMPARISON: None available. TECHNIQUE: Multidetector volumetric images were obtained from the superior aspect of the liver through the pubic symphysis following administration 85 mL of Omnipaque 350 intravenous contrast. Sagittal and coronal reformatted images were obtained on the technologist's workstation. Oral contrast: No This CT examination was performed using dose optimization techniques as appropriate, variously including the following: *Automated exposure control *Adjustment of mA and/or kV according to patient size (this includes techniques or standardized protocols for targeted exams where dose is matched to indication/reason for exam; i.e. extremities or head) *Use of iterative reconstruction technique DLP: 423 mGy-cm FINDINGS: LUNG BASES: The visualized lung bases are unremarkable. LIVER, GALLBLADDER, AND BILIARY TREE: The liver is normal in size, shape, and attenuation. No focal hepatic lesion or biliary ductal dilatation is present. The gallbladder is unremarkable with no evidence of radiopaque gallstones, gallbladder wall thickening, or obvious pericholecystic inflammatory changes. PANCREAS: Unremarkable. SPLEEN: Unremarkable. ADRENAL GLANDS: Unremarkable. KIDNEYS AND URETERS: The kidneys are normal in size, shape, and attenuation. No hydronephrosis, hydroureter, or calculi seen. No perinephric stranding. BLADDER: Unremarkable. GASTROINTESTINAL TRACT: Moderate amount stool throughout the colon. There is circumferential thickening of the colon at the level of the hepatic flexure. Please see adkins images. This is suspicious for potentially infiltrating tumor as opposed to focal colitis. Elective GI assessment recommended for further evaluation. No obstruction. Cecum unremarkable. Terminal ileum normal. No free fluid or ascites. ABDOMINAL WALL: No significant hernia is appreciated. LYMPH NODES: Normal. VASCULAR: Unremarkable. PELVIC VISCERA: Appears to be surgically absent. OSSEOUS STRUCTURES: Unremarkable. CT/CT abdomen pelvis w IV con IMPRESSION: Circumferential thickening of the colon at the level of the hepatic flexure. Please see adkins images. This is suspicious for potentially at infiltrating tumor as opposed to focal colitis. Elective GI assessment recommended for further evaluation. Fleischner guidelines were followed. Electronically signed by: Jaswinder Dinero MD 01/25/2024 08:34 PM EDT
[2024-01-25 10:43] VITALS: BP 113/59; PULSE 72; RESP 18; TEMP 36.7; O2SAT 100; BMI 22.6
[2024-01-25 11:00] LABS: MANUAL DIFF FLAG NO
[2024-01-25 11:01] LABS: Basophils Absolute Auto 0.1 X10*3/uL (0.0-0.2); Basophils Percent Auto 1.1 % (0-2); Eosinophils Percent Auto 0.7 % (0-4); Hematocrit 30.8 % (37.0-47.0); Hemoglobin 9.2 g/dl (12.0-16.0); Imm Gran Abs Auto 0.01 X10*3/uL (0.00-0.03); Imm Gran Pct Auto 0.2 % (0.0-0.4); Lymphocytes Absolute Auto 1.7 X10*3/uL (1.2-4.9); Lymphocytes Percent Auto 38.1 % (20-40); Mean Corpuscular HGB Conc 29.9 g/dl (31.0-35.0); Mean Corpuscular Hemoglobin 20.3 pg (27.0-33.0); Mean Corpuscular Volume 67.8 fL (80.0-98.0); Mean Platelet Volume 8.8 fL (9.4-12.3); Monocytes Absolute Auto 0.4 X10*3/uL (0.1-1.2); Monocytes Percent Auto 8.1 % (2-11); Neutrophils Absolute Auto 2.3 x10*3/uL (2.0-8.3); Neutrophils Percent Auto 51.8 % (45-73); Platelet Count 465 X10*3/uL (160-400); Red Blood Count 4.54 X10*6/uL (4.20-5.50); Red Cell Distribution Width 18.3 % (11.0-16.0); White Blood Count 4.4 X10*3/uL (4.8-10.8)
[2024-01-25 11:21] LABS: Alanine Aminotransferase 6 U/L (0-31); Albumin Level 3.7 g/dL (3.5-5.0); Alkaline Phosphatase 50 U/L (39-117); Anion Gap 12 (12-20); Aspartate Amino Transferase 18 U/L (5-31); Bilirubin Direct < 0.2 mg/dL (0.0-0.5); Bilirubin Total 0.2 mg/dL (0.0-1.0); Blood Urea Nitrogen 22 mg/dL (9-16); Calcium 8.5 mg/dL (8.4-10.2); Carbon Dioxide 22 mmol/L (22-29); Chloride 109 mmol/L (96-108); Creatinine Clr Calc Pharmacy 79.1; Estimated Glomerular Filt Rate > 60; Glucose Random 93 mg/dL (60-115); Lipase 26 U/L (8-78); Potassium 3.6 mmol/L (3.3-5.1); Sodium 139 mmol/L (135-145); Total Protein 6.4 g/dL (6.5-8.0)
[2024-01-25 13:30] VITALS: BP 120/53; PULSE 75; RESP 18; TEMP 36.8; O2SAT 100
--- NOTE | 2024-01-25 13:31 | ED.GENADULT ---
HPI - General Adult General Chief complaint: Abdominal Pain Stated complaint: Stomach Pain Nausea Time Seen by Provider: 01/25/24 13:49 Source: patient Mode of arrival: ambulatory Limitations: no limitations History of Present Illness ED Provider: Dr. Ciro Ocampo HPI narrative: 43-year-old female history of Janna's thyroiditis, goiter status post thyroidectomy, dysphagia, exam of the, insomnia, chronic migraines, PCOS, gastric bypass who presents emergency department for evaluation 1 week of epigastric abdominal pain radiating to her back. She states the pain came on suddenly in his got progressively worse. She states the pain is 10/10. The patient has constant nausea with dry heaves. She denies feeling bloated or distended. She states that her last bowel movement was 2 days ago but she has not been eating or drinking. She has had no food or fluid in the last 2 days. Patient states that she has had small-bowel obstructions in the past but this feels different than her small-bowel obstruction. Related Data Home Medications ?Medication ?Instructions ?Recorded ?Confirmed hydroxyzine HCl 25 mg tablet 50 mg PO BEDTIME PRN Insomnia 10/20/20 01/24/24 doxepin 25 mg capsule 50 mg PO DAILY 02/07/21 01/24/24 bisacodyl 5 mg tablet 5 mg PO DAILY 03/28/22 01/24/24 magnesium 200 mg tablet 200 mg PO DAILY 03/28/22 01/24/24 riboflavin (vitamin B2) 100 mg 100 mg PO DAILY 03/28/22 01/24/24 tablet thiamine HCl (vitamin B1) 100 mg 100 mg PO DAILY 03/28/22 01/24/24 tablet vitamin B complex (B 1 tab PO DAILY 03/28/22 01/24/24 Complex-Vitamin B12 tablet) calcium citrate-vitamin D3 500 tab PO 01/09/23 01/24/24 mg-200 unit chewable tablet Previous Rx's ?Medication ?Instructions ?Recorded lactulose 10 gram/15 mL oral 15 ml PO BID PRN constipation 30 02/26/23 solution days #473 mL ondansetron 8 mg disintegrating 8 mg PO Q8H PRN nausea and 06/17/23 tablet vomiting 10 days #30 tabs levothyroxine 125 mcg tablet 125 mcg PO DAILY 90 days #90 tabs 07/10/23 omeprazole 40 mg capsule,delayed 40 mg PO DAILY 30 days #30 caps 11/09/23 release gabapentin 300 mg capsule 300 mg PO Q8H migraines 30 days 01/23/24 #150 caps gabapentin 600 mg tablet See Rx Instructions PO TID #90 tabs 01/24/24 ropinirole 0.5 mg tablet 0.5 mg PO BEDTIME 30 days #30 tabs 01/24/24 sucralfate 100 mg/mL oral 5 ml PO QID 30 days #600 mL 01/24/24 suspension (Carafate) Allergies Allergy/AdvReac Type Severity Reaction Status Date / Time hydrocodone [From VICODIN] Allergy Intermediate GI UPSET Verified 01/25/24 10:45 propylene glycol Allergy Intermediate EXTREME Verified 01/25/24 10:45 [PROPYLENE GLYCOL] BURNING/PAIN/RASH trazodone Allergy Intermediate Shortness Verified 01/25/24 10:45 of Breath cobalt Allergy Unknown Verified 01/25/24 10:45 lamotrigine AdvReac Intermediate foggy Verified 01/25/24 10:45 propranolol AdvReac Intermediate inadequate Verified 01/25/24 10:45 response acetaminophen [Vicodin] AdvReac Unknown nausea and Verified 01/25/24 10:45 vomiting levetiracetam [From Keppra] AdvReac foggy Verified 01/25/24 10:45 diamox AdvReac Intermediate metalic Uncoded 01/24/24 16:45 taste, did not feel comfortable Review of Systems Review of Systems: Yes all other systems are reviewed and are negative [facility] Past Medical History [facility] Narrative: Social history: She denies tobacco use. She does drink alcohol. She denies drug use. Medical History (Updated 01/25/24 @ 17:18 by Ciro Ocampo MD) Physical exam Janna's thyroiditis Bilateral hand pain Pain in joint of right wrist Right wrist tendinitis Pseudotumor cerebri Goiter Impacted cerumen of both ears Acute sinusitis Acute right otitis media Contusion of right forearm Sinus infection Right elbow pain Right wrist pain Right arm pain Fall from slipping on ice Dysphagia Anxiety Insomnia Tremors of nervous system Hypothyroidism Chronic migraine PCOS (polycystic ovarian syndrome) Surgical History History of esophagogastroduodenoscopy (EGD) History of thyroidectomy Hx of hand surgery (12/25/22) H/O right knee surgery History of intestinal obstruction History of lumbar puncture Tubal ligation status Hx of appendectomy H/O gastric bypass History of partial hysterectomy Family History Family History Mother No problems noted. 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 Current occupational exposures/hazards: No Cognitive needs: No Hearing needs: No Vision needs: Yes Physical Exam ED Vital Signs: Vital Signs - 24 hr 01/25/24 10:43 01/25/24 13:30 01/25/24 14:29 Temperature 98.1 F 98.2 F Pulse Rate 72 75 55 Respiratory Rate 18 18 16 Blood Pressure 113/59 L 120/53 L 113/63 Pulse Oximetry 100 100 100 Oxygen Delivery Method Room Air Room Air Room Air BMI result Body Mass Index 22.6 Vital signs were normal Exam: General: Awake, alert in no distress, weight 56 kg, low BMI 22.6 Head: Normocephalic, atraumatic EENT: PERRL, Lids normal, sclera normal, conjunctiva normal, nose normal , ears normal, throat without erythema or exudates Neck: Supple, no adenopathy Lung: breath sounds symmetric, no wheezing, rales or rhonchi Chest: symmetric movement, nontender Heart: regular rate and rhythm, normal S1, S2 no murmurs or rubs Abdomen: soft, moderate right lower quadrant and right upper quadrant tenderness, negative Roper sign, mild to moderate left lower quadrant tenderness, no rebound, no voluntary or involuntary guarding Back: no vertebral tenderness, moderate right CVA tenderness Extremities: no deformities, moves all extremities symmetrically Neuro: Awake, alert, oriented, normal speech, cranial nerves intact, moves all extremities symmetrically Psych: Pleasant, cooperative Course Course Course Narrative: RME performed by Valorie Melchor PA-C. Patient is a 43 year old assigned female at presenting to the emergency department with abdominal pain. Patient states that she has been having severe abdominal pain and back pain over the last week with nausea. Detailed physical exam and review of systems are deferred to the technical support representative. Labs ordered. Patient placed back in the waiting room pending room availability and results. Medications Administered Discontinued Medications Generic Name Dose Route Start Last Admin Trade Name Jorgeq PRN Reason Stop Dose Admin Diatrizoate Meglum/Diatrizoate Sod 30 ml 01/25/24 15:31 01/25/24 15:32 Diatrizoate Meglumine, Sodium 30 Ml Solution PO 01/25/24 15:32 30 ml ONCE ONE Administration Lorazepam 2 mg 01/25/24 14:44 01/25/24 15:07 Lorazepam 1 Mg Tablet PO 01/25/24 14:45 2 mg ONCE STA Administration Medical Decision Making Medical Decision Making [facility] Narrative: 43-year-old female history of Janna's thyroiditis, goiter status post thyroidectomy, dysphagia, exam of the, insomnia, chronic migraines, PCOS, gastric bypass who presents emergency department for evaluation 1 week of epigastric abdominal pain radiating to her back with constant nausea, dry heaving, unable to eat and drink for 2 days, no bowel movement x2 days. Vital signs were normal. Examination revealed right upper quadrant, right lower quadrant and left lower quadrant tenderness with no rebound. Differential diagnosis: ?Includes but is not limited to gastritis, peptic ulcer disease, pancreatitis, cholecystitis, small-bowel obstruction, anemia, electrolyte abnormalities Following evaluation was ordered: CBC, CMP, lipase, CT scan abdomen pelvis with IV and oral contrast Patient was initially treated with the following: Dilaudid 1 mg IV, Zofran 4 mg IV, lorazepam 2 mg orally, normal saline x1 L Course: 17:14 Patient's laboratory evaluation revealed a low white blood cell count of 4400 which is new. She had a chronic microcytic anemia consistent with her baseline. LFTs and lipase were normal. The patient's CT scan of the abdomen pelvis has not been completed yet. Patient was started her oral contrast but nursing staff has had difficulty starting an IV in the patient. An ultrasound IV will be attempted. At the end of my shift, patient's care was turned over to my colleague, Dr. San. Admission/Observation Consideration of admission/observation: Escalation of care including admission/observation considered Lab Data MDM Lab Attestation statement: I reviewed the patient's lab results. My interpretation patient's laboratory evaluation: WBC low 4400, platelet count elevated 465,000. Microcytic anemia with an H&H of 9.2 and 30.8. Chloride elevated 109. BUN elevated 22 with a normal creatinine of 0.74. LFTs were normal. Lipase was normal. 01/25/24 10:56 01/25/24 10:56 Labs: Lab Results 01/25/24 Range/Units 10:56 WBC 4.4 L (4.8-10.8) X10*3/uL RBC 4.54 (4.20-5.50) X10*6/uL Hgb 9.2 L (12.0-16.0) g/dl Hct 30.8 L (37.0-47.0) % MCV 67.8 L (80.0-98.0) fL MCH 20.3 L (27.0-33.0) pg MCHC 29.9 L (31.0-35.0) g/dl RDW 18.3 H (11.0-16.0) % Plt Count 465 H D (160-400) X10*3/uL MPV 8.8 L (9.4-12.3) fL Immature Gran % (Auto) 0.2 (0.0-0.4) % Neut % (Auto) 51.8 (45-73) % Lymph % (Auto) 38.1 (20-40) % Dickson % (Auto) 8.1 (2-11) % Eos % (Auto) 0.7 (0-4) % Baso % (Auto) 1.1 (0-2) % Lymph # (Auto) 1.7 (1.2-4.9) X10*3/uL Dickson # (Auto) 0.4 (0.1-1.2) X10*3/uL Eos # (Auto) 0.0 (0.0-0.4) X10*3/uL Baso # (Auto) 0.1 (0.0-0.2) X10*3/uL Abs Immat Gran (auto) 0.01 (0.00-0.03) X10*3/uL Absolute Neuts (auto) 2.3 (2.0-8.3) x10*3/uL Absolute Nucleated RBC 0.000 (0.0-0.012) X10*3/uL Nucleated RBC % (auto) 0.0 (0.0-0.2) /100WBC Sodium 139 (135-145) mmol/L Potassium 3.6 (3.3-5.1) mmol/L Chloride 109 H (96-108) mmol/L Carbon Dioxide 22 (22-29) mmol/L Anion Gap 12 (12-20) BUN 22 H (9-16) mg/dL Creatinine 0.74 (0.5-1.4) mg/dL Estim Creat Clear Calc 79.1 Estimated GFR > 60 Random Glucose 93 (60-115) mg/dL Calcium 8.5 (8.4-10.2) mg/dL Total Bilirubin 0.2 (0.0-1.0) mg/dL Direct Bilirubin < 0.2 (0.0-0.5) mg/dL AST 18 (5-31) U/L ALT 6 (0-31) U/L Alkaline Phosphatase 50 (39-117) U/L Total Protein 6.4 L (6.5-8.0) g/dL Albumin 3.7 (3.5-5.0) g/dL Lipase 26 (8-78) U/L Chronic Conditions Patient?s care impacted by: Other (Gastric bypass surgery) Discharge Plan Discharge Clinical Impression: Abdominal pain, Nausea & vomiting Patient Disposition: Still a Patient Prescriptions: No Action lactulose 10 gram/15 mL solution 15 ml PO BID PRN (Reason: constipation) 30 Days Qty: 473 1RF ondansetron 8 mg tablet,disintegrating 8 mg PO Q8H PRN (Reason: nausea and vomiting) 10 Days Qty: 30 0RF levothyroxine 125 mcg tablet 125 mcg PO DAILY 90 Days Qty: 90 1RF gabapentin 300 mg capsule 300 mg PO Q8H 30 Days Qty: 150 0RF Rx Instructions: Take 1 at am, 1 in the afternoon and 3 at bedtime gabapentin 600 mg tablet See Rx Instructions PO TID Qty: 90 6RF Rx Instructions: 1/2 qam and q noon 1 1/2 at bedtime orally 3 times a day; doxepin 25 mg capsule 50 mg PO DAILY calcium citrate-vitamin D3 500-200 mg-unit tablet,chewable PO sucralfate [Carafate] 100 mg/mL suspension 5 ml PO QID 30 Days Qty: 600 0RF Rx Instructions: swish in mouth and swallow; use after food/drink ropinirole 0.5 mg tablet 0.5 mg PO BEDTIME 30 Days Qty: 30 0RF Rx Instructions: administer 1-3 hours before bedtime hydroxyzine HCl 25 mg tablet 50 mg PO BEDTIME PRN (Reason: Insomnia) bisacodyl 5 mg tablet 5 mg PO DAILY thiamine HCl (vitamin B1) 100 mg tablet 100 mg PO DAILY vitamin B complex [B Complex-Vitamin B12] Tablet 1 tab PO DAILY riboflavin (vitamin B2) 100 mg tablet 100 mg PO DAILY magnesium 200 mg tablet 200 mg PO DAILY omeprazole 40 mg capsule,delayed release(DR/EC) 40 mg PO DAILY 30 Days Qty: 30 6RF Print Language: Greek
[2024-01-25 14:29] VITALS: BP 113/63; PULSE 55; RESP 16; O2SAT 100
[2024-01-25] MEDS: LORazepam 1 MG TABLET 2 MG PO (15:07)
[2024-01-25] MEDS: Diatrizoate Meglumine, Sodium 30 ML SOLUTION PO (15:32)
--- NOTE | 2024-01-25 16:19 | PC.NURSE ---
pt a difficult poke, multiple nurses attempt without success. will have provider attempt with U/S guidance
[2024-01-25] MEDS: HYDROmorphone HCl 1 MG/ML SYRINGE IVPUSH (17:18)
[2024-01-25] MEDS: ondansetron HCL 4 MG/2 ML VIAL IVPUSH (17:19)
[2024-01-25] MEDS: 0.9 % Sodium Chloride 1,000 ML 999 ML IV (17:19)
[2024-01-25 17:22] VITALS: BP 128/82; PULSE 71; RESP 16; O2SAT 100
[2024-01-25] MEDS: iohexoL 350 MG/ML 100 ML INFUS..BTL 85 ML IV (17:33)
[2024-01-25] MEDS: Famotidine/PF 20 MG/2 ML VIAL IVPUSH (19:49)
[2024-01-25] MEDS: Magnesium Hydrox/Alum Hydrox 30 ML ORAL.SUSP PO (19:50)
--- NOTE | 2024-01-25 20:29 | PC.NURSE ---
Report taken from Twila BLACKWOOD assumed care of pt at 1900. Resting on stretcher A&Ox3 skin pwd respirations even unlabored. Awaiting results and MD reeval. Medicated per JUL, endorsing continued epigastric pain. VSAmara. JANAY.
--- NOTE | 2024-01-25 20:34 | PC.NURSE ---
MD to bedside for reeval, plan for meds and dc home.
--- NOTE | 2024-01-25 20:42 | PC.NURSE ---
MD to bedside for reeval.
[2024-01-25] MEDS: Prochlorperazine Edisylate 10 MG/2 ML VIAL IVPUSH (20:50)
--- NOTE | 2024-01-25 20:55 | PC.NURSE ---
Attempted to medicate pt prior to discharge, pt agitated with RN questioning why she is not getting more pain meds. notified. Pt refused milk of mag stating I'm not constipated I'm all laxatived out
[2024-01-25 21:26] VITALS: BP 108/60; PULSE 69; RESP 17; TEMP 36.7; O2SAT 97
[2024-01-25 21:41] VITALS: BP 108/60; PULSE 69; RESP 17; TEMP 36.7; O2SAT 97
== END 2024-01-25 21:42 | disposition home or self-care (01) ==
PROVIDERS: Emergency Provider Emergency Medicine Emergency Medical Services; PCP Internal Medicine
DX: R10.13 Epigastric pain (principal); R11.2 Nausea with vomiting, unspecified
CPT/HCPCS: 36415; 74177; 80053; 82248; 83690; 85025; 96361; 96374; 96375; 99284; 99285; J0737; J1170; J2405; Q9967

== ENCOUNTER 2024-01-28 14:11 | Outpatient (REF) | payer BC, SELFPAY ==
--- NOTE | ~2024-01-28 | XR_ITS ---
EXAMINATION: XR THORACIC SPINE CLINICAL INFORMATION: Pain dorsal spine. COMPARISON: None available. TECHNIQUE: 3 views of the thoracic spine were obtained. FINDINGS: Vertebral bodies normally aligned with normal height. Mild multilevel endplate osteophytes without disc space narrowing indicative of mild multilevel degenerative disc changes Incidental note made of postsurgical changes in the epigastric region. XR/XR thoracic spine 2V IMPRESSION: Mild spondylosis of the thoracic spine. Electronically signed by: Best Nguyen MD 02/13/2024 07:06 AM EDT RP
[2024-01-28 14:35] LABS: MANUAL DIFF FLAG NO
[2024-01-28 15:11] LABS: Basophils Absolute Auto 0.1 X10*3/uL (0.0-0.2); Basophils Percent Auto 0.6 % (0-2); Eosinophils Absolute Auto 0.1 X10*3/uL (0.0-0.4); Eosinophils Percent Auto 0.6 % (0-4); Hematocrit 30.1 % (37.0-47.0); Imm Gran Abs Auto 0.01 X10*3/uL (0.00-0.03); Imm Gran Pct Auto 0.1 % (0.0-0.4); Lymphocytes Absolute Auto 2.9 X10*3/uL (1.2-4.9); Mean Corpuscular HGB Conc 29.9 g/dl (31.0-35.0); Mean Corpuscular Hemoglobin 20.5 pg (27.0-33.0); Mean Corpuscular Volume 68.7 fL (80.0-98.0); Mean Platelet Volume 8.9 fL (9.4-12.3); Monocytes Absolute Auto 0.6 X10*3/uL (0.1-1.2); Monocytes Percent Auto 7.3 % (2-11); Neutrophils Absolute Auto 4.3 x10*3/uL (2.0-8.3); Neutrophils Percent Auto 54.4 % (45-73); Platelet Count 479 X10*3/uL (160-400); Red Blood Count 4.38 X10*6/uL (4.20-5.50); Red Cell Distribution Width 18.3 % (11.0-16.0); White Blood Count 7.9 X10*3/uL (4.8-10.8)
[2024-01-28 17:20] LABS: Alanine Aminotransferase 9 U/L (0-31); Albumin Level 3.7 g/dL (3.5-5.0); Alkaline Phosphatase 52 U/L (39-117); Anion Gap 13 (12-20); Aspartate Amino Transferase 25 U/L (5-31); Bilirubin Total 0.2 mg/dL (0.0-1.0); Blood Urea Nitrogen 11 mg/dL (9-16); Calcium 8.4 mg/dL (8.4-10.2); Carbon Dioxide 25 mmol/L (22-29); Chloride 108 mmol/L (96-108); Cholesterol 176 mg/dL (<200); Estimated Glomerular Filt Rate > 60; Glucose Fasting 91 mg/dL (60-99); Glucose Random 91 mg/dL (60-115); HDL Cholesterol 55 mg/dL (>40); LDL Cholesterol Calculated 87 mg/dL (<100); Lipase 29 U/L (8-78); Potassium 3.5 mmol/L (3.3-5.1); Sodium 142 mmol/L (135-145); Total Protein 6.1 g/dL (6.5-8.0); Triglycerides 173 mg/dL (<150)
[2024-01-28 17:25] LABS: Vitamin D 25-OH Total 30.2 ng/mL (>30)
[2024-01-28 17:29] LABS: Thyroid Stimulating Hormone 0.72 uIU/mL (0.32-4.0)
[2024-01-28 17:58] LABS: Folate 10.3 ng/mL (> or = 4.0); Vitamin B12 > 2000 pg/mL (200-900)
== END 2024-01-28 14:12 | disposition home or self-care (01) ==
LOC: HO.XRAY 14:11
PROVIDERS: Nurse Practitioner; PCP Internal Medicine; Visit Provider Internal Medicine
DX: Z00.00 Encounter for general adult medical examination without abnormal findings (principal); M54.6 Pain in thoracic spine; R13.12 Dysphagia, oropharyngeal phase; R10.13 Epigastric pain; E53.8 Deficiency of other specified B group vitamins; E55.9 Vitamin D deficiency, unspecified; E89.0 Postprocedural hypothyroidism
CPT/HCPCS: 36415; 72070; 80053; 80061; 82306; 82607; 82746; 83690; 84443; 85025

== ENCOUNTER 2024-01-30 14:14 | Emergency (ER) | payer BC, SELFPAY ==
--- NOTE | ~2024-01-30 | XR_ITS ---
EXAMINATION: XR CHEST CLINICAL INFORMATION: Epigastric pain, dry heaving since days COMPARISON: Chest radiograph 04/16/2021 TECHNIQUE: 2 views of the chest were obtained. FINDINGS: The lungs are adequately expanded. No focal consolidation. No pleural effusions, edema or pneumothorax. The cardiac mediastinal silhouette is within normal limits. No acute osseous abnormality. Surgical clips and suture material in the epigastric region. Surgical clips in the right upper quadrant. XR/XR chest 2V IMPRESSION: No acute pulmonary disease. Electronically signed by: Ricardo Casillas MD 01/30/2024 04:22 PM EDT
--- NOTE | ~2024-01-30 | CT_ITS ---
EXAMINATION: CT ABDOMEN AND PELVIS WITH CONTRAST CLINICAL INFORMATION: Epigastric pain with constant dry heaving COMPARISON: CT abdomen pelvis 01/25/2024 TECHNIQUE: Multidetector volumetric images were obtained from the superior aspect of the liver through the pubic symphysis following administration 85 mL of Omnipaque 350 intravenous contrast. Sagittal and coronal reformatted images were obtained on the technologist's workstation. Oral contrast: No This CT examination was performed using dose optimization techniques as appropriate, variously including the following: *Automated exposure control *Adjustment of mA and/or kV according to patient size (this includes techniques or standardized protocols for targeted exams where dose is matched to indication/reason for exam; i.e. extremities or head) *Use of iterative reconstruction technique DLP: 430 mGy-cm FINDINGS: LUNG BASES: The visualized lung bases are unremarkable. LIVER, GALLBLADDER, AND BILIARY TREE: The liver is normal in size, shape, and attenuation. No focal hepatic lesion or biliary ductal dilatation is present. The gallbladder is unremarkable with no evidence of radiopaque gallstones, gallbladder wall thickening, or obvious pericholecystic inflammatory changes. PANCREAS: Unremarkable. SPLEEN: Unremarkable. ADRENAL GLANDS: Unremarkable. KIDNEYS AND URETERS: The kidneys are normal in size, shape, and attenuation. No hydronephrosis, hydroureter, or calculi seen. No perinephric stranding. BLADDER: Unremarkable. GASTROINTESTINAL TRACT: Status post gastric surgery. Previously seen thickening of the colon at the hepatic flexure is not apparent and this may have been secondary to poor distention on the prior study. The small and large bowel are unremarkable. The appendix is not seen but there is no evidence of appendicitis. ABDOMINAL WALL: No significant hernia is appreciated. LYMPH NODES: Normal. VASCULAR: Unremarkable. PELVIC VISCERA: The uterus is not seen. An abnormal adnexal mass is not detected. No free intraperitoneal fluid is present. OSSEOUS STRUCTURES: Unremarkable. CT/CT abdomen pelvis w IV con IMPRESSION: A cause for the patient's epigastric pain has not been found. Incidental findings as described above. Fleischner guidelines were followed. Electronically signed by: Adithya Corbett MD 01/30/2024 06:52 PM EDT
[2024-01-30 14:26] VITALS: BP 102/61; PULSE 90; RESP 18; TEMP 36.8; O2SAT 99; BMI 22.3
--- NOTE | 2024-01-30 14:26 | ED_ITS ---
HPI - Abdominal Pain General Chief Complaint: Abdominal Pain Stated Complaint: abd pain Time Seen by Provider: 01/30/24 14:40 Source: patient Mode of arrival: ambulatory Limitations: no limitations History of Present Illness ED Provider: nicholas SCHUSTER narrative: Patient is a 43-year-old female with history of Janna's thyroiditis, goiter status post thyroidectomy, dysphagia with recent EGD, insomnia, chronic migraines, PCOS, gastric bypass, gastrointestinal obstruction in the past presenting to the emergency department with complaint of epigastric abdominal pain, nausea, and dry heaving for the past week and a half. Denies diarrhea or constipation. Denies fevers. States she has not vomited at all since symptoms started but has been unable to eat/drink due to nausea and dry heaving. Seen in this ED on 01/24, had CT A/P which showed colonic thickening at hepatic flexure. MD elicited complaint: abdominal pain Pertinent past history: constipation and other Onset (ago): week(s) Pain Consistency: constant Location: epigastric Severity: severe Radiation: back Associated symptoms: nausea Related Data Home Medications ?Medication ?Instructions ?Recorded ?Confirmed hydroxyzine HCl 25 mg tablet 50 mg PO BEDTIME PRN Insomnia 10/20/20 01/24/24 doxepin 25 mg capsule 50 mg PO DAILY 02/07/21 01/24/24 bisacodyl 5 mg tablet 5 mg PO DAILY 03/28/22 01/24/24 magnesium 200 mg tablet 200 mg PO DAILY 03/28/22 01/24/24 riboflavin (vitamin B2) 100 mg 100 mg PO DAILY 03/28/22 01/24/24 tablet thiamine HCl (vitamin B1) 100 mg 100 mg PO DAILY 03/28/22 01/24/24 tablet vitamin B complex (B 1 tab PO DAILY 03/28/22 01/24/24 Complex-Vitamin B12 tablet) calcium citrate-vitamin D3 500 tab PO 01/09/23 01/24/24 mg-200 unit chewable tablet Previous Rx's ?Medication ?Instructions ?Recorded ondansetron 8 mg disintegrating 8 mg PO Q8H PRN nausea and 06/17/23 tablet vomiting 10 days #30 tabs levothyroxine 125 mcg tablet 125 mcg PO DAILY 90 days #90 tabs 07/10/23 omeprazole 40 mg capsule,delayed 40 mg PO DAILY 30 days #30 caps 11/09/23 release gabapentin 300 mg capsule 300 mg PO Q8H migraines 30 days 01/23/24 #150 caps gabapentin 600 mg tablet See Rx Instructions PO TID #90 tabs 01/24/24 ropinirole 0.5 mg tablet 0.5 mg PO BEDTIME 30 days #30 tabs 01/24/24 sucralfate 100 mg/mL oral 5 ml PO QID 30 days #600 mL 01/24/24 suspension (Carafate) bisacodyl 5 mg tablet,delayed 5 mg PO BEDTIME PRN constipation 01/25/24 release (Dulcolax (bisacodyl)) #30 tabs ondansetron 4 mg disintegrating 4 mg PO Q6-8H PRN nausea and 01/25/24 tablet vomiting #14 tabs lactulose 10 gram/15 mL oral 15 ml PO BID PRN constipation 30 01/28/24 solution days #473 mL tramadol 50 mg tablet 50 mg PO Q6H PRN severe pain 01/30/24 (scale score 7-10) #12 tabs Allergies Allergy/AdvReac Type Severity Reaction Status Date / Time hydrocodone [From VICODIN] Allergy Intermediate GI UPSET Verified 01/30/24 14:27 propylene glycol Allergy Intermediate EXTREME Verified 01/30/24 14:27 [PROPYLENE GLYCOL] BURNING/PAIN/RASH trazodone Allergy Intermediate Shortness Verified 01/30/24 14:27 of Breath cobalt Allergy Unknown Verified 01/30/24 14:27 lamotrigine AdvReac Intermediate foggy Verified 01/30/24 14:27 propranolol AdvReac Intermediate inadequate Verified 01/30/24 14:27 response acetaminophen [Vicodin] AdvReac Unknown nausea and Verified 01/30/24 14:27 vomiting levetiracetam [From Keppra] AdvReac foggy Verified 01/30/24 14:27 diamox AdvReac Intermediate metalic Uncoded 01/30/24 14:27 taste, did not feel comfortable Review of Systems Review of Systems As per HPI. Yes all other systems are reviewed and are negative Constitutional: Reports as per HPI [facility] Past Medical History Medical History (Updated 01/30/24 @ 15:50 by Cece Joaquin NP) Physical exam Janna's thyroiditis Bilateral hand pain Pain in joint of right wrist Right wrist tendinitis Pseudotumor cerebri Goiter Impacted cerumen of both ears Acute sinusitis Acute right otitis media Contusion of right forearm Sinus infection Right elbow pain Right wrist pain Right arm pain Fall from slipping on ice Dysphagia Anxiety Insomnia Tremors of nervous system Hypothyroidism Chronic migraine PCOS (polycystic ovarian syndrome) Surgical History History of esophagogastroduodenoscopy (EGD) History of thyroidectomy Hx of hand surgery (12/25/22) H/O right knee surgery History of intestinal obstruction History of lumbar puncture Tubal ligation status Hx of appendectomy H/O gastric bypass History of partial hysterectomy Family History Family History Mother No problems noted. 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 Current occupational exposures/hazards: No Cognitive needs: No Hearing needs: No Vision needs: Yes Physical Exam ED Vital Signs: Vital Signs - 24 hr 01/30/24 14:26 01/30/24 14:38 01/30/24 16:00 Temperature 98.2 F 97.7 F Pulse Rate 90 95 75 Respiratory Rate 18 16 18 Blood Pressure 102/61 116/44 L 122/74 Pulse Oximetry 99 99 100 Oxygen Delivery Method Room Air Room Air Room Air 01/30/24 17:02 01/30/24 18:57 Temperature 98.2 F Pulse Rate 69 Respiratory Rate 16 18 Blood Pressure 115/68 Pulse Oximetry 97 Oxygen Delivery Method Room Air BMI result Body Mass Index 22.3 Vital signs have been reviewed and appear to be correct. Blood pressure normal. Heart rate normal. Respiratory rate normal. Temperature normal. Oxygen saturation normal. Const General: cooperative, healthy appearing, no acute distress and anxious Orientation/consciousness: oriented to person, oriented to place, oriented to time and patient oriented x3 Limitations: no limitations [facility] Head: Yes normocephalic and Yes atraumatic Ears: external ears normal General nose exam: Normal external nose present Face and sinus: Yes face symmetric Mouth: oropharynx normal and moist mucous membranes Throat: Yes uvula midline Eyes Pupils: Equal, round and reactive pupils present Neck Neck: Yes normal visual inspection and Yes supple Resp Effort & Inspection: normal respiratory effort and able to speak in complete sentences Auscultation: clear to auscultation bilaterally Cardio Rate: regular rate Rhythm: regular rhythm Heart sounds: S1 normal heart sound present and S2 normal heart sound present GI Other: actively dry heaving during exam Inspection: Yes normal to inspection and Yes scar Palpation (GI): Soft to palpation, Tenderness to palpation present (GI) in the epigastrum, no guarding and No Rebound tenderness present Auscultation: normoactive bowel sounds General: Yes no CVA tenderness Back/Spine/Pelvis Back: no CVA tenderness Skin General skin exam: elasticity normal and turgor normal Neuro General: oriented to person, oriented to place, oriented to time, patient oriented x3, moves all extremities, no focal motor deficits and CN's II-XI intact bilaterally Cranial nerves: Yes Equal, round and reactive pupils present Cognition (Neuro): normal cognition Extrem General: Yes full ROM, Yes no pedal edema and Yes no calf tenderness Psych Mental Status: mental status grossly normal Affect: normal affect Thought process: Normal thought process present Course Course Course Narrative: This is an RME done by [facility] Rm: Additional HPI, ROS, PE not included below will be deferred to primary provider. 43yo F presents upon referral from GI provider was seen 01/25/24 with the same complaints of abd pain, nausea and retching but no actual emesis. CT abdomen from 01/24 showed Circumferential thickening of the colon at the level of the hepatic flexure concerning for possible infiltrating tumor. Denies fevers, chills, weight loss Appearance: Alert.? Oriented X3.? No acute cardiopulmonary distress distress.?Retching throughout exam. Head: Normocephalic, atraumatic CVS: Pulses normal.? Respiratory: No respiratory distress.? Skin: ? Normal skin color. Neuro: Oriented X 3.? Reevaluation(s) Reevaluation #1: Patient received in sign-out at change of shift pending CT scan of the abdomen pelvis. I reviewed this report and discussed with the patient. There is no evidence of colitis or infiltrative mass at the hepatic flexure. However I still did recommend the patient follow up with GI for an outpatient colonoscopy. She states that she is already on a bowel regimen for constipation. She was requesting something to go home for pain, I will prescribe her a short course of tramadol in did discuss the side effect of constipation with her Time: 19:03 Medical Decision Making Medical Decision Making [facility] Narrative: Patient is a 43-year-old female with history of Janna's thyroiditis, goiter status post thyroidectomy, dysphagia with recent EGD, insomnia, chronic migraines, PCOS, gastric bypass, gastrointestinal obstruction in the past presenting to the emergency department with complaint of epigastric abdominal pain, nausea, and dry heaving for the past week and a half. On exam patient is awake, A+Ox3, VS WNL, afebrile, normal neurological exam without focal deficits, physical exam findings as above. Given reported symptoms and physical exam findings, initial differential includes obstruction, volvulus, pneumomediastinum, GERD, PUD, pancreatitis, cholecystitis, electrolyte abnormalities, dehydration. CT A/P obtained on 01/24 notable for colonic thickening at hepatic flexure suspicious for infiltrating tumor versus focal colitis. Will repeat CT A/P with PO and IV contast today. Labs notable for no leukocytosis, stable anemia, no significant electrolyte abnormalities, negative HCG. EKG shows normal sinus rhythm. Patient signed out to [facility] [place] pending results of CXR, CT A/P. Differential Diagnosis Differential Diagnoses: The differential diagnosis associated with the presentation includes As per [facility] Lab Data [facility] Lab Attestation statement: I reviewed the patient's lab results. As per [facility] 01/30/24 14:52 01/30/24 14:52 Labs: Lab Results 01/30/24 Range/Units 14:52 WBC 8.3 (4.8-10.8) X10*3/uL RBC 4.17 L (4.20-5.50) X10*6/uL Hgb 8.7 L (12.0-16.0) g/dl Hct 28.5 L (37.0-47.0) % MCV 68.3 L (80.0-98.0) fL MCH 20.9 L (27.0-33.0) pg MCHC 30.5 L (31.0-35.0) g/dl RDW 18.2 H (11.0-16.0) % Plt Count 432 H (160-400) X10*3/uL MPV 8.6 L (9.4-12.3) fL Immature Gran % (Auto) 0.4 (0.0-0.4) % Neut % (Auto) 55.9 (45-73) % Lymph % (Auto) 34.1 (20-40) % Dodge % (Auto) 8.2 (2-11) % Eos % (Auto) 0.7 (0-4) % Baso % (Auto) 0.7 (0-2) % Lymph # (Auto) 2.8 (1.2-4.9) X10*3/uL Dodge # (Auto) 0.7 (0.1-1.2) X10*3/uL Eos # (Auto) 0.1 (0.0-0.4) X10*3/uL Baso # (Auto) 0.1 (0.0-0.2) X10*3/uL Abs Immat Gran (auto) 0.03 (0.00-0.03) X10*3/uL Absolute Neuts (auto) 4.7 (2.0-8.3) x10*3/uL Absolute Nucleated RBC 0.000 (0.0-0.012) X10*3/uL Nucleated RBC % (auto) 0.0 (0.0-0.2) /100WBC Sodium 141 (135-145) mmol/L Potassium 3.6 (3.3-5.1) mmol/L Chloride 110 H (96-108) mmol/L Carbon Dioxide 24 (22-29) mmol/L Anion Gap 11 L (12-20) BUN 11 (9-16) mg/dL Creatinine 0.75 (0.5-1.4) mg/dL Estim Creat Clear Calc 78.0 Estimated GFR > 60 Random Glucose 93 (60-115) mg/dL Calcium 8.1 L (8.4-10.2) mg/dL Magnesium 2.1 (1.6-2.6) mg/dL Total Bilirubin 0.2 (0.0-1.0) mg/dL AST 29 (5-31) U/L ALT 11 (0-31) U/L Alkaline Phosphatase 61 (39-117) U/L Total Protein 6.3 L (6.5-8.0) g/dL Albumin 3.7 (3.5-5.0) g/dL Lipase 26 (8-78) U/L Beta HCG, Quant < 2 mIU/mL Independent Interpretation I performed an independent interpretation of an: EKG (normal sinus rhythm, rate 61bpm, normal NV interval and QTc) External Record Review External record reviewed: Inpatient record, Office record and Outpatient record Medications Administered Discontinued Medications Generic Name Dose Route Start Last Admin Trade Name Freq PRN Reason Stop Dose Admin Barium Sulfate 450 ml 01/30/24 17:15 01/30/24 17:15 Barium Sulfate Oral (Vanilla) 450 Ml Oral.Susp PO 01/30/24 17:16 450 ml ONCE ONE Administration Droperidol 1.25 mg 01/30/24 14:44 01/30/24 15:01 Droperidol 5 Mg/2 Ml Vial IVPUSH 01/30/24 14:45 1.25 mg ONCE ONE Administration Sodium Chloride 1,000 mls @ 999 mls/hr 01/30/24 14:45 01/30/24 17:05 Ns IV 01/30/24 15:45 Infused .Q1H1M KIMBERLI Infusion Iohexol 100 ml 01/30/24 16:50 01/30/24 16:50 Iohexol 350 Mg/Ml 100 Ml Infus..Btl IV 01/30/24 16:51 85 ml ONCE ONE Administration Morphine Sulfate 4 mg 01/30/24 16:54 01/30/24 17:02 Morphine Sulfate 4 Mg/Ml Cartridge IVPUSH 01/30/24 16:55 4 mg ONCE ONE Administration Protocol Ondansetron HCl 4 mg 01/30/24 16:54 01/30/24 17:02 Ondansetron Hcl 4 Mg/2 Ml Vial IVPUSH 01/30/24 16:55 4 mg ONCE ONE Administration Discharge Plan Discharge Clinical Impression: Epigastric pain, Nausea & vomiting Patient Disposition: Home, Self-Care Instructions: Acute Nausea and Vomiting (ED) Additional Instructions: Your CT scan did not show any abnormality at the hepatic flexure where there was concern for colitis versus mass. I still recommend that you follow-up with GI for an outpatient colonoscopy Continue your bowel regimen for constipation Return for new or worsening symptoms Prescriptions: New tramadol 50 mg tablet 50 mg PO Q6H PRN (Reason: severe pain (scale score 7-10)) Qty: 12 0RF No Action ondansetron 8 mg tablet,disintegrating 8 mg PO Q8H PRN (Reason: nausea and vomiting) 10 Days Qty: 30 0RF levothyroxine 125 mcg tablet 125 mcg PO DAILY 90 Days Qty: 90 1RF gabapentin 300 mg capsule 300 mg PO Q8H 30 Days Qty: 150 0RF Rx Instructions: Take 1 at am, 1 in the afternoon and 3 at bedtime gabapentin 600 mg tablet See Rx Instructions PO TID Qty: 90 6RF Rx Instructions: 1/2 qam and q noon 1 1/2 at bedtime orally 3 times a day; lactulose 10 gram/15 mL solution 15 ml PO BID PRN (Reason: constipation) 30 Days Qty: 473 1RF bisacodyl [Dulcolax (bisacodyl)] 5 mg tablet,delayed release (DR/EC) 5 mg PO BEDTIME PRN (Reason: constipation) Qty: 30 0RF ondansetron 4 mg tablet,disintegrating 4 mg PO Q6-8H PRN (Reason: nausea and vomiting) Qty: 14 0RF doxepin 25 mg capsule 50 mg PO DAILY calcium citrate-vitamin D3 500-200 mg-unit tablet,chewable PO sucralfate [Carafate] 100 mg/mL suspension 5 ml PO QID 30 Days Qty: 600 0RF Rx Instructions: swish in mouth and swallow; use after food/drink ropinirole 0.5 mg tablet 0.5 mg PO BEDTIME 30 Days Qty: 30 0RF Rx Instructions: administer 1-3 hours before bedtime hydroxyzine HCl 25 mg tablet 50 mg PO BEDTIME PRN (Reason: Insomnia) bisacodyl 5 mg tablet 5 mg PO DAILY thiamine HCl (vitamin B1) 100 mg tablet 100 mg PO DAILY vitamin B complex [B Complex-Vitamin B12] Tablet 1 tab PO DAILY riboflavin (vitamin B2) 100 mg tablet 100 mg PO DAILY magnesium 200 mg tablet 200 mg PO DAILY omeprazole 40 mg capsule,delayed release(DR/EC) 40 mg PO DAILY 30 Days Qty: 30 6RF Referrals: Ghulam Villa MD [Physician] - (chronic abdominal pain, 3 er visits) Print Language: [place] Islander
[2024-01-30 14:38] VITALS: BP 116/44; PULSE 95; RESP 16; O2SAT 99
[2024-01-30] MEDS: 0.9 % Sodium Chloride 1,000 ML 999 ML IV (14:53)
[2024-01-30 14:57] LABS: MANUAL DIFF FLAG NO
[2024-01-30 14:59] LABS: Basophils Absolute Auto 0.1 X10*3/uL (0.0-0.2); Basophils Percent Auto 0.7 % (0-2); Eosinophils Absolute Auto 0.1 X10*3/uL (0.0-0.4); Eosinophils Percent Auto 0.7 % (0-4); Hematocrit 28.5 % (37.0-47.0); Hemoglobin 8.7 g/dl (12.0-16.0); Imm Gran Abs Auto 0.03 X10*3/uL (0.00-0.03); Imm Gran Pct Auto 0.4 % (0.0-0.4); Lymphocytes Absolute Auto 2.8 X10*3/uL (1.2-4.9); Lymphocytes Percent Auto 34.1 % (20-40); Mean Corpuscular HGB Conc 30.5 g/dl (31.0-35.0); Mean Corpuscular Hemoglobin 20.9 pg (27.0-33.0); Mean Corpuscular Volume 68.3 fL (80.0-98.0); Mean Platelet Volume 8.6 fL (9.4-12.3); Monocytes Absolute Auto 0.7 X10*3/uL (0.1-1.2); Monocytes Percent Auto 8.2 % (2-11); Neutrophils Absolute Auto 4.7 x10*3/uL (2.0-8.3); Neutrophils Percent Auto 55.9 % (45-73); Platelet Count 432 X10*3/uL (160-400); Red Blood Count 4.17 X10*6/uL (4.20-5.50); Red Cell Distribution Width 18.2 % (11.0-16.0); White Blood Count 8.3 X10*3/uL (4.8-10.8)
--- NOTE | 2024-01-30 15:00 | ECG_ITS ---
Test Reason : RODRISA Blood Pressure : / mmHG Vent. Rate : 061 BPM Atrial Rate : 061 BPM P-R Int : 130 ms QRS Dur : 084 ms QT Int : 430 ms P-R-T Axes : -02 040 009 degrees QTc Int : 432 ms Normal sinus rhythm Normal ECG When compared with ECG of 16-APR-2021 11:35, No significant change was found Referred By: Cece Joaquin Electronically Signed By:MAI HANKS
[2024-01-30] MEDS: droPERidol 5 MG/2 ML VIAL 1.25 MG IVPUSH (15:01)
[2024-01-30 15:22] LABS: Alanine Aminotransferase 11 U/L (0-31); Albumin Level 3.7 g/dL (3.5-5.0); Alkaline Phosphatase 61 U/L (39-117); Anion Gap 11 (12-20); Aspartate Amino Transferase 29 U/L (5-31); Bilirubin Total 0.2 mg/dL (0.0-1.0); Blood Urea Nitrogen 11 mg/dL (9-16); Calcium 8.1 mg/dL (8.4-10.2); Carbon Dioxide 24 mmol/L (22-29); Chloride 110 mmol/L (96-108); Estimated Glomerular Filt Rate > 60; Glucose Random 93 mg/dL (60-115); HCG Quantitative < 2 mIU/mL; Lipase 26 U/L (8-78); Magnesium 2.1 mg/dL (1.6-2.6); Potassium 3.6 mmol/L (3.3-5.1); Sodium 141 mmol/L (135-145); Total Protein 6.3 g/dL (6.5-8.0)
[2024-01-30 16:00] VITALS: BP 122/74; PULSE 75; RESP 18; TEMP 36.5; O2SAT 100
[2024-01-30] MEDS: iohexoL 350 MG/ML 100 ML INFUS..BTL IV (16:50)
[2024-01-30 17:02] VITALS: RESP 16
[2024-01-30] MEDS: Morphine Sulfate 4 MG/ML CARTRIDGE IVPUSH (17:02)
[2024-01-30] MEDS: ondansetron HCL 4 MG/2 ML VIAL IVPUSH (17:02)
[2024-01-30] MEDS: Barium Sulfate Oral (Vanilla) 450 ML ORAL.SUSP PO (17:15)
[2024-01-30 18:57] VITALS: BP 115/68; PULSE 69; RESP 18; TEMP 36.8; O2SAT 97
[2024-01-30 19:31] VITALS: BP 115/68; PULSE 69; RESP 18; TEMP 36.8; O2SAT 97
== END 2024-01-30 19:34 | disposition home or self-care (01) ==
PROVIDERS: Physician Assistant; Emergency Provider Emergency Medicine Emergency Medical Services; PCP Internal Medicine
DX: R10.13 Epigastric pain (principal); M54.50 Low back pain, unspecified; R11.0 Nausea; R10.2 Pelvic and perineal pain; R06.02 Shortness of breath; K59.00 Constipation, unspecified; Z98.84 Bariatric surgery status; Z79.899 Other long term (current) drug therapy
CPT/HCPCS: 36415; 71046; 74177; 80053; 83690; 83735; 84702; 85025; 93005; 96361; 96374; 96375; 99284; 99285; J1790; J2270; J2405; Q9967

== ENCOUNTER 2024-02-19 15:58 | Outpatient (AMB) | payer BC, SELFPAY ==
[2024-02-19 16:06] VITALS: BP 137/67; PULSE 74; BMI 22.6
--- NOTE | 2024-02-19 16:06 | MHC.OFFVIS ---
Vital Signs 02/19/24 16:06 Height 5 ft 2 in Weight 123 lb 7.342 oz BMI 22.6 BP 137/67 Blood Pressure Location Rt brachial Position Sitting Pulse 74 Intake Visit Reasons: 6 weeks eosph emerita Intake Note: CC: Patient states that she is feeling awful. She states reports that she had been seen in the ER twice since her last visit with epigastric pain, upper abdominal pain with radiation to her back. Per patient her symptoms have not resolved. She still she is having a lot of nausea, dry heaves, but she states that she is unable to vomit since after her gastric bypass surgery. 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 Accompanied by: Self / Same As Patient Allergies hydrocodone [From VICODIN] Allergy (Intermediate, Verified 04/10/24 12:40) GI UPSET propylene glycol [PROPYLENE GLYCOL] Allergy (Intermediate, Verified 04/10/24 12:40) EXTREME BURNING/PAIN/RASH trazodone Allergy (Intermediate, Verified 04/10/24 12:40) Shortness of Breath cobalt Allergy (Verified 04/10/24 12:40) Unknown acetaminophen [Vicodin] Adverse Reaction (Severe, Verified 04/10/24 12:40) Constipation lamotrigine Adverse Reaction (Intermediate, Verified 04/10/24 12:40) foggy propranolol Adverse Reaction (Intermediate, Verified 04/10/24 12:40) inadequate response levetiracetam [From Keppra] Adverse Reaction (Verified 04/10/24 12:40) foggy diamox Adverse Reaction (Intermediate, Uncoded 04/01/24 12:49) metalic taste, did not feel comfortable HPI HPI 6 weeks eosph emerita: Details: Assessment & Plan (1) Oropharyngeal dysphagia: Code(s): R13.12 - Dysphagia, oropharyngeal phase Category: Medical (2) Esophageal candidiasis: Code(s): B37.81 - Candidal esophagitis Category: Medical (3) Chronic idiopathic constipation: Code(s): K59.04 - Chronic idiopathic constipation Category: Medical Plan She is doing much better Will treat with diflucan for another 14 days as she still will have to hard swallow at times. ROV 6 weeks. Medications: Refilled fluconazole Advise to hold hydroxyzine while taking Fluconazole due to drug interaction 200 mg PO DAILY 14 tabs 0RF 14 days B37.81 - Candidal esophagitis REVIEW OF ER NOTES FROM 2 VISITS FINDINGS: LUNG BASES: The visualized lung bases are unremarkable. LIVER, GALLBLADDER, AND BILIARY TREE: The liver is normal in size, shape, and attenuation. No focal hepatic lesion or biliary ductal dilatation is present. The gallbladder is unremarkable with no evidence of radiopaque gallstones, gallbladder wall thickening, or obvious pericholecystic inflammatory changes. PANCREAS: Unremarkable. SPLEEN: Unremarkable. ADRENAL GLANDS: Unremarkable. KIDNEYS AND URETERS: The kidneys are normal in size, shape, and attenuation. No hydronephrosis, hydroureter, or calculi seen. No perinephric stranding. BLADDER: Unremarkable. GASTROINTESTINAL TRACT: Moderate amount stool throughout the colon. There is circumferential thickening of the colon at the level of the hepatic flexure. Please see adkins images. This is suspicious for potentially infiltrating tumor as opposed to focal colitis. Elective GI assessment recommended for further evaluation. No obstruction. Cecum unremarkable. Terminal ileum normal. No free fluid or ascites. ABDOMINAL WALL: No significant hernia is appreciated. LYMPH NODES: Normal. VASCULAR: Unremarkable. PELVIC VISCERA: Appears to be surgically absent. OSSEOUS STRUCTURES: Unremarkable. CT/CT abdomen pelvis w IV con IMPRESSION: Circumferential thickening of the colon at the level of the hepatic flexure. Please see adkins images. This is suspicious for potentially at infiltrating tumor as opposed to focal colitis. Elective GI assessment recommended for further evaluation. Fleischner guidelines were followed. 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 LIVER, GALLBLADDER, AND BILIARY TREE: The liver is normal in size, shape, and attenuation. No focal hepatic lesion or biliary ductal dilatation is present. The gallbladder is unremarkable with no evidence of radiopaque gallstones, gallbladder wall thickening, or obvious pericholecystic inflammatory changes. PANCREAS: Unremarkable. SPLEEN: Unremarkable. ADRENAL GLANDS: Unremarkable. KIDNEYS AND URETERS: The kidneys are normal in size, shape, and attenuation. No hydronephrosis, hydroureter, or calculi seen. No perinephric stranding. BLADDER: Unremarkable. GASTROINTESTINAL TRACT: Status post gastric surgery. Previously seen thickening of the colon at the hepatic flexure is not apparent and this may have been secondary to poor distention on the prior study. The small and large bowel are unremarkable. The appendix is not seen but there is no evidence of appendicitis. ABDOMINAL WALL: No significant hernia is appreciated. LYMPH NODES: Normal. VASCULAR: Unremarkable. PELVIC VISCERA: The uterus is not seen. An abnormal adnexal mass is not detected. No free intraperitoneal fluid is present. OSSEOUS STRUCTURES: Unremarkable. CT/CT abdomen pelvis w IV con IMPRESSION: A cause for the patient's epigastric pain has not been found. Incidental findings as described above. Fleischner guidelines were followed. Electronically signed by: Adithya Corbett MD 01/30/2024 06:52 PM EDT RP Dictated By: Adithya Corbett MD Signed By: <Electronically signed by Adithya Corbett MD in [place]> 01/30/24 TODAY'S VISIT She continues on her bisacodyl, omeprazole, sucralfate, lactulose and Zofran. The pain is severe and in the epigastric area that radiates to her back. She was seen twice in the ER and only told she was constipated. She was given sucralfate which did not make any difference in her symptoms. This does not surprise me since she had a fairly recent endoscopy that did not show any gastritis or other concerning problems. She does note that the last severe symptoms set seem to start after eating pizza. Although the CT scan did not show gallstones it is possible that biliary dyskinesia is at the root of this problem so I think a HIDA scan would be appropriate. I do not think it is pancreatitis as the pancreas appears normal on CT scan and her lipase has not been elevated despite the copious vomiting. The Viviana really isn't doing enough when she has a severe attack so I will try giving her metoclopramide as well as a backup. But I also think it is worth a trial to put her on Creon to rest the gallbladder in case this is biliary dyskinesia. If it is this should help decrease the frequency and intensity of these attacks and help keep her out of the ER. The only relief that she has from the pain is trying to lie completely flat. This also is not consistent with pancreatitis. The 1 good thing is that her swallowing has completely resolved by treating the esophageal Emerita. Her constipation is well controlled and this pain definitely is different than what she experiences when she is constipated ROV 6 weeks. [facility] Medical History Seizure Chest pain Elevated d-dimer Cough Nausea & vomiting Epigastric pain Esophageal candidiasis Lymphedema Oropharyngeal dysphagia Dysphagia De Quervain's tenosynovitis, left Bilateral hand pain Pseudotumor cerebri Anxiety Insomnia Pain of right upper extremity Tremors of nervous system Impacted cerumen of both ears Acute sinusitis Acute right otitis media Goiter Janna's thyroiditis Physical exam Contusion of right forearm Right elbow pain Right wrist pain Right arm pain Fall from slipping on ice Sinus infection De Quervain's tenosynovitis, right Right wrist tendinitis Hypothyroidism Chronic migraine PCOS (polycystic ovarian syndrome) Pain in joint of right wrist Surgical History Hx of tubal ligation History of esophagogastroduodenoscopy (EGD) History of thyroidectomy Hx of hand surgery (12/25/22) H/O right knee surgery History of intestinal obstruction History of lumbar puncture Hx of appendectomy H/O gastric bypass History of partial hysterectomy Family History Mother No problems noted. 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 Current occupational exposures/hazards: No Cognitive needs: No Hearing needs: No Vision needs: Yes Review of Systems Const Denies fatigue, Denies fever(s), Denies night sweats, Denies poor appetite and Denies weight loss Eyes Details: glasses Reports requires corrective lenses ENT Reports Normal hearing present, Denies dental pain, Denies dysphagia, Denies hearing loss, Denies mouth pain, Denies odynophagia, Denies throat swelling, Denies tongue swelling and Reports other (Dentition adequate) Card Reports no additional complaints Resp Reports no additional complaints GI Details: Reports abdominal pain, Denies melena, Denies bloating, Denies hematochezia, Reports constipation, Denies GI cramping, Denies dysphagia, Denies excessive flatus, Denies early satiety, Reports heartburn, Denies diarrhea, Reports nausea, Denies odynophagia, Reports vomiting and Denies hematemesis Musc Reports back pain Skin/Breast Denies pruritus, Denies lesions, Denies rash and Denies jaundice Neuro Reports Normal hearing present and Denies Abnormal speech present Endo Denies fatigue Aller/Immun Denies throat swelling and Denies tongue swelling Physical Exam Vital Signs: Last Vital Signs Pulse 74 02/19/24 16:06 BP 137/67 02/19/24 16:06 BMI result Body Mass Index 22.6 Const General: cooperative, no acute distress, well developed and well groomed Nutritional Appearance: average body habitus and well nourished Orientation/consciousness: oriented to person, oriented to place and oriented to time Limitations: No language barrier HEENT Head: Yes normocephalic and Yes atraumatic Eyes General: appearance normal, both eyes and all related structures Pupils: Equal, round and reactive pupils present Neck Neck: Yes normal visual inspection and Yes no lymphadenopathy Thyroid: Thyroid normal Resp Effort & Inspection: normal respiratory effort and able to speak in complete sentences Auscultation: clear to auscultation bilaterally Cardio Rate: regular rate Rhythm: regular rhythm Heart sounds: Normal, physiologic split S2 sound present Peripheral pulses: radial pulses present and posterior tibial pulses present GI Inspection: No distended and No Abdominal panniculus present Palpation (GI): Soft to palpation, nontender, no guarding, not rigid and No hepatosplenomegaly present Percussion: Yes normal to percussion Auscultation: normal bowel sounds Rectal Exam - Female: deferred Skin General skin exam: no rashes or lesions noted, turgor normal, skin not dry, no jaundice, No spider nevi and no striae Rashes: no rashes Nails: normal Neuro General: oriented to person, oriented to place and oriented to time Cranial nerves: Yes Equal, round and reactive pupils present and Yes Normal hearing present Speech: No Abnormal speech present Extrem General: Yes normal to inspection, No clubbing, No cyanosis and No edema Psych Appearance: grossly normal and well kempt Mental Status: mental status grossly normal Speech and movement: Normal speech and movement present Affect: normal affect Attitude: cooperative Thought process: Normal thought process present and not confabulating Thought content: Normal thought content present Insight: Limited insight present (Psych) Judgement: Limited judgement present (Psych) Results Reviewed Results Reviewed: REVIEW OF ER NOTES FROM 2 VISITS FINDINGS: LUNG BASES: The visualized lung bases are unremarkable. LIVER, GALLBLADDER, AND BILIARY TREE: The liver is normal in size, shape, and attenuation. No focal hepatic lesion or biliary ductal dilatation is present. The gallbladder is unremarkable with no evidence of radiopaque gallstones, gallbladder wall thickening, or obvious pericholecystic inflammatory changes. PANCREAS: Unremarkable. SPLEEN: Unremarkable. ADRENAL GLANDS: Unremarkable. KIDNEYS AND URETERS: The kidneys are normal in size, shape, and attenuation. No hydronephrosis, hydroureter, or calculi seen. No perinephric stranding. BLADDER: Unremarkable. GASTROINTESTINAL TRACT: Moderate amount stool throughout the colon. There is circumferential thickening of the colon at the level of the hepatic flexure. Please see adkins images. This is suspicious for potentially infiltrating tumor as opposed to focal colitis. Elective GI assessment recommended for further evaluation. No obstruction. Cecum unremarkable. Terminal ileum normal. No free fluid or ascites. ABDOMINAL WALL: No significant hernia is appreciated. LYMPH NODES: Normal. VASCULAR: Unremarkable. PELVIC VISCERA: Appears to be surgically absent. OSSEOUS STRUCTURES: Unremarkable. CT/CT abdomen pelvis w IV con IMPRESSION: Circumferential thickening of the colon at the level of the hepatic flexure. Please see adkins images. This is suspicious for potentially at infiltrating tumor as opposed to focal colitis. Elective GI assessment recommended for further evaluation. Fleischner guidelines were followed. Electronically signed by: Jaswinder Dinero MD 01/25/2024 08:34 PM EDT RP Dictated By: Jaswinder Dinero MD Signed By: <Electronically signed by Jaswinder Dinero MD in [place]> 01/25/242033 No signs of obstruction patient does not have any pain in the right upper quadrant asking for Dilaudid for the pain no acute vomiting in the ER patient advised to follow with compressor operator portable FINDINGS: LUNG BASES: The visualized lung bases are unremarkable. LIVER, GALLBLADDER, AND BILIARY TREE: The liver is normal in size, shape, and attenuation. No focal hepatic lesion or biliary ductal dilatation is present. The gallbladder is unremarkable with no evidence of radiopaque gallstones, gallbladder wall thickening, or obvious pericholecystic inflammatory changes. PANCREAS: Unremarkable. SPLEEN: Unremarkable. ADRENAL GLANDS: Unremarkable. KIDNEYS AND URETERS: The kidneys are normal in size, shape, and attenuation. No hydronephrosis, hydroureter, or calculi seen. No perinephric stranding. BLADDER: Unremarkable. GASTROINTESTINAL TRACT: Status post gastric surgery. Previously seen thickening of the colon at the hepatic flexure is not apparent and this may have been secondary to poor distention on the prior study. The small and large bowel are unremarkable. The appendix is not seen but there is no evidence of appendicitis. ABDOMINAL WALL: No significant hernia is appreciated. LYMPH NODES: Normal. VASCULAR: Unremarkable. PELVIC VISCERA: The uterus is not seen. An abnormal adnexal mass is not detected. No free intraperitoneal fluid is present. OSSEOUS STRUCTURES: Unremarkable. CT/CT abdomen pelvis w IV con IMPRESSION: A cause for the patient's epigastric pain has not been found. Incidental findings as described above. Fleischner guidelines were followed. Electronically signed by: Adithya Corbett MD 01/30/2024 06:52 PM EDT RP Dictated By: Adithya Corbett MD Signed By: <Electronically signed by Adithya Corbett MD in [place]> 01/30/24 Assessment & Plan Assessment & Plan (1) Esophageal candidiasis: Code(s): B37.81 - Candidal esophagitis Category: Medical (2) Oropharyngeal dysphagia: Code(s): R13.12 - Dysphagia, oropharyngeal phase Category: Medical (3) Chronic idiopathic constipation: Code(s): K59.04 - Chronic idiopathic constipation Category: Medical (4) GERD (gastroesophageal reflux disease): Code(s): K21.9 - Gastro-esophageal reflux disease without esophagitis Category: Medical (5) Nausea & vomiting: Code(s): R11.2 - Nausea with vomiting, unspecified Category: Medical Qualifiers: Vomiting type: unspecified Qualified Code(s): R11.2 - Nausea with vomiting, unspecified (6) Epigastric pain: Code(s): R10.13 - Epigastric pain Category: Medical Plan She continues on her bisacodyl, omeprazole, sucralfate, lactulose and Zofran. The pain is severe and in the epigastric area that radiates to her back. She was seen twice in the ER and only told she was constipated. She was given sucralfate which did not make any difference in her symptoms. This does not surprise me since she had a fairly recent endoscopy that did not show any gastritis or other concerning problems. She does note that the last severe symptoms set seem to start after eating pizza. Although the CT scan did not show gallstones it is possible that biliary dyskinesia is at the root of this problem so I think a HIDA scan would be appropriate. I do not think it is pancreatitis as the pancreas appears normal on CT scan and her lipase has not been elevated despite the copious vomiting. The Zofran really isn't doing enough when she has a severe attack so I will try giving her metoclopramide as well as a backup. But I also think it is worth a trial to put her on Creon to rest the gallbladder in case this is biliary dyskinesia. If it is this should help decrease the frequency and intensity of these attacks and help keep her out of the ER. The only relief that she has from the pain is trying to lie completely flat. This also is not consistent with pancreatitis. The 1 good thing is that her swallowing has completely resolved by treating the esophageal Emerita. Her constipation is well controlled and this pain definitely is different than what she experiences when she is constipated ROV 6 weeks. Orders: Orders NM hepatobiliary w pharm 02/19/24 R11.2 - Nausea with vomiting, unspecified, R10.13 - Epigastric pain Medications: New metoclopramide HCl (Reglan) 10 mg PO QIDACHS 90 tabs 3RF R11.2 - Nausea with vomiting, unspecified, K21.9 - Gastro-esophageal reflux disease without esophagitis [id number] 24,000-76,000 -120,000 unit (Creon) 2 caps PO BID 120 caps 1RF 30 days K58.9 - Irritable bowel syndrome, unspecified Changed From ondansetron 8 mg PO Q8H 10 days PRN 30 tabs 0RF nausea and vomiting To ondansetron 8 mg PO Q8H 30 tabs 0RF nausea and vomiting 10 days Discontinued ondansetron Discontinued Reason: Doctor's Order 4 mg PO Q6-8H PRN 14 tabs 0RF nausea and vomiting sucralfate swish in mouth and swallow; use after food/drink Discontinued Reason: Doctor's Order 5 mL PO QID 30 days 600 mL 0RF Coding Level of Care Code Est Pt Level 4 (63188) Diagnoses Esophageal candidiasis B37.81 Oropharyngeal dysphagia R13.12 Chronic idiopathic constipation K59.04 GERD (gastroesophageal reflux disease) K21.9 Nausea & vomiting R11.2 Vomiting type: unspecified Epigastric pain R10.13 Time Spent (min) 33
== END 2024-02-19 17:03 | disposition home or self-care (01) ==
PROVIDERS: PCP Internal Medicine; Visit Provider Nurse Practitioner
DX: B37.81 Candidal esophagitis (principal); R13.12 Dysphagia, oropharyngeal phase; K59.04 Chronic idiopathic constipation; K21.9 Gastro-esophageal reflux disease without esophagitis; R11.2 Nausea with vomiting, unspecified; R10.13 Epigastric pain
CPT/HCPCS: 99214

== ENCOUNTER → 2024-02-19 15:58 | Outpatient (BNVA) | payer BC, SELFPAY | PROVIDERS: PCP Internal Medicine; Visit Provider Nurse Practitioner ==

== ENCOUNTER 2024-02-25 15:14 | Emergency (ER) | payer BC, SELFPAY ==
--- NOTE | ~2024-02-25 | US_ITS ---
EXAMINATION: US ABDOMEN LIMITED CLINICAL INFORMATION: Right upper quadrant pain. COMPARISON: CT abdomen/pelvis 01/30/2024. TECHNIQUE: Real-time imaging of the right upper quadrant abdominal viscera. FINDINGS: PANCREAS: The pancreatic tail is not well seen due to shadowing from overlying bowel gas, otherwise unremarkable. LIVER: The liver is normal in size. The liver contour is normal. Slightly increased liver parenchymal echogenicity. No focal hepatic lesion. There is no intrahepatic biliary duct dilatation seen. GALLBLADDER: Technologist reports a positive Roper sign. The gallbladder is physiologically distended without evidence of stones, sludge, polyps, wall thickening or pericholecystic fluid. COMMON BILE DUCT: Normal in caliber measuring 0.4 cm in diameter. RIGHT KIDNEY: Normal. No hydronephrosis. No renal calculi or focal parenchymal lesions. The kidney measures 11 cm in maximum dimension. FREE FLUID: None. US/US abdomen limited IMPRESSION: 1. Technologist reports a positive Roper's sign which is nonspecific in the absence of cholelithiasis or gallbladder wall thickening. If there is clinical concern for acute cholecystitis, correlation with a CT of the abdomen could be obtained. 2. Slightly increased liver parenchymal echogenicity which could be seen in the setting of hepatic steatosis. Electronically signed by: Adelaide Toussaint MD 02/25/2024 05:29 PM EDT
--- NOTE | ~2024-02-25 | NM_ITS ---
EXAMINATION: BILIARY TRACT IMAGING STUDY WITH CCK CLINICAL INFORMATION: Right upper quadrant pain.. COMPARISON: No previous biliary scan is available for comparison. Abdominal ultrasound dated 02/25/[address] scan of the abdomen and pelvis dated 01/30/2024 are available for comparison.. TECHNIQUE: Serial gamma scintillation camera images were obtained over the abdomen for a total observation period of 96 minutes following the intravenous administration of 5.0 mCi Tc-99m mebrofenin. FINDINGS: There is good concentration of activity in the liver by 5 minutes post injection. Biliary activity is visualized by 12 minutes. The gallbladder is well visualized by 25 minutes. Small bowel is well visualized by 75 minutes. At 60 minutes post radiopharmaceutical injection, a 30-minute infusion of 1.1 micrograms Sincalide was then begun and an additional 40 minutes of images were obtained. There is good emptying of the gallbladder. By the end of the study there is good clearance of activity from the liver and visualization of diffuse small bowel activity. The calculated gallbladder ejection fraction is 60% (normal gallbladder ejection fraction is greater than 35%). NM/NM hepatobiliary wo pharm IMPRESSION: Visualization of the gallbladder is evidence of a patent cystic duct and strong evidence against the diagnosis of acute cholecystitis. The common bile duct is patent. Gallbladder emptying and ejection fraction are normal. Liver function appears normal. Electronically signed by: Mike Cleary MD 02/26/2024 01:48 PM EDT
[2024-02-25 15:22] VITALS: BP 149/78; PULSE 98; RESP 20; TEMP 36.9; O2SAT 100; BMI 22.1
--- NOTE | 2024-02-25 15:22 | ED.ABDPAIN ---
HPI - Abdominal Pain General Chief Complaint: Abdominal Pain Stated Complaint: abd pain Time Seen by Provider: 02/25/24 21:49 Source: patient and family Mode of arrival: ambulatory Limitations: no limitations History of Present Illness ED Provider: DR. Roman HPI narrative: this is a 44-year-old female s/p gastric bypass surgery, partial hysterectomy, appendectomy history of intestinal obstruction came in for 1 month history of upper abdominal pain and right upper quadrant pain patient has been evaluated by GI and scheduled to have HIDA scan scheduled in 3 weeks from now patient having and hopeful pain for the past month, unable to eat or drink any food because of the pain, pain is associated with nausea, patient was seen in the emergency department 3 times in the last month for pain, had CT abdomen pelvis x2 which showed no acute intra-abdominal pathology. patient is crying from pain and express her frustration from the situation. Had a small bowel movement this morning and passing flatus. Related Data Home Medications ?Medication ?Instructions ?Recorded ?Confirmed hydroxyzine HCl 25 mg tablet 50 mg PO BEDTIME PRN Insomnia 10/20/20 02/26/24 doxepin 25 mg capsule 50 mg PO DAILY 02/07/21 02/26/24 magnesium 200 mg tablet 200 mg PO DAILY 03/28/22 02/26/24 riboflavin (vitamin B2) 100 mg 100 mg PO DAILY 03/28/22 02/26/24 tablet thiamine HCl (vitamin B1) 100 mg 100 mg PO DAILY 03/28/22 02/26/24 tablet vitamin B complex (B 1 tab PO DAILY 03/28/22 02/26/24 Complex-Vitamin B12 tablet) cyanocobalamin (vitamin B-12) 1,000 mcg PO DAILY 02/26/24 02/26/24 1,000 mcg tablet (Vitamin B-12) levothyroxine 125 mcg tablet 125 mcg PO DAILY@0600 02/26/24 02/26/24 (Levoxyl) Previous Rx's ?Medication ?Instructions ?Recorded gabapentin 600 mg tablet See Rx Instructions PO TID #90 tabs 01/24/24 bisacodyl 5 mg tablet,delayed 5 mg PO BEDTIME PRN constipation 01/25/24 release (Dulcolax (bisacodyl)) #30 tabs lactulose 10 gram/15 mL oral 15 ml PO BID PRN constipation 30 01/28/24 solution days #473 mL muqqce-etvjgnan-cqoebjq 2 cap PO BID 30 days #120 caps 02/19/24 24,000-76,000-120,000 unit capsule,delayed rel (Creon) ondansetron 4 mg disintegrating 4 mg PO Q8H PRN nausea and 02/26/24 tablet vomiting #20 tabs Allergies Allergy/AdvReac Type Severity Reaction Status Date / Time hydrocodone [From VICODIN] Allergy Intermediate GI UPSET Verified 02/25/24 15:24 propylene glycol Allergy Intermediate EXTREME Verified 02/25/24 15:24 [PROPYLENE GLYCOL] BURNING/PAIN/RASH trazodone Allergy Intermediate Shortness Verified 02/25/24 15:24 of Breath cobalt Allergy Unknown Verified 02/25/24 15:24 lamotrigine AdvReac Intermediate foggy Verified 02/25/24 15:24 propranolol AdvReac Intermediate inadequate Verified 02/25/24 15:24 response acetaminophen [Vicodin] AdvReac Unknown nausea and Verified 02/25/24 15:24 vomiting levetiracetam [From Keppra] AdvReac foggy Verified 02/25/24 15:24 diamox AdvReac Intermediate metalic Uncoded 02/25/24 15:24 taste, did not feel comfortable Review of Systems Review of Systems All other systems are reviewed and are negative Constitutional: Reports as per HPI and Reports no additional constitutional complaints Eyes: Reports as per HPI and Reports no additional eye complaints Reports system reviewed and no additional complaints, except as documented Cardiovascular: Reports as per HPI and Reports no additional cardiovascular complaints Respiratory: Reports as per HPI and Reports no additional respiratory complaints Gastrointestinal: Reports as per HPI and Reports no additional gastrointestinal complaints Genitourinary: Reports no additional female genitourinary complaints Musculoskeletal: Reports no additional musculoskeletal complaints Skin/Breast: Reports system reviewed and no additional complaints, except as docu Psychiatric: Reports no additional psychiatric complaints Endocrine: Reports no additional endocrine complaints Hematologic/Lymphatic: Reports no additional hematologic/lymphatic complaints Allergic/Immunologic: Reports no additional allergic/immunologic complaints Reports system reviewed and no additional complaints, except as documented and Reports Abnormal speech present [facility] Past Medical History Medical History Epigastric pain Physical exam Janna's thyroiditis Bilateral hand pain Pain in joint of right wrist Right wrist tendinitis Pseudotumor cerebri Goiter Impacted cerumen of both ears Acute sinusitis Acute right otitis media Contusion of right forearm Sinus infection Right elbow pain Right wrist pain Right arm pain Fall from slipping on ice Dysphagia Anxiety Insomnia Tremors of nervous system Hypothyroidism Chronic migraine PCOS (polycystic ovarian syndrome) Surgical History History of esophagogastroduodenoscopy (EGD) History of thyroidectomy Hx of hand surgery (12/25/22) H/O right knee surgery History of intestinal obstruction History of lumbar puncture Tubal ligation status Hx of appendectomy H/O gastric bypass History of partial hysterectomy Family History Family History Mother No problems noted. 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 Current occupational exposures/hazards: No Cognitive needs: No Hearing needs: No Vision needs: Yes Physical Exam ED Vital Signs: Vital Signs - 24 hr 02/25/24 15:22 02/25/24 22:28 02/25/24 22:35 Temperature 98.4 F 98.2 F Pulse Rate 98 67 Respiratory Rate 20 14 16 Blood Pressure 149/78 H 115/65 Pulse Oximetry 100 96 Oxygen Delivery Method Room Air Room Air 02/26/24 00:05 02/26/24 00:48 02/26/24 02:53 Temperature 98.0 F Pulse Rate 66 Respiratory Rate 16 18 16 Blood Pressure 113/63 Pulse Oximetry 100 Oxygen Delivery Method Room Air 02/26/24 04:49 02/26/24 05:57 02/26/24 06:33 Temperature 98.1 F Pulse Rate 60 68 Respiratory Rate 16 14 18 Blood Pressure 110/70 119/73 Pulse Oximetry 99 97 Oxygen Delivery Method Room Air Room Air 02/26/24 08:23 02/26/24 09:20 02/26/24 12:18 Temperature 98.2 F 97.9 F Pulse Rate 65 66 Respiratory Rate 14 20 16 Blood Pressure 114/72 124/63 Pulse Oximetry 98 100 Oxygen Delivery Method Room Air Room Air BMI result Body Mass Index 22.1 Vital signs have been reviewed and appear to be correct. Blood pressure elevated. Heart rate normal. Respiratory rate normal. Temperature normal. Oxygen saturation normal. Appearance: Alert. Oriented X3. No acute distress. Head: Normal external exam. Normocephalic. Atraumatic. No Santos signs noted. No raccoon eyes noted Eyes: PERRLA. EOMI. Conjunctiva and sclera normal. Eyelids normal. ENT: TM's Normal. Pharynx normal. Uvula midline. Moist mucous membranes. No trismus noted. No drooling noted. No muffled voice noted. Neck: Normal inspection. Neck supple. FROM. No adenopathy. Thyroid Normal. No meningeal signs. No neck mass noted. CVS: Normal heart rate and rhythm. Heart sound normal. No murmurs noted. Pulses normal throughout. Respiratory: No respiratory distress. Painless inspiration. Breath sounds normal. No wheezes/rales/rhonchi noted. Chest nontender. No accessory muscle usage noted or decreased air movement noted. Abdomen: Soft , epigastric tenderness, no rebound tenderness, no guarding. Bowel sounds normal in all 4 quadrants. No distention noted. No organomegaly noted. No visible injury noted. Back: No CVA tenderness. Full range of motion noted. Skin: Skin warm and dry. Normal skin color. Normal skin turgor. No rashes/lesions/lacerations noted. Extremities: No lower extremity edema. Extremities exhibit normal range of motion. Extremities nontender. Neuro: Oriented X 3. Cranial nerve exam: II-XII are grossly intact No motor deficit. No sensory deficit. Reflexes normal. Course Course Course Narrative: This is a Rapid Medical Examination (RME) performed by Elo Knight PA-C in triage. Full HPI, ROS, assessment and treatment plan per primary provider in the Main ED. 44 yo female with history of gastric bypass, dysphagia, constipation, GERD, ?biliary dyskinesia who is due for a HIDA scan per GI provdier here at the end of the month presents to the ER for evaluation of worsening RUQ pain for the last 1 month. unable to eat due to the pain. severe nausea but no vomiting. last BM was this morning and was normal. seen here twice in the last month for similar complaints. Plan: RUQ U/S, labs Reevaluation(s) Reevaluation #1: A 1 month of upper abdominal /right upper quadrant abdominal pain, negative outpatient workup patient is waiting for HIDA scan, patient is declining discharging home before doing the HIDA scan today. Case is signed out to Dr. Tucker. will keep the patient in the ER for IV hydration/pain control /nausea control. Time: 22:12 Reevaluation #2: chronic abdominal pain with negative labs, US and HIDA scan can be DC home at is time. Medical Decision Making Differential Diagnosis Differential Diagnoses: The differential diagnosis associated with the presentation includes ( biliary dyskinesia, acute acalculous cholecystitis, pancreatitis, gastritis, electrolyte derangement, severe anemia.) Admission/Observation Consideration of admission/observation: Escalation of care including admission/observation considered Lab Data MDM Lab Attestation statement: I reviewed the patient's lab results. 02/25/24 17:50 02/25/24 17:50 Labs: Lab Results 02/25/24 Range/Units 17:50 WBC 8.8 (4.8-10.8) X10*3/uL RBC 4.65 (4.20-5.50) X10*6/uL Hgb 9.2 L (12.0-16.0) g/dl Hct 31.8 L (37.0-47.0) % MCV 68.4 L (80.0-98.0) fL MCH 19.8 L (27.0-33.0) pg MCHC 28.9 L (31.0-35.0) g/dl RDW 17.3 H (11.0-16.0) % Plt Count 553 H D (160-400) X10*3/uL MPV 9.0 L (9.4-12.3) fL Immature Gran % (Auto) 0.5 H (0.0-0.4) % Neut % (Auto) 54.2 (45-73) % Lymph % (Auto) 36.0 (20-40) % Frontier % (Auto) 7.6 (2-11) % Eos % (Auto) 1.0 (0-4) % Baso % (Auto) 0.7 (0-2) % Lymph # (Auto) 3.2 (1.2-4.9) X10*3/uL Frontier # (Auto) 0.7 (0.1-1.2) X10*3/uL Eos # (Auto) 0.1 (0.0-0.4) X10*3/uL Baso # (Auto) 0.1 (0.0-0.2) X10*3/uL Abs Immat Gran (auto) 0.04 H (0.00-0.03) X10*3/uL Absolute Neuts (auto) 4.8 (2.0-8.3) x10*3/uL Absolute Nucleated RBC 0.000 (0.0-0.012) X10*3/uL Nucleated RBC % (auto) 0.0 (0.0-0.2) /100WBC Sodium 140 (135-145) mmol/L Potassium 3.7 (3.3-5.1) mmol/L Chloride 109 H (96-108) mmol/L Carbon Dioxide 24 (22-29) mmol/L Anion Gap 11 L (12-20) BUN 15 (9-16) mg/dL Creatinine 0.74 (0.5-1.4) mg/dL Estim Creat Clear Calc 78.3 Estimated GFR > 60 Random Glucose 92 (60-115) mg/dL Calcium 8.9 D (8.4-10.2) mg/dL Magnesium 2.1 (1.6-2.6) mg/dL Total Bilirubin 0.2 (0.0-1.0) mg/dL Direct Bilirubin < 0.2 (0.0-0.5) mg/dL AST 22 (5-31) U/L ALT 9 (0-31) U/L Alkaline Phosphatase 57 (39-117) U/L Total Protein 7.0 (6.5-8.0) g/dL Albumin 4.0 (3.5-5.0) g/dL Lipase 37 (8-78) U/L Urine Color Dark Yellow Urine Appearance Cloudy Urine pH 6.0 (5.0-9.0) Ur Specific [place] >= 1.030 H (1.005-1.025) Urine Protein Trace (Neg-Trace) mg/dL Urine Glucose (UA) Negative (Negative) mg/dL Urine Ketones Trace (Negative) mg/dL Urine Blood Negative (Negative) Urine Nitrite Negative (Negative) Ur Leukocyte Esterase Negative (Negative) Urine Test NEGATIVE (NEGATIVE) Independent Interpretation I performed an independent interpretation of an: Ultrasound ( Abdomen:1. Technologist reports a positive Roper's sign which is nonspecific in the absence of cholelithiasis or gallbladder wall thickening. If there is clinical concern for acute cholecystitis, correlation with a CT of the abdomen could be obtained. 2. Slightly increased liver parenchymal ) Radiology Impression Discussion of test interpretation with radiology: I have reviewed the radiologist's reading. Medications Administered Discontinued Medications Generic Name Dose Route Start Last Admin Trade Name Freq PRN Reason Stop Dose Admin Droperidol 1.25 mg 02/26/24 09:15 02/26/24 09:19 Droperidol 5 Mg/2 Ml Vial IVPUSH 02/26/24 09:16 1.25 mg ONCE ONE Administration Hydromorphone HCl 0.1 mg 02/25/24 23:25 02/26/24 00:05 Hydromorphone Hcl 0.5 Mg/0.5 Ml Syringe IVPUSH 02/25/24 23:26 0.1 mg ONCE ONE Administration Protocol Hydromorphone HCl 1 mg 02/26/24 02:24 02/26/24 02:53 Hydromorphone Hcl 1 Mg/Ml Syringe IVPUSH 02/26/24 02:25 1 mg ONCE ONE Administration Protocol Hydromorphone HCl 1 mg 02/26/24 05:53 02/26/24 05:57 Hydromorphone Hcl 1 Mg/Ml Syringe IVPUSH 02/26/24 05:54 1 mg ONCE ONE Administration Protocol Hydromorphone HCl 0.5 mg 02/26/24 09:15 02/26/24 09:20 Hydromorphone Hcl 0.5 Mg/0.5 Ml Syringe IVPUSH 02/26/24 09:16 0.5 mg ONCE ONE Administration Protocol Sodium Chloride 1,000 mls @ 999 mls/hr 02/25/24 22:05 02/26/24 00:04 Ns IV 02/25/24 23:05 Infused .Q1H1M ONE Infusion Metoclopramide HCl 10 mg 02/25/24 22:05 02/25/24 22:28 Metoclopramide Hcl 10 Mg/2 Ml Vial IVPUSH 02/25/24 22:06 10 mg ONCE ONE Administration Morphine Sulfate 1 mg 02/25/24 22:05 02/25/24 22:28 Morphine Sulfate 2 Mg/Ml Cartridge IVPUSH 02/25/24 22:06 1 mg ONCE ONE Administration Protocol Discharge Plan Discharge Clinical Impression: Abdominal pain Qualifiers: Abdominal location: right upper quadrant Qualified Code(s): R10.11 - Right upper quadrant pain Patient Disposition: Home, Self-Care Instructions: Abdominal Pain (ED) Additional Instructions: labs reassuring ultrasound no acute findings HIDA SCAN - normal please follow up with your doctors return for any worsening symptoms or concerns. NM/NM hepatobiliary wo pharm IMPRESSION: Visualization of the gallbladder is evidence of a patent cystic duct and strong evidence against the diagnosis of acute cholecystitis. The common bile duct is patent. Gallbladder emptying and ejection fraction are normal. Liver function appears normal. Prescriptions: New ondansetron 4 mg tablet,disintegrating 4 mg PO Q8H PRN (Reason: nausea and vomiting) Qty: 20 0RF No Action gabapentin 600 mg tablet See Rx Instructions PO TID Qty: 90 6RF Rx Instructions: 1/2 qam and q noon 1 1/2 at bedtime orally 3 times a day; lactulose 10 gram/15 mL solution 15 ml PO BID PRN (Reason: constipation) 30 Days Qty: 473 1RF bisacodyl [Dulcolax (bisacodyl)] 5 mg tablet,delayed release (DR/EC) 5 mg PO BEDTIME PRN (Reason: constipation) Qty: 30 0RF cyanocobalamin (vitamin B-12) [Vitamin B-12] 1,000 mcg Tablet 1,000 mcg PO DAILY levothyroxine [Levoxyl] 125 mcg Tablet 125 mcg PO DAILY@0600 doxepin 25 mg capsule 50 mg PO DAILY hydroxyzine HCl 25 mg tablet 50 mg PO BEDTIME PRN (Reason: Insomnia) thiamine HCl (vitamin B1) 100 mg tablet 100 mg PO DAILY vitamin B complex [B Complex-Vitamin B12] Tablet 1 tab PO DAILY riboflavin (vitamin B2) 100 mg tablet 100 mg PO DAILY magnesium 200 mg tablet 200 mg PO DAILY Creon 24,000-76,000 -120,000 unit capsule,delayed release(DR/EC) 2 cap PO BID 30 Days Qty: 120 1RF Stand Alone Forms: Work/School Release Print Language: Sudanese
[2024-02-25 17:55] LABS: MANUAL DIFF FLAG NO
[2024-02-25 18:02] LABS: Appearance Urine Cloudy; Color Urine Dark Yellow; Glucose Urine UA Negative (Negative); Leukocyte Esterase Urine Negative (Negative); Nitrite Urine Negative (Negative); Specific Gravity - Urine >= 1.030 (1.005-1.025); Urine Blood Negative (Negative); Urine Ketones Trace mg/dL (Negative); Urine Protein Trace mg/dL (Neg-Trace)
[2024-02-25 18:04] LABS: UPreg QC Valid YES; Urine Pregnancy NEGATIVE (NEGATIVE)
[2024-02-25 18:14] LABS: Alanine Aminotransferase 9 U/L (0-31); Alkaline Phosphatase 57 U/L (39-117); Anion Gap 11 (12-20); Aspartate Amino Transferase 22 U/L (5-31); Bilirubin Direct < 0.2 mg/dL (0.0-0.5); Bilirubin Total 0.2 mg/dL (0.0-1.0); Blood Urea Nitrogen 15 mg/dL (9-16); Calcium 8.9 mg/dL (8.4-10.2); Carbon Dioxide 24 mmol/L (22-29); Chloride 109 mmol/L (96-108); Creatinine Clr Calc Pharmacy 78.3; Estimated Glomerular Filt Rate > 60; Glucose Random 92 mg/dL (60-115); Lipase 37 U/L (8-78); Magnesium 2.1 mg/dL (1.6-2.6); Potassium 3.7 mmol/L (3.3-5.1); Sodium 140 mmol/L (135-145)
[2024-02-25 18:18] LABS: Basophils Absolute Auto 0.1 X10*3/uL (0.0-0.2); Basophils Percent Auto 0.7 % (0-2); Eosinophils Absolute Auto 0.1 X10*3/uL (0.0-0.4); Hematocrit 31.8 % (37.0-47.0); Hemoglobin 9.2 g/dl (12.0-16.0); Imm Gran Abs Auto 0.04 X10*3/uL (0.00-0.03); Imm Gran Pct Auto 0.5 % (0.0-0.4); Lymphocytes Absolute Auto 3.2 X10*3/uL (1.2-4.9); Mean Corpuscular HGB Conc 28.9 g/dl (31.0-35.0); Mean Corpuscular Hemoglobin 19.8 pg (27.0-33.0); Mean Corpuscular Volume 68.4 fL (80.0-98.0); Monocytes Absolute Auto 0.7 X10*3/uL (0.1-1.2); Monocytes Percent Auto 7.6 % (2-11); Neutrophils Absolute Auto 4.8 x10*3/uL (2.0-8.3); Neutrophils Percent Auto 54.2 % (45-73); Platelet Count 553 X10*3/uL (160-400); Red Blood Count 4.65 X10*6/uL (4.20-5.50); Red Cell Distribution Width 17.3 % (11.0-16.0); White Blood Count 8.8 X10*3/uL (4.8-10.8)
[2024-02-25 22:28] VITALS: RESP 14
[2024-02-25] MEDS: Morphine Sulfate 2 MG/ML CARTRIDGE 1 MG IVPUSH (22:28)
[2024-02-25] MEDS: Metoclopramide HCl 10 MG/2 ML VIAL IVPUSH (22:28)
[2024-02-25] MEDS: 0.9 % Sodium Chloride 1,000 ML 999 ML IV (22:29)
[2024-02-25 22:35] VITALS: BP 115/65; PULSE 67; RESP 16; TEMP 36.8; O2SAT 96
[2024-02-26] VITALS (11 sets, daily range): BP systolic 110–133; BP diastolic 63–76; PULSE 60–76; RESP 14–20; TEMP 36.6–36.9; O2SAT 97–100
[2024-02-26] MEDS: HYDROmorphone HCl 0.5 MG/0.5 ML SYRINGE 0.1 MG IVPUSH (00:05)
[2024-02-26] MEDS: HYDROmorphone HCl 1 MG/ML SYRINGE IVPUSH ×2 (02:53→05:57)
--- NOTE | 2024-02-26 06:12 | PC.NURSE ---
Patient is alert and oriented x4, VSS. Patient complaints of RUQ pain ranging from 4/10-10/10, medicated per MAR, plan for HIDA scan in am.
--- NOTE | 2024-02-26 07:19 | PC.NURSE ---
report recieved from previous RN, patient resting comfortably on stretcher at this time, endorsing some relief from pain after medication administration on previous shift. states she feels as if her nausea is coming back, states she recieved reglan last night with good effect. patient awaiting HIDA scan this morning, remains NPO at this time
--- NOTE | 2024-02-26 08:07 | PC.NURSE ---
nuclear med called, will be taking patient for HIDA scan at around 9am
--- NOTE | 2024-02-26 09:15 | PC.NURSE ---
patient complainign of nausea and pain, MD made aware, medicated per MAR, awaiting HIDA scan at this time
[2024-02-26] MEDS: droPERidol 5 MG/2 ML VIAL 1.25 MG IVPUSH (09:19)
[2024-02-26] MEDS: HYDROmorphone HCl 0.5 MG/0.5 ML SYRINGE IVPUSH (09:20)
--- NOTE | 2024-02-26 09:47 | PC.NURSE ---
patient to nuclear med at this time
--- NOTE | 2024-02-26 14:43 | PHA.MEDREC ---
Addendum entered by Aislinn Singh 02/26/24 14:50: incomplete note. Original Note: Pharmacy Consult ? Medication Reconciliation Pharmacy has completed the medication reconciliation. Confirmed medications with patient. Patient confirmed she only takes name brand Levoxyl 125mcg and does not want to take generic we will have pt bring in medication from home due to us only having generic in the pharmacy. She states she has not started the metoclopramide 10mg and states its sitting filled at her pharmacy. She also states she has not started Ropinirole 0.5mg tabs due to her not feeling well at all and her Dr telling her to not start it if she has stomach pains. She claims she took her medications yesterday.
--- NOTE | 2024-02-26 14:52 | PHA.MEDREC ---
Pharmacy Consult ? Medication Reconciliation Pharmacy has completed the medication reconciliation. Confirmed medications with patient. Patient confirmed she only takes name brand Levoxyl 125mcg and does not want to take generic we will have pt bring in medication from home due to us only having generic in the pharmacy. She states she has not started the metoclopramide 10mg and states its sitting filled at her pharmacy. She also states she has not started Ropinirole 0.5mg tabs due to her not feeling well at all and her Dr telling her to not start it if she has stomach pains. She claims she took her medications yesterday.
== END 2024-02-26 14:59 | disposition home or self-care (01) ==
PROVIDERS: Physician Assistant; Emergency Provider Emergency Medicine; PCP Internal Medicine
DX: R10.11 Right upper quadrant pain (principal)
CPT/HCPCS: 36415; 76705; 78226; 80048; 80076; 81003; 81025; 83690; 83735; 85025; 96361; 96374; 96375; 96376; 99285; A9537; J1171; J1790; J2270; J2765; J2805

== ENCOUNTER 2024-02-27 11:25 | Outpatient (AMB) | payer BC, SELFPAY ==
--- NOTE | 2024-02-27 11:37 | A.OFFVIS_ITS ---
Vital Signs 02/27/24 11:38 Height 5 ft 2 in Weight 121 lb 4.068 oz BMI 22.2 BP 108/58 L Blood Pressure Location Lt brachial Position Sitting Pulse 84 Intake Visit Reasons: abd pain Intake Note: CC: Patient c/o LUQ abdominal pain with radiation to her back, pain feels like a burning pain and like she is being torn apart . Per patient pain is worst since last Sunday her daughter grabbed her from her back and lift her up holding her through her abdomen. Patient reports nausea, dry heaving, and loose stools. Per patient her stool are a light calderón color and they had been that color for a long time but she thought this was normal. The patient has not started taking the Creon because she is not sure if she needs to take before meals and she has not been eating much d/f pain. Internet Sales Associate Required: No Accompanied by: Mother Allergies hydrocodone [From VICODIN] Allergy (Intermediate, Verified 02/25/24 15:24) GI UPSET propylene glycol [PROPYLENE GLYCOL] Allergy (Intermediate, Verified 02/25/24 15:24) EXTREME BURNING/PAIN/RASH trazodone Allergy (Intermediate, Verified 02/25/24 15:24) Shortness of Breath cobalt Allergy (Verified 02/25/24 15:24) Unknown lamotrigine Adverse Reaction (Intermediate, Verified 02/25/24 15:24) foggy propranolol Adverse Reaction (Intermediate, Verified 02/25/24 15:24) inadequate response acetaminophen [Vicodin] Adverse Reaction (Unknown, Verified 02/25/24 15:24) nausea and vomiting levetiracetam [From Keppra] Adverse Reaction (Verified 02/25/24 15:24) foggy diamox Adverse Reaction (Intermediate, Uncoded 02/25/24 15:24) metalic taste, did not feel comfortable HPI HPI abd pain: Details: Assessment & Plan (1) Oropharyngeal dysphagia: Code(s): R13.12 - Dysphagia, oropharyngeal phase Category: Medical (2) Esophageal candidiasis: Code(s): B37.81 - Candidal esophagitis Category: Medical (3) Chronic idiopathic constipation: Code(s): K59.04 - Chronic idiopathic constipation Category: Medical Plan She is doing much better Will treat with diflucan for another 14 days as she still will have to hard swallow at times. ROV 6 weeks. Medications: Refilled fluconazole Advise to hold hydroxyzine while taking Fluconazole due to drug interaction 200 mg PO DAILY 14 tabs 0RF 14 days B37.81 - Candidal esophagitis REVIEW OF 02/24 ER NOTES this is a 44-year-old female s/p gastric bypass surgery, partial hysterectomy, appendectomy history of intestinal obstruction came in for 1 month history of upper abdominal pain and right upper quadrant pain patient has been evaluated by GI and scheduled to have HIDA scan scheduled in 3 weeks from now patient having and hopeful pain for the past month, unable to eat or drink any food because of the pain, pain is associated with nausea, patient was seen in the emergency department 3 times in the last month for pain, had CT abdomen pelvis x2 which showed no acute intra-abdominal pathology. patient is crying from pain and express her frustration from the situation. Had a small bowel movement this morning and passing flatus. Reevaluation(s) Reevaluation #1: A 1 month of upper abdominal /right upper quadrant abdominal pain, negative outpatient workup patient is waiting for HIDA scan, patient is declining discharging home before doing the HIDA scan today. Case is signed out to Dr. Tucker. will keep the patient in the ER for IV hydration/pain control /nausea control. Time: 22:12 Medical Decision Making Differential Diagnosis Differential Diagnoses: The differential diagnosis associated with the presentation includes ( biliary dyskinesia, acute acalculous cholecystitis, pancreatitis, gastritis, electrolyte derangement, severe anemia.) Independent Interpretation I performed an independent interpretation of an: Ultrasound ( Abdomen:1. Technologist reports a positive Roper's sign which is nonspecific in the absence of cholelithiasis or gallbladder wall thickening. If there is clinical concern CORRESPONDENCE On 02/25/24 @ 15:13 Allyson Harrison Wrote To Connor,August patient still experiencing the same symptoms that were discussed on 02/19/24 visit and has HIDA scan scheduled but not until 03/17 - just , patient going back to the ED Gastric emptying study 02/26/24 FINDINGS: There is good concentration of activity in the liver by 5 minutes post injection. Biliary activity is visualized by 12 minutes. The gallbladder is well visualized by 25 minutes. Small bowel is well visualized by 75 minutes. At 60 minutes post radiopharmaceutical injection, a 30-minute infusion of 1.1 micrograms Sincalide was then begun and an additional 40 minutes of images were obtained. There is good emptying of the gallbladder. By the end of the study there is good clearance of activity from the liver and visualization of diffuse small bowel activity. The calculated gallbladder ejection fraction is 60% (normal gallbladder ejection fraction is greater than 35%). NM/NM hepatobiliary wo pharm IMPRESSION: Visualization of the gallbladder is evidence of a patent cystic duct and strong evidence against the diagnosis of acute cholecystitis. The common bile duct is patent. Gallbladder emptying and ejection fraction are normal. Liver function appears normal. Laboratory Tests 07/10/23 02/25/24 Unknown 17:50 WBC 8.8 Hgb 9.2 L Hct 31.8 L MCV 68.4 L MCH 19.8 L MCHC 28.9 L Plt Count 553 H D Estimated GFR > 60 Total Bilirubin 0.2 Direct Bilirubin < 0.2 AST 22 ALT 9 Alkaline Phosphatase 57 Lipase 37 TSH 12.54 H TODAY'S VISIT She is here today with her mother who is supportive She ate chicken parmesan at a friend's mother's and that is when the onset of her severe symptoms began. It got increasingly worse with the nausea and vomiting was severe and the pain under her ribcage was more acute and stabbing than she had ever experienced in the past. At 1 point she had to sit on her front steps and could not get in until her carried her in. She presented to the ER and had her HIDA scan but it was normal. Her lab also looks normal so clearly we have not yet uncovered the source of her severe pain. She has not had a chance yet to try the Reglan because there was a delay in filling it because there is a seizure disorder on her medical history list, but this was a 1 time thing that never had a source of any sustained diagnosis. It is also possible this was caused by severe hypoglycemia since she goes for long periods without eating. I am starting to think she may have intermittent gastroparesis related to an unknown underlying mechanism. Her mother does seem to notice that this is worse when the patient becomes very stressed and there is an intimate relationship between the GI system and the fight or flight hormones and various dysfunctions. However, I do not want to miss anything important so I think will encourage her to start the Reglan (she had also requested Phenergan which I sent but apparently the pharmacy would out stock) but I will also get a mesenteric ultrasound to rule out superior mesenteric artery syndrome given the location of her pain. She is getting quite discouraged that no one can seem to find the source of this. They are comforted by the fact that I am continuing to try to present clinical options but I did tell them that sometimes people have underlying idiopathic problems that never carry a specific diagnosis but that does not mean we can not try to find a treatment that improves the quality of life. This would be the goal with the Reglan even if she has a normal gastric emptying study. Apparently she has a lot of the same symptoms as her grandmother. Her grandmother had a normal gastric emptying study but again if it was done on a day when she was feeling better and it is an intermittent problem this could happen. Also her grandmother has unexplained tremors from which the patient suffers; so again this could be some kind of intermittent neurologic dysfunction. Return office visit in 2 weeks to evaluate her response to the Reglan. [facility] Medical History (Updated 02/27/24 @ 12:20 by ROD Briones) Nausea & vomiting Epigastric pain Physical exam Janna's thyroiditis Bilateral hand pain Pain in joint of right wrist Right wrist tendinitis Pseudotumor cerebri Goiter Impacted cerumen of both ears Acute sinusitis Acute right otitis media Contusion of right forearm Sinus infection Right elbow pain Right wrist pain Right arm pain Fall from slipping on ice Dysphagia Anxiety Insomnia Tremors of nervous system Hypothyroidism Chronic migraine PCOS (polycystic ovarian syndrome) Surgical History History of esophagogastroduodenoscopy (EGD) History of thyroidectomy Hx of hand surgery (12/25/22) H/O right knee surgery History of intestinal obstruction History of lumbar puncture Tubal ligation status Hx of appendectomy H/O gastric bypass History of partial hysterectomy Family History Mother No problems noted. 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 Current occupational exposures/hazards: No Cognitive needs: No Hearing needs: No Vision needs: Yes Review of Systems Const Denies fatigue, Denies fever(s), Denies night sweats, Denies poor appetite and Denies weight loss Eyes Details: glasses Reports requires corrective lenses ENT Reports Normal hearing present, Denies dental pain, Denies dysphagia, Denies h earing loss, Denies mouth pain, Denies odynophagia, Denies throat swelling, Denies tongue swelling and Reports other (Dentition adequate) Card Reports no additional complaints Resp Reports no additional complaints GI Details: Reports abdominal pain, Denies melena, Denies bloating, Denies hematochezia, Reports constipation, Denies GI cramping, Denies dysphagia, Denies excessive flatus, Reports early satiety, Denies heartburn, Denies diarrhea, Reports nausea, Denies odynophagia, Reports vomiting and Denies hematemesis Skin/Breast Denies pruritus, Denies lesions, Denies rash and Denies jaundice Neuro Reports Normal hearing present and Denies Abnormal speech present Endo Denies fatigue Aller/Immun Denies throat swelling and Denies tongue swelling Physical Exam Vital Signs: Last Vital Signs Pulse 84 02/27/24 11:38 BP 108/58 L 02/27/24 11:38 BMI result Body Mass Index 22.2 Const General: cooperative, no acute distress, well developed and well groomed Nutritional Appearance: well nourished and thin Orientation/consciousness: oriented to person, oriented to place and oriented to time Limitations: No language barrier HEENT Head: Yes normocephalic and Yes atraumatic Eyes General: appearance normal, both eyes and all related structures Pupils: Equal, round and reactive pupils present Neck Neck: Yes normal visual inspection and Yes no lymphadenopathy Thyroid: Thyroid normal Resp Effort & Inspection: normal respiratory effort and able to speak in complete sentences Auscultation: clear to auscultation bilaterally Cardio Rate: regular rate Rhythm: regular rhythm Heart sounds: Normal, physiologic split S2 sound present Peripheral pulses: radial pulses present and posterior tibial pulses present GI Inspection: No distended and No Abdominal panniculus present Palpation (GI): Soft to palpation, Tenderness to palpation present (GI) in the epigastrum and in the RUQ, no guarding, not rigid and No hepatosplenomegaly present Percussion: Yes normal to percussion Auscultation: normal bowel sounds Rectal Exam - Female: deferred Skin General skin exam: no rashes or lesions noted, turgor normal, skin not dry, no jaundice, No spider nevi and no striae Rashes: no rashes Nails: normal Neuro General: oriented to person, oriented to place and oriented to time Cranial nerves: Yes Equal, round and reactive pupils present and Yes Normal hearing present Speech: No Abnormal speech present Extrem General: Yes normal to inspection, No clubbing, No cyanosis and No edema Psych Appearance: grossly normal and well kempt Mental Status: mental status grossly normal Speech and movement: Normal speech and movement present Affect: normal affect Attitude: cooperative Thought process: Normal thought process present and not confabulating Thought content: Normal thought content present Insight: Fair insight present (Psych) and Limited insight present (Psych) Judgement: Fair judgement present (Psych) and Limited judgement present (Psych) Results Reviewed Results Reviewed: REVIEW OF 02/24 ER NOTES this is a 44-year-old female s/p gastric bypass surgery, partial hysterectomy, appendectomy history of intestinal obstruction came in for 1 month history of upper abdominal pain and right upper quadrant pain patient has been evaluated by GI and scheduled to have HIDA scan scheduled in 3 weeks from now patient having and hopeful pain for the past month, unable to eat or drink any food because of the pain, pain is associated with nausea, patient was seen in the emergency department 3 times in the last month for pain, had CT abdomen pelvis x2 which showed no acute intra-abdominal pathology. patient is crying from pain and express her frustration from the situation. Had a small bowel movement this morning and passing flatus. Reevaluation(s) Reevaluation #1: A 1 month of upper abdominal /right upper quadrant abdominal pain, negative outpatient workup patient is waiting for HIDA scan, patient is declining discharging home before doing the HIDA scan today. Case is signed out to Dr. Tucker. will keep the patient in the ER for IV hydration/pain control /nausea control. Time: 22:12 Medical Decision Making Differential Diagnosis Differential Diagnoses: The differential diagnosis associated with the presentation includes ( biliary dyskinesia, acute acalculous cholecystitis, pancreatitis, gastritis, electrolyte derangement, severe anemia.) Independent Interpretation I performed an independent interpretation of an: Ultrasound ( Abdomen:1. Technologist reports a positive Roper's sign which is nonspecific in the absence of cholelithiasis or gallbladder wall thickening. If there is clinical concern CORRESPONDENCE On 02/25/24 @ 15:13 Allyson Harrison Wrote To ConnorAugust patient still experiencing the same symptoms that were discussed on 02/19/24 visi t and has HIDA scan scheduled but not until 03/17 - just , patient going back to the ED Gastric emptying study 02/26/24 FINDINGS: There is good concentration of activity in the liver by 5 minutes post injection. Biliary activity is visualized by 12 minutes. The gallbladder is well visualized by 25 minutes. Small bowel is well visualized by 75 minutes. At 60 minutes post radiopharmaceutical injection, a 30-minute infusion of 1.1 micrograms Sincalide was then begun and an additional 40 minutes of images were obtained. There is good emptying of the gallbladder. By the end of the study there is good clearance of activity from the liver and visualization of diffuse small bowel activity. The calculated gallbladder ejection fraction is 60% (normal gallbladder ejection fraction is greater than 35%). NM/NM hepatobiliary wo pharm IMPRESSION: Visualization of the gallbladder is evidence of a patent cystic duct and strong evidence against the diagnosis of acute cholecystitis. The common bile duct is patent. Gallbladder emptying and ejection fraction are normal. Liver function appears normal. Laboratory Tests 07/10/23 02/25/24 Unknown 17:50 WBC 8.8 Hgb 9.2 L Hct 31.8 L MCV 68.4 L MCH 19.8 L MCHC 28.9 L Plt Count 553 H D Estimated GFR > 60 Total Bilirubin 0.2 Direct Bilirubin < 0.2 AST 22 ALT 9 Alkaline Phosphatase 57 Lipase 37 TSH 12.54 H Assessment & Plan Assessment & Plan (1) GERD (gastroesophageal reflux disease): Code(s): K21.9 - Gastro-esophageal reflux disease without esophagitis Category: Medical (2) Epigastric pain: Code(s): R10.13 - Epigastric pain Category: Medical (3) Esophageal candidiasis: Code(s): B37.81 - Candidal esophagitis Category: Medical (4) Chronic idiopathic constipation: Code(s): K59.04 - Chronic idiopathic constipation Category: Medical (5) Multiple drug allergies: Code(s): Z88.9 - Allergy status to unspecified drugs, medicaments and biological substances Category: Medical (6) Nausea & vomiting: Code(s): R11.2 - Nausea with vomiting, unspecified Category: Medical Qualifiers: Vomiting type: unspecified Qualified Code(s): R11.2 - Nausea with vomiting, unspecified Plan She is here today with her mother who is supportive She ate chicken parmesan at a friend's mother's and that is when the onset of her severe symptoms began. It got increasingly worse with the nausea and vomiting was severe and the pain under her ribcage was more acute and stabbing than she had ever experienced in the past. At 1 point she had to sit on her front steps and could not get in until her carried her in. She presented to the ER and had her HIDA scan but it was normal. Her lab also looks normal so clearly we have not yet uncovered the source of her severe pain. She has not had a chance yet to try the Reglan because there was a delay in filling it because there is a seizure disorder on her medical history list, but this was a 1 time thing that never had a source of any sustained diagnosis. It is also possible this was caused by severe hypoglycemia since she goes for long periods without eating. I am starting to think she may have intermittent gastroparesis related to an unknown underlying mechanism. Her mother does seem to notice that this is worse when the patient becomes very stressed and there is an intimate relationship between the GI system and the fight or flight hormones and various dysfunctions. However, I do not want to miss anything important so I think will encourage her to start the Reglan (she had also requested Phenergan which I sent but apparently the pharmacy would out stock) but I will also get a mesenteric ultrasound to rule out superior mesenteric artery syndrome given the location of her pain. She is getting quite discouraged that no one can seem to find the source of this. They are comforted by the fact that I am continuing to try to present clinical options but I did tell them that sometimes people have underlying idiopathic problems that never carry a specific diagnosis but that does not mean we can not try to find a treatment that improves the quality of life. This would be the goal with the Reglan even if she has a normal gastric emptying study. Apparently she has a lot of the same symptoms as her grandmother. Her grandmother had a normal gastric emptying study but again if it was done on a day when she was feeling better and it is an intermittent problem this could happen. Also her grandmother has unexplained tremors from which the patient suffers; so again this could be some kind of intermittent neurologic dysfunction. Return office visit in 2 weeks to evaluate her response to the Reglan. Orders: Orders NM gastric emptying study Today R10.13 - Epigastric pain, R11.2 - Nausea with vomiting, unspecified [facility] Today R10.13 - Epigastric pain, R11.2 - Nausea with vomiting, unspecified Medications: New metoclopramide HCl (Reglan) 10 mg PO QIDACHS 120 tabs 3RF Coding Level of Care Code Est Pt Level 4 (99734) Diagnoses GERD (gastroesophageal reflux disease) K21.9 Epigastric pain R10.13 Esophageal candidiasis B37.81 Chronic idiopathic constipation K59.04 Multiple drug allergies Z88.9 Nausea & vomiting R11.2 Vomiting type: unspecified Time Spent (min) 40
[2024-02-27 11:38] VITALS: BP 108/58; PULSE 84; BMI 22.2
== END 2024-02-27 12:29 | disposition home or self-care (01) ==
PROVIDERS: PCP Internal Medicine; Visit Provider Nurse Practitioner
DX: K21.9 Gastro-esophageal reflux disease without esophagitis (principal); R10.13 Epigastric pain; B37.81 Candidal esophagitis; K59.04 Chronic idiopathic constipation; Z88.9 Allergy status to unspecified drugs, medicaments and biological substances; R11.2 Nausea with vomiting, unspecified
CPT/HCPCS: 99214

== ENCOUNTER → 2024-02-27 11:25 | Outpatient (BNVA) | payer BC, SELFPAY | PROVIDERS: PCP Internal Medicine; Visit Provider Nurse Practitioner ==

== ENCOUNTER → 2024-03-12 16:05 | Outpatient (BNVA) | payer BC, SELFPAY | PROVIDERS: PCP Internal Medicine; Visit Provider Nurse Practitioner ==

== ENCOUNTER → 2024-03-12 16:05 | Outpatient (AMB) | payer BC, SELFPAY ==
[2024-03-12 16:07] VITALS: BP 113/66; PULSE 69; BMI 22.4
--- NOTE | 2024-03-12 16:07 | MHC.OFFVIS ---
Vital Signs 03/12/24 16:07 Height 5 ft 2 in Weight 122 lb 9.232 oz BMI 22.4 BP 113/66 Blood Pressure Location Rt brachial Position Sitting Pulse 69 Intake Visit Reasons: 2 week follow up Intake Note: Nakita in office today in follow up of HIDA scan and US. CC: Patient states that she continues having the same symptoms and is now having a cough. She was seen at [facility] on 03/01/24. 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 Accompanied by: Mother Allergies hydrocodone [From VICODIN] Allergy (Intermediate, Verified 03/12/24 16:19) GI UPSET propylene glycol [PROPYLENE GLYCOL] Allergy (Intermediate, Verified 03/12/24 16:19) EXTREME BURNING/PAIN/RASH trazodone Allergy (Intermediate, Verified 03/12/24 16:19) Shortness of Breath cobalt Allergy (Verified 03/12/24 16:19) Unknown lamotrigine Adverse Reaction (Intermediate, Verified 03/12/24 16:19) foggy propranolol Adverse Reaction (Intermediate, Verified 03/12/24 16:19) inadequate response acetaminophen [Vicodin] Adverse Reaction (Unknown, Verified 03/12/24 16:19) nausea and vomiting levetiracetam [From Keppra] Adverse Reaction (Verified 03/12/24 16:19) foggy diamox Adverse Reaction (Intermediate, Uncoded 02/25/24 15:24) metalic taste, did not feel comfortable HPI HPI 2 week follow up: Details: Assessment & Plan (1) GERD (gastroesophageal reflux disease): Code(s): K21.9 - Gastro-esophageal reflux disease without esophagitis Category: Medical (2) Epigastric pain: Code(s): R10.13 - Epigastric pain Category: Medical (3) Esophageal candidiasis: Code(s): B37.81 - Candidal esophagitis Category: Medical (4) Chronic idiopathic constipation: Code(s): K59.04 - Chronic idiopathic constipation Category: Medical (5) Multiple drug allergies: Code(s): Z88.9 - Allergy status to unspecified drugs, medicaments and biological substances Category: Medical (6) Nausea & vomiting: Code(s): R11.2 - Nausea with vomiting, unspecified Category: Medical Qualifiers: Vomiting type: unspecified Qualified Code(s): R11.2 - Nausea with vomiting, unspecified Plan She is here today with her mother who is supportive She ate chicken parmesan at a friend's mother's and that is when the onset of her severe symptoms began. It got increasingly worse with the nausea and vomiting was severe and the pain under her ribcage was more acute and stabbing than she had ever experienced in the past. At 1 point she had to sit on her front steps and could not get in until her carried her in. She presented to the ER and had her HIDA scan but it was normal. Her lab also looks normal so clearly we have not yet uncovered the source of her severe pain. She has not had a chance yet to try the Reglan because there was a delay in filling it because there is a seizure disorder on her medical history list, but this was a 1 time thing that never had a source of any sustained diagnosis. It is also possible this was caused by severe hypoglycemia since she goes for long periods without eating. I am starting to think she may have intermittent gastroparesis related to an unknown underlying mechanism. Her mother does seem to notice that this is worse when the patient becomes very stressed and there is an intimate relationship between the GI system and the fight or flight hormones and various dysfunctions. However, I do not want to miss anything important so I think will encourage her to start the Reglan (she had also requested Phenergan which I sent but apparently the pharmacy would out stock) but I will also get a mesenteric ultrasound to rule out superior mesenteric artery syndrome given the location of her pain. She is getting quite discouraged that no one can seem to find the source of this. They are comforted by the fact that I am continuing to try to present clinical options but I did tell them that sometimes people have underlying idiopathic problems that never carry a specific diagnosis but that does not mean we can not try to find a treatment that improves the quality of life. This would be the goal with the Reglan even if she has a normal gastric emptying study. Apparently she has a lot of the same symptoms as her grandmother. Her grandmother had a normal gastric emptying study but again if it was done on a day when she was feeling better and it is an intermittent problem this could happen. Also her grandmother has unexplained tremors from which the patient suffers; so again this could be some kind of intermittent neurologic dysfunction. Return office visit in 2 weeks to evaluate her response to the Reglan. Orders: Orders NM gastric emptying study Today R10.13 - Epigastric pain, R11.2 - Nausea with vomiting, unspecified US [facility] Today R10.13 - Epigastric pain, R11.2 - Nausea with vomiting, unspecified Medications: New metoclopramide HCl (Reglan) 10 mg PO QIDACHS 120 tabs 3RF HIDA SCAN 02/26/24 IMPRESSION: Visualization of the gallbladder is evidence of a patent cystic duct and strong evidence against the diagnosis of acute cholecystitis. The common bile duct is patent. Gallbladder emptying and ejection fraction are normal. Liver function appears normal. ULTRASOUND OF THE ABDOMEN? SMA VERSUS REGULAR 02/25/24 FINDINGS: PANCREAS: The pancreatic tail is not well seen due to shadowing from overlying bowel gas, otherwise unremarkable. LIVER: The liver is normal in size. The liver contour is normal. Slightly increased liver parenchymal echogenicity. No focal hepatic lesion. There is no intrahepatic biliary duct dilatation seen. GALLBLADDER: Technologist reports a positive Roper sign. The gallbladder is physiologically distended without evidence of stones, sludge, polyps, wall thickening or pericholecystic fluid. COMMON BILE DUCT: Normal in caliber measuring 0.4 cm in diameter. RIGHT KIDNEY: Normal. No hydronephrosis. No renal calculi or focal parenchymal lesions. The kidney measures 11 cm in maximum dimension. FREE FLUID: None. US/US abdomen limited IMPRESSION: 1. Technologist reports a positive Roper's sign which is nonspecific in the absence of cholelithiasis or gallbladder wall thickening. If there is clinical concern for acute cholecystitis, correlation with a CT of the abdomen could be obtained. 2. Slightly increased liver parenchymal echogenicity which could be seen in the setting of hepatic steatosis. CORRESPNDENCE On 02/25/24 @ 15:13 Allyson Harrison Wrote To Ryan patient still experiencing the same symptoms that were discussed on 02/19/24 visit and has HIDA scan scheduled but not until 03/17 - just , patient going back to the ED REVIEW OF [facility] ER VISIT Reexamination/ Reevaluation Time: 03/01/2024 04:35:00?.? Notes:?On my independent review of patient's labs, she without a white count, H&H stable, electrolytes and renal function appropriate, no LFT abnormalities, lactate is 1, UA without hematuria or evidence of UTI. ? Given patient's history of bariatric surgery, will place surgical consult per protocol..? Time: 03/01/2024 07:07:00?.? Notes:?Patient was seen and evaluated by our surgical colleagues, they have no acute recommendations or further suggestions. ?On my reevaluation patient is feeling much better, reassured her and went over lab findings and imaging findings. ?We discussed return precautions and follow-up plan, patient exhibits understanding. ?She is stable and appropriate for discharge home this time..? Appear/Color, Urine ? ? ? COLORLESS ? Specific [place], Urine ? 1.007 ? pH, Urine ? 6.5 ? Albumin, Urine ?NEGATIVE ? Glucose, Urine ?NEGATIVE ? Ketones, Urine ?NEGATIVE ? Bilirubin, Urine ?NEGATIVE ? Hemoglobin, Urine ? NEGATIVE ? Nitrite, Urine ?NEGATIVE ? Leukocyte, Urine ?NEGATIVE ? Urobilinogen ?NORMAL mg/dL ? WBC's, Urine ?1 /HPF ? RBC's, Urine ?<1 /HPF ?Bacteria ?SLIGHT HPF? Squamous Epith ?<1 /HPF ? Mucus ? SLIGHT /LPF ? Hold Urine Culture ?Testing available 48 hours from time of collection. ? 03/01/2024 3:16 EDT ? ? ?WBC ? 8.0 k/mm3 ? RBC ? 4.65 m/mm3 ?Hgb ? 9.1 Gm/dL ?L?Hct ? 32.2 % ?L?MCV ? 69.2 femtoliters ?L?MCH ? 19.6 pg ?L?MCHC ?28.3 Gm/dL ?L?Platelet Count ?502 k/mm3 ?H? RDW-SD ?42.5 femtoliters ?MPV ? 8.9 femtoliters ?L? Nucleated RBC (Automated) 0.0 #/100 WBC'S ? Abs. NRBC ? 0.0 k/mm3 ? Abs. Neut ? 4.4 k/mm3 ? Abs. Lymph ?2.8 k/mm3 ? Abs. [place] ? 0.7 k/mm3 ? Abs. Eo ? 0.1 k/mm3 ? Abs. Baso ? 0.1 k/mm3 ? Neut % ?54.4 % ? Lymph % ? 34.5 % ? [place] % ?8.4 % ? Eos % ? 1.3 % ? Baso % ?1.1 % ? Imm Gran ?0.3 % ? Abs. Imm Gran ? 0.0 k/mm3 ? Hold Blue [place] ? SPECIMEN DISCARDED AFTER 4 HOURS. ? Sodium ?139 mmol/L ? Potassium ? 3.9 mmol/L ?Chloride ?108 mmol/L ?H?Bicarbonate Level ? 20 mmol/L ?L? Anion Gap ? 11 ? Glucose Level ? 92 mg/dL ? BUN ? 12 mg/dL ? Creatinine-Blood ?0.63 mg/dL ? Estimated GFR Creatinine ?114 ML/MIN/1.73 M2 ? Calcium ? 9.0 mg/dL ? Protein, Total ?6.4 Gm/dL ? Albumin ? 3.9 Gm/dL ? AG Ratio ?1.6 ? Alkaline Phosphatase ? ? ?60 units/L ? Lipase ?40 units/L ? AST (SGOT) ?16 units/L ? ALT (SGPT) ?6 units/L ? Bilirubin, Total ?<0.2 mg/dL ? Lactate ? 1.0 mmol/L ? ER US FINDINGS: Liver: Normal in size and echotexture, although evaluation of the left lobe was obscured by bowel gas. No focal lesion. Smooth hepatic contour. Main portal vein patent with normal hepatopetal direction of flow. Gallbladder: No gallstones. The gallbladder measured 3 cm in diameter, within the normal range. Normal wall thickness. No pericholecystic fluid. Right upper quadrant tenderness without specific evidence of positive Roper sign. Biliary Tree: No intrahepatic or extrahepatic bile duct dilation is identified. Common duct measures: 0.3 cm. Pancreas: Partially obscured by overlying bowel gas. No abnormality in the visualized portions of the pancreas. Right kidney: 10.4 cm in length. Normal parenchymal echotexture and thickness. No hydronephrosis, stone or mass. IMPRESSION: Normal ultrasound appearance of the gallbladder. There was generalized tenderness not focal to the gallbladder. No biliary dilation. TODAY'S VISIT She is here today with her mother who is supportive. 44-year-old female presented to or February 18 with sudden onset of epigastric pain that radiates around the bottom and underneath the ribcage to her back. She has associated severe nausea and vomiting. The only relief she will get for the pain is lying down flat. Prior to presenting to or she was seen twice in the ER with the unremarkable workup. To date, she had an endoscopy in November that seem to show superficial erosions but had no improvement with her pain with both sucralfate and omeprazole. The EGD initially was scheduled for dysphagia which ended up being Sana. she has also had [address] scans both here and at [facility] that were unremarkable along with unremarkable ultrasound and HIDA scan. Blood work including lipase have been normal except for increasing anemia which is thought to be due to dietary deficiencies related to her nausea vomiting and pain. She presents frequently to the ER for pain management. Therapies that have been attempted that have not been successful are omeprazole, Carafate, Zofran, Reglan, Phenergan, Creon, lactulose and bisacodyl (because CT suggested constipation). She is currently having loose stools but I am increasingly at a loss for why she is having this pain. She has had several unremarkable EKGs and a echocardiogram in the distant that seem to be normal. Because I am at a loss I will try doing stool studies, a D-dimer to rule out PE, a fecal calprotectin, and we have pending orders for an ultrasound SMA and a gastric emptying study. She says her grandmother had similar unexplainable symptoms. At this point I am really struggling with what to do next. No change in sx, no apparent help with reglan. She could not take the phenergen r/t bad reaction she has body twitches. Presented to [facility] but no explanation for her pain with this w/u either. Pain is worse and spreading more to the chest. Pending US SMA and GES, will add d dimer and since stools are loose stool studies. Also asking for MD second opinion ROV either US or GES. [facility] Medical History (Updated 03/12/24 @ 16:47 by ROD Briones) Oropharyngeal dysphagia Esophageal candidiasis Nausea & vomiting Epigastric pain Physical exam Janna's thyroiditis Bilateral hand pain Pain in joint of right wrist Right wrist tendinitis Pseudotumor cerebri Goiter Impacted cerumen of both ears Acute sinusitis Acute right otitis media Contusion of right forearm Sinus infection Right elbow pain Right wrist pain Right arm pain Fall from slipping on ice Dysphagia Anxiety Insomnia Tremors of nervous system Hypothyroidism Chronic migraine PCOS (polycystic ovarian syndrome) Surgical History History of esophagogastroduodenoscopy (EGD) History of thyroidectomy Hx of hand surgery (12/25/22) H/O right knee surgery History of intestinal obstruction History of lumbar puncture Tubal ligation status Hx of appendectomy H/O gastric bypass History of partial hysterectomy Family History Mother No problems noted. 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 Current occupational exposures/hazards: No Cognitive needs: No Hearing needs: No Vision needs: Yes Review of Systems Const Denies fatigue, Denies fever(s), Denies night sweats, Denies poor appetite and Reports weight loss Eyes Details: glasses Reports requires corrective lenses ENT Reports Normal hearing present, Denies dental pain, Denies dysphagia, Denies hearing loss, Denies mouth pain, Denies odynophagia, Denies throat swelling, Denies tongue swelling and Reports other (Dentition adequate) Card Reports chest pain Resp Reports no additional complaints GI Details: Reports abdominal pain, Denies melena, Denies bloating, Denies hematochezia, Denies constipation, Denies GI cramping, Denies dysphagia, Denies excessive flatus, Denies early satiety, Denies heartburn, Denies diarrhea, Reports loose stools, Reports nausea, Denies odynophagia, Reports vomiting and Denies hematemesis Skin/Breast Denies pruritus, Denies lesions, Denies rash and Denies jaundice Neuro Reports Normal hearing present and Denies Abnormal speech present Psych Reports anxiety Endo Denies fatigue Aller/Immun Denies throat swelling and Denies tongue swelling Physical Exam Vital Signs: Last Vital Signs Pulse 69 03/12/24 16:07 BP 113/66 03/12/24 16:07 BMI result Body Mass Index 22.4 Const General: cooperative, no acute distress, well developed and well groomed Nutritional Appearance: average body habitus and well nourished Orientation/consciousness: oriented to person, oriented to place and oriented to time Limitations: No language barrier HEENT Head: Yes normocephalic and Yes atraumatic Eyes General: appearance normal, both eyes and all related structures Pupils: Equal, round and reactive pupils present Neck Neck: Yes normal visual inspection and Yes no lymphadenopathy Thyroid: Thyroid normal Resp Effort & Inspection: normal respiratory effort and able to speak in complete sentences Auscultation: clear to auscultation bilaterally Cardio Rate: regular rate Rhythm: regular rhythm Heart sounds: Normal, physiologic split S2 sound present Peripheral pulses: radial pulses present and posterior tibial pulses present GI Inspection: No distended and No Abdominal panniculus present Palpation (GI): Soft to palpation, nontender, no guarding, not rigid and No hepatosplenomegaly present Percussion: Yes normal to percussion Auscultation: normal bowel sounds Rectal Exam - Female: deferred Skin General skin exam: no rashes or lesions noted, turgor normal, skin not dry, no jaundice, No spider nevi and no striae Rashes: no rashes Nails: normal Neuro General: oriented to person, oriented to place and oriented to time Cranial nerves: Yes Equal, round and reactive pupils present and Yes Normal hearing present Speech: No Abnormal speech present Extrem General: Yes normal to inspection, No clubbing, No cyanosis and No edema Psych Appearance: grossly normal and well kempt Mental Status: mental status grossly normal Speech and movement: Normal speech and movement present Affect: normal affect Attitude: cooperative Thought process: Normal thought process present and not confabulating Thought content: Normal thought content present Insight: Limited insight present (Psych) Judgement: Limited judgement present (Psych) Results Reviewed Results Reviewed: HIDA SCAN 02/26/24 IMPRESSION: Visualization of the gallbladder is evidence of a patent cystic duct and strong evidence against the diagnosis of acute cholecystitis. The common bile duct is patent. Gallbladder emptying and ejection fraction are normal. Liver function appears normal. ULTRASOUND OF THE ABDOMEN? SMA VERSUS REGULAR 02/25/24 FINDINGS: PANCREAS: The pancreatic tail is not well seen due to shadowing from overlying bowel gas, otherwise unremarkable. LIVER: The liver is normal in size. The liver contour is normal. Slightly increased liver parenchymal echogenicity. No focal hepatic lesion. There is no intrahepatic biliary duct dilatation seen. GALLBLADDER: Technologist reports a positive Roper sign. The gallbladder is physiologically distended without evidence of stones, sludge, polyps, wall thickening or pericholecystic fluid. COMMON BILE DUCT: Normal in caliber measuring 0.4 cm in diameter. RIGHT KIDNEY: Normal. No hydronephrosis. No renal calculi or focal parenchymal lesions. The kidney measures 11 cm in maximum dimension. FREE FLUID: None. US/US abdomen limited IMPRESSION: 1. Technologist reports a positive Roper's sign which is nonspecific in the absence of cholelithiasis or gallbladder wall thickening. If there is clinical concern for acute cholecystitis, correlation with a CT of the abdomen could be obtained. 2. Slightly increased liver parenchymal echogenicity which could be seen in the setting of hepatic steatosis. CORRESPNDENCE On 02/25/24 @ 15:13 Allyson Harrison Wrote To Ryan patient still experiencing the same symptoms that were discussed on 02/19/24 visit and has HIDA scan scheduled but not until 03/17 - just , patient going back to the ED REVIEW OF [facility] ER VISIT Reexamination/ Reevaluation Time: 03/01/2024 04:35:00?.? Notes:?On my independent review of patient's labs, she without a white count, H&H stable, electrolytes and renal function appropriate, no LFT abnormalities, lactate is 1, UA without hematuria or evidence of UTI. ? Given patient's history of bariatric surgery, will place surgical consult per protocol..? Time: 03/01/2024 07:07:00?.? Notes:?Patient was seen and evaluated by our surgical colleagues, they have no acute recommendations or further suggestions. ?On my reevaluation patient is feeling much better, reassured her and went over lab findings and imaging findings. ?We discussed return precautions and follow-up plan, patient exhibits understanding. ?She is stable and appropriate for discharge home this time..? Appear/Color, Urine ? ? ? COLORLESS ? Specific [place], Urine ? 1.007 ? pH, Urine ? 6.5 ? Albumin, Urine ?NEGATIVE ? Glucose, Urine ?NEGATIVE ? Ketones, Urine ?NEGATIVE ? Bilirubin, Urine ?NEGATIVE ? Hemoglobin, Urine ? NEGATIVE ? Nitrite, Urine ?NEGATIVE ? Leukocyte, Urine ?NEGATIVE ? Urobilinogen ?NORMAL mg/dL ? WBC's, Urine ?1 /HPF ? RBC's, Urine ?<1 /HPF ?Bacteria ?SLIGHT HPF? Squamous Epith ?<1 /HPF ? Mucus ? SLIGHT /LPF ? Hold Urine Culture ?Testing available 48 hours from time of collection. ? 03/01/2024 3:16 EDT ? ? ?WBC ? 8.0 k/mm3 ? RBC ? 4.65 m/mm3 ?Hgb ? 9.1 Gm/dL ?L?Hct ? 32.2 % ?L?MCV ? 69.2 femtoliters ?L?MCH ? 19.6 pg ?L?MCHC ?28.3 Gm/dL ?L?Platelet Count ?502 k/mm3 ?H? RDW-SD ?42.5 femtoliters ?MPV ? 8.9 femtoliters ?L? Nucleated RBC (Automated) 0.0 #/100 WBC'S ? Abs. NRBC ? 0.0 k/mm3 ? Abs. Neut ? 4.4 k/mm3 ? Abs. Lymph ?2.8 k/mm3 ? Abs. [place] ? 0.7 k/mm3 ? Abs. Eo ? 0.1 k/mm3 ? Abs. Baso ? 0.1 k/mm3 ? Neut % ?54.4 % ? Lymph % ? 34.5 % ? [place] % ?8.4 % ? Eos % ? 1.3 % ? Baso % ?1.1 % ? Imm Gran ?0.3 % ? Abs. Imm Gran ? 0.0 k/mm3 ? Hold Blue [place] ? SPECIMEN DISCARDED AFTER 4 HOURS. ? Sodium ?139 mmol/L ? Potassium ? 3.9 mmol/L ?Chloride ?108 mmol/L ?H?Bicarbonate Level ? 20 mmol/L ?L? Anion Gap ? 11 ? Glucose Level ? 92 mg/dL ? BUN ? 12 mg/dL ? Creatinine-Blood ?0.63 mg/dL ? Estimated GFR Creatinine ?114 ML/MIN/1.73 M2 ? Calcium ? 9.0 mg/dL ? Protein, Total ?6.4 Gm/dL ? Albumin ? 3.9 Gm/dL ? AG Ratio ?1.6 ? Alkaline Phosphatase ? ? ?60 units/L ? Lipase ?40 units/L ? AST (SGOT) ?16 units/L ? ALT (SGPT) ?6 units/L ? Bilirubin, Total ?<0.2 mg/dL ? Lactate ? 1.0 mmol/L ? ER US FINDINGS: Liver: Normal in size and echotexture, although evaluation of the left lobe was obscured by bowel gas. No focal lesion. Smooth hepatic contour. Main portal vein patent with normal hepatopetal direction of flow. Gallbladder: No gallstones. The gallbladder measured 3 cm in diameter, within the normal range. Normal wall thickness. No pericholecystic fluid. Right upper quadrant tenderness without specific evidence of positive Roper sign. Biliary Tree: No intrahepatic or extrahepatic bile duct dilation is identified. Common duct measures: 0.3 cm. Pancreas: Partially obscured by overlying bowel gas. No abnormality in the visualized portions of the pancreas. Right kidney: 10.4 cm in length. Normal parenchymal echotexture and thickness. No hydronephrosis, stone or mass. IMPRESSION: Normal ultrasound appearance of the gallbladder. There was generalized tenderness not focal to the gallbladder. No biliary dilation. Assessment & Plan Assessment & Plan (1) Epigastric pain: Code(s): R10.13 - Epigastric pain Category: Medical (2) GERD (gastroesophageal reflux disease): Code(s): K21.9 - Gastro-esophageal reflux disease without esophagitis Category: Medical (3) Chronic idiopathic constipation: Code(s): K59.04 - Chronic idiopathic constipation Category: Medical (4) Cough: Code(s): R05.9 - Cough, unspecified Category: Medical Plan She is here today with her mother who is supportive. 44-year-old female presented to or February 18 with sudden onset of epigastric pain that radiates around the bottom and underneath the ribcage to her back. She has associated severe nausea and vomiting. The only relief she will get for the pain is lying down flat. She can not identify many exacerbating factors except that once it seemed to onset after eating pizza. Prior to presenting to or she was seen twice in the ER with the unremarkable workup. To date, she had an endoscopy in November that seem to show superficial erosions but had no improvement with her pain with both sucralfate and omeprazole. The EGD initially was scheduled for dysphagia which ended up being Sana. she has also had [address] scans both here and at [facility] that were unremarkable along with unremarkable ultrasound and HIDA scan. Blood work including lipase have been normal except for increasing anemia which is thought to be due to dietary deficiencies related to her nausea vomiting and pain. She presents frequently to the ER for pain management. Therapies that have been attempted that have not been successful are omeprazole, Carafate, Zofran, Reglan, Phenergan, Creon, lactulose and bisacodyl (because CT suggested constipation). She is currently having loose stools but I am increasingly at a loss for why she is having this pain. She has had several unremarkable EKGs and a echocardiogram in the distant that seem to be normal. Because I am at a loss I will try doing stool studies, a D-dimer to rule out PE, a fecal calprotectin, and we have pending orders for an ultrasound SMA and a gastric emptying study. She says her grandmother had similar unexplainable symptoms. At this point I am really struggling with what to do next. No change in sx, no apparent help with reglan. She could not take the phenergen r/t bad reaction she has body twitches. Presented to [facility] but no explanation for her pain with this w/u either. Pain is worse and spreading more to the chest. Pending US SMA and GES, will add d dimer and since stools are loose stool studies. Also asking for MD second opinion ROV either US or GES. Orders: Orders GI Panel 03/12/24 K21.9 - Gastro-esophageal reflux disease without esophagitis, R05.9 - Cough, unspecified, R10.13 - Epigastric pain Calprotectin, Fecal 03/12/24 K21.9 - Gastro-esophageal reflux disease without esophagitis, R05.9 - Cough, unspecified, R10.13 - Epigastric pain D Dimer High Sensitivity 03/12/24 K21.9 - Gastro-esophageal reflux disease without esophagitis, R05.9 - Cough, unspecified, R10.13 - Epigastric pain Coding Level of Care Code Est Pt Level 4 (58076) Diagnoses Epigastric pain R10.13 GERD (gastroesophageal reflux disease) K21.9 Chronic idiopathic constipation K59.04 Cough R05.9 Time Spent (min) 42
== END ==
PROVIDERS: PCP Internal Medicine; Visit Provider Nurse Practitioner
DX: R10.13 Epigastric pain (principal); K21.9 Gastro-esophageal reflux disease without esophagitis; K59.04 Chronic idiopathic constipation; R05.9 Cough, unspecified
CPT/HCPCS: 99214

== ENCOUNTER 2024-03-14 13:52 | Outpatient (REF) | payer BC, SELFPAY ==
--- NOTE | ~2024-03-14 | US_ITS ---
EXAMINATION: US RENAL WITH DOPPLER CLINICAL INFORMATION: Epigastric pain COMPARISON: CT abdomen pelvis on 01/30/2024 TECHNIQUE: Ultrasound along with color Doppler imaging and spectral analysis was performed of the abdomen. FINDINGS: There are separate origins of the common hepatic artery and the splenic artery arising from the aorta. Aortic velocities, SMA velocities, and splenic artery velocities are normal. There is increase in velocity of the common hepatic artery during inspiration to 244 cm/s. This resolves during expiration. US/US SMA IMPRESSION: Increased velocity of the common hepatic artery during inspiration. Electronically signed by: Nemo Dorsey MD 03/15/2024 01:16 PM EDT
[2024-03-14 16:38] LABS: D Dimer High Sensitivity 380 NG/ML
== END 2024-03-14 13:53 | disposition home or self-care (01) ==
LOC: HO.US 13:52
PROVIDERS: PCP Internal Medicine; Visit Provider Nurse Practitioner
DX: R10.13 Epigastric pain (principal); R11.2 Nausea with vomiting, unspecified; K21.9 Gastro-esophageal reflux disease without esophagitis; R05.9 Cough, unspecified
CPT/HCPCS: 36415; 85379; 93976

== ENCOUNTER 2024-03-24 11:26 | Outpatient (AMB) | payer BC, SELFPAY ==
--- NOTE | 2024-03-24 11:33 | A.OFFVIS_ITS ---
VS Expanded 03/24/24 11:47 BP 126/58 L Blood Pressure Location Rt brachial Blood Pressure Position Sitting Pulse 76 Pulse Source Pulse Oximeter Temp 97.9 F Temperature Source Temporal Artery Scan Pulse Oximetry 100 Oxygen Delivery Method Room Air Height 5 ft 2 in Weight 119 lb BMI 21.8 Body Fat % 17.8 Body Fat Mass 21.2 Fat Free Mass 97.6 Visceral Fat Rating 2.0 Body Water % 58.6 Body Water Mass 69.6 Muscle Mass/Score 92.6 Basal Metabolic Rate/Score 1,292 Intake Visit Reasons: OV GBP 07/06/16 Allergies hydrocodone [From VICODIN] Allergy (Intermediate, Verified 03/24/24 11:37) GI UPSET propylene glycol [PROPYLENE GLYCOL] Allergy (Intermediate, Verified 03/24/24 11:37) EXTREME BURNING/PAIN/RASH trazodone Allergy (Intermediate, Verified 03/24/24 11:37) Shortness of Breath cobalt Allergy (Verified 03/24/24 11:37) Unknown lamotrigine Adverse Reaction (Intermediate, Verified 03/24/24 11:37) foggy propranolol Adverse Reaction (Intermediate, Verified 03/24/24 11:37) inadequate response acetaminophen [Vicodin] Adverse Reaction (Unknown, Verified 03/24/24 11:37) nausea and vomiting levetiracetam [From Keppra] Adverse Reaction (Verified 03/24/24 11:37) foggy diamox Adverse Reaction (Intermediate, Uncoded 02/25/24 15:24) metalic taste, did not feel comfortable HPI Comments Details: Pt is a 44 year old female with hx LRYGB 07/06/2016. Last visit with our office in 2018. She has been following closely with GI recently for abdominal pain. Last endoscopy was by GI in November 2023 with findings of esophageal candidiasis, small bowel erosions/ulcers, gastric bypass status . Was treated for this and was also started on omeprazole (was not having heartburn prior to this). Having epigastric pain and nausea for the last 2 months, started January 17 with a meal of chicken parmesan. Pain radiates to back. Pain is there all the time , worse with eating or drinking, even water. Has had 3 episodes of vomiting over the last few weeks, never had issues with vomiting before. Pt reports very pale stools, no blood in stools or dark stools. Also reports some trouble swallowing starting in August. Has had multiple ED visits. No tobacco, no EtOH, no cannabis, ibuprofen taken a couple times a week. Has had RUQ US which did not show stones or cholecystitis. Current meal plan: does not follow a meal plan, rarely does shakes Have you been diagnosed with reflux (GERD)? yes Score 0-5: 0=no symptoms, 1=noticeable but not bothersome (slight or occasional), 2=noticeable, bothersome but not daily, 3=bothersome and daily, 4=affects daily activities, 5=incapacitating, unable to do daily activities How bad is the heartburn: 3 Heartburn when lying down: 3 Heartburn when standing up: 3 Heartburn after meals: 3 Does heartburn change your diet: 0 Does heartburn wake you up from sleep: 0 Do you have difficulty swallowin Do you have pain with swallowin If you take medication for reflux, does this affect your daily life: 3 Total score: 15 [facility] Medical History (Updated 03/14/24 @ 17:41 by ROD Briones) Oropharyngeal dysphagia Esophageal candidiasis Nausea & vomiting Epigastric pain Physical exam Janna's thyroiditis Bilateral hand pain Pain in joint of right wrist Right wrist tendinitis Pseudotumor cerebri Goiter Impacted cerumen of both ears Acute sinusitis Acute right otitis media Contusion of right forearm Sinus infection Right elbow pain Right wrist pain Right arm pain Fall from slipping on ice Dysphagia Anxiety Insomnia Tremors of nervous system Hypothyroidism Chronic migraine PCOS (polycystic ovarian syndrome) Surgical History History of esophagogastroduodenoscopy (EGD) History of thyroidectomy Hx of hand surgery (12/25/22) H/O right knee surgery History of intestinal obstruction History of lumbar puncture Tubal ligation status Hx of appendectomy H/O gastric bypass History of partial hysterectomy Family History Mother No problems noted. 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 Current occupational exposures/hazards: No Cognitive needs: No Hearing needs: No Vision needs: Yes Physical Exam Const General: cooperative, comfortable and no acute distress Orientation/consciousness: patient oriented x3 GI Other: soft, nondistended, incisions well healed, no hernia, no masses, tenderness to palpation in upper quadrants particularly in epigastrium Neuro General: patient oriented x3 Assessment & Plan Assessment & Plan (1) Gastric bypass status for obesity: Code(s): Z98.84 - Bariatric surgery status Category: Surgical (2) Abdominal pain: Code(s): R10.9 - Unspecified abdominal pain Category: Medical Qualifiers: Abdominal location: unspecified location Qualified Code(s): R10.9 - Unspecified abdominal pain Plan I am concerned pt has an ulcer. Her previous EGD prior to worsening pain showed inflammation. Her anemia has worsened. She takes NSAIDs occasionally. She is not on a good meal plan. Start 4 protein shakes a day, mix Premier half bottle with 3oz unsweetened almond milk. 7:30-9:30am, 11am-1pm, 2:30-4:30pm, 6-8pm. Start p antoprazole BID and carafate QID, avoid NSAIDs. Had some labs done last month, will order additional. Will discuss endoscopy with Dr. Kristine Ochoa spent a total of 50 minutes reviewing/updating records, examining the patient and counseling the patient on weight management as detailed above. Orders: Orders Insulin Today Z98.84 - Bariatric surgery status Hemoglobin A1c Today Z98.84 - Bariatric surgery status Zinc Today Z98.84 - Bariatric surgery status C Reactive Protein Today Z98.84 - Bariatric surgery status Vitamin A Today Z98.84 - Bariatric surgery status TSH reflex Free T4 Today Z98.84 - Bariatric surgery status Ferritin Today Z98.84 - Bariatric surgery status Lipid Panel Today Z98.84 - Bariatric surgery status IRON PROFILE Today Z98.84 - Bariatric surgery status Vitamin B12 and Folate Today Z98.84 - Bariatric surgery status Vitamin B1 Today Z98.84 - Bariatric surgery status Vitamin D 25-OH Total Today Z98.84 - Bariatric surgery status Medications: New pantoprazole 40 mg PO Q12H 90 tabs 3RF sucralfate (Carafate) swish in mouth and swallow; use after food/drink 10 mL PO QID 420 mL 3RF
[2024-03-24 11:47] VITALS: BP 126/58; PULSE 76; TEMP 36.6; O2SAT 100; BMI 21.8
== END 2024-03-24 12:22 | disposition home or self-care (01) ==
LOC: HO.HBS 11:27
PROVIDERS: PCP Internal Medicine; Visit Provider Physician Assistant Surgical
DX: R10.9 Unspecified abdominal pain (principal); Z98.84 Bariatric surgery status
CPT/HCPCS: 99215

== ENCOUNTER 2024-03-24 11:26 | Outpatient (REF) | payer BC, SELFPAY ==
[2024-03-24 14:02] LABS: MANUAL DIFF FLAG NO
[2024-03-24 15:23] LABS: Basophils Absolute Auto 0.1 X10*3/uL (0.0-0.2); Eosinophils Absolute Auto 0.1 X10*3/uL (0.0-0.4); Eosinophils Percent Auto 1.3 % (0-4); Hematocrit 29.1 % (37.0-47.0); Hemoglobin 8.6 g/dl (12.0-16.0); Imm Gran Abs Auto 0.03 X10*3/uL (0.00-0.03); Imm Gran Pct Auto 0.3 % (0.0-0.4); Lymphocytes Absolute Auto 3.3 X10*3/uL (1.2-4.9); Lymphocytes Percent Auto 38.4 % (20-40); Mean Corpuscular HGB Conc 29.6 g/dl (31.0-35.0); Mean Corpuscular Hemoglobin 20.1 pg (27.0-33.0); Mean Corpuscular Volume 68.1 fL (80.0-98.0); Monocytes Absolute Auto 0.6 X10*3/uL (0.1-1.2); Monocytes Percent Auto 6.4 % (2-11); Neutrophils Absolute Auto 4.6 x10*3/uL (2.0-8.3); Neutrophils Percent Auto 52.6 % (45-73); Platelet Count 635 X10*3/uL (160-400); Red Blood Count 4.27 X10*6/uL (4.20-5.50); Red Cell Distribution Width 17.2 % (11.0-16.0); White Blood Count 8.7 X10*3/uL (4.8-10.8)
[2024-03-24 15:58] LABS: Estimated Average Glucose 105 mg/dL; Hemoglobin A1C 78.9153 umol/L; Hemoglobin A1c % 5.3 % (<6.0); Total Hemoglobin (HGBA1C) 2328.7089 umol/L
[2024-03-24 16:18] LABS: Folate 8.9 ng/mL (> or = 4.0); Vitamin B12 905 pg/mL (200-900)
[2024-03-24 16:37] LABS: C Reactive Protein < 0.04 mg/dL (< or = 0.50); Ferritin 3 ng/mL (10-250); Insulin 2 uU/mL (2-29); Iron 11 mcg/dL (30-160); Percent Iron Saturation 3 % (15-50); Total Iron Binding Capacity 439 mcg/dL (228-428); Unsaturated Iron Binding 428 ug/dL; Vitamin D 25-OH Total 31.2 ng/mL (>30)
[2024-03-24 17:57] LABS: Free T4 (Free Thyroxine) 1.12 ng/dL (0.71-1.85)
[2024-03-27 18:08] LABS: Zinc 63 mcg/dL (60-130)
[2024-03-29 08:43] LABS: Vitamin B1 17 nmol/L (8-30)
[2024-04-01 02:44] LABS: Vitamin A 69 mcg/dL (38-98)
== END 2024-03-24 11:27 | disposition home or self-care (01) ==
LOC: HO.LAB 11:26
PROVIDERS: PCP Internal Medicine; Visit Provider Physician Assistant Surgical
DX: Z98.84 Bariatric surgery status (principal); Z13.1 Encounter for screening for diabetes mellitus
CPT/HCPCS: 36415; 82306; 82607; 82728; 82746; 83036; 83525; 83540; 84425; 84439; 84443; 84590; 84630; 85025; 86140

== ENCOUNTER → 2024-04-01 09:59 | Outpatient (BNV) | payer BC, SELFPAY | PROVIDERS: PCP Internal Medicine; Visit Provider Surgery | DX: K28.9 Gastrojejunal ulcer, unspecified as acute or chronic, 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 (principal) | CPT/HCPCS: 43239; 99231; 99238; 99499 ==

== ENCOUNTER 2024-04-01 13:43 | Inpatient (IN) | payer BC, SELFPAY ==
[2024-04-01] VITALS (13 sets, daily range): BP systolic 104–139; BP diastolic 39–73; PULSE 60–99; RESP 14–18; TEMP 36.3–36.9; O2SAT 96–100; BMI 21.9
[2024-04-01] MEDS: Lactated Ringers 1,000 ML 80 ML IVCONT (12:24)
--- NOTE | 2024-04-01 12:46 | HO.ANESPROP2 ---
[facility] Active Problems Active Problems: All Active Problems Gastric bypass status for obesity (Acute) Chest pain (Acute) Elevated d-dimer (Acute) Cough (Acute) Epigastric pain (Acute) GERD (gastroesophageal reflux disease) (Acute) Thoracic spine pain (Acute) Restless leg syndrome (Acute) Lymphedema (Acute) Multiple drug allergies (Acute) Postoperative hypothyroidism (Acute) De Quervain's tenosynovitis, left (Acute) Chronic idiopathic constipation (Acute) Pseudotumor cerebri (Acute) Anxiety (Acute) Insomnia (Acute) Cervicalgia (Acute) Pain of right upper extremity (Acute) Chronic migraine with aura (Acute) Tremors of nervous system (Acute) B12 deficiency (Acute) Seizures (Acute) De Quervain's tenosynovitis, right (Acute) Past Medical History Medical History Oropharyngeal dysphagia Esophageal candidiasis Nausea & vomiting Epigastric pain Physical exam Janna's thyroiditis Bilateral hand pain Pain in joint of right wrist Right wrist tendinitis Pseudotumor cerebri Goiter Impacted cerumen of both ears Acute sinusitis Acute right otitis media Contusion of right forearm Sinus infection Right elbow pain Right wrist pain Right arm pain Fall from slipping on ice Dysphagia Anxiety Insomnia Tremors of nervous system Hypothyroidism Chronic migraine PCOS (polycystic ovarian syndrome) Family History Family History Mother No problems noted. Father Degenerative disc disease, lumbar Maternal Grandmother Tremors of nervous system Chronic headaches Family history of problems with anesthesia: No Surgical History Surgical History History of esophagogastroduodenoscopy (EGD) History of thyroidectomy Hx of hand surgery (12/25/22) H/O right knee surgery History of intestinal obstruction History of lumbar puncture Tubal ligation status Hx of appendectomy H/O gastric bypass History of partial hysterectomy History of Problems with Anesthesia: No Social History Social History Housing: House Are you a primary child day care center worker to a significant other at home: No Do you presently have visiting nurse or other home services: No Alcohol intake: current Alcohol intake frequency: holidays/special occasions only Patient Tobacco Use Status: Never used Tobacco e-Cigarette/Vaping Use: Never Used Second Hand Smoke Exposure: No Have you been hit, kicked, punched, or otherwise hurt by someone within the past year? 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 Current occupational exposures/hazards: No Cognitive needs: No Hearing needs: No Vision needs: Yes Meds Allergies Allergy/AdvReac Type Severity Reaction Status Date / Time hydrocodone [From VICODIN] Allergy Intermediate GI UPSET Verified 04/01/24 12:49 propylene glycol Allergy Intermediate EXTREME Verified 04/01/24 12:49 [PROPYLENE GLYCOL] BURNING/PAIN/RASH trazodone Allergy Intermediate Shortness Verified 04/01/24 12:49 of Breath cobalt Allergy Unknown Verified 04/01/24 12:49 lamotrigine AdvReac Intermediate foggy Verified 04/01/24 12:49 propranolol AdvReac Intermediate inadequate Verified 04/01/24 12:49 response acetaminophen [Vicodin] AdvReac Unknown nausea and Verified 04/01/24 12:49 vomiting levetiracetam [From Keppra] AdvReac foggy Verified 04/01/24 12:49 diamox AdvReac Intermediate metalic Uncoded 04/01/24 12:49 taste, did not feel comfortable Active Medications: Current Medications Lactated Ringer's (Lr) 1,000 mls @ 80 mls/hr IVCONT .[id number] Last Admin: 04/01/24 12:24 Dose: 80 mls/hr Home Medications ?Medication ?Instructions ?Recorded ?Confirmed ?Last Taken ?Type doxepin 25 mg capsule 50 mg PO DAILY 02/07/21 04/01/24 02/25/24 06:00 History magnesium 200 mg tablet 200 mg PO DAILY 03/28/22 04/01/24 02/25/24 06:00 History riboflavin (vitamin B2) 100 mg 200 mg PO DAILY 03/28/22 04/01/24 02/25/24 06:00 History tablet thiamine HCl (vitamin B1) 100 mg 200 mg PO DAILY 03/28/22 04/01/24 02/25/24 06:00 History tablet vitamin B complex (B 1 tab PO DAILY 03/28/22 04/01/24 02/25/24 06:00 History Complex-Vitamin B12 tablet) cyanocobalamin (vitamin B-12) 1,000 mcg PO DAILY 02/26/24 04/01/24 02/25/24 06:00 History 1,000 mcg tablet (Vitamin B-12) levothyroxine 125 mcg tablet 125 mcg PO DAILY@0600 02/26/24 04/01/24 04/01/24 History (Levoxyl) hydroxyzine HCl 25 mg tablet 50 mg PO .in the morning PRN 02/27/24 04/01/24 Unknown History Insomnia bisacodyl 5 mg tablet,delayed 15 mg PO DAILY constipation 03/12/24 04/01/24 Unknown History release (Dulcolax (bisacodyl)) Exam Height,Weight and Vital Signs: Height 5 ft 2 in Weight 54.431 kg Airway Mallampati Class: II TM Dist: >3cm Neck ROM: Full Loose/Missing/Broken Teeth: No Heart: RRR Lungs: CTA Assessment and Plan Assessment Anesthesia Assessment: Anesthesia Plan Discussed and Chart Reviewed Final Anesthetic Review Family History of Problems with Anesthesia: No History of Problems with Anesthesia: No NPO: Yes ASA Class: II Final Preanesthetic Review: Meds/Allgs Chart Reviewed, Consent Obtained/Reviewed and Anes Risks/Benef Reviewed Patient Risk: Low Procedure Risk: Intermediate Anesthetic Plan Anesthetic Plan: MAC: Disposition: Standard PACU
--- NOTE | 2024-04-01 12:53 | PC.NURSE ---
Patient screams/cries/jumps with IV insertion. History of difficult IV access.
--- NOTE | 2024-04-01 12:59 | MHC.SHP ---
Pre-Procedural Eval Section A - 24 Hr Update-Section A only Date of Service: 04/01/24 The patient is an INPATIENT: No The patient has been examined within 24 hours of the surgical procedure. The History & Physical has been completed within 30 days and I have reviewed it.: Yes Section B - Complete if H&P > 30 days Chief Complaint: Epigastric pain Relevant Family History (Specify if Yes): No Relevant Social History: None Present Medications: None Medical History: No relevant PMH History of Previous Operations: Relevant previous surgery/procedure and date(s) (Laparoscopic gastric bypass) Allergies: Allergies Allergy/AdvReac Type Severity Reaction Status Date / Time hydrocodone [From VICODIN] Allergy Intermediate GI UPSET Verified 04/01/24 12:49 propylene glycol Allergy Intermediate EXTREME Verified 04/01/24 12:49 [PROPYLENE GLYCOL] BURNING/PAIN/RASH trazodone Allergy Intermediate Shortness Verified 04/01/24 12:49 of Breath cobalt Allergy Unknown Verified 04/01/24 12:49 lamotrigine AdvReac Intermediate foggy Verified 04/01/24 12:49 propranolol AdvReac Intermediate inadequate Verified 04/01/24 12:49 response acetaminophen [Vicodin] AdvReac Unknown nausea and Verified 04/01/24 12:49 vomiting levetiracetam [From Keppra] AdvReac foggy Verified 04/01/24 12:49 diamox AdvReac Intermediate metalic Uncoded 04/01/24 12:49 taste, did not feel comfortable Review of Systems Sugical H&P ROS: Negative: Constitution, Cardiovascular, Respiratory, Neurological, Psychiatric, Hem-Onc, Allergic/Immunologic, Genitourinary, Musculoskeletal, Integumentary, Endocrine and Eyes/Ears/Nose/Throat and Yes, Specify: Gastrointestinal (abdominal pain) Exam Surgical H&P Exam: Normal: HEENT, Normal: Heart, Normal: Lungs, Normal: Extremities, Normal: Abdomen, Normal: Skin and Normal: Neurological Plan Diagnosis/Plan: Unchanged (EGD to assess etiology of the epigastric pain. Risks of bleeding and perforation were discussed with the patient and she is in agreement with the plan.) I have reviewed the history and physical and performed a pertinent physical examination on my patient. No changes have occurred unless specified. Time Spent With Patient Time: Total time managing care of this patient today ____ minutes.
--- NOTE | 2024-04-01 13:40 | PM.OP ---
Brief Operative Note Date of Service: 04/01/24 Pre-op diagnosis: Epigastric pain Post-op diagnosis: same (Large anastomotic ulcer and hiatal hernia) Procedure: PROCEDURE DATE: ?04/01/2024 PREOPERATIVE DIAGNOSIS: Epigastric pain, s/p gastric bypass POSTOPERATIVE DIAGNOSIS: ?Same as above. 1) Large posterior anastomotic ulcer with other superficial anastomotic ulcers, 2) hiatal hernia PROCEDURE: [id number] with biopsies Surgeon: ?Edinson Avalos M.D.. Ph.D. Airport Operations Specialist: ?None ? Anesthesia: IV sedation Estimated blood loss: ?Minimal FINDINGS AND PROCEDURE: ? OPERATIVE INDICATIONS: ?The patient is a 52 year old male known to me who underwent a laparoscopic gastric bypass by me several years ago. The patient had excellent weight loss so far. Over the last 2 months she has been complaining of persistent abdominal pain radiating to the back. The pain is more severe with food intake and that has limited significantly her food intake. She appears cachectic, malnourished and ill appearing.? Based on this information I recommended an upper endoscopy to evaluate the patient's symptoms.? Risks and complications of the surgery were discussed with the patient in advance particularly the possibility of perforation or bleeding that may require surgical intervention. The patient understood the risks and was in agreement with the plan. ? PROCEDURE: After informed consent was obtained by the patient, the patient was ?transferred to the Operating Room and was placed in the supine position.? After successful induction of IV sedation, a mouth block was placed and the patient was placed in the left lateral decubitus position. An upper endoscopy was performed next, the oropharynx and esophagus appeared within the normal limits. There was a 2-3cm hiatal hernia.? The z-line was smooth. Two biopsies were obtained from the distal esophagus 2-3 cm proximal to the GE junction and two biopsies from the GE junction. The small pouch was entered, appeared to be of normal size. There was no gastritis and the gastrojejunostomy was patent. A biopsy was obtained from the gastric pouch. No significant bleeding was noted from any of the biopsy sites. There was a large and deep posterior anastomotic ulcer with friable tissue and some bleeding. There were a few superficial anastmotic ulcers at the anterior/right side of the anastomosis.? The scope was not advanced further into the proximal small intestine (proximal Malika limb) out of concern of the large anastomotic ulcer. The Malika limb and the pouch were decompressed and the scope was withdrawn from the patient's mouth. The patient will be admitted for TPN. The patient was awaken and was transferred in stable condition to the Recovery Room for further care. I was present and performed all steps of the procedure. There were no residents to assist with this case. Edinson Avalos M.D., Ph.D. Surgeon: [place] Avalos MD Anesthesia: MAC Was an Airport Operations Specialist used for this Procedure?: No Estimated blood loss (mL): 0 IV fluids (mL): 400 Urine output (mL): 0 (No Ray to record output) Pathology: other (1) gastric pouch, 2) GE junction x2, 3) distal esophagus x2) Condition: stable Disposition: PACU
--- NOTE | 2024-04-01 13:46 | P.HPGS_ITS ---
History of Present Illness History of Present Illness Date of Service: 04/01/24 Chief complaint: anastomotic ulcer Narrative: Nakita Baez is a 44 year old female with a 2 month history of persistent epigastric pain radiating to the back. The patient has been evaluated by several physicians and an extensive work-up was done including mesenteric US, abdominal US, CT abdomen/pelvis, UGI, HIDA scan that were all negative. The patient was recently seen in my office and an EGD was done today that is consistent with a large anastomotic ulcer. Review of Systems Constitutional: Constitutional: Reports anorexia, Reports fatigue, Reports malaise, Reports poor appetite, Reports weakness and Reports weight loss Eyes: Eyes: Reports dry eyes Cardiovascular: Cardiovascular: Reports no additional cardiovascular complaints Respiratory: Respiratory: Reports no additional respiratory complaints Gastrointestinal: Gastrointestinal: Reports abdominal pain, Reports heartburn and Reports nausea Genitourinary: Genitourinary: Reports no additional female genitourinary complaints Musculoskeletal: Musculoskeletal: Reports no additional musculoskeletal complaints Integumentary/Breasts: Skin/Breast: Reports system reviewed and no additional complaints, except as docu Neurologic: Reports system reviewed and no additional complaints, except as documented and Reports weakness Psychiatric: Psychiatric: Reports no additional psychiatric complaints Endocrine: Endocrine: Reports no additional endocrine complaints and Reports fatigue Hematologic/Lymphatic: Hematologic/Lymphatic: Reports no additional hematologic/lymphatic complaints Allergic/Immunologic: Allergic/Immunologic: Reports no additional allergic/immunologic complaints [facility] Past Medical History Medical History (Updated 04/01/24 @ 13:51 by London Avalos MD) Nausea & vomiting Epigastric pain Esophageal candidiasis Oropharyngeal dysphagia Dysphagia Bilateral hand pain Pseudotumor cerebri Anxiety Insomnia Tremors of nervous system Impacted cerumen of both ears Acute sinusitis Acute right otitis media Goiter Janna's thyroiditis Physical exam Contusion of right forearm Right elbow pain Right wrist pain Right arm pain Fall from slipping on ice Sinus infection Right wrist tendinitis Hypothyroidism Chronic migraine PCOS (polycystic ovarian syndrome) Pain in joint of right wrist Patient : No Family History Family History Mother No problems noted. Father Degenerative disc disease, lumbar Maternal Grandmother Tremors of nervous system Chronic headaches Surgical History Surgical History Hx of tubal ligation History of esophagogastroduodenoscopy (EGD) History of thyroidectomy Hx of hand surgery (12/25/22) H/O right knee surgery History of intestinal obstruction History of lumbar puncture Hx of appendectomy H/O gastric bypass History of partial hysterectomy Social History Social History Housing: House Are you a primary health care administrator to a significant other at home: No Do you presently have visiting nurse or other home services: No Alcohol intake: current Alcohol intake frequency: holidays/special occasions only Patient Tobacco Use Status: Never used Tobacco e-Cigarette/Vaping Use: Never Used Second Hand Smoke Exposure: No Have you been hit, kicked, punched, or otherwise hurt by someone within the past year? 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 Current occupational exposures/hazards: No Cognitive needs: No Hearing needs: No Vision needs: Yes Meds Allergies Allergy/AdvReac Type Severity Reaction Status Date / Time hydrocodone [From VICODIN] Allergy Intermediate GI UPSET Verified 04/01/24 12:49 propylene glycol Allergy Intermediate EXTREME Verified 04/01/24 12:49 [PROPYLENE GLYCOL] BURNING/PAIN/RASH trazodone Allergy Intermediate Shortness Verified 04/01/24 12:49 of Breath cobalt Allergy Unknown Verified 04/01/24 12:49 lamotrigine AdvReac Intermediate foggy Verified 04/01/24 12:49 propranolol AdvReac Intermediate inadequate Verified 04/01/24 12:49 response acetaminophen [Vicodin] AdvReac Unknown nausea and Verified 04/01/24 12:49 vomiting levetiracetam [From Keppra] AdvReac foggy Verified 04/01/24 12:49 diamox AdvReac Intermediate metalic Uncoded 04/01/24 12:49 taste, did not feel comfortable Active Medications: Current Medications Lactated Ringer's (Lr) 1,000 mls @ 80 mls/hr IVCONT .[id number] [facility] Last Admin: 04/01/24 12:24 Dose: 80 mls/hr Naloxone HCl (Naloxone Hcl 0.4 Mg/Ml Vial) 0.04 mg IVPUSH Q5M PRN PRN Reason: Excessive sedation or RR < 8 Home Medications ?Medication ?Instructions ?Recorded ?Confirmed ?Last Taken ?Type doxepin 25 mg capsule 50 mg PO DAILY 02/07/21 04/01/24 02/25/24 06:00 History magnesium 200 mg tablet 200 mg PO DAILY 03/28/22 04/01/24 02/25/24 06:00 History riboflavin (vitamin B2) 100 mg 200 mg PO DAILY 03/28/22 04/01/24 02/25/24 06:00 History tablet thiamine HCl (vitamin B1) 100 mg 200 mg PO DAILY 03/28/22 04/01/24 02/25/24 06:00 History tablet vitamin B complex (B 1 tab PO DAILY 03/28/22 04/01/24 02/25/24 06:00 History Complex-Vitamin B12 tablet) cyanocobalamin (vitamin B-12) 1,000 mcg PO DAILY 02/26/24 04/01/24 02/25/24 06:00 History 1,000 mcg tablet (Vitamin B-12) levothyroxine 125 mcg tablet 125 mcg PO DAILY@0600 02/26/24 04/01/24 04/01/24 History (Levoxyl) hydroxyzine HCl 25 mg tablet 50 mg PO .in the morning PRN 02/27/24 04/01/24 Unknown History Insomnia bisacodyl 5 mg tablet,delayed 15 mg PO DAILY constipation 03/12/24 04/01/24 Unknown History release (Dulcolax (bisacodyl)) Physical Exam Vital Signs: Vital Signs: Last Vital Signs Temp 97.4 F 04/01/24 13:30 Pulse 93 04/01/24 13:30 Resp 16 04/01/24 13:30 BP 117/67 04/01/24 13:30 Pulse Ox 100 04/01/24 12:48 O2 Del Method Simple Mask 04/01/24 13:30 O2 Flow Rate 6 04/01/24 13:30 BMI result Body Mass Index 21.9 GI: Inspection: Yes normal to inspection, Yes incision (well healed) and Yes other (epigastric tenderness) Assessment and Plan (1) Anastomotic ulcer: Status: Acute Plan Admit for PICC line and TPN NPO IV iron, B12, folic acid, B1 Discussed with patient Total time managing care of this patient today: 45 minutes. Quality Stroke Does the patient have a stroke diagnosis?: No VTE Prior VTE?: No VTE Risk Level:: Medical - low VTE Device Contraindication: N/A - Device Ordered VTE Drug Contraindication: Treatment Not Indicated Procedures Date of Service Date of Service: 04/01/24
--- NOTE | 2024-04-01 14:04 | PHA.MEDREC ---
Pharmacy Consult ? Medication Reconciliation Pharmacy has reviewed the medication reconciliation completed by nursing.
[2024-04-01] MEDS: LORazepam 2 MG/ML VIAL 1 MG IVPUSH (14:27)
[2024-04-01] MEDS: HYDROmorphone HCl 0.5 MG/0.5 ML SYRINGE 0.25 MG IVPUSH ×2 (14:57→19:30)
[2024-04-01 15:03] LABS: Hematocrit 29.9 % (37.0-47.0); Hemoglobin 8.8 g/dl (12.0-16.0)
[2024-04-01] MEDS: Folic Acid 1 MG in 0.9 % Sodium Chloride 50 ML 100.4 MG IV (15:08)
[2024-04-01 15:09] LABS: INTERNATIONAL NORM RATIO 0.9 (0.9-1.1); Prothrombin Time 10.9 SEC (10.9-12.4)
[2024-04-01 15:21] LABS: Alanine Aminotransferase 6 U/L (0-31); Albumin Level 3.8 g/dL (3.5-5.0); Alkaline Phosphatase 57 U/L (39-117); Anion Gap 13 (12-20); Aspartate Amino Transferase 25 U/L (5-31); Bilirubin Total 0.2 mg/dL (0.0-1.0); Blood Urea Nitrogen 15 mg/dL (9-16); Calcium 8.9 mg/dL (8.4-10.2); Carbon Dioxide 23 mmol/L (22-29); Chloride 110 mmol/L (96-108); Creatinine Clr Calc Pharmacy 93.4; Estimated Glomerular Filt Rate > 60; Glucose Random 85 mg/dL (60-115); Phosphorus 3.2 mg/dL (2.7-4.5); Potassium 3.5 mmol/L (3.3-5.1); Sodium 142 mmol/L (135-145); Total Protein 6.6 g/dL (6.5-8.0)
[2024-04-01] MEDS: ondansetron HCL 4 MG/2 ML VIAL IVPUSH ×2 (15:33→21:49)
[2024-04-01] MEDS: Iron Sucrose Complex 400 MG in 0.9 % Sodium Chloride 250 ML 180 MG IV (15:41)
[2024-04-01] MEDS: Sucralfate Oral Suspension 1 GM/10 ML ORAL.SUSP PO ×2 (17:36→20:37)
[2024-04-01] MEDS: Pantoprazole Sodium 40 MG/10 ML VIAL IVPUSH (17:36)
[2024-04-01] MEDS: Lactated Ringers 1,000 ML 125 ML IVCONT (17:37)
[2024-04-01] MEDS: hydrOXYzine HCL 50 MG TABLET PO (20:39)
[2024-04-01] MEDS: LORazepam 2 MG/ML VIAL 0.5 MG IVPUSH (20:40)
[2024-04-01] MEDS: 0.9 % Sodium Chloride Flush 3 ML SYRINGE IVFLUSH (21:50)
[2024-04-02] VITALS (12 sets, daily range): BP systolic 91–121; BP diastolic 54–66; PULSE 52–75; RESP 16–20; TEMP 36.3–37.8; O2SAT 95–98; BMI 21.9
[2024-04-02] MEDS: Lactated Ringers 1,000 ML 125 ML IVCONT ×2 (01:02→09:30)
[2024-04-02] MEDS: HYDROmorphone HCl 0.5 MG/0.5 ML SYRINGE 0.25 MG IVPUSH ×4 (01:53→19:51)
[2024-04-02] MEDS: LEVOXYL 125 EACH PO (02:28)
[2024-04-02] MEDS: Pantoprazole Sodium 40 MG/10 ML VIAL IVPUSH ×2 (06:28→16:16)
[2024-04-02] MEDS: ondansetron HCL 4 MG/2 ML VIAL IVPUSH ×3 (06:28→22:04)
[2024-04-02] MEDS: Doxepin HCl 25 MG CAPSULE 50 MG PO (06:28)
[2024-04-02 06:32] LABS: MANUAL DIFF FLAG NO
[2024-04-02 06:46] LABS: Basophils Percent Auto 0.7 % (0-2); Eosinophils Absolute Auto 0.2 X10*3/uL (0.0-0.4); Eosinophils Percent Auto 2.7 % (0-4); Hematocrit 23.4 % (37.0-47.0); Imm Gran Abs Auto 0.01 X10*3/uL (0.00-0.03); Imm Gran Pct Auto 0.2 % (0.0-0.4); Lymphocytes Absolute Auto 1.2 X10*3/uL (1.2-4.9); Lymphocytes Percent Auto 21.6 % (20-40); Mean Corpuscular HGB Conc 29.9 g/dl (31.0-35.0); Mean Corpuscular Hemoglobin 20.5 pg (27.0-33.0); Mean Corpuscular Volume 68.4 fL (80.0-98.0); Monocytes Absolute Auto 0.4 X10*3/uL (0.1-1.2); Monocytes Percent Auto 7.2 % (2-11); Neutrophils Absolute Auto 3.8 x10*3/uL (2.0-8.3); Neutrophils Percent Auto 67.6 % (45-73); Platelet Count 297 X10*3/uL (160-400); Red Blood Count 3.42 X10*6/uL (4.20-5.50); White Blood Count 5.6 X10*3/uL (4.8-10.8)
[2024-04-02] MEDS: LORazepam 2 MG/ML VIAL 0.5 MG IVPUSH ×2 (07:03→11:34)
[2024-04-02] MEDS: 0.9 % Sodium Chloride Flush 3 ML SYRINGE IVFLUSH ×2 (07:03→16:16)
--- NOTE | 2024-04-02 07:57 | P.PNGS_ITS ---
Subjective Subjective Date of Service: 04/02/24 Interval history: Patient now admits chronic Ibuprofen use. Repeat Hb today is 7. Abdominal pain is stable. Physical Exam 2 Vital Signs: Vital Signs: Last Vital Signs Temp 98.2 F 04/02/24 03:54 Pulse 59 04/02/24 03:54 Resp 16 04/02/24 03:54 BP 93/55 L 04/02/24 03:54 Pulse Ox 98 04/02/24 03:54 O2 Del Method Room Air 04/02/24 03:54 O2 Flow Rate 6 04/01/24 13:30 BMI result Body Mass Index 21.9 GI: Inspection: Yes normal to inspection and Yes incision (well healed) P alpation (GI): Soft to palpation and Tenderness to palpation present (GI) (epigastric tenderness) Objective Data Active Medications Doxepin HCl (Doxepin Hcl 25 Mg Capsule) 50 mg PO DAILY [facility] Last Admin: 04/02/24 06:28 Dose: 50 mg Documented By: VENTURA Comments: pt requested to take now. Hydromorphone HCl (Hydromorphone Hcl 0.5 Mg/0.5 Ml Syringe) 0.25 mg IVPUSH Q4H PRN; Protocol PRN Reason: Pain, Moderate(Pain Scale 4-6) Last Admin: 04/02/24 07:04 Dose: 0.25 mg Documented By: XIANG Hydroxyzine HCl (Hydroxyzine Hcl 50 Mg Tablet) 50 mg PO BEDTIME PRN PRN Reason: Insomnia Last Admin: 04/01/24 20:39 Dose: 50 mg Documented By: VENTURA Lactated Ringer's (Lr) 1,000 mls @ 125 mls/hr IVCONT .Q8H [facility] Last Admin: 04/02/24 01:02 Dose: 125 mls/hr Documented By: VENTURA Acetaminophen (Ofirmev) 1,000 mg in 100 mls @ 16.7 mls/hr IV .Q6H [facility] Last Admin: 04/02/24 07:08 Dose: Not Given Documented By: XIANG Non-Admin Reason: Patient Refused Lorazepam (Lorazepam 2 Mg/Ml Vial) 0.5 mg IVPUSH Q6H PRN PRN Reason: Anxiety Last Admin: 04/02/24 07:03 Dose: 0.5 mg Documented By: XIANG Naloxone HCl (Naloxone Hcl 0.4 Mg/Ml Vial) 0.04 mg IVPUSH Q5M PRN PRN Reason: Excessive sedation or RR < 8 Pt Own (Levoxyl 125 (Mcg )) 125 mcg PO DAILY@0600 [facility] Last Admin: 04/02/24 02:28 Dose: 125 mcg Documented By: VENTURA Comments: pt requested to take now. Ondansetron HCl (Ondansetron Hcl 4 Mg/2 Ml Vial) 4 mg IVPUSH Q8H [facility] Last Admin: 04/02/24 06:28 Dose: 4 mg Documented By: VENTURA Pantoprazole Sodium (Pantoprazole Sodium 40 Mg/10 Ml Vial) 40 mg IVPUSH BID@0630,1630 [facility] Last Admin: 04/02/24 06:28 Dose: 40 mg Documented By: VENTURA Pharmacy Consult (Consult Rx Parenteral Nutrition Ordering) 1 each MISCELLANE DAILY PRN PRN Reason: Consult order Sodium Chloride (0.9 % Sodium Chloride Flush 3 Ml Syringe) 3 ml IVFLUSH QSHIFT [facility] Last Admin: 04/02/24 07:03 Dose: 3 ml Documented By: XIANG Sucralfate (Sucralfate Oral Suspension 1 Gm/10 Ml Oral.Susp) 1 gm PO QID [facility] Last Admin: 04/01/24 20:37 Dose: 1 gm Documented By: VENTURA Labs 04/02/24 05:04 04/01/24 14:48 Labs: Laboratory Results - last 24 hr 04/01/24 04/02/24 14:48 05:04 MCV 68.4 L MCH 20.5 L MCHC 29.9 L RDW 17.0 H Plt Count 297 D MPV 9.0 L Immature Gran % (Auto) 0.2 Neut % (Auto) 67.6 Lymph % (Auto) 21.6 [place] % (Auto) 7.2 Eos % (Auto) 2.7 Baso % (Auto) 0.7 Lymph # (Auto) 1.2 [place] # (Auto) 0.4 Eos # (Auto) 0.2 Baso # (Auto) 0.0 Abs Immat Gran (auto) 0.01 Absolute Neuts (auto) 3.8 Absolute Nucleated RBC 0.000 Nucleated RBC % (auto) 0.0 PT 10.9 INR 0.9 APTT 30.0 Anion Gap 13 Estim Creat Clear Calc 93.4 Estimated GFR > 60 Random Glucose 85 Calcium 8.9 Phosphorus 3.2 Magnesium 2.0 Total Bilirubin 0.2 AST 25 ALT 6 Alkaline Phosphatase 57 Total Protein 6.6 Albumin 3.8 Procedures Date of Service Date of Service: 04/02/24 Progress Note: A&P Assessment and plan (1) Anastomotic ulcer: Status: Acute Assessment and Plan: 1. Continue NPO 2. IV Protonix and Carafate liquid 3. Transfuse 2U PRBCs for Hb of 7 4. PICC line for TPN today Discussed with patient Time Spent With Patient Time: Total time managing care of this patient today ____ minutes. Quality Stroke Does the patient have a stroke diagnosis?: No VTE Prior VTE?: No VTE Risk Level:: Medical - low VTE Device Contraindication: N/A - Device Ordered VTE Drug Contraindication: Treatment Not Indicated
[2024-04-02] MEDS: Sucralfate Oral Suspension 1 GM/10 ML ORAL.SUSP PO ×4 (08:32→19:40)
[2024-04-02 09:29] LABS: Anion Gap 10 (12-20); Blood Urea Nitrogen 11 mg/dL (9-16); Calcium 7.8 mg/dL (8.4-10.2); Carbon Dioxide 23 mmol/L (22-29); Chloride 112 mmol/L (96-108); Creatinine Clr Calc Pharmacy 87.8; Estimated Glomerular Filt Rate > 60; Glucose Random 77 mg/dL (60-115); Magnesium 1.8 mg/dL (1.6-2.6); Phosphorus 3.5 mg/dL (2.7-4.5); Potassium 3.3 mmol/L (3.3-5.1); Sodium 142 mmol/L (135-145)
--- NOTE | 2024-04-02 09:39 | MHC.CM.PN ---
Addendum entered by Janina Greene 04/02/24 11:24: A referral has been sent to [facility] [place] for TPN management. Addendum entered by Janina Greene 04/02/24 11:20: [facility] has declined the patient. They do not accept TPN cases. Addendum entered by Janina Greene 04/02/24 09:51: Patient will receive 2U PRC today. Original Note: Female 44 DX Gastric Ulcer. She is independent with all functional mobility. She lives with her spouse + kids. She is NPO. TPN +Lipids have been ordered for this evening. Patient is planned for a PICC line today for the TPN administration. A referral has been sent to [facility], for home infusion. [facility] preferences obtained the referral has been sent to [facility]. DP home with IV ABX. A family member will provide transportation home. CM will follow.
--- NOTE | 2024-04-02 09:49 | MHC.CLN ---
PICC FOR TPN ORDERED PER MD AWAITING PICC LINE PLACEMENT REVIEWED LABS SPOKE WITH PHARMACY RECOMMEND PPN (IF PICC NOT PLACED TODAY) AT 40ML/HR TO PROVIDE 490KCALS, 96G DEXTROSE, 41G PROTEIN REPLETE LYTES NEEDED IF PICC LINE PLACED, RECOMMEND TPN AT 30ML/HR TO PROVIDE 511KCALS, 108G DEXTROSE, 36G PROTEIN REPLETE LYTES NEEDED FOLLOWING WITH TEAM FULL NUTRITION ASSESSMENT TO FOLLOW
--- NOTE | 2024-04-02 12:37 | PC.NURSE ---
Pt requested dilaudid for pain of 7/10 at 07:04. Despite orders of 4-6/10 for dilaudid
--- NOTE | 2024-04-02 13:17 | HO.PICC ---
PICC Line Insertion NPICC Diagnosis: large anastomatic ulcer Indication: TPN Pertinent Labs: reviewed Technique: Following informed consent including risks, benefits and alternatives and using sterile technique including cap and mask, sterile gown, glove and drape, the right arm was prepped and draped in the usual sterile fashion of full barrier technique with CHG. Following completion of [place] Protocol the skin and soft tissues were anesthetized with 1% Lidocaine plain. Using ultrasound guidance, right brachial vein access was obtained. Over an 0.018 wire through peel-away sheath, a 5FR double lumen PASV PICC line was positioned. Catheter length is 35cm internal length, 0cm external length, for a total trimmed length of 35cm. The procedure was performed in [facility]. Tip verification was performed by Susan Avalos with Sherlock 3CG. Tip located in SVC. Ultrasound was used to document vein patency and for needle entry. A formal ultrasound picture and cardiac rhythm strip was recorded. [facility] [employer] has released the line for use and it is currently dressed with a StatLock, Tegaderm, and CHG disc. Verification has been performed for blood return and line patency. Arm Circumference: 28cm Equipment: [employer] POWERPICC catheter with sherlock 3CG tip Catheter Type: 5FR double lumen PASV PICC catheter Lot #: [id number]
[2024-04-02] MEDS: Heparin Sodium,Porcine Flush 50 UNITS/5 ML SYRINGE IVFLUSH (16:16)
[2024-04-02] MEDS: hydrOXYzine HCL 50 MG TABLET PO (19:40)
[2024-04-02] MEDS: Acetaminophen 1,000 MG/100 ML PIGGYBACK 16.7 MG IV (19:40)
[2024-04-02] MEDS: Parenteral Nutrition 720 ML 30 ML IV (19:43)
[2024-04-03] MEDS: Lactated Ringers 1,000 ML 125 ML IVCONT ×2 (01:35→09:49)
[2024-04-03] MEDS: LEVOXYL 125 EACH PO (02:27)
[2024-04-03 03:28] VITALS: BP 118/69; PULSE 56; RESP 16; TEMP 36.8; O2SAT 98
[2024-04-03] MEDS: Acetaminophen 1,000 MG/100 ML PIGGYBACK 16.7 MG IV ×3 (03:38→13:24)
[2024-04-03] MEDS: ondansetron HCL 4 MG/2 ML VIAL IVPUSH ×3 (05:37→20:37)
[2024-04-03] MEDS: Pantoprazole Sodium 40 MG/10 ML VIAL IVPUSH ×2 (05:37→16:33)
[2024-04-03] MEDS: HYDROmorphone HCl 0.5 MG/0.5 ML SYRINGE 0.25 MG IVPUSH ×4 (05:37→20:30)
[2024-04-03 06:45] LABS: MANUAL DIFF FLAG NO
[2024-04-03] MEDS: Doxepin HCl 25 MG CAPSULE 50 MG PO (06:53)
[2024-04-03] MEDS: Sucralfate Oral Suspension 1 GM/10 ML ORAL.SUSP PO ×4 (06:53→20:29)
[2024-04-03 06:54] LABS: Basophils Percent Auto 0.7 % (0-2); Eosinophils Absolute Auto 0.2 X10*3/uL (0.0-0.4); Hematocrit 29.4 % (37.0-47.0); Hemoglobin 9.2 g/dl (12.0-16.0); Imm Gran Abs Auto 0.01 X10*3/uL (0.00-0.03); Imm Gran Pct Auto 0.2 % (0.0-0.4); Lymphocytes Absolute Auto 1.7 X10*3/uL (1.2-4.9); Lymphocytes Percent Auto 38.3 % (20-40); Mean Corpuscular HGB Conc 31.3 g/dl (31.0-35.0); Mean Corpuscular Hemoglobin 22.3 pg (27.0-33.0); Mean Corpuscular Volume 71.4 fL (80.0-98.0); Mean Platelet Volume 9.2 fL (9.4-12.3); Monocytes Absolute Auto 0.6 X10*3/uL (0.1-1.2); Monocytes Percent Auto 13.4 % (2-11); Neutrophils Percent Auto 43.4 % (45-73); Platelet Count 273 X10*3/uL (160-400); Red Blood Count 4.12 X10*6/uL (4.20-5.50); Red Cell Distribution Width 19.9 % (11.0-16.0); White Blood Count 4.5 X10*3/uL (4.8-10.8)
[2024-04-03] MEDS: LORazepam 2 MG/ML VIAL 0.5 MG IVPUSH ×2 (07:06→16:33)
[2024-04-03 07:10] LABS: Albumin Level 2.9 g/dL (3.5-5.0); Anion Gap 12 (12-20); Blood Urea Nitrogen 9 mg/dL (9-16); Calcium 8.2 mg/dL (8.4-10.2); Carbon Dioxide 22 mmol/L (22-29); Chloride 107 mmol/L (96-108); Creatinine Clr Calc Pharmacy 107.3; Estimated Glomerular Filt Rate > 60; Glucose Random 84 mg/dL (60-115); Magnesium 1.8 mg/dL (1.6-2.6); Phosphorus 2.9 mg/dL (2.7-4.5); Potassium 3.2 mmol/L (3.3-5.1); Sodium 138 mmol/L (135-145)
[2024-04-03 07:41] VITALS: BP 110/56; PULSE 55; RESP 18; TEMP 36.4; O2SAT 95
--- NOTE | 2024-04-03 08:50 | MHC.CM.PN ---
shelia Stevens, [facility] met with pt and performed the teach. Clinical information has been sent to [facility], PICC, LABS, and PN. Discharge is anticipated tomorrow. [facility] does not provide TPN infusion services. [facility] with provide SN. DP home TPN via family transport.
[2024-04-03 11:30] VITALS: BP 111/57; PULSE 58; RESP 18; TEMP 36.7; O2SAT 95
--- NOTE | 2024-04-03 11:34 | MHC.CLN ---
Addendum entered by Candy Messer, YAKELIN 04/03/24 12:27: TRIGLYCERIDES=93. OK TO ADD LIPIDS TO TPN TODAY. MAX GOAL TPN AT 65 ML PER HOUR ADD 40 G LIPIDS. PROVIDES 1508 TOTAL KCALS (27.7 G/KG); 78 G PROTEIN (1.4 G/KG); 234 G DEXTROSE. REPLETE LYTES NEEDED. Original Note: F/U NPO. RECEIVING TPN VIA PICC. REVIEWED LABS. COMMUNICATED WITH PHARMACY. RECOMMEND INCREASE TPN TO 65 ML PER HOUR. PROVIDES 78 G PROTEIN (1.4 G/KG); 234 G DEXTROSE; 1108 KCALS. CHECK TRIGLYCERIDES. WHEN ABLE, RECOMMEND ADVANCE TO MAX GOAL TPN AT 65 ML PER HOUR ADD 40 G LIPIDS. PROVIDES 1508 TOTAL KCALS (27.7 G/KG). REPLETE LYTES NEEDED. PLAN TO DISCHARGE HOME WITH TPN.
[2024-04-03 12:14] LABS: Triglycerides 93 mg/dL (<150)
[2024-04-03 15:36] VITALS: BP 117/77; PULSE 52; RESP 18; TEMP 36.8; O2SAT 95
[2024-04-03] MEDS: 0.9 % Sodium Chloride Flush 3 ML SYRINGE IVFLUSH (16:32)
[2024-04-03 19:16] VITALS: BP 124/63; PULSE 54; RESP 16; TEMP 36.8; O2SAT 95
[2024-04-03] MEDS: Parenteral Nutrition 1,560 ML 65 ML IV (20:30)
[2024-04-03] MEDS: hydrOXYzine HCL 50 MG TABLET PO (20:39)
[2024-04-03 23:49] VITALS: BP 118/58; PULSE 57; RESP 16; TEMP 36.7; O2SAT 96
[2024-04-04] MEDS: LEVOXYL 125 EACH PO (02:31)
[2024-04-04 03:12] VITALS: BP 104/65; PULSE 50; RESP 16; TEMP 36.2; O2SAT 95
[2024-04-04] MEDS: Doxepin HCl 25 MG CAPSULE 50 MG PO (05:58)
[2024-04-04] MEDS: ondansetron HCL 4 MG/2 ML VIAL IVPUSH (05:58)
[2024-04-04] MEDS: Pantoprazole Sodium 40 MG/10 ML VIAL IVPUSH (05:58)
[2024-04-04 06:36] LABS: MANUAL DIFF FLAG NO
[2024-04-04 06:42] LABS: Basophils Percent Auto 0.4 % (0-2); Eosinophils Absolute Auto 0.2 X10*3/uL (0.0-0.4); Eosinophils Percent Auto 4.3 % (0-4); Hematocrit 30.8 % (37.0-47.0); Hemoglobin 9.5 g/dl (12.0-16.0); Imm Gran Abs Auto 0.01 X10*3/uL (0.00-0.03); Imm Gran Pct Auto 0.2 % (0.0-0.4); Lymphocytes Absolute Auto 1.7 X10*3/uL (1.2-4.9); Lymphocytes Percent Auto 35.3 % (20-40); Mean Corpuscular HGB Conc 30.8 g/dl (31.0-35.0); Mean Corpuscular Hemoglobin 22.3 pg (27.0-33.0); Mean Corpuscular Volume 72.3 fL (80.0-98.0); Monocytes Absolute Auto 0.5 X10*3/uL (0.1-1.2); Monocytes Percent Auto 10.4 % (2-11); Neutrophils Absolute Auto 2.3 x10*3/uL (2.0-8.3); Neutrophils Percent Auto 49.4 % (45-73); Platelet Count 269 X10*3/uL (160-400); Red Blood Count 4.26 X10*6/uL (4.20-5.50); White Blood Count 4.7 X10*3/uL (4.8-10.8)
[2024-04-04 07:06] LABS: Albumin Level 2.8 g/dL (3.5-5.0); Anion Gap 10 (12-20); Blood Urea Nitrogen 10 mg/dL (9-16); Calcium 8.2 mg/dL (8.4-10.2); Carbon Dioxide 26 mmol/L (22-29); Chloride 107 mmol/L (96-108); Creatinine Clr Calc Pharmacy 93.4; Estimated Glomerular Filt Rate > 60; Glucose Random 122 mg/dL (60-115); Magnesium 1.8 mg/dL (1.6-2.6); Phosphorus 3.2 mg/dL (2.7-4.5); Potassium 3.7 mmol/L (3.3-5.1); Sodium 139 mmol/L (135-145)
[2024-04-04 07:08] LABS: Anion Gap 10 (12-20); Blood Urea Nitrogen 10 mg/dL (9-16); Calcium 8.1 mg/dL (8.4-10.2); Carbon Dioxide 27 mmol/L (22-29); Chloride 106 mmol/L (96-108); Creatinine Clr Calc Pharmacy 94.9; Estimated Glomerular Filt Rate > 60; Glucose Random 122 mg/dL (60-115); Magnesium 1.9 mg/dL (1.6-2.6); Phosphorus 3.2 mg/dL (2.7-4.5); Potassium 3.7 mmol/L (3.3-5.1); Sodium 139 mmol/L (135-145)
[2024-04-04 07:41] VITALS: BP 118/72; PULSE 52; RESP 19; TEMP 36.6; O2SAT 97
[2024-04-04] MEDS: LORazepam 2 MG/ML VIAL 0.5 MG IVPUSH (08:22)
[2024-04-04] MEDS: HYDROmorphone HCl 0.5 MG/0.5 ML SYRINGE 0.25 MG IVPUSH (08:23)
[2024-04-04] MEDS: 0.9 % Sodium Chloride Flush 3 ML SYRINGE IVFLUSH (08:24)
[2024-04-04] MEDS: Sucralfate Oral Suspension 1 GM/10 ML ORAL.SUSP PO (08:31)
--- NOTE | 2024-04-04 08:43 | PM.PNGS ---
Subjective Subjective Date of Service: 04/04/24 Patient reports: no new complaints Interval history: Year old female remains hospitalized getting TPN and lipids for identified anastomotic ulcer. Physical Exam Vital Signs: Vital Signs: Last Vital Signs Temp 97.9 F 04/04/24 07:41 Pulse 52 04/04/24 07:41 Resp 19 04/04/24 07:41 BP 118/72 04/04/24 07:41 Pulse Ox 97 04/04/24 07:41 O2 Del Method Room Air 04/04/24 07:41 O2 Flow Rate 6 04/01/24 13:30 BMI result Body Mass Index 21.9 Const: General: cooperative and healthy appearing Resp: Effort & Inspection: normal respiratory effort Auscultation: clear to auscultation bilaterally Cardio: Rate: regular rate Rhythm: regular rhythm GI: Auscultation: normal bowel sounds Objective Data Active Medications Doxepin HCl (Doxepin Hcl 25 Mg Capsule) 50 mg PO DAILY [facility] Last Admin: 04/04/24 05:58 Dose: 50 mg Documented By: VENTURA Comments: pt requested to take now. Heparin Sodium (Porcine) (Heparin Sodium,Porcine Flush 50 Units/5 Ml Syringe) [facility] Last Admin: 04/04/24 08:25 Dose: Not Given Documented By: ANA LUISA Non-Admin Reason: Patient Refused Hydromorphone HCl (Hydromorphone Hcl 0.5 Mg/0.5 Ml Syringe) 0.25 mg IVPUSH Q4H PRN; Protocol PRN Reason: Pain, Moderate(Pain Scale 4-6) Last Admin: 04/04/24 08:23 Dose: 0.25 mg Documented By: ANA LUISA Hydroxyzine HCl (Hydroxyzine Hcl 50 Mg Tablet) 50 mg PO BEDTIME PRN PRN Reason: Insomnia Last Admin: 04/03/24 20:39 Dose: 50 mg Documented By: VENTURA Acetaminophen (Ofirmev) 1,000 mg in 100 mls @ 16.7 mls/hr IV .Q6H [facility] Last Admin: 04/04/24 08:24 Dose: Not Given Documented By: ANA LUISA Non-Admin Reason: Patient Refused Nutrition (Parenteral) (Parenteral Nutrition) 1,560 mls @ 65 mls/hr IV .Q24H [facility]; Protocol Stop: 04/04/24 20:59 Last Admin: 04/03/24 20:30 Dose: 65 mls/hr Documented By: VENTURA Lorazepam (Lorazepam 2 Mg/Ml Vial) 0.5 mg IVPUSH Q6H PRN PRN Reason: Anxiety Last Admin: 04/04/24 08:22 Dose: 0.5 mg Documented By: ANA LUISA Naloxone HCl (Naloxone Hcl 0.4 Mg/Ml Vial) 0.04 mg IVPUSH Q5M PRN PRN Reason: Excessive sedation or RR < 8 Pt Own (Levoxyl 125 (Mcg )) 125 mcg PO DAILY@0600 [facility] Last Admin: 04/04/24 02:31 Dose: 125 mcg Documented By: VENTURA Comments: pt requested to take now. Ondansetron HCl (Ondansetron Hcl 4 Mg/2 Ml Vial) 4 mg IVPUSH Q8H [facility] Last Admin: 04/04/24 05:58 Dose: 4 mg Documented By: VENTURA Pantoprazole Sodium (Pantoprazole Sodium 40 Mg/10 Ml Vial) 40 mg IVPUSH BID@0630,1630 [facility] Last Admin: 04/04/24 05:58 Dose: 40 mg Documented By: VENTURA Pharmacy Consult (Consult Rx Parenteral Nutrition Ordering) 1 each MISCELLANE DAILY PRN PRN Reason: Consult order Sodium Chloride (0.9 % Sodium Chloride Flush 3 Ml Syringe) 3 ml IVFLUSH QSHIFT [facility] Last Admin: 04/04/24 08:24 Dose: 3 ml Documented By: ANA LUISA Sucralfate (Sucralfate Oral Suspension 1 Gm/10 Ml Oral.Susp) 1 gm PO QID [facility] Last Admin: 04/04/24 08:31 Dose: 1 gm Documented By: ANA LUISA Labs 04/04/24 05:54 04/04/24 05:54 Labs: Laboratory Results - last 24 hr 04/03/24 04/04/24 04/04/24 05:35 05:54 05:54 MCV 72.3 L MCH 22.3 L MCHC 30.8 L RDW 20.0 H Plt Count 269 MPV 9.0 L Immature Gran % (Auto) 0.2 Neut % (Auto) 49.4 Lymph % (Auto) 35.3 [place] % (Auto) 10.4 Eos % (Auto) 4.3 H Baso % (Auto) 0.4 Lymph # (Auto) 1.7 [place] # (Auto) 0.5 Eos # (Auto) 0.2 Baso # (Auto) 0.0 Abs Immat Gran (auto) 0.01 Absolute Neuts (auto) 2.3 Absolute Nucleated RBC 0.000 Nucleated RBC % (auto) 0.0 Anion Gap 10 L 10 L Estim Creat Clear Calc 93.4 Estimated GFR Random Glucose Calcium Phosphorus Magnesium Albumin Triglycerides 93 04/04/24 04/04/24 04/04/24 05:54 05:54 05:54 MCV MCH MCHC RDW Plt Count MPV Immature Gran % (Auto) Neut % (Auto) Lymph % (Auto) [place] % (Auto) Eos % (Auto) Baso % (Auto) Lymph # (Auto) [place] # (Auto) Eos # (Auto) Baso # (Auto) Abs Immat Gran (auto) Absolute Neuts (auto) Absolute Nucleated RBC Nucleated RBC % (auto) Anion Gap Estim Creat Clear Calc 94.9 Estimated GFR > 60 > 60 Random Glucose 122 H 122 H Calcium 8.2 L Phosphorus Magnesium Albumin Triglycerides 04/04/24 04/04/24 04/04/24 05:54 05:54 05:54 MCV MCH MCHC RDW Plt Count MPV Immature Gran % (Auto) Neut % (Auto) Lymph % (Auto) [place] % (Auto) Eos % (Auto) Baso % (Auto) Lymph # (Auto) [place] # (Auto) Eos # (Auto) Baso # (Auto) Abs Immat Gran (auto) Absolute Neuts (auto) Absolute Nucleated RBC Nucleated RBC % (auto) Anion Gap Estim Creat Clear Calc Estimated GFR Random Glucose Calcium 8.1 L Phosphorus 3.2 3.2 Magnesium 1.8 1.9 Albumin 2.8 L Triglycerides Procedures Date of Service Date of Service: 04/04/24 Progress Note: A&P Assessment and plan (1) Anastomotic ulcer: Status: Acute Plan Continue NPO Continue TPN and lipids Heparin flush IV fluids Plan for discharge later today Time Spent With Patient Time: Total time managing care of this patient today ____ minutes. Quality Stroke Does the patient have a stroke diagnosis?: No VTE Prior VTE?: No VTE Risk Level:: Medical - low VTE Device Contraindication: N/A - Device Ordered VTE Drug Contraindication: Treatment Not Indicated
--- NOTE | 2024-04-04 08:44 | PM.DS ---
DS: Providers Provider Date of Service: 04/04/24 Date of admission: 04/01/24 13:43 Primary care physician: Era Ham MD Consults: 04/01/24 14:09 Consult to Case Management Routine Comment: will need home tpn, poss dc DS: Diagnosis Discharge Diagnosis (1) Anastomotic ulcer: Status: Acute DS: Summary Hospital Course Hospital Course: 44-year-old female history of gastric bypass and abdominal pain since December, presented to the office with said complaints. She underwent endoscopy by Dr. Avalos on 04/01/2024. Found to have anastomotic ulceration and was admitted to the hospital for further care. Hospital course while admitted: Patient remained NPO, PICC line was placed, TPN and lipids were started. She additionally was found to have iron-deficiency anemia for which she received IV iron and 2 units packed red cells with improvement. Teaching has occurred with the patient and her mother who is a nurse here at the hospital regarding administration of TPN and lipids. She will be discharged home today. Time Attestation Total time managing care of this patient today: 25 mintues. Discharge Coordination Time (in mins): 25 Quality: Safe Use of Opioids Does Pt have an Active Cancer Diagnosis on the Problem List?: No Quality: Stroke Does the patient have a stroke diagnosis?: No Physical Exam Vital Signs: Vital Signs: Last Vital Signs Temp 97.9 F 04/04/24 07:41 Pulse 52 04/04/24 07:41 Resp 19 04/04/24 07:41 BP 118/72 04/04/24 07:41 Pulse Ox 97 04/04/24 07:41 O2 Del Method Room Air 04/04/24 07:41 O2 Flow Rate 6 04/01/24 13:30 BMI result Body Mass Index 21.9 DS: Data Data Completed and Pending Completed studies during hospitalization [Text1]: Pending at discharge 04/01/24 13:16 Surgical [PTH] Routine Labs on day of discharge: Laboratory Results - last 24 hr 04/03/24 04/04/24 04/04/24 05:35 05:54 05:54 WBC 4.7 L RBC 4.26 Hgb 9.5 L Hct 30.8 L MCV 72.3 L MCH 22.3 L MCHC 30.8 L RDW 20.0 H Plt Count 269 MPV 9.0 L Immature Gran % (Auto) 0.2 Neut % (Auto) 49.4 Lymph % (Auto) 35.3 [place] % (Auto) 10.4 Eos % (Auto) 4.3 H Baso % (Auto) 0.4 Lymph # (Auto) 1.7 [place] # (Auto) 0.5 Eos # (Auto) 0.2 Baso # (Auto) 0.0 Abs Immat Gran (auto) 0.01 Absolute Neuts (auto) 2.3 Absolute Nucleated RBC 0.000 Nucleated RBC % (auto) 0.0 Sodium 139 139 Potassium 3.7 Chloride Carbon Dioxide Anion Gap BUN Creatinine Estim Creat Clear Calc Estimated GFR Random Glucose Calcium Phosphorus Magnesium Albumin Triglycerides 93 04/04/24 04/04/24 04/04/24 05:54 05:54 05:54 WBC RBC Hgb Hct MCV MCH MCHC RDW Plt Count MPV Immature Gran % (Auto) Neut % (Auto) Lymph % (Auto) [place] % (Auto) Eos % (Auto) Baso % (Auto) Lymph # (Auto) [place] # (Auto) Eos # (Auto) Baso # (Auto) Abs Immat Gran (auto) Absolute Neuts (auto) Absolute Nucleated RBC Nucleated RBC % (auto) Sodium Potassium 3.7 Chloride 107 106 Carbon Dioxide 26 27 Anion Gap 10 L BUN Creatinine Estim Creat Clear Calc Estimated GFR Random Glucose Calcium Phosphorus Magnesium Albumin Triglycerides 04/04/24 04/04/24 04/04/24 05:54 05:54 05:54 WBC RBC Hgb Hct MCV MCH MCHC RDW Plt Count MPV Immature Gran % (Auto) Neut % (Auto) Lymph % (Auto) [place] % (Auto) Eos % (Auto) Baso % (Auto) Lymph # (Auto) [place] # (Auto) Eos # (Auto) Baso # (Auto) Abs Immat Gran (auto) Absolute Neuts (auto) Absolute Nucleated RBC Nucleated RBC % (auto) Sodium Potassium Chloride Carbon Dioxide Anion Gap 10 L BUN 10 10 Creatinine 0.62 0.61 Estim Creat Clear Calc 93.4 Estimated GFR Random Glucose Calcium Phosphorus Magnesium Albumin Triglycerides 04/04/24 04/04/24 04/04/24 05:54 05:54 05:54 WBC RBC Hgb Hct MCV MCH MCHC RDW Plt Count MPV Immature Gran % (Auto) Neut % (Auto) Lymph % (Auto) [place] % (Auto) Eos % (Auto) Baso % (Auto) Lymph # (Auto) [place] # (Auto) Eos # (Auto) Baso # (Auto) Abs Immat Gran (auto) Absolute Neuts (auto) Absolute Nucleated RBC Nucleated RBC % (auto) Sodium Potassium Chloride Carbon Dioxide Anion Gap BUN Creatinine Estim Creat Clear Calc 94.9 Estimated GFR > 60 > 60 Random Glucose 122 H 122 H Calcium 8.2 L Phosphorus Magnesium Albumin Triglycerides 04/04/24 04/04/24 04/04/24 05:54 05:54 05:54 WBC RBC Hgb Hct MCV MCH MCHC RDW Plt Count MPV Immature Gran % (Auto) Neut % (Auto) Lymph % (Auto) [place] % (Auto) Eos % (Auto) Baso % (Auto) Lymph # (Auto) [place] # (Auto) Eos # (Auto) Baso # (Auto) Abs Immat Gran (auto) Absolute Neuts (auto) Absolute Nucleated RBC Nucleated RBC % (auto) Sodium Potassium Chloride Carbon Dioxide Anion Gap BUN Creatinine Estim Creat Clear Calc Estimated GFR Random Glucose Calcium 8.1 L Phosphorus 3.2 3.2 Magnesium 1.8 1.9 Albumin 2.8 L Triglycerides Discharge Plan Discharge Anticipated Discharge Date/Time: 04/04/24 10:47 Patient Disposition: Home Health Service Discharge Diagnosis: Anastomotic ulcer Referrals: [facility] [Other] - 1 Week ([facility] Era Yeager MD [Primary Care Provider] - 1 Week Discharge Medications: Continued lactulose 10 gram/15 mL solution 15 ml PO BID PRN (Reason: constipation) 30 Days Qty: 473 1RF promethazine 50 mg tablet 50 mg PO TID PRN (Reason: sedation) Qty: 60 3RF ferrous sulfate 325 mg (65 mg iron) tablet 325 mg PO BID 90 Days Qty: 180 1RF oxycodone 5 mg/5 mL solution 5 mg PO Q8H PRN (Reason: pain) Qty: 45 0RF Rx Instructions: Partial Fill upon patient request. cyanocobalamin (vitamin B-12) [Vitamin B-12] 1,000 mcg Tablet 1,000 mcg PO DAILY levothyroxine [Levoxyl] 125 mcg Tablet 125 mcg PO DAILY@0600 ondansetron 4 mg tablet,disintegrating 4 mg PO Q8H PRN (Reason: nausea and vomiting) Qty: 20 0RF doxepin 25 mg capsule 50 mg PO DAILY hydroxyzine HCl 25 mg tablet 50 mg PO .in the morning PRN (Reason: Insomnia) Creon 24,000-76,000 -120,000 unit capsule,delayed release(DR/EC) 2 cap PO BID 30 Days Qty: 120 1RF bisacodyl [Dulcolax (bisacodyl)] 5 mg tablet,delayed release (DR/EC) 15 mg PO DAILY metoclopramide HCl [Reglan] 10 mg tablet 10 mg PO QIDACHS Qty: 120 3RF pantoprazole 40 mg tablet,delayed release (DR/EC) 40 mg PO Q12H Qty: 90 3RF sucralfate [Carafate] 100 mg/mL suspension 10 ml PO QID Qty: 420 3RF Rx Instructions: swish in mouth and swallow; use after food/drink Held gabapentin 600 mg tablet See Rx Instructions PO TID Qty: 90 6RF Hold Instructions: Until discussed with Dr. Avalos Rx Instructions: 1/2 qam and q noon 1 1/2 at bedtime orally 3 times a day; ascorbate calcium (vitamin C) 500 mg tablet 500 mg PO DAILY 90 Days Qty: 90 0RF Hold Instructions: X1 month thiamine HCl (vitamin B1) 100 mg tablet 200 mg PO DAILY Hold Instructions: X1 month vitamin B complex [B Complex-Vitamin B12] Tablet 1 tab PO DAILY Hold Instructions: X1 month riboflavin (vitamin B2) 100 mg tablet 200 mg PO DAILY Hold Instructions: X1 month magnesium 200 mg tablet 200 mg PO DAILY Hold Instructions: X1 month Discharge Orders: Discharge Order (Routine); Ordered 04/04/24 Ordered By: Jordan Read Activity on Discharge: As tolerated Stand Alone Forms: Patient Portal Discharge page Print Language: Burkinan Care Plan Goals: Healing of her ulcer Health Concerns: Anastomotic ulcer Plan of Treatment: Home TPN lipids and IV fluids Assessment: Improved, status post NPO, nutritional supplementation with TPN and lipids
--- NOTE | 2024-04-04 09:13 | MHC.CM.PN ---
Female 44yrs DX Gastric Ulcer Is discharged today. She is NPO and is ordered for TPN. [facility] will provided meds supplies and Nursing services. Patient and mother have received additional education today. DP home with [facility]. A family member will provide transportation home.
--- NOTE | 2024-04-07 22:23 | PC.NURSE ---
on 04/02/24 at 1954 pt requested IV dilaudid for 9/10 pain. on 04/03/24 at 2029 pt requested dilaudid for 8/10 pain.
== END 2024-04-04 12:20 | disposition home health service (06) | DRG 241 ==
LOC: HO.SSSA 13:52 → HO.S3 15:29
PROVIDERS: Physician Assistant Surgical; Admitting Provider Surgery; PCP Internal Medicine; Visit Provider Surgery
PROC: 0DJ08ZZ Inspection of Upper Intestinal Tract, Via Natural or Artificial Opening Endoscopic (ICD-10-PCS; CPT 43235; principal; 2024-04-01 12:00)
DX: K28.4 Chronic or unspecified gastrojejunal ulcer with hemorrhage (principal); E28.2 Polycystic ovarian syndrome; Y83.2 Surgical operation with anastomosis, bypass or graft as the cause of abnormal reaction of the patient, or of later complication, without mention of misadventure at the time of the procedure; Z79.890 Hormone replacement therapy; Z79.899 Other long term (current) drug therapy
CPT/HCPCS: 36415; 36573; 80048; 80053; 82040; 83735; 84100; 84478; 85014; 85018; 85025; 85610; 85730; 86850; 86900; 86901; 86923; 88305; 88312; 88313; 88342; C1751; J0131; J1171; J1642; J1756; J2003; J2060; J2405; J2470; J2704; J3411; J3420; J7120; P9016

== ENCOUNTER 2024-04-10 12:12 | Outpatient (AMB) | payer BC, SELFPAY ==
--- NOTE | 2024-04-10 12:26 | MHC.OFFVISWM ---
VS Expanded 04/10/24 12:45 BP 113/70 Blood Pressure Location Rt brachial Blood Pressure Position Sitting Pulse 74 Pulse Source Pulse Oximeter Temp 98.7 F Temperature Source Temporal Artery Scan Pulse Oximetry 98 Oxygen Delivery Method Room Air Height 5 ft 2 in Weight 113 lb 9.6 oz BMI 20.8 Body Fat % 22.3 Body Fat Mass 25.4 Fat Free Mass 88.2 Visceral Fat Rating 3.0 Body Water % 55.3 Body Water Mass 62.8 Muscle Mass/Score 83.8 Basal Metabolic Rate/Score 1,190 Intake Visit Reasons: OV ER Follow UP (GBP 07/06/16) Allergies hydrocodone [From VICODIN] Allergy (Intermediate, Verified 04/10/24 12:40) GI UPSET propylene glycol [PROPYLENE GLYCOL] Allergy (Intermediate, Verified 04/10/24 12:40) EXTREME BURNING/PAIN/RASH trazodone Allergy (Intermediate, Verified 04/10/24 12:40) Shortness of Breath cobalt Allergy (Verified 04/10/24 12:40) Unknown acetaminophen [Vicodin] Adverse Reaction (Severe, Verified 04/10/24 12:40) Constipation lamotrigine Adverse Reaction (Intermediate, Verified 04/10/24 12:40) foggy propranolol Adverse Reaction (Intermediate, Verified 04/10/24 12:40) inadequate response levetiracetam [From Keppra] Adverse Reaction (Verified 04/10/24 12:40) foggy diamox Adverse Reaction (Intermediate, Uncoded 04/01/24 12:49) metalic taste, did not feel comfortable Medication List - Last Reconciled 04/10/24 by MASOUD Manriquez ascorbate calcium (vitamin C) 500 mg PO DAILY 90 days bisacodyl (Dulcolax (bisacodyl)) 15 mg PO DAILY cyanocobalamin (vitamin B-12) (Vitamin B-12) 1,000 mcg PO DAILY doxepin 50 mg PO DAILY ferrous sulfate 325 mg PO BID 90 days gabapentin 1/2 qam and q noon 1 1/2 at bedtime orally 3 times a day; hydroxyzine HCl 50 mg PO .in the morning PRN lactulose 15 mL PO BID PRN 30 days levothyroxine (Levoxyl) 125 mcg PO DAILY@0600 [id number]-[id number] 24,000-76,000 -120,000 unit (Creon) 2 caps PO BID 30 days magnesium 200 mg PO DAILY metoclopramide HCl (Reglan) 10 mg PO QIDACHS ondansetron 4 mg PO Q8H PRN oxycodone 5 mg (5 mL) PO Q8H PRN pantoprazole 40 mg PO Q12H promethazine 50 mg PO TID PRN riboflavin (vitamin B2) 200 mg PO DAILY sucralfate (Carafate) 10 mL PO QID thiamine HCl (vitamin B1) 200 mg PO DAILY vitamin B complex (B Complex-Vitamin B12 tablet) 1 tab PO DAILY HPI Comments Details: Pt presents in followup after hospitalization for anastomotic ulcer. She is NPO on TPN via PICC, on pantoprazole and carafate. Compliant with these meds. Weight loss of 5.5lbs since last OV with me, however body fat mass has increased. Continues to have abdominal pain radiating to back, perhaps slightly better than previous. Getting labs done once a week for TPN by [facility]. Was having TPN run over 20 hours but she was supposed to only have it running for 12, getting a new pump delivered soon. She would really like to start liquids. [facility] Medical History (Updated 04/01/24 @ 13:51 by London Avalos MD) Nausea & vomiting Epigastric pain Esophageal candidiasis Oropharyngeal dysphagia Dysphagia Bilateral hand pain Pseudotumor cerebri Anxiety Insomnia Tremors of nervous system Impacted cerumen of both ears Acute sinusitis Acute right otitis media Goiter Janna's thyroiditis Physical exam Contusion of right forearm Right elbow pain Right wrist pain Right arm pain Fall from slipping on ice Sinus infection Right wrist tendinitis Hypothyroidism Chronic migraine PCOS (polycystic ovarian syndrome) Pain in joint of right wrist Surgical History Hx of tubal ligation History of esophagogastroduodenoscopy (EGD) History of thyroidectomy Hx of hand surgery (12/25/22) H/O right knee surgery History of intestinal obstruction History of lumbar puncture Hx of appendectomy H/O gastric bypass History of partial hysterectomy Family History Mother No problems noted. Father Degenerative disc disease, lumbar Maternal Grandmother Tremors of nervous system Chronic headaches Social History (Reviewed 04/10/24 @ 12:43 by JAKE Jenkins Household Members: Spouse, Family and Children Housing: House Are you a primary lawn caretaker to a significant other at home: No Do you presently have visiting nurse or other home services: No Alcohol intake: current Alcohol intake frequency: holidays/special occasions only Comment: pt has ulcer Patient Tobacco Use Status: Never used Tobacco e-Cigarette/Vaping Use: Never Used Second Hand Smoke Exposure: No service: No Current occupational status: employed 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 She will decide if she wants us to fill out [place] paperwork and call us. I spent a total of 30 minutes reviewing/updating records, examining the patient and counseling the patient on weight management as detailed above.
[2024-04-10 12:45] VITALS: BP 113/70; PULSE 74; TEMP 37.1; O2SAT 98; BMI 20.8
== END 2024-04-10 13:13 | disposition home or self-care (01) ==
PROVIDERS: PCP Internal Medicine; Visit Provider Physician Assistant Surgical
DX: K28.9 Gastrojejunal ulcer, unspecified as acute or chronic, 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 (principal); Z98.84 Bariatric surgery status
CPT/HCPCS: 99214

== ENCOUNTER 2024-04-23 09:00 | Day surgery (SDC) | payer BC, SELFPAY ==
--- NOTE | 2024-04-22 08:36 | P.CONAN_ITS ---
Documented by User: Nakita Martinez NP 04/22/24 10:21 HPI - Anesthesia Eval Consult details Narrative: 44yo F for Upper Endoscopy [facility] [place] admit 03/2024 history of gastric bypass and abdominal pain since December, presented to the office with said complaints. She underwent endoscopy by Dr. Avalos on 04/01/2024. Found to have anastomotic ulceration and was admitted to the hospital for further care. Hospital course while admitted: Patient remained NPO, PICC line was placed, TPN and lipids were started. She additionally was found to have iron-deficiency anemia for which she received IV iron and 2 units packed red cells with improvement. Teaching has occurred with the patient and her mother who is a nurse here at the hospital regarding administration of TPN and lipids. She will be discharged home today. s/p EGD 03/2024 with [facility] Active Problems Active Problems: All Active Problems Anastomotic ulcer (Acute) Gastric bypass status for obesity (Acute) GERD (gastroesophageal reflux disease) (Acute) Thoracic spine pain (Acute) Restless leg syndrome (Acute) Multiple drug allergies (Acute) Postoperative hypothyroidism (Acute) Chronic idiopathic constipation (Acute) Pseudotumor cerebri (Acute) Cervicalgia (Acute) Chronic migraine with aura (Acute) B12 deficiency (Acute) Seizures (Acute) Epigastric pain (Acute) Anxiety (Acute) Insomnia (Acute) Tremors of nervous system (Acute) Past Medical History Medical History Seizure Chest pain Elevated d-dimer Cough Nausea & vomiting Epigastric pain Esophageal candidiasis Lymphedema Oropharyngeal dysphagia Dysphagia De Quervain's tenosynovitis, left Bilateral hand pain Pseudotumor cerebri Anxiety Insomnia Pain of right upper extremity Tremors of nervous system Impacted cerumen of both ears Acute sinusitis Acute right otitis media Goiter Janna's thyroiditis Physical exam Contusion of right forearm Right elbow pain Right wrist pain Right arm pain Fall from slipping on ice Sinus infection De Quervain's tenosynovitis, right Right wrist tendinitis Hypothyroidism Chronic migraine PCOS (polycystic ovarian syndrome) Pain in joint of right wrist Family History Family History Mother No problems noted. Father Degenerative disc disease, lumbar Maternal Grandmother Tremors of nervous system Chronic headaches Family history of problems with anesthesia: No Surgical History Surgical History Hx of tubal ligation History of esophagogastroduodenoscopy (EGD) History of thyroidectomy Hx of hand surgery (12/25/22) H/O right knee surgery History of intestinal obstruction History of lumbar puncture Hx of appendectomy H/O gastric bypass History of partial hysterectomy History of Problems with Anesthesia: No Social History Social History Household Members: Spouse, Family and Children Housing: House Are you a primary care professional to a significant other at home: No Do you presently have visiting nurse or other home services: No Alcohol intake: current Alcohol intake frequency: holidays/special occasions only Comment: pt has ulcer Patient Tobacco Use Status: Never used Tobacco e-Cigarette/Vaping Use: Never Used Second Hand Smoke Exposure: No Use of substances other than those prescribed or required for medical reasons: No Are you DNR?: No Advance Directives: No Advance Directives Information Provided: Yes Recently lost weight without trying: No Nutrition Risks: Receiving home tube feeding or CPN Patient : No service: No Current occupational status: employed 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 Current occupational exposures/hazards: No Cognitive needs: No Hearing needs: No Vision needs: Yes Meds Allergies Allergy/AdvReac Type Severity Reaction Status Date / Time hydrocodone [From VICODIN] Allergy Intermediate GI UPSET Verified 04/10/24 12:40 propylene glycol Allergy Intermediate EXTREME Verified 04/10/24 12:40 [PROPYLENE GLYCOL] BURNING/PAIN/RASH trazodone Allergy Intermediate Shortness Verified 04/10/24 12:40 of Breath cobalt Allergy Unknown Verified 04/10/24 12:40 acetaminophen [Vicodin] AdvReac Severe Constipatio Verified 04/10/24 12:40 n lamotrigine AdvReac Intermediate foggy Verified 04/10/24 12:40 propranolol AdvReac Intermediate inadequate Verified 04/10/24 12:40 response levetiracetam [From Keppra] AdvReac foggy Verified 04/10/24 12:40 diamox AdvReac Intermediate metalic Uncoded 04/01/24 12:49 taste, did not feel comfortable Home Medications ?Medication ?Instructions ?Recorded ?Confirmed ?Last Taken ?Type doxepin 25 mg capsule 50 mg PO DAILY 02/07/21 04/23/24 04/23/24 History magnesium 200 mg tablet 200 mg PO DAILY 03/28/22 04/10/24 02/25/24 06:00 History riboflavin (vitamin B2) 100 mg 200 mg PO DAILY 03/28/22 04/10/24 02/25/24 06:00 History tablet thiamine HCl (vitamin B1) 100 mg 200 mg PO DAILY 03/28/22 04/10/24 02/25/24 06:00 History tablet vitamin B complex (B 1 tab PO DAILY 03/28/22 04/10/24 02/25/24 06:00 History Complex-Vitamin B12 tablet) cyanocobalamin (vitamin B-12) 1,000 mcg PO DAILY 02/26/24 04/10/24 02/25/24 06:00 History 1,000 mcg tablet (Vitamin B-12) levothyroxine 125 mcg tablet 125 mcg PO DAILY@0600 02/26/24 04/23/24 04/23/24 History (Levoxyl) hydroxyzine HCl 25 mg tablet 50 mg PO .in the morning PRN 02/27/24 04/10/24 Unknown History Insomnia bisacodyl 5 mg tablet,delayed 15 mg PO DAILY constipation 03/12/24 04/10/24 Unknown History release (Dulcolax (bisacodyl)) Assessment and Plan Assessment Anesthesia Assessment: Chart Reviewed Final Anesthetic Review Family History of Problems with Anesthesia: No History of Problems with Anesthesia: No Documented by User: Shelby Kennedy MD 04/23/24 10:40 [facility] Past Medical History Medical History Seizure Chest pain Elevated d-dimer Cough Nausea & vomiting Epigastric pain Esophageal candidiasis Lymphedema Oropharyngeal dysphagia Dysphagia De Quervain's tenosynovitis, left Bilateral hand pain Pseudotumor cerebri Anxiety Insomnia Pain of right upper extremity Tremors of nervous system Impacted cerumen of both ears Acute sinusitis Acute right otitis media Goiter Janna's thyroiditis Physical exam Contusion of right forearm Right elbow pain Right wrist pain Right arm pain Fall from slipping on ice Sinus infection De Quervain's tenosynovitis, right Right wrist tendinitis Hypothyroidism Chronic migraine PCOS (polycystic ovarian syndrome) Pain in joint of right wrist Family History Family History Mother No problems noted. Father Degenerative disc disease, lumbar Maternal Grandmother Tremors of nervous system Chronic headaches Family history of problems with anesthesia: No Surgical History Surgical History Hx of tubal ligation History of esophagogastroduodenoscopy (EGD) History of thyroidectomy Hx of hand surgery (12/25/22) H/O right knee surgery History of intestinal obstruction History of lumbar puncture Hx of appendectomy H/O gastric bypass History of partial hysterectomy History of Problems with Anesthesia: No Social History Social History Household Members: Spouse, Family and Children Housing: House Are you a primary care professional to a significant other at home: No Do you presently have visiting nurse or other home services: No Alcohol intake: current Alcohol intake frequency: holidays/special occasions only Comment: pt has ulcer Patient Tobacco Use Status: Never used Tobacco e-Cigarette/Vaping Use: Never Used Second Hand Smoke Exposure: No Use of substances other than those prescribed or required for medical reasons: No Are you DNR?: No Advance Directives: No Advance Directives Information Provided: Yes Recently lost weight without trying: No Nutrition Risks: Receiving home tube feeding or CPN Patient : No service: No Current occupational status: employed 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 Current occupational exposures/hazards: No Cognitive needs: No Hearing needs: No Vision needs: Yes Meds Allergies Allergy/AdvReac Type Severity Reaction Status Date / Time hydrocodone [From VICODIN] Allergy Intermediate GI UPSET Verified 04/10/24 12:40 propylene glycol Allergy Intermediate EXTREME Verified 04/10/24 12:40 [PROPYLENE GLYCOL] BURNING/PAIN/RASH trazodone Allergy Intermediate Shortness Verified 04/10/24 12:40 of Breath cobalt Allergy Unknown Verified 04/10/24 12:40 acetaminophen [Vicodin] AdvReac Severe Constipatio Verified 04/10/24 12:40 n lamotrigine AdvReac Intermediate foggy Verified 04/10/24 12:40 propranolol AdvReac Intermediate inadequate Verified 04/10/24 12:40 response levetiracetam [From [facility]] AdvReac foggy Verified 04/10/24 12:40 diamox AdvReac Intermediate metalic Uncoded 04/01/24 12:49 taste, did not feel comfortable Home Medications ?Medication ?Instructions ?Recorded ?Confirmed ?Last Taken ?Type doxepin 25 mg capsule 50 mg PO DAILY 02/07/21 04/23/24 04/23/24 History magnesium 200 mg tablet 200 mg PO DAILY 03/28/22 04/10/24 02/25/24 06:00 History riboflavin (vitamin B2) 100 mg 200 mg PO DAILY 03/28/22 04/10/24 02/25/24 06:00 History tablet thiamine HCl (vitamin B1) 100 mg 200 mg PO DAILY 03/28/22 04/10/24 02/25/24 06:00 History tablet vitamin B complex (B 1 tab PO DAILY 03/28/22 04/10/24 02/25/24 06:00 History Complex-Vitamin B12 tablet) cyanocobalamin (vitamin B-12) 1,000 mcg PO DAILY 02/26/24 04/10/24 02/25/24 06:00 History 1,000 mcg tablet (Vitamin B-12) levothyroxine 125 mcg tablet 125 mcg PO DAILY@0600 02/26/24 04/23/24 04/23/24 History (Levoxyl) hydroxyzine HCl 25 mg tablet 50 mg PO .in the morning PRN 02/27/24 04/10/24 Unknown History Insomnia bisacodyl 5 mg tablet,delayed 15 mg PO DAILY constipation 03/12/24 04/10/24 Unknown History release (Dulcolax (bisacodyl)) Exam Height,Weight and Vital Signs: Height 5 ft 2 in Weight 54.941 kg Vital Signs Temp Pulse Resp BP Pulse Ox O2 Del Method 04/23/24 10:21 98.2 F 58 16 102/51 L 100 Room Air Airway Mallampati Class: III (Small mouth) TM Dist: >3cm Neck ROM: Full Loose/Missing/Broken Teeth: No (Patient denies broken, loose, missing teeth) Heart: RRR Lungs: CTAB Assessment and Plan Assessment Anesthesia Assessment: Anesthesia Plan Discussed and Chart Reviewed Final Anesthetic Review Family History of Problems with Anesthesia: No History of Problems with Anesthesia: No NPO: Yes ASA Class: III Final Preanesthetic Review: No Changes in Pt Med Stat, Meds/Allgs Chart Reviewed, Consent Obtained/Reviewed and Anes Risks/Benef Reviewed Patient Risk: Intermediate Procedure Risk: Low Assessment/Block/Sedation in SS: Assess/Block/Sedation-SS Anesthetic Plan Anesthetic Plan: TIVA Disposition: Standard PACU
[2024-04-23 10:14] VITALS: BMI 22.2
[2024-04-23 10:21] VITALS: BP 102/51; PULSE 58; RESP 16; TEMP 36.8; O2SAT 100
--- NOTE | 2024-04-23 10:30 | MHC.SHP ---
Pre-Procedural Eval Section A - 24 Hr Update-Section A only Date of Service: 04/23/24 The patient is an INPATIENT: No The patient has been examined within 24 hours of the surgical procedure. The History & Physical has been completed within 30 days and I have reviewed it.: Yes Section B - Complete if H&P > 30 days Chief Complaint: Postgastric surgery syndromes Details of Present Illness: Anastomotic ulcer Relevant Family History (Specify if Yes): No Relevant Social History: None Present Medications: None Medical History: No relevant PMH History of Previous Operations: Relevant previous surgery/procedure and date(s) (Laparoscopic gastric bypass) Allergies: Allergies Allergy/AdvReac Type Severity Reaction Status Date / Time hydrocodone [From VICODIN] Allergy Intermediate GI UPSET Verified 04/10/24 12:40 propylene glycol Allergy Intermediate EXTREME Verified 04/10/24 12:40 [PROPYLENE GLYCOL] BURNING/PAIN/RASH trazodone Allergy Intermediate Shortness Verified 04/10/24 12:40 of Breath cobalt Allergy Unknown Verified 04/10/24 12:40 acetaminophen [Vicodin] AdvReac Severe Constipatio Verified 04/10/24 12:40 n lamotrigine AdvReac Intermediate foggy Verified 04/10/24 12:40 propranolol AdvReac Intermediate inadequate Verified 04/10/24 12:40 response levetiracetam [From Keppra] AdvReac foggy Verified 04/10/24 12:40 diamox AdvReac Intermediate metalic Uncoded 04/01/24 12:49 taste, did not feel comfortable Review of Systems Sugical H&P ROS: Negative: Constitution, Cardiovascular, Respiratory, Neurological, Psychiatric, Hem-Onc, Allergic/Immunologic, Genitourinary, Musculoskeletal, Integumentary, Endocrine and Eyes/Ears/Nose/Throat and Yes, Specify: Gastrointestinal (Abdominal pain is improved) Exam Surgical H&P Exam: Normal: HEENT, Normal: Heart, Normal: Lungs, Normal: Extremities, Normal: Abdomen, Normal: Skin and Normal: Neurological Plan Diagnosis/Plan: Unchanged (EGD to assess the status of the anastomotic ulcer. Risks of bleeding and perforation were discussed with the patient and she is in agreement with the plan.) I have reviewed the history and physical and performed a pertinent physical examination on my patient. No changes have occurred unless specified. Time Spent With Patient Time: Total time managing care of this patient today ____ minutes.
--- NOTE | 2024-04-23 10:36 | PM.OP ---
Brief Operative Note Date of Service: 04/23/24 Pre-op diagnosis: Anastomotic ulcer and Sana esophagitis Post-op diagnosis: same Procedure: PROCEDURE DATE: ?04/23/2024 PREOPERATIVE DIAGNOSIS: Large anastomotic ulcer, Sana esophagitis, s/p gastric bypass POSTOPERATIVE DIAGNOSIS: ?Same as above. 1) Large posterior anastomotic ulcer with other superficial anastomotic ulcers, 2) hiatal hernia PROCEDURE: [id number]-zigjic-[id number] with biopsies Surgeon: ?Edinson Avalos M.D.. Ph.D. Director Of Sustainability Programs: ?None ? Anesthesia: IV sedation Estimated blood loss: ?Minimal FINDINGS AND PROCEDURE: ? OPERATIVE INDICATIONS: ?The patient is a 44 year old female known to me who underwent a laparoscopic gastric bypass by me several years ago. The patient had excellent weight loss so far. Over the last 2 months she has been complaining of persistent abdominal pain radiating to the back. The pain is more severe with food intake and that has limited significantly her food intake. She appears cachectic, malnourished and ill appearing.?An endoscopy was performed on 04/01/24 which revealed a large anastomotic ulcer and biopsies showed esophagitis of Sana origin. The patient was placed on TPN and she returns today for a follow-up endoscopy. Risks and complications of the surgery were discussed with the patient in advance particularly the possibility of perforation or bleeding that may require surgical intervention. The patient understood the risks and was in agreement with the plan. ? PROCEDURE: After informed consent was obtained by the patient, the patient was ?transferred to the Operating Room and was placed in the supine position.? After successful induction of IV sedation, a mouth block was placed and the patient was placed in the left lateral decubitus position. An upper endoscopy was performed next, the oropharynx and esophagus appeared within the normal limits. There was a 2-3cm hiatal hernia.? The z-line was smooth. Two biopsies were obtained from the proximal esophagus, distal esophagus 2-3 cm proximal to the GE junction and one biopsy from the GE junction. The small pouch was entered, appeared to be of normal size. There was no gastritis and the gastrojejunostomy was patent. No significant bleeding was noted from any of the biopsy sites. The previously seen large anastomotic ulcer has nearly healed. There were still two superficial anastomotic ulcers at the anterior/right side of the anastomosis.?The previously seen erythema had significantly improved and the intestinal mucosa looked much healthier. The scope was advanced further into the proximal small intestine (proximal Malika limb) which looked normnal. The Malika limb and the pouch were decompressed and the scope was withdrawn from the patient's mouth. The patient will continue the TPN and a follow-up endoscopy will be scheduled. The patient was awaken and was transferred in stable condition to the Recovery Room for further care. I was present and performed all steps of the procedure. There were no residents to assist with this case. Edinson Avalos M.D., Ph.D. Surgeon: London Avalos MD Anesthesia: MAC Was an Director Of Sustainability Programs used for this Procedure?: No Estimated blood loss (mL): 0 IV fluids (mL): 400 Urine output (mL): 0 Pathology: other (Esophagus ) Condition: stable Disposition: PACU
[2024-04-23 11:06] VITALS: BP 123/57; PULSE 62; RESP 16; TEMP 36.8; O2SAT 100
[2024-04-23 11:21] VITALS: BP 101/43; PULSE 62; RESP 18; TEMP 36.8; O2SAT 99
--- NOTE | 2024-04-23 11:35 | PC.NURSE ---
PT GOING TO [facility] AREA TO HAVE VENOFER INFUSION DONE
[2024-04-23] MEDS: Iron Sucrose Complex 400 MG in 0.9 % Sodium Chloride 250 ML 108 MG IV (11:39)
--- OUTSIDE RECORDS SUMMARY | 2024-04-29 16:41 | XMS_ITS | Continuity of Care Document ---
Author Organization [facility] Address [address] [place] [id number] Care Team Providers Care Chemist Biological Name Role Phone Lopez Ham MD, Era Pickens Primary Care Physician Encounter [facility] Date(s): 03/14/24 - 04/13/24 [facility] [address] [place] [id number] Encounter Type: Triage Allergies, Adverse Reactions, Alerts Substance Criticality Severity Reaction Reaction Severity Status polyethylene glycols Dermatitis Active traZODone Sweating Restlessness Respiratory distress Palpitations Hot flashes Dry mouth Dizziness Active propylene glycol 1 High criticality Moderate Burni ng sensation Dermatitis Active 1Ethylene Glycol Medications bisacodyl 5 mg oral delayed release tablet 1 tablet = 5 mg, By Mouth, Daily, PRN as needed for constipation, # 20 tablet, 0 Refills, Maintenance, 02/27/23 11:12:00 AM EDT, CR Tablet, Partial fill upon patient request if the prescription is for a schedule II opioid drug. Start Date: 02/27/23 Status: Ordered Quantity: 20.0 Unit: tablet Repeat number: 1 Calcium 600+D oral tablet 2 tablet, By Mouth, 2 times a day, increase to 3 times a day if symptomatic, # 120 tablet, 0 Refills, Maintenance, 03/01/23 11:05:00 AM EDT, [id number], Partial fill upon patient request if the prescription is for a schedule II opioid drug., 2 tablet By Mouth 2 times a day,x30 days,Instr:increase to 3 times a day if symptomatic, 158, cm, 02/28/23 18:58:00 EDT, Height, 52.8, kg, 02/28/23 19:09:00 EDT, Dry Weight Start Date: 03/01/23 Stop Date: 03/31/23 Status: Ordered Quantity: 120.0 Unit: tablet Repeat number: 1 Caltrate 600 Plus By Mouth, Daily, 0 Refills, Maintenance, 02/27/23 11:10:00 AM EDT, Partial fill upon patient request if the prescription is for a schedule II opioid drug. Start Date: 02/27/23 Status: Ordered Repeat number: 1 Doxepin = 25 mg, By Mouth, 2 times a day, 0 Refills, Maintenance, 10/03/13 10:58:21 AM EDT Start Date: 10/03/13 Status: Ordered Repeat number: 1 gabapentin 300 mg oral capsule 300 mg, 1, capsule, By Mouth, Daily at bedtime, 90 each, TAKE 1 CAPSULE BY MOUTH EVERY MORNING, 1 CASULE EVERY DAY AT NOON AND 3 CAPSULES AT BEDTIME, Refills 0, 10/26/22 3:04:00 PM EDT, Partial fill upon patient request if the prescription is for a schedule II opioid drug. Start Date: 10/26/22 Status: Ordered Repeat number: 1 hydroxyzine hydrochloride 25 mg oral tablet 1 tablet = 25 mg, By Mouth, 4 times a day, PRN as needed for itching, # 20 tablet, 0 Refills, Maintenance, 06/21/11 11:54:08 AM EST, Tablet, [id number] Start Date: 06/21/11 Status: Ordered Quantity: 20.0 Unit: tablet Repeat number: 1 Lab draw for albumin and calcium Lab draw for albumin and calcium, See Instructions, # 1 Unknown, Refills 0, Tot. Refills 0, Maintenance, n/a, 03/01/23 11:58:00 AM EDT, Supply Start Date: 03/01/23 Status: Ordered Quantity: 1.0 Unit: Unknown Repeat number: 1 lactulose 10 gm/15 ml oral syrup 237 mL, TAKE 15 ML BY MOUTH AT BEDTIME NEEDED FOR CONSTIPATION, 0 Refills, 10/26/22 3:04:00 PM EDT, Partial fill upon patient request if the prescription is for a schedule II opioid drug. Start Date: 10/26/22 Status: Ordered Repeat number: 1 Levoxyl 0.125 mg oral tablet 1 tablet = 125 mcg, By Mouth, Daily, on an empty stomach with plenty of water as a single daily dose at least 1 hour before breakfast and other medications avoid antacids, calcium, or iron for at least 4 hrs before or 4 hrs after BRAND NAME ONLY, # 90 tablet, 3 Refills, Maintenance, 08/01/23 12:51:00 PM EDT, Tablet, [id number], Partial fill upon patient request if the prescription is for aschedule II opioid drug., 158, cm, 03/16/23 15:00:00 EDT, Height, 52.8, kg, 02/28/23 19:09:00 EDT, Dry Weight Start Date: 08/01/23 Status: Ordered Quantity: 90.0 Unit: tablet Repeat number: 4 Indication: Hypothyroidism, unspecified magnesium aspartate = 1,230 mg, By Mouth, 2 times a day, 0 Refills, Maintenance, 02/27/23 11:11:00 AM EDT, Partial fillupon patient request if the prescription is for a schedule II opioid drug. Start Date: 02/27/23 Status: Ordered Repeat number: 1 Melatonin 1 mg oral tablet 1 tablet = 1 mg, By Mouth, Daily at bedtime, PRN for insomnia, # 90 tablet, 0 Refills, Maintenance,02/27/23 11:11:00 AM EDT, Tablet, Partial fill upon patient request if the prescription is for a schedule II opioid drug. Start Date: 02/27/23 Status: Ordered Quantity: 90.0 Unit: tablet Repeat number: 1 Problem List Condition Confirmation Course Effective Dates Status Health St atus Informant Lichen planus Confirmed Active Social History Social History Type Response Smoking Status Never (less than 100 in lifetime) entered on: 10/26/22 Sex Sex Representation Female (finding) Patient Care team information Care Team Personnel Name: Eliel BLACKWOOD, Brenda Position: [facility] RN Member Role: Primary Care Nurse Name: Lopez Ham MD , Era Pickens Position: Reference Physician Member Role: PCP Address: [address] [place] [address]- Telecom: Care Team Related Persons Name: ROBBY MORAN Name: ANAYA THOMAS Insurance Providers Guarantor name: MARIA FERNANDA Health Plan Information #: 1 Payer: [employer] Member Number: NA Policy Number: NA Group Number: [id number]
== END 2024-04-23 14:37 | disposition home or self-care (01) ==
PROVIDERS: PCP Internal Medicine; Visit Provider Surgery
PROC: 0DJ08ZZ Inspection of Upper Intestinal Tract, Via Natural or Artificial Opening Endoscopic (ICD-10-PCS; CPT 43235; principal; 2024-04-23 10:50)
DX: K28.9 Gastrojejunal ulcer, unspecified as acute or chronic, 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 (principal); B37.81 Candidal esophagitis; K44.9 Diaphragmatic hernia without obstruction or gangrene; E63.9 Nutritional deficiency, unspecified; G93.2 Benign intracranial hypertension; R25.1 Tremor, unspecified; F41.9 Anxiety disorder, unspecified; E06.3 Autoimmune thyroiditis; E28.2 Polycystic ovarian syndrome; G43.909 Migraine, unspecified, not intractable, without status migrainosus; Z98.84 Bariatric surgery status; Z98.890 Other specified postprocedural states; Z79.899 Other long term (current) drug therapy; Z88.5 Allergy status to narcotic agent; Z88.8 Allergy status to other drugs, medicaments and biological substances
CPT/HCPCS: 43239; 88305; J1756; J2003; J2704

== ENCOUNTER → 2024-04-23 09:00 | Outpatient (BNV) | payer BC, SELFPAY | PROVIDERS: PCP Internal Medicine; Visit Provider Surgery | DX: K91.1 Postgastric surgery syndromes (principal) | CPT/HCPCS: 43239 ==

== ENCOUNTER 2024-05-20 11:56 | Day surgery (SDC) | payer BC, SELFPAY ==
--- OUTSIDE RECORDS SUMMARY | 2024-05-06 14:21 | XMS_ITS | Continuity of Care Document ---
Author Name [facility] Organization [facility] Care Team Providers Care Preboarder Name Role Phone [facility] Unavailable Unavailable Social History Combined list of available smoking, tobacco, and other social history from Department of Defense and Veterans Affairs facilities. Social History Type Response Date Comment Sourc e This section is an empty social history section. DoD
[2024-05-16 08:41] VITALS: BMI 20.7
--- OUTSIDE RECORDS SUMMARY | 2024-05-20 11:59 | XMS_ITS | Continuity of Care Document ---
Author Name [facility] Organization [facility] Care Team Providers Care Manager Pricing Name Role Phone [facility] Unavailable Unavailable Social History Combined list of available smoking, tobacco, and other social history from Department of Defense and Veterans Affairs facilities. Social History Type Response Date Comment Sourc e This section is an empty social history section. DoD
[2024-05-20 13:08] VITALS: BP 112/62; PULSE 57; RESP 14; TEMP 37.1; O2SAT 100; BMI 21.9
[2024-05-20] MEDS: Lactated Ringers 1,000 ML 80 ML IVCONT (13:19)
--- NOTE | 2024-05-20 14:48 | P.CONAN_ITS ---
HPI - Anesthesia Eval Consult details Narrative: 44 year old female patient for EGD for evaluation of anastomotic ulcer PMFSH Active Problems Active Problems: All Active Problems Anastomotic ulcer (Acute) Gastric bypass status for obesity (Acute) GERD (gastroesophageal reflux disease) (Acute) Thoracic spine pain (Acute) Restless leg syndrome (Acute) Multiple drug allergies (Acute) Postoperative hypothyroidism (Acute) Chronic idiopathic constipation (Acute) Pseudotumor cerebri (Acute) Cervicalgia (Acute) Chronic migraine with aura (Acute) B12 deficiency (Acute) Seizures (Acute) Epigastric pain (Acute) Anxiety (Acute) Insomnia (Acute) Tremors of nervous system (Acute) Past Medical History Medical History Seizure Chest pain Elevated d-dimer Cough Nausea & vomiting Epigastric pain Esophageal candidiasis Lymphedema Oropharyngeal dysphagia Dysphagia De Quervain's tenosynovitis, left Bilateral hand pain Pseudotumor cerebri Anxiety Insomnia Pain of right upper extremity Tremors of nervous system Impacted cerumen of both ears Acute sinusitis Acute right otitis media Goiter Janna's thyroiditis Physical exam Contusion of right forearm Right elbow pain Right wrist pain Right arm pain Fall from slipping on ice Sinus infection De Quervain's tenosynovitis, right Right wrist tendinitis Hypothyroidism Chronic migraine PCOS (polycystic ovarian syndrome) Pain in joint of right wrist Family History Family History Mother No problems noted. Father Degenerative disc disease, lumbar Maternal Grandmother Tremors of nervous system Chronic headaches Family history of problems with anesthesia: No Surgical History Surgical History Hx of tubal ligation History of esophagogastroduodenoscopy (EGD) History of thyroidectomy Hx of hand surgery (12/25/22) H/O right knee surgery History of intestinal obstruction History of lumbar puncture Hx of appendectomy H/O gastric bypass History of partial hysterectomy History of Problems with Anesthesia: No Social History Social History Household Members: Spouse, Family and Children Housing: House Are you a primary customer care associate to a significant other at home: No Do you presently have visiting nurse or other home services: No Alcohol intake: current Alcohol intake frequency: does not drink Comment: pt has ulcer Patient Tobacco Use Status: Never used Tobacco e-Cigarette/Vaping Use: Never Used Second Hand Smoke Exposure: No Use of substances other than those prescribed or required for medical reasons: No Have you been hit, kicked, punched, or otherwise hurt by someone within the past year? 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 Current occupational exposures/hazards: No Cognitive needs: No Hearing needs: No Vision needs: Yes Meds Allergies Allergy/AdvReac Type Severity Reaction Status Date / Time hydrocodone [From VICODIN] Allergy Intermediate GI UPSET Verified 05/20/24 12:55 propylene glycol Allergy Intermediate EXTREME Verified 05/20/24 12:55 [PROPYLENE GLYCOL] BURNING/PAIN/RASH trazodone Allergy Intermediate Shortness Verified 05/20/24 12:55 of Breath cobalt Allergy Unknown Verified 05/20/24 12:55 acetaminophen [Vicodin] AdvReac Severe Constipatio Verified 05/20/24 12:55 n lamotrigine AdvReac Intermediate foggy Verified 05/20/24 12:55 propranolol AdvReac Intermediate inadequate Verified 05/20/24 12:55 response levetiracetam [From Keppra] AdvReac foggy Verified 05/20/24 12:55 diamox AdvReac Intermediate metalic Uncoded 04/01/24 12:49 taste, did not feel comfortable Active Medications: Current Medications Lactated Ringer's (Lr) 1,000 mls @ 80 mls/hr IVCONT .[id number] Last Admin: 05/20/24 13:19 Dose: 80 mls/hr Home Medications ?Medication ?Instructions ?Recorded ?Confirmed ?Last Taken ?Type doxepin 25 mg capsule 50 mg PO DAILY 02/07/21 05/20/24 05/20/24 History magnesium 200 mg tablet 200 mg PO DAILY 03/28/22 05/20/24 02/25/24 06:00 History riboflavin (vitamin B2) 100 mg 200 mg PO DAILY 11/01/0905/20/24 02/25/24 06:00 History tablet thiamine HCl (vitamin B1) 100 mg 200 mg PO DAILY 03/28/22 05/20/24 02/25/24 06:00 History tablet vitamin B complex (B 1 tab PO DAILY 03/28/22 05/20/24 02/25/24 06:00 History Complex-Vitamin B12 tablet) cyanocobalamin (vitamin B-12) 1,000 mcg PO DAILY 02/26/24 05/20/24 02/25/24 06:00 History 1,000 mcg tablet (Vitamin B-12) levothyroxine 125 mcg tablet 125 mcg PO DAILY@0600 02/26/24 05/20/24 04/23/24 History (Levoxyl) hydroxyzine HCl 25 mg tablet 50 mg PO .in the morning PRN 02/27/24 05/20/24 Unknown History Insomnia bisacodyl 5 mg tablet,delayed 15 mg PO DAILY constipation 03/12/24 05/20/24 Unknown History release (Dulcolax (bisacodyl)) Exam Height,Weight and Vital Signs: Height 5 ft 2 in Weight 54.431 kg Last Vital Signs Temp 98.7 F 05/20/24 13:08 Pulse 57 05/20/24 13:08 Resp 14 05/20/24 13:08 BP 112/62 05/20/24 13:08 Pulse Ox 100 05/20/24 13:08 O2 Del Method Room Air 05/20/24 13:08 Airway Mallampati Class: III (Small mouth) TM Dist: >3cm Neck ROM: Full Loose/Missing/Broken Teeth: No Heart: RRR Lungs: CTAB Assessment and Plan Assessment Anesthesia Assessment: Anesthesia Plan Discussed and Chart Reviewed Final Anesthetic Review Family History of Problems with Anesthesia: No History of Problems with Anesthesia: No NPO: Yes ASA Class: III Final Preanesthetic Review: No Changes in Pt Med Stat, Meds/Allgs Chart Reviewed, Consent Obtained/Reviewed and Anes Risks/Benef Reviewed Patient Risk: Intermediate Procedure Risk: Low Assessment/Block/Sedation in SS: Assess/Block/Sedation-SS Anesthetic Plan Anesthetic Plan: TIVA Disposition: Standard PACU
--- NOTE | 2024-05-20 15:07 | MHC.SHP ---
Pre-Procedural Eval Section A - 24 Hr Update-Section A only Date of Service: 05/20/24 The patient is an INPATIENT: No The patient has been examined within 24 hours of the surgical procedure. The History & Physical has been completed within 30 days and I have reviewed it.: Yes Section B - Complete if H&P > 30 days Chief Complaint: Epigastric pain Details of Present Illness: Anastomotic ulcer Relevant Family History (Specify if Yes): No Relevant Social History: None Present Medications: None Medical History: No relevant PMH History of Previous Operations: Relevant previous surgery/procedure and date(s) (Laparoscopic gastric bypass) Allergies: Allergies Allergy/AdvReac Type Severity Reaction Status Date / Time hydrocodone [From VICODIN] Allergy Intermediate GI UPSET Verified 05/20/24 12:55 propylene glycol Allergy Intermediate EXTREME Verified 05/20/24 12:55 [PROPYLENE GLYCOL] BURNING/PAIN/RASH trazodone Allergy Intermediate Shortness Verified 05/20/24 12:55 of Breath cobalt Allergy Unknown Verified 05/20/24 12:55 acetaminophen [Vicodin] AdvReac Severe Constipatio Verified 05/20/24 12:55 n lamotrigine AdvReac Intermediate foggy Verified 05/20/24 12:55 propranolol AdvReac Intermediate inadequate Verified 05/20/24 12:55 response levetiracetam [From Keppra] AdvReac foggy Verified 05/20/24 12:55 diamox AdvReac Intermediate metalic Uncoded 04/01/24 12:49 taste, did not feel comfortable Review of Systems Sugical H&P ROS: Negative: Constitution, Cardiovascular, Respiratory, Neurological, Psychiatric, Hem-Onc, Allergic/Immunologic, Gastrointestinal, Genitourinary, Musculoskeletal, Integumentary, Endocrine and Eyes/Ears/Nose/Throat Exam Surgical H&P Exam: Normal: HEENT, Normal: Heart, Normal: Lungs, Normal: Extremities, Normal: Abdomen, Normal: Skin and Normal: Neurological Plan Diagnosis/Plan: Unchanged (EGD to assess the status of the ulcer. Risks of bleeding and perforation were discussed with the patient and she is in agreement with the plan.) I have reviewed the history and physical and performed a pertinent physical examination on my patient. No changes have occurred unless specified. Time Spent With Patient Time: Total time managing care of this patient today ____ minutes.
--- NOTE | 2024-05-20 15:13 | PM.OP ---
Brief Operative Note Date of Service: 05/20/24 Procedure: PROCEDURE DATE: ?05/20/2024 PREOPERATIVE DIAGNOSIS: Large anastomotic ulcer, Sana esophagitis, s/p gastric bypass POSTOPERATIVE DIAGNOSIS: ?Same as above. 1) Nearly healed anastomotic ulcer, 2) hiatal hernia PROCEDURE: [id number]-auazrriairv with biopsies Surgeon: ?Edinson Avalos M.D.. Ph.D. Lead Database Administrator: ?None ? Anesthesia: IV sedation Estimated blood loss: ?Minimal FINDINGS AND PROCEDURE: ? OPERATIVE INDICATIONS: ?The patient is a 44 year old female known to me who underwent a laparoscopic gastric bypass by me several years ago. The patient had excellent weight loss so far. Over the last 2 months she has been complaining of persistent abdominal pain radiating to the back. The pain is more severe with food intake and that has limited significantly her food intake. She appears cachectic, malnourished and ill appearing.?An endoscopy was performed on 04/01/24 which revealed a large anastomotic ulcer and biopsies showed esophagitis of Sana origin. The patient was placed on TPN and she returns today for a follow-up endoscopy. A follow-up endoscopy was performed on 04/21/24 that showed significant improvement of the ulcer. The patient remained NPO on TPN. She returns today to assess the status of the ulcer. Risks and complications of the surgery were discussed with the patient in advance particularly the possibility of perforation or bleeding that may require surgical intervention. The patient understood the risks and was in agreement with the plan. ? PROCEDURE: After informed consent was obtained by the patient, the patient was ?transferred to the Operating Room and was placed in the supine position.? After successful induction of IV sedation, a mouth block was placed and the patient was placed in the left lateral decubitus position. An upper endoscopy was performed next, the oropharynx and esophagus appeared within the normal limits. There was a 2-3cm hiatal hernia.? The z-line was smooth. Two biopsies were obtained from the proximal esophagus, distal esophagus 2-3 cm proximal to the GE junction and one biopsy from the GE junction. The small pouch was entered, appeared to be of normal size. There was no gastritis and the gastrojejunostomy was patent. No significant bleeding was noted from any of the biopsy sites. The previously seen large anastomotic ulcer has nearly healed. The previous two superficial anastomotic ulcers at the anterior/right side of the anastomosis have healed completely.?The previously seen erythema had resolved and the intestinal mucosa looked normal. The scope was advanced further into the proximal small intestine (proximal Malika limb) which looked normnal. The Malika limb and the pouch were decompressed and the scope was withdrawn from the patient's mouth. The patient will continue the TPN and a follow-up endoscopy will be scheduled. The patient was awaken and was transferred in stable condition to the Recovery Room for further care. I was present and performed all steps of the procedure. There were no residents to assist with this case. Edinson Avalos M.D., Ph.D. Surgeon: London Avalos MD Anesthesia: MAC Was an Lead Database Administrator used for this Procedure?: No Estimated blood loss (mL): 0 IV fluids (mL): 400 Urine output (mL): 0 (No Ray to record output) Pathology: none sent Condition: stable Disposition: PACU
[2024-05-20 15:22] VITALS: BP 94/48; PULSE 54; RESP 18; TEMP 36.6; O2SAT 100
[2024-05-20 15:37] VITALS: BP 104/62; PULSE 58; RESP 20; TEMP 36.6; O2SAT 99
== END 2024-05-20 15:50 | disposition home or self-care (01) ==
PROVIDERS: PCP Internal Medicine; Visit Provider Surgery
PROC: 0DJ08ZZ Inspection of Upper Intestinal Tract, Via Natural or Artificial Opening Endoscopic (ICD-10-PCS; CPT 43235; principal; 2024-05-20 13:50)
DX: R10.13 Epigastric pain (principal); Z98.84 Bariatric surgery status; K28.9 Gastrojejunal ulcer, unspecified as acute or chronic, 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; B37.81 Candidal esophagitis; K44.9 Diaphragmatic hernia without obstruction or gangrene; G93.2 Benign intracranial hypertension; R25.1 Tremor, unspecified; E06.3 Autoimmune thyroiditis; E28.2 Polycystic ovarian syndrome; G43.709 Chronic migraine without aura, not intractable, without status migrainosus; Z79.899 Other long term (current) drug therapy; Z98.890 Other specified postprocedural states
CPT/HCPCS: 43239; J1596; J2003; J2704; J3010

== ENCOUNTER → 2024-05-20 11:56 | Outpatient (BNV) | payer BC, SELFPAY | PROVIDERS: PCP Internal Medicine; Visit Provider Surgery | DX: K44.9 Diaphragmatic hernia without obstruction or gangrene (principal); R10.13 Epigastric pain | CPT/HCPCS: 43239 ==

== ENCOUNTER 2024-06-12 07:32 | Day surgery (SDC) | payer BC, SELFPAY ==
--- OUTSIDE RECORDS SUMMARY | 2024-05-30 13:39 | XMS_ITS | Continuity of Care Document ---
Author Name [facility] Organization [facility] Care Team Providers Care Plating Engineer Name Role Phone [facility] Unavailable Unavailable Social History Combined list of available smoking, tobacco, and other social history from Department of Defense and Veterans Affairs facilities. Social History Type Response Date Comment Sourc e This section is an empty social history section. DoD
--- NOTE | 2024-06-10 13:53 | HO.ANESPROP2 ---
HPI - Anesthesia Eval Consult details Narrative: 44yo F for Upper Endoscopy s/p same 04/2024 with MAC PMFSH Active Problems Active Problems: All Active Problems Anastomotic ulcer (Acute) Gastric bypass status for obesity (Acute) GERD (gastroesophageal reflux disease) (Acute) Thoracic spine pain (Acute) Restless leg syndrome (Acute) Multiple drug allergies (Acute) Postoperative hypothyroidism (Acute) Chronic idiopathic constipation (Acute) Pseudotumor cerebri (Acute) Cervicalgia (Acute) Chronic migraine with aura (Acute) B12 deficiency (Acute) Seizures (Acute) Epigastric pain (Acute) Anxiety (Acute) Insomnia (Acute) Tremors of nervous system (Acute) Past Medical History Medical History Seizure Chest pain Elevated d-dimer Cough Nausea & vomiting Epigastric pain Esophageal candidiasis Lymphedema Oropharyngeal dysphagia Dysphagia De Quervain's tenosynovitis, left Bilateral hand pain Pseudotumor cerebri Anxiety Insomnia Pain of right upper extremity Tremors of nervous system Impacted cerumen of both ears Acute sinusitis Acute right otitis media Goiter Janna's thyroiditis Physical exam Contusion of right forearm Right elbow pain Right wrist pain Right arm pain Fall from slipping on ice Sinus infection De Quervain's tenosynovitis, right Right wrist tendinitis Hypothyroidism Chronic migraine PCOS (polycystic ovarian syndrome) Pain in joint of right wrist Family History Family History Mother No problems noted. Father Degenerative disc disease, lumbar Maternal Grandmother Tremors of nervous system Chronic headaches Family history of problems with anesthesia: No Surgical History Surgical History Hx of tubal ligation History of esophagogastroduodenoscopy (EGD) History of thyroidectomy Hx of hand surgery (12/25/22) H/O right knee surgery History of intestinal obstruction History of lumbar puncture Hx of appendectomy H/O gastric bypass History of partial hysterectomy History of Problems with Anesthesia: No Social History Social History Household Members: Spouse, Family and Children Housing: House Are you a primary care management coordinator to a significant other at home: No Do you presently have visiting nurse or other home services: No Alcohol intake: current Alcohol intake frequency: does not drink Comment: pt has ulcer Patient Tobacco Use Status: Never used Tobacco e-Cigarette/Vaping Use: Never Used Second Hand Smoke Exposure: No service: No Current occupational status: employed 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 Current occupational exposures/hazards: No Cognitive needs: No Hearing needs: No Vision needs: Yes Meds Allergies Allergy/AdvReac Type Severity Reaction Status Date / Time hydrocodone [From VICODIN] Allergy Intermediate GI UPSET Verified 05/20/24 12:55 propylene glycol Allergy Intermediate EXTREME Verified 05/20/24 12:55 [PROPYLENE GLYCOL] BURNING/PAIN/RASH trazodone Allergy Intermediate Shortness Verified 05/20/24 12:55 of Breath cobalt Allergy Unknown Verified 05/20/24 12:55 acetaminophen [Vicodin] AdvReac Severe Constipatio Verified 05/20/24 12:55 n lamotrigine AdvReac Intermediate foggy Verified 05/20/24 12:55 propranolol AdvReac Intermediate inadequate Verified 05/20/24 12:55 response levetiracetam [From Keppra] AdvReac foggy Verified 05/20/24 12:55 diamox AdvReac Intermediate metalic Uncoded 04/01/24 12:49 taste, did not feel comfortable Home Medications ?Medication ?Instructions ?Recorded ?Confirmed ?Last Taken ?Type doxepin 25 mg capsule 50 mg PO DAILY 02/07/21 05/20/24 05/20/24 History magnesium 200 mg tablet 200 mg PO DAILY 03/28/22 05/20/24 02/25/24 06:00 History riboflavin (vitamin B2) 100 mg 200 mg PO DAILY 03/28/22 05/20/24 02/25/24 06:00 History tablet thiamine HCl (vitamin B1) 100 mg 200 mg PO DAILY 03/28/22 05/20/24 02/25/24 06:00 History tablet vitamin B complex (B 1 tab PO DAILY 03/28/22 05/20/24 02/25/24 06:00 History Complex-Vitamin B12 tablet) cyanocobalamin (vitamin B-12) 1,000 mcg PO DAILY 02/26/24 05/20/24 02/25/24 06:00 History 1,000 mcg tablet (Vitamin B-12) levothyroxine 125 mcg tablet 125 mcg PO DAILY@0600 02/26/24 05/20/24 04/23/24 History (Levoxyl) hydroxyzine HCl 25 mg tablet 50 mg PO .in the morning PRN 02/27/24 05/20/24 Unknown History Insomnia bisacodyl 5 mg tablet,delayed 15 mg PO DAILY constipation 03/12/24 05/20/24 Unknown History release (Dulcolax (bisacodyl)) Assessment and Plan Assessment Anesthesia Assessment: Chart Reviewed Final Anesthetic Review Family History of Problems with Anesthesia: No History of Problems with Anesthesia: No
[2024-06-12] VITALS (8 sets, daily range): BP systolic 89–99; BP diastolic 42–57; PULSE 57–66; RESP 12–20; TEMP 36.1–37; O2SAT 96–100; BMI 23.8
--- OUTSIDE RECORDS SUMMARY | 2024-06-12 07:36 | XMS_ITS | Continuity of Care Document ---
Author Name [facility] Organization [facility] Care Team Providers Care Data Operations Manager Name Role Phone [facility] Unavailable Unavailable Social History Combined list of available smoking, tobacco, and other social history from [facility] of Defense and Veterans Affairs facilities. Social History Type Response Date Comment Sourc e This section is an empty social history section. DoD
--- NOTE | 2024-06-12 11:26 | MHC.SHP ---
Pre-Procedural Eval Section A - 24 Hr Update-Section A only Date of Service: 06/12/24 The patient is an INPATIENT: No The patient has been examined within 24 hours of the surgical procedure. The History & Physical has been completed within 30 days and I have reviewed it.: Yes Section B - Complete if H&P > 30 days Chief Complaint: Epigastric pain Details of Present Illness: Anastomotic ulcer Relevant Family History (Specify if Yes): No Relevant Social History: None Present Medications: None Medical History: No relevant PMH History of Previous Operations: Relevant previous surgery/procedure and date(s) (Laparoscopic gastric bypass) Allergies: Allergies Allergy/AdvReac Type Severity Reaction Status Date / Time hydrocodone [From VICODIN] Allergy Intermediate GI UPSET Verified 06/12/24 08:14 propylene glycol Allergy Intermediate EXTREME Verified 06/12/24 08:14 [PROPYLENE GLYCOL] BURNING/PAIN/RASH trazodone Allergy Intermediate Shortness Verified 06/12/24 08:14 of Breath cobalt Allergy Unknown Verified 06/12/24 08:14 acetaminophen [Vicodin] AdvReac Severe Constipatio Verified 06/12/24 08:14 n lamotrigine AdvReac Intermediate foggy Verified 06/12/24 08:14 propranolol AdvReac Intermediate inadequate Verified 06/12/24 08:14 response levetiracetam [From Keppra] AdvReac foggy Verified 06/12/24 08:14 diamox AdvReac Intermediate metalic Uncoded 06/12/24 08:14 taste, did not feel comfortable Review of Systems Sugical H&P ROS: Negative: Constitution, Cardiovascular, Respiratory, Neurological, Psychiatric, Hem-Onc, Allergic/Immunologic, Gastrointestinal, Genitourinary, Musculoskeletal, Integumentary, Endocrine and Eyes/Ears/Nose/Throat Exam Surgical H&P Exam: Normal: HEENT, Normal: Heart, Normal: Lungs, Normal: Extremities, Normal: Abdomen, Normal: Skin and Normal: Neurological Plan Diagnosis/Plan: Unchanged (EGD to assess the status of the ulcer. Risks of bleeding and perforation were discussed with the patient and she is in agreement with the plan.) I have reviewed the history and physical and performed a pertinent physical examination on my patient. No changes have occurred unless specified. Time Spent With Patient Time: Total time managing care of this patient today ____ minutes.
--- NOTE | 2024-06-12 11:28 | P.BOP_ITS ---
Brief Operative Note Date of Service: 06/12/24 Pre-op diagnosis: Anastomotic ulcer Post-op diagnosis: same Procedure: PROCEDURE DATE: ?05/20/2024 PREOPERATIVE DIAGNOSIS: Large anastomotic ulcer, Sana esophagitis, s/p gastric bypass POSTOPERATIVE DIAGNOSIS: ?Same as above. 1) Healed anastomotic ulcer PROCEDURE: [id number] with biopsies Surgeon: ?Edinson Avalos M.D.. Ph.D. Surgical Physician Assistant: ?None ? Anesthesia: IV sedation Estimated blood loss: ?Minimal FINDINGS AND PROCEDURE: ? OPERATIVE INDICATIONS: ?The patient is a 44 year old female known to me who underwent a laparoscopic gastric bypass by me several years ago. The patient had excellent weight loss so far. Over the last 2 months she has been complaining of persistent abdominal pain radiating to the back. The pain is more severe with food intake and that has limited significantly her food intake. She appears cachectic, malnourished and ill appearing.?An endoscopy was performed on 04/01/24 which revealed a large anastomotic ulcer and biopsies showed esophagitis of Sana origin. The patient was placed on TPN and she returns today for a follow-up endoscopy. A follow-up endoscopy was performed on 04/21/24 that showed significant improvement of the ulcer. The patient remained NPO on TPN. On 04/22/24 she had a f/up endoscopy that showed that the ulcer was resolved. TPN continued but she was started on protein shakes which she tolerated very well. She returns today to assess the status of the ulcer. Risks and complications of the surgery were discussed with the patient in advance particularly the possibility of perforation or bleeding that may require surgical intervention. The patient understood the risks and was in agreement with the plan. ? PROCEDURE: After informed consent was obtained by the patient, the patient was ?transferred to the Operating Room and was placed in the supine position.? After successful induction of IV sedation, a mouth block was placed and the patient was placed in the left lateral decubitus position. An upper endoscopy was performed next, the oropharynx and esophagus appeared within the normal limits. There was a 2-3cm hiatal hernia.? The z-line was smooth. Two biopsies were obtained from the proximal esophagus, distal esophagus 2-3 cm proximal to the GE junction and one biopsy from the GE junction. The small pouch was entered, appeared to be of normal size. There was no gastritis and the gastrojejunostomy was patent. No significant bleeding was noted from any of the biopsy sites. The previously seen large anastomotic ulcer has healed. The previous two superficial anastomotic ulcers at the anterior/right side of the anastomosis have healed completely.?The previously seen erythema had resolved and the intestinal mucosa looked normal. The scope was advanced further into the proximal small intestine (proximal Malika limb) which looked normal. The Malika limb and the pouch were decompressed and the scope was withdrawn from the patient's mouth. The patient will be discontinued from the TPN and a follow-up endoscopy will be scheduled. The patient was awaken and was transferred in stable condition to the Recovery Room for further care. I was present and performed all steps of the procedure. There were no residents to assist with this case. Edinson Avalos M.D., Ph.D. Surgeon: [place] Avalos MD Anesthesia: MAC Was an Surgical Physician Assistant used for this Procedure?: No Estimated blood loss (mL): 0 IV fluids (mL): 400 Urine output (mL): 0 (No Ray to record output) Pathology: none sent Condition: stable Disposition: PACU
--- NOTE | 2024-06-12 11:48 | HO.ANESPROP2 ---
HPI - Anesthesia Eval Consult details Narrative: upper endo PMFSH Active Problems Active Problems: All Active Problems Anastomotic ulcer (Acute) Gastric bypass status for obesity (Acute) GERD (gastroesophageal reflux disease) (Acute) Thoracic spine pain (Acute) Restless leg syndrome (Acute) Multiple drug allergies (Acute) Postoperative hypothyroidism (Acute) Chronic idiopathic constipation (Acute) Pseudotumor cerebri (Acute) Cervicalgia (Acute) Chronic migraine with aura (Acute) B12 deficiency (Acute) Seizures (Acute) Epigastric pain (Acute) Anxiety (Acute) Insomnia (Acute) Tremors of nervous system (Acute) Past Medical History Medical History Seizure Chest pain Elevated d-dimer Cough Nausea & vomiting Epigastric pain Esophageal candidiasis Lymphedema Oropharyngeal dysphagia Dysphagia De Quervain's tenosynovitis, left Bilateral hand pain Pseudotumor cerebri Anxiety Insomnia Pain of right upper extremity Tremors of nervous system Impacted cerumen of both ears Acute sinusitis Acute right otitis media Goiter Janna's thyroiditis Physical exam Contusion of right forearm Right elbow pain Right wrist pain Right arm pain Fall from slipping on ice Sinus infection De Quervain's tenosynovitis, right Right wrist tendinitis Hypothyroidism Chronic migraine PCOS (polycystic ovarian syndrome) Pain in joint of right wrist Family History Family History Mother No problems noted. Father Degenerative disc disease, lumbar Maternal Grandmother Tremors of nervous system Chronic headaches Family history of problems with anesthesia: No Surgical History Surgical History Hx of tubal ligation History of esophagogastroduodenoscopy (EGD) History of thyroidectomy Hx of hand surgery (12/25/22) H/O right knee surgery History of intestinal obstruction History of lumbar puncture Hx of appendectomy H/O gastric bypass History of partial hysterectomy History of Problems with Anesthesia: No Social History Social History Household Members: Spouse, Family and Children Housing: House Are you a primary career resource technician to a significant other at home: No Do you presently have visiting nurse or other home services: No Alcohol intake: current Alcohol intake frequency: does not drink Comment: pt has ulcer Patient Tobacco Use Status: Never used Tobacco e-Cigarette/Vaping Use: Never Used Second Hand Smoke Exposure: No Use of substances other than those prescribed or required for medical reasons: No Are you DNR?: No Advance Directives: No Advance Directives Information Provided: Yes service: No Current occupational status: employed 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 Current occupational exposures/hazards: No Cognitive needs: No Hearing needs: No Vision needs: Yes Meds Allergies Allergy/AdvReac Type Severity Reaction Status Date / Time hydrocodone [From VICODIN] Allergy Intermediate GI UPSET Verified 06/12/24 08:14 propylene glycol Allergy Intermediate EXTREME Verified 06/12/24 08:14 [PROPYLENE GLYCOL] BURNING/PAIN/RASH trazodone Allergy Intermediate Shortness Verified 06/12/24 08:14 of Breath cobalt Allergy Unknown Verified 06/12/24 08:14 acetaminophen [Vicodin] AdvReac Severe Constipatio Verified 06/12/24 08:14 n lamotrigine AdvReac Intermediate foggy Verified 06/12/24 08:14 propranolol AdvReac Intermediate inadequate Verified 06/12/24 08:14 response levetiracetam [From Keppra] AdvReac foggy Verified 06/12/24 08:14 diamox AdvReac Intermediate metalic Uncoded 06/12/24 08:14 taste, did not feel comfortable Active Medications: Current Medications Lactated Ringer's (Lr) 1,000 mls @ 100 mls/hr IVCONT .Q10H KIMBERLI Iron Sucrose 400 mg/ Sodium (Chloride) 270 mls @ 108 mls/hr IV ONCE ONE Stop: 06/12/24 14:29 Home Medications ?Medication ?Instructions ?Recorded ?Confirmed ?Last Taken ?Type doxepin 25 mg capsule 50 mg PO DAILY 02/07/21 06/12/24 05/20/24 History magnesium 200 mg tablet 200 mg PO DAILY 03/28/22 06/12/24 02/25/24 06:00 History riboflavin (vitamin B2) 100 mg 200 mg PO DAILY 03/28/22 06/12/24 02/25/24 06:00 History tablet thiamine HCl (vitamin B1) 100 mg 200 mg PO DAILY 03/28/22 06/12/24 02/25/24 06:00 History tablet vitamin B complex (B 1 tab PO DAILY 03/28/22 06/12/24 02/25/24 06:00 History Complex-Vitamin B12 tablet) cyanocobalamin (vitamin B-12) 1,000 mcg PO DAILY 02/26/24 06/12/24 02/25/24 06:00 History 1,000 mcg tablet (Vitamin B-12) levothyroxine 125 mcg tablet 125 mcg PO DAILY@0600 02/26/24 06/12/24 04/23/24 History (Levoxyl) hydroxyzine HCl 25 mg tablet 50 mg PO .in the morning PRN 02/27/24 06/12/24 Unknown History Insomnia bisacodyl 5 mg tablet,delayed 15 mg PO DAILY constipation 03/12/24 06/12/24 Unknown History release (Dulcolax (bisacodyl)) Exam Height,Weight and Vital Signs: Height 5 ft 2 in Weight 58.967 kg Last Vital Signs Temp 98.6 F 06/12/24 08:39 Pulse 60 06/12/24 08:39 Resp 16 06/12/24 08:39 BP 99/54 L 06/12/24 08:39 Pulse Ox 100 06/12/24 08:39 O2 Del Method Room Air 06/12/24 08:39 Airway Mallampati Class: II TM Dist: >3cm Neck ROM: Full Heart: rrr Lungs: cta Assessment and Plan Assessment Anesthesia Assessment: Anesthesia Plan Discussed Final Anesthetic Review Family History of Problems with Anesthesia: No History of Problems with Anesthesia: No NPO: Yes ASA Class: II Final Preanesthetic Review: No Changes in Pt Med Stat, Meds/Allgs Chart Reviewed, Consent Obtained/Reviewed and Anes Risks/Benef Reviewed Patient Risk: Intermediate Procedure Risk: Low Anesthetic Plan Anesthetic Plan: MAC: Disposition: Standard PACU
[2024-06-12] MEDS: Iron Sucrose Complex 400 MG in 0.9 % Sodium Chloride 250 ML 108 MG IV (12:06)
[2024-06-12] MEDS: Lactated Ringers 1,000 ML 100 ML IVCONT (12:11)
== END 2024-06-12 14:30 | disposition home or self-care (01) ==
PROVIDERS: PCP Internal Medicine; Visit Provider Surgery
PROC: 0DJ08ZZ Inspection of Upper Intestinal Tract, Via Natural or Artificial Opening Endoscopic (ICD-10-PCS; CPT 43235; principal; 2024-06-12 10:30)
DX: R10.13 Epigastric pain (principal); Z87.11 Personal history of peptic ulcer disease; Z98.84 Bariatric surgery status; B37.81 Candidal esophagitis; E63.9 Nutritional deficiency, unspecified; K44.9 Diaphragmatic hernia without obstruction or gangrene; E06.9 Thyroiditis, unspecified; R25.1 Tremor, unspecified; Z79.899 Other long term (current) drug therapy; Z98.890 Other specified postprocedural states; Z88.5 Allergy status to narcotic agent; Z88.8 Allergy status to other drugs, medicaments and biological substances
CPT/HCPCS: 43239; J1756; J2003; J2250; J2704

== ENCOUNTER → 2024-06-12 07:32 | Outpatient (BNV) | payer BC, SELFPAY | PROVIDERS: PCP Internal Medicine; Visit Provider Surgery | DX: R10.13 Epigastric pain (principal); K28.9 Gastrojejunal ulcer, unspecified as acute or chronic, 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 | CPT/HCPCS: 43239 ==

== ENCOUNTER 2024-07-17 14:39 | Outpatient (REF) | payer BC, SELFPAY ==
[2024-07-17 16:10] LABS: Thyroid Stimulating Hormone 0.61 uIU/mL (0.32-4.0)
--- OUTSIDE RECORDS SUMMARY | 2024-07-17 18:01 | XMS_ITS | Encounter Summary ---
Author Organization [facility] Address [address] [place] [address] Care Team Providers Care Pin Pusher Name Role Phone Physician, Pcp Unknown Primary Care Provider Louise vailable Encounter Details Date Type Department Care Team (Late st Contact Info) Description 05/05/[address] 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 Social History Tobacco Use Types Packs/Day Years Used Date Smoking Tobacco: Never Assessed Comments Unknown Sex and Gender Information Value Date Recorded Sex Assigned at Not on file Legal Sex Female 6:07 AM EST Gender Identity Not on file Sexual Orientation Not on file documented as of this encounter Plan of Treatment Not on file documented as of this encounter Procedures Procedure Name Priority Date/Time Associated Diagnosis Comments CBC WITH AUTO DIFFERENTIAL Routine 05/05/2024 4:30 PM EST Bariatric surgery status Otitis media, unspecified, right ear Dysphagia, unspecified Epigastric pain Gastric ulcer, unspecified as acute or chronic, 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 Gastrojejunal ulcer, unspecified as acute or chronic, 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 CBC AND DIFFERENTIAL Routine 05/05/2024 4:30 PM EST Bariatric surgery status Otitis media, unspecified, right ear Dysphagia, unspecified Epigastric pain Gastric ulcer, unspecified as acute or chronic, 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 Gastrojejunal ulcer, unspecified as acute or chronic, 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 TRIGLYCERIDES Routine 05/05/2024 4:30 PM EST Bariatric surgery status Otitis media, unspecified, right ear Dysphagia, unspecified Epigastric pain Gastric ulcer, unspecified as acute or chronic, 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 Gastrojejunal ulcer, unspecified as acute or chronic, 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 PHOSPHORUS Routine 05/05/2024 4:30 PM EST Bariatric surgery status Otitis media, unspecified, right ear Dysphagia, unspecified Epigastric pain Gastric ulcer, unspecified as acute or chronic, 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 Gastrojejunal ulcer, unspecified as acute or chronic, 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 MAGNESIUM Routine 05/05/2024 4:30 PM EST Bariatric surgery status Otitis media, unspecified, right ear Dysphagia, unspecified Epigastric pain Gastric ulcer, unspecified as acute or chronic, 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 Gastrojejunal ulcer, unspecified as acute or chronic, 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 COMPREHENSIVE METABOLIC PANEL Routine 05/05/2024 4:30 PM EST Bariatric surgery status Otitis media, unspecified, right ear Dysphagia, unspecified Epigastric pain Gastric ulcer, unspecified as acute or chronic, 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 Gastrojejunal ulcer, unspecified as acute or chronic, 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 documented in this encounter Results * (ABNORMAL) CBC auto differential (05/05/2024 4:30 PM EST) Pathologist [facility] WBC 6.8 4.8 - 10.8 K/mcL LAB HEMETOLOGY METHOD 05/05/2024 6:45 PM [facility] RBC 4.30 3.80 - 4.80 M/[facility] LAB HEMETOLOGY METHOD 05/05/2024 6:45 PM [facility] Hemoglobin 10.5(L) 11.5 - 16.0 g/dL LAB HEMETOLOGY METHOD 05/05/2024 6:45 PM [facility] Hematocrit 34.2(L) 35.0 - 47.0 % LAB HEMETOLOGY METHOD 05/05/2024 6:45 PM [facility] MCV 79.9 79.0 - 98.0 FL LAB HEMETOLOGY METHOD 05/05/2024 6:45 PM [facility] MCH 24.5(L) 27.0 - 32.0 pcg LAB HEMETOLOGY METHOD 05/05/2024 6:45 PM [facility] MCHC 30.7(L) 32.0 - 37.0 g/dL LAB HEMETOLOGY METHOD 05/05/2024 6:45 PM [facility] RDW LAB HEMETOLOGY METHOD 05/05/2024 6:45 PM [facility] Comment:Not Measured Platelets 263 130 - 400 K/mcL LAB HEMETOLOGY METHOD 05/05/2024 6:45 PM [facility] MPV 10.1 7.0 - 11.0 FL LAB HEMETOLOGY METHOD 05/05/2024 6:45 PM [facility] NRBC 0.0 <1.0 % LAB HEMETOLOGY METHOD 05/05/2024 6:45 PM [facility] NRBC Absolute 0.00 <0.10 K/mcL LAB HEMETOLOGY METHOD 05/05/2024 6:45 PM [facility] Neutrophils Relative 34.1 % LAB HEMETOLOGY METHOD 05/05/2024 6:45 PM [facility] Lymphocytes Relative 45.5 % LAB HEMETOLOGY METHOD 05/05/2024 6:45 PM [facility] Monocytes Relative 6.8 % LAB HEMETOLOGY METHOD 05/05/2024 6:45 PM [facility] Eosinophils Relative 12.1 % LAB HEMETOLOGY METHOD 05/05/2024 6:45 PM [facility] Basophils Relative 1.2 % LAB HEMETOLOGY METHOD 05/05/2024 6:45 PM [facility] Immature Granulocytes Relative 0.3 % LAB HEMETOLOGY METHOD 05/05/2024 6:45 PM EST [facility] Neutrophils Absolute 2.30 1.50 - 7.00 K/mcL LAB HEMETOLOGY METHOD 05/05/2024 6:45 PM EST [facility] Lymphocytes Absolute 3.07 1.00 - 5.00 K/mcL LAB HEMETOLOGY METHOD 05/05/2024 6:45 PM EST [facility] Monocytes Absolute 0.46 0.20 - 1.00 K/mcL LAB HEMETOLOGY METHOD 05/05/2024 6:45 PM EST [facility] Eosinophils Absolute 0.82(H) 0.00 - 0.50 K/mcL LAB HEMETOLOGY METHOD 05/05/2024 6:45 PM EST [facility] Basophils Absolute 0.08 0.00 - 0.20 K/mcL LAB HEMETOLOGY METHOD 05/05/2024 6:45 PM EST [facility] Immature Granulocytes Absolute 0.02 0.00 - 0.03 K/mcL LAB HEMETOLOGY METHOD 05/05/2024 6:45 PM EST [facility] Blood Venous blood specimen / Unknown 05/05/2024 4:30 PM EST 05/05/2024 6:07 PM EST us London Avalos MD LAB BLOOD ORDERABLES Vi dickey Result [facility] [address] [place] [address], * Triglycerides (05/05/2024 4:30 PM EST) Triglycerides 65 0 - 150 mg/dL LAB CHEMISTRY METHOD 05/05/2024 9:14 PM EST [facility] Blood Venous blood specimen / Unknown 05/05/2024 4:30 PM EST 05/05/2024 6:07 PM EST London Avalos MD LAB BLOOD ORDERABLES Vi l Result Performing Organization Address City/[facility]/ZIP Co de Phone Number [facility] [address] [place] [address], [place] [phone] * Phosphorus (05/05/2024 4:30 PM EST) Pathologist [facility] Phosphorus 3.7 2.5 - 4.5 mg/dL LAB CHEMISTRY METHOD 05/05/2024 9:14 PM EST [facility] Blood Venous blood specimen / Unknown 05/05/2024 4:30 PM EST 05/05/2024 6:07 PM EST London Avalos MD LAB BLOOD ORDERABLES Vi l Result Performing Organization Address [facility]/ZIP Co de Phone Number [facility] [address] [place] [address], [place] [phone] * Magnesium (05/05/2024 4:30 PM EST) [facility] Magnesium 2.3 1.9 - 2.6 mg/dL LAB CHEMISTRY METHOD 05/05/2024 9:14 PM EST [facility] Blood Venous blood specimen / Unknown 05/05/2024 4:30 PM EST 05/05/2024 6:07 PM EST London Avalos MD LAB BLOOD ORDERABLES Vi l Result Performing Organization Address City/[facility]/ZIP Co de Phone Number [facility] [address] [place] [address], [place] [phone] * (ABNORMAL) Comprehensive metabolic panel (05/05/2024 4:30 PM EST) Sodium 142 133 - 145 mmol/L LAB CHEMISTRY METHOD 05/05/2024 9:15 PM EST [facility] Potassium 3.9 3.5 - 5.5 mmol/L LAB CHEMISTRY METHOD 05/05/2024 9:15 PM [facility] Chloride 113(H) 96 - 110 mmol/L LAB CHEMISTRY METHOD 05/05/2024 9:15 PM [facility] CO2 25 21 - 32 mmol/L LAB CHEMISTRY METHOD 05/05/2024 9:15 PM [facility] Anion Gap 4 3 - 11 LAB CHEMISTRY METHOD 05/05/2024 9:15 PM [facility] Glucose 75 70 - 100 mg/dL LAB CHEMISTRY METHOD 05/05/2024 9:15 PM [facility] BUN 18 5 - 25 mg/dL LAB CHEMISTRY METHOD 05/05/2024 9:15 PM [facility] Creatinine 0.59 0.50 - 1.10 mg/dL LAB CHEMISTRY METHOD 05/05/2024 9:15 PM [facility] eGFR 116 >=60 mL/min/1. 73m2 LAB CHEMISTRY METHOD 05/05/2024 9:15 PM [facility] Comment:Calculation based on the??Chronic Kidney Disease Epidemiology Collaboration (CKD-EPI) equation refit??without adjustment for race. BUN/Creatinine Ratio 30.5 LAB CHEMISTRY METHOD 05/05/2024 9:15 PM [facility] Calcium 8.1(L) 8.5 - 10.5 mg/dL LAB CHEMISTRY METHOD 05/05/2024 9:15 PM [facility] AST (SGOT) 15 10 - 42 unit/L LAB CHEMISTRY METHOD 05/05/2024 9:15 PM [facility] ALT (SGPT) 13 10 - 60 unit/L LAB CHEMISTRY METHOD 05/05/2024 9:15 PM [facility] Alkaline Phosphatase 44 42 - 121 unit/L LAB CHEMISTRY METHOD 05/05/2024 9:15 PM [facility] Total Protein 5.9(L) 6.0 - 8.0 g/dL LAB CHEMISTRY METHOD 05/05/2024 9:15 PM EST [facility] Albumin 3.4 3.2 - 5.0 g/dL LAB CHEMISTRY METHOD 05/05/2024 9:15 PM EST [facility] Total Bilirubin 0.2 0.0 - 1.4 mg/dL LAB CHEMISTRY METHOD 05/05/2024 9:15 PM EST [facility] Blood Venous blood specimen / Unknown 05/05/2024 4:30 PM EST 05/05/2024 6:07 PM EST us London Avalos MD LAB BLOOD ORDERABLES Vi dickey Result [facility] [address] [place] [address], documented in this encounter Visit Diagnoses Diagnosis Bariatric surgery status Otitis media, unspecified, right ear Dysphagia, unspecified Epigastric pain Abdominal pain, epigastric Gastric ulcer, unspecified as acute or chronic, 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 Gastrojejunal ulcer, unspecified as acute or chronic, 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
--- OUTSIDE RECORDS SUMMARY | 2024-07-17 18:01 | XMS_ITS | Continuity of Care Document ---
Author Name [facility] Organization [facility] Care Team Providers Care Vp Business Development Name Role Phone [facility] Unavailable Unavailable Social History Combined list of available smoking, tobacco, and other social history from [facility] and [facility] facilities. Social History Type Response Date Comment Sourc e This section is an empty social history section. [facility]
--- OUTSIDE RECORDS SUMMARY | 2024-07-17 18:01 | XMS_ITS | Clinical Summary ---
Author Organization [address] Address [address] [place] [address] Phone Care Team Providers Care Medicine And Health Service Manager Name Role Phone Physician, Pcp Unknown Primary Care Provider Louise vailable Encounters Date Type Department Care Team Description 06/10/2024 Lab Requisition [facility] Lab [address] [place] [address] London Avalos MD Bariatric surgery status; Otitis media, unspecified, right ear; Dysphagia, unspecified; Epigastric pain; Gastric ulcer, unspecified as acute or chronic, 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; Gastrojejunal ulcer, unspecified as acute or chronic, 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 05/26/2024 Lab Requisition [facility] Lab [address] [place] [id number] London Avalos MD Bariatric surgery status; Otitis media, unspecified, right ear; Epigastric pain; Dysphagia, unspecified; Gastric ulcer, unspecified as acute or chronic, 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; Gastrojejunal ulcer, unspecified as acute or chronic, 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 05/19/2024 Lab Requisition [facility] Lab [address] [place] [phone] London Avalos MD Bariatric surgery status; Dysphagia, unspecified; Gastric ulcer, unspecified as acute or chronic, 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; Otitis media, unspecified, right ear; Epigastric pain; Gastrojejunal ulcer, unspecified as acute or chronic, 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 05/12/2024 Lab Requisition [facility] Lab [address] [place] [phone] London Avalos MD Bariatric surgery status; Dysphagia, unspecified; Gastric ulcer, unspecified as acute or chronic, 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; Otitis media, unspecified, right ear; Epigastric pain; Gastrojejunal ulcer, unspecified as acute or chronic, 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 05/05/2024 Lab Requisition [facility] [address] [facility] [place] [address] London Avalos MD Bariatric surgery status; Otitis media, unspecified, right ear; Dysphagia, unspecified; Epigastric pain; Gastric ulcer, unspecified as acute or chronic, 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; Gastrojejunal ulcer, unspecified as acute or chronic, 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 from Last 3 Months Social History Tobacco Use Types Packs/Day Years Used Date Smoking Tobacco: Never Assessed Comments Unknown Sex and Gender Information Value Date Recorded Sex Assigned at Not on file Legal Sex Female 6:07 AM EST Gender Identity Not on file Sexual Orientation Not on file Plan of Treatment Health Maintenance Due Date Last Done Comments Breast Cancer Screening 1982 DTaP,Tdap,and Td Vaccines (1 - Tdap) 2001 Hepatitis B Vaccines (1 of 3 - 19+ 3-dose series) 2001 Cervical Cancer Screening: P ap Smear 2003 Depression Screening 04/23/2022 HIV Screening 04/23/2022 Hepatitis C Screening 04/23/2022 Social Influencers of Health Screening 04/23/2022 COVID-19 Vaccine (2023-2 5 season) 2024 Influenza Vaccine (#1) 2024 HIB Vaccines Aged Out No longer eligi ble based on patient's age to complete this topic HPV Vaccines Aged Out No longer eligi ble based on patient's age to complete this topic Hepatitis A Vaccines Aged Out No long er eligible based on patient's age to complete this topic IPV Vaccines Aged Out No longer eligi ble based on patient's age to complete this topic MMR Vaccines Aged Out No longer eligi ble based on patient's age to complete this topic Meningococcal ACWY Vaccine Aged Out N o longer eligible based on patient's age to complete this topic Meningococcal B Vacine Aged Out No lo nger eligible based on patient's age to complete this topic Pneumococcal Vaccine: Pediat rics (0 to 5 Years) and At-Risk Patients (6 to 64 Years) Aged Out No longer eligible b ased on patient's age to complete this topic RSV Immunization Patients Un alphonse 20 months Aged Out No longer eligible b ased on patient's age to complete this topic Varicella Vaccines Aged Out No longer eligible based on patient's age to complete this topic Procedures Procedure Name Priority Date/Time Associated Diagnosis Comments CBC WITH AUTO DIFFERENTIAL Routine 06/10/2024 4:00 PM EST Bariatric surgery status Otitis media, unspecified, right ear Dysphagia, unspecified Epigastric pain Gastric ulcer, unspecified as acute or chronic, 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 Gastrojejunal ulcer, unspecified as acute or chronic, 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 CBC AND DIFFERENTIAL Routine 06/10/2024 4:00 PM EST Bariatric surgery status Otitis media, unspecified, right ear Dysphagia, unspecified Epigastric pain Gastric ulcer, unspecified as acute or chronic, 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 Gastrojejunal ulcer, unspecified as acute or chronic, 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 TRIGLYCERIDES Routine 06/10/2024 4:00 PM EST Bariatric surgery status Otitis media, unspecified, right ear Dysphagia, unspecified Epigastric pain Gastric ulcer, unspecified as acute or chronic, 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 Gastrojejunal ulcer, unspecified as acute or chronic, 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 PHOSPHORUS Routine 06/10/2024 4:00 PM EST Bariatric surgery status Otitis media, unspecified, right ear Dysphagia, unspecified Epigastric pain Gastric ulcer, unspecified as acute or chronic, 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 Gastrojejunal ulcer, unspecified as acute or chronic, 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 MAGNESIUM Routine 06/10/2024 4:00 PM EST Bariatric surgery status Otitis media, unspecified, right ear Dysphagia, unspecified Epigastric pain Gastric ulcer, unspecified as acute or chronic, 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 Gastrojejunal ulcer, unspecified as acute or chronic, 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 COMPREHENSIVE METABOLIC PANEL Routine 06/10/2024 4:00 PM EST Bariatric surgery status Otitis media, unspecified, right ear Dysphagia, unspecified Epigastric pain Gastric ulcer, unspecified as acute or chronic, 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 Gastrojejunal ulcer, unspecified as acute or chronic, 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 CBC WITH AUTO DIFFERENTIAL Routine 05/26/2024 2:00 PM EST Bariatric surgery status Otitis media, unspecified, right ear Epigastric pain Dysphagia, unspecified Gastric ulcer, unspecified as acute or chronic, 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 Gastrojejunal ulcer, unspecified as acute or chronic, 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 TRIGLYCERIDES Routine 05/26/2024 2:00 PM EST Bariatric surgery status Otitis media, unspecified, right ear Epigastric pain Dysphagia, unspecified Gastric ulcer, unspecified as acute or chronic, 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 Gastrojejunal ulcer, unspecified as acute or chronic, 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 PHOSPHORUS Routine 05/26/2024 2:00 PM EST Bariatric surgery status Otitis media, unspecified, right ear Epigastric pain Dysphagia, unspecified Gastric ulcer, unspecified as acute or chronic, 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 Gastrojejunal ulcer, unspecified as acute or chronic, 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 MAGNESIUM Routine 05/26/2024 2:00 PM EST Bariatric surgery status Otitis media, unspecified, right ear Epigastric pain Dysphagia, unspecified Gastric ulcer, unspecified as acute or chronic, 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 Gastrojejunal ulcer, unspecified as acute or chronic, 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 CBC AND DIFFERENTIAL Routine 05/26/2024 2:00 PM EST Bariatric surgery status Otitis media, unspecified, right ear Epigastric pain Dysphagia, unspecified Gastric ulcer, unspecified as acute or chronic, 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 Gastrojejunal ulcer, unspecified as acute or chronic, 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 COMPREHENSIVE METABOLIC PANEL Routine 05/26/2024 2:00 PM EST Bariatric surgery status Otitis media, unspecified, right ear Epigastric pain Dysphagia, unspecified Gastric ulcer, unspecified as acute or chronic, 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 Gastrojejunal ulcer, unspecified as acute or chronic, 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 CBC WITH AUTO DIFFERENTIAL Routine 05/19/2024 4:10 PM EST Bariatric surgery status Dysphagia, unspecified Gastric ulcer, unspecified as acute or chronic, 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 Otitis media, unspecified, right ear Epigastric pain Gastrojejunal ulcer, unspecified as acute or chronic, 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 CBC AND DIFFERENTIAL Routine 05/19/2024 4:10 PM EST Bariatric surgery status Dysphagia, unspecified Gastric ulcer, unspecified as acute or chronic, 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 Otitis media, unspecified, right ear Epigastric pain Gastrojejunal ulcer, unspecified as acute or chronic, 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 MAGNESIUM Routine 05/19/2024 4:10 PM EST Bariatric surgery status Dysphagia, unspecified Gastric ulcer, unspecified as acute or chronic, 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 Otitis media, unspecified, right ear Epigastric pain Gastrojejunal ulcer, unspecified as acute or chronic, 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 TRIGLYCERIDES Routine 05/19/2024 4:10 PM EST Bariatric surgery status Dysphagia, unspecified Gastric ulcer, unspecified as acute or chronic, 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 Otitis media, unspecified, right ear Epigastric pain Gastrojejunal ulcer, unspecified as acute or chronic, 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 PHOSPHORUS Routine 05/19/2024 4:10 PM EST Bariatric surgery status Dysphagia, unspecified Gastric ulcer, unspecified as acute or chronic, 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 Otitis media, unspecified, right ear Epigastric pain Gastrojejunal ulcer, unspecified as acute or chronic, 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 COMPREHENSIVE METABOLIC PANEL Routine 05/19/2024 4:10 PM EST Bariatric surgery status Dysphagia, unspecified Gastric ulcer, unspecified as acute or chronic, 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 Otitis media, unspecified, right ear Epigastric pain Gastrojejunal ulcer, unspecified as acute or chronic, 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 CBC WITH AUTO DIFFERENTIAL Routine 05/12/2024 5:00 PM EST Bariatric surgery status Dysphagia, unspecified Gastric ulcer, unspecified as acute or chronic, 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 Otitis media, unspecified, right ear Epigastric pain Gastrojejunal ulcer, unspecified as acute or chronic, 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 TRIGLYCERIDES Routine 05/12/2024 5:00 PM EST Bariatric surgery status Dysphagia, unspecified Gastric ulcer, unspecified as acute or chronic, 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 Otitis media, unspecified, right ear Epigastric pain Gastrojejunal ulcer, unspecified as acute or chronic, 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 PHOSPHORUS Routine 05/12/2024 5:00 PM EST Bariatric surgery status Dysphagia, unspecified Gastric ulcer, unspecified as acute or chronic, 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 Otitis media, unspecified, right ear Epigastric pain Gastrojejunal ulcer, unspecified as acute or chronic, 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 MAGNESIUM Routine 05/12/2024 5:00 PM EST Bariatric surgery status Dysphagia, unspecified Gastric ulcer, unspecified as acute or chronic, 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 Otitis media, unspecified, right ear Epigastric pain Gastrojejunal ulcer, unspecified as acute or chronic, 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 CBC AND DIFFERENTIAL Routine 05/12/2024 5:00 PM EST Bariatric surgery status Dysphagia, unspecified Gastric ulcer, unspecified as acute or chronic, 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 Otitis media, unspecified, right ear Epigastric pain Gastrojejunal ulcer, unspecified as acute or chronic, 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 WBC 8.6 4.8 - 10.8 K/mcL LAB HEMETOLOGY METHOD 06/10/2024 6:48 PM EST [facility] RBC 4.30 3.80 - 4.80 M/mcL LAB HEMETOLOGY METHOD 06/10/2024 6:48 PM EST [facility] Hemoglobin 11.7 11.5 - 16.0 g/dL LAB HEMETOLOGY METHOD 06/10/2024 6:48 PM EST [facility] Hematocrit 37.3 35.0 - 47.0 % LAB HEMETOLOGY METHOD 06/10/2024 6:48 PM [facility] MCV 85.9 79.0 - 98.0 FL LAB HEMETOLOGY METHOD 06/10/2024 6:48 PM [facility] MCH 27.0 27.0 - 32.0 pcg LAB HEMETOLOGY METHOD 06/10/2024 6:48 PM [facility] MCHC 31.4(L) 32.0 - 37.0 g/dL LAB HEMETOLOGY METHOD 06/10/2024 6:48 PM [facility] RDW 21.3(H) 11.0 - 15.0 % LAB HEMETOLOGY METHOD 06/10/2024 6:48 PM [facility] Platelets 322 130 - 400 K/mcL LAB HEMETOLOGY METHOD 06/10/2024 6:48 PM [facility] MPV 9.6 7.0 - 11.0 FL LAB HEMETOLOGY METHOD 06/10/2024 6:48 PM [facility] NRBC 0.0 <1.0 % LAB HEMETOLOGY METHOD 06/10/2024 6:48 PM [facility] NRBC Absolute 0.00 <0.10 K/mcL LAB HEMETOLOGY METHOD 06/10/2024 6:48 PM [facility] Neutrophils Relative 53.9 % LAB HEMETOLOGY METHOD 06/10/2024 6:48 PM [facility] Lymphocytes Relative 35.6 % LAB HEMETOLOGY METHOD 06/10/2024 6:48 PM [facility] Monocytes Relative 7.6 % LAB HEMETOLOGY METHOD 06/10/2024 6:48 PM [facility] Eosinophils Relative 2.1 % LAB HEMETOLOGY METHOD 06/10/2024 6:48 PM EST [facility] Basophils Relative 0.6 % LAB HEMETOLOGY METHOD 06/10/2024 6:48 PM [facility] Immature Granulocytes Relative 0.2 % LAB HEMETOLOGY METHOD 06/10/2024 6:48 PM [facility] Neutrophils Absolute 4.61 1.50 - 7.00 K/mcL LAB HEMETOLOGY METHOD 06/10/2024 6:48 PM [facility] Lymphocytes Absolute 3.05 1.00 - 5.00 K/mcL LAB HEMETOLOGY METHOD 06/10/2024 6:48 PM [facility] Monocytes Absolute 0.65 0.20 - 1.00 K/mcL LAB HEMETOLOGY METHOD 06/10/2024 6:48 PM [facility] Eosinophils Absolute 0.18 0.00 - 0.50 K/mcL LAB HEMETOLOGY METHOD 06/10/2024 6:48 PM [facility] Basophils Absolute 0.05 0.00 - 0.20 K/mcL LAB HEMETOLOGY METHOD 06/10/2024 6:48 PM [facility] Immature Granulocytes Absolute 0.02 0.00 - 0.03 K/mcL LAB HEMETOLOGY METHOD 06/10/2024 6:48 PM [facility] Blood Venous blood specimen / Unknown 06/10/2024 4:00 PM EST 06/10/2024 6:18 PM EST us London Avalos MD LAB BLOOD ORDERABLES Vi dickey Result [facility] [address] [place] [address], * Triglycerides (06/10/2024 4:00 PM EST) Only the most recent of5 resultswithin the time period is included. Triglycerides 108 0 - 150 mg/dL LAB CHEMISTRY METHOD 06/10/2024 7:06 PM EST [facility] Blood Venous blood specimen / Unknown 06/10/2024 4:00 PM EST 06/10/2024 6:18 PM EST London Avalos MD LAB BLOOD ORDERABLES Vi l Result Performing Organization Address City/[facility]/ZIP Co de Phone Number [facility] [address] [place] [address], [place] [phone] * (ABNORMAL) Phosphorus (06/10/2024 4:00 PM EST) Only the most recent of5 resultswithin the time period is included. Phosphorus 4.6(H) 2.5 - 4.5 mg/dL LAB CHEMISTRY METHOD 06/10/2024 7:06 PM EST [facility] Blood Venous blood specimen / Unknown 06/10/2024 4:00 PM EST 06/10/2024 6:18 PM EST London Avalos MD LAB BLOOD ORDERABLES Vi l Result Performing Organization Address [facility] Co de Phone Number [facility] [address] [place] [address], [place] [phone] * Magnesium (06/10/2024 4:00 PM EST) Only the most recent of5 resultswithin the time period is included. Magnesium 1.9 1.9 - 2.6 mg/dL LAB CHEMISTRY METHOD 06/10/2024 7:06 PM EST [facility] Blood Venous blood specimen / Unknown 06/10/2024 4:00 PM EST 06/10/2024 6:18 PM EST London Avalos MD LAB BLOOD ORDERABLES Vi l Result Performing Organization Address City/[facility]/ZIP Co de Phone Number [facility] [address] [place] [address], [place] [phone] * (ABNORMAL) Comprehensive metabolic panel (06/10/2024 4:00 PM EST) Only the most recent of5 resultswithin the time period is included. Sodium 140 133 - 145 mmol/L LAB CHEMISTRY METHOD 06/10/2024 7:14 PM [facility] Potassium 3.5 3.5 - 5.5 mmol/L LAB CHEMISTRY METHOD 06/10/2024 7:14 PM [facility] Chloride 107 96 - 110 mmol/L LAB CHEMISTRY METHOD 06/10/2024 7:14 PM [facility] CO2 27 21 - 32 mmol/L LAB CHEMISTRY METHOD 06/10/2024 7:14 PM [facility] Anion Gap 6 3 - 11 LAB CHEMISTRY METHOD 06/10/2024 7:14 PM [facility] Glucose 106(H) 70 - 100 mg/dL LAB CHEMISTRY METHOD 06/10/2024 7:14 PM [facility] BUN 20 5 - 25 mg/dL LAB CHEMISTRY METHOD 06/10/2024 7:14 PM [facility] Creatinine 0.78 0.50 - 1.10 mg/dL LAB CHEMISTRY METHOD 06/10/2024 7:14 PM [facility] eGFR 97 >=60 mL/min/1. 73m2 LAB CHEMISTRY METHOD 06/10/2024 7:14 PM [facility] Comment:Calculation based on the??Chronic Kidney Disease Epidemiology Collaboration (CKD-EPI) equation refit??without adjustment for race. BUN/Creatinine Ratio 25.6 LAB CHEMISTRY METHOD 06/10/2024 7:14 PM [facility] Calcium 8.1(L) 8.5 - 10.5 mg/dL LAB CHEMISTRY METHOD 06/10/2024 7:14 PM [facility] AST (SGOT) 25 10 - 42 unit/L LAB CHEMISTRY METHOD 06/10/2024 7:14 PM [facility] ALT (SGPT) 17 10 - 60 unit/L LAB CHEMISTRY METHOD 06/10/2024 7:14 PM [facility] Alkaline Phosphatase 47 42 - 121 unit/L LAB CHEMISTRY METHOD 06/10/2024 7:14 PM [facility] Total Protein 6.3 6.0 - 8.0 g/dL LAB CHEMISTRY METHOD 06/10/2024 7:14 PM [facility] Albumin 3.4 3.2 - 5.0 g/dL LAB CHEMISTRY METHOD 06/10/2024 7:14 PM [facility] Total Bilirubin 0.2 0.0 - 1.4 mg/dL LAB CHEMISTRY METHOD 06/10/2024 7:14 PM [facility] Blood Venous blood specimen / Unknown 06/10/2024 4:00 PM EST 06/10/2024 6:18 PM EST London Avalos MD LAB BLOOD ORDERABLES Vi l Result [facility] [address] [place] [address], from Last 3 Months Insurance [facility] Care Teams Medicine And Health Service Manager Relationship Specialty Start Date End Date Physician, Pcp Unknown PCP - General 05/05/24
--- OUTSIDE RECORDS SUMMARY | 2024-07-17 18:01 | XMS_ITS | Encounter Summary ---
Author Organization [employer] Address [address] [place] [address] Care Team Providers Care Director Of It Operations Name Role Phone Physician, Pcp Unknown Primary Care Provider Louise vailable Encounter Details Date Type Department Care Team (Late st Contact Info) Description 05/12/2024 Lab Requisition [facility] - Main Lab 299 [facility] [place] [address] London Avalos MD [address] [place] [address] [address] [place] [address] Bariatric surgery status; Dysphagia, unspecified; Gastric ulcer, [...] Diagnosis Comments CBC WITH AUTO DIFFERENTIAL Routine 05/12/2024 5:00 [...] encounter Results * (ABNORMAL) CBC auto differential (05/12/2024 5:00 PM EST) Pathologist [facility] WBC 7.5 4.8 - 10.8 K/[facility] LAB HEMETOLOGY METHOD 05/12/2024 6:54 PM [facility] LAB RBC 4.30 3.80 - 4.80 M/[facility] LAB HEMETOLOGY METHOD 05/12/2024 6:54 PM [facility] LAB Hemoglobin 10.9(L) 11.5 - 16.0 g/dL LAB HEMETOLOGY METHOD 05/12/2024 6:54 PM [facility] LAB Hematocrit 34.9(L) 35.0 - 47.0 % LAB HEMETOLOGY METHOD 05/12/2024 6:54 PM [facility] LAB MCV 80.6 79.0 - 98.0 FL LAB HEMETOLOGY METHOD 05/12/2024 6:54 PM [facility] LAB MCH 25.2(L) 27.0 - 32.0 pcg LAB HEMETOLOGY METHOD 05/12/2024 6:54 PM [facility] LAB MCHC 31.2(L) 32.0 - 37.0 g/dL LAB HEMETOLOGY METHOD 05/12/2024 6:54 PM [facility] LAB RDW LAB HEMETOLOGY METHOD 05/12/2024 6:54 PM [facility] LAB Comment:Not Measured Platelets 284 130 - 400 K/mcL LAB HEMETOLOGY METHOD 05/12/2024 6:54 PM [facility] LAB MPV 9.6 7.0 - 11.0 FL LAB HEMETOLOGY METHOD 05/12/2024 6:54 PM [facility] LAB NRBC 0.0 <1.0 % LAB HEMETOLOGY METHOD 05/12/2024 6:54 PM [facility] LAB NRBC Absolute 0.00 <0.10 K/mcL LAB HEMETOLOGY METHOD 05/12/2024 6:54 PM [facility] LAB Neutrophils Relative 45.2 % LAB HEMETOLOGY METHOD 05/12/2024 6:54 PM [facility] LAB Lymphocytes Relative 40.8 % LAB HEMETOLOGY METHOD 05/12/2024 6:54 PM [facility] LAB Monocytes Relative 6.2 % LAB HEMETOLOGY METHOD 05/12/2024 6:54 PM [facility] LAB Eosinophils Relative 6.6 % LAB HEMETOLOGY METHOD 05/12/2024 6:54 PM [facility] LAB Basophils Relative 0.9 % LAB HEMETOLOGY METHOD 05/12/2024 6:54 PM [facility] LAB Immature Granulocytes Relative 0.3 % LAB HEMETOLOGY METHOD 05/12/2024 6:54 PM EST [facility] LAB Neutrophils Absolute 3.40 1.50 - 7.00 K/mcL LAB HEMETOLOGY METHOD 05/12/2024 6:54 PM EST [facility] LAB Lymphocytes Absolute 3.07 1.00 - 5.00 K/mcL LAB HEMETOLOGY METHOD 05/12/2024 6:54 PM EST [facility] LAB Monocytes Absolute 0.47 0.20 - 1.00 K/mcL LAB HEMETOLOGY METHOD 05/12/2024 6:54 PM EST [facility] LAB Eosinophils Absolute 0.50 0.00 - 0.50 K/mcL LAB HEMETOLOGY METHOD 05/12/2024 6:54 PM EST [facility] LAB Basophils Absolute 0.07 0.00 - 0.20 K/mcL LAB HEMETOLOGY METHOD 05/12/2024 6:54 PM EST [facility] LAB Immature Granulocytes Absolute 0.02 0.00 - 0.03 K/mcL LAB HEMETOLOGY METHOD 05/12/2024 6:54 PM EST [facility] LAB Blood Venous blood specimen / Unknown 05/12/2024 5:00 PM EST 05/12/2024 6:46 PM EST us London Avalos MD LAB BLOOD ORDERABLES Vi dickey Result [facility] LAB [address] [place] [address], * Triglycerides (05/12/2024 5:00 PM EST) Triglycerides 76 0 - 150 mg/dL LAB CHEMISTRY METHOD 05/13/2024 9:11 AM EST [facility] LAB Blood Venous blood specimen / Unknown 05/12/2024 5:00 PM EST 05/12/2024 6:46 PM EST London Avalos MD LAB BLOOD ORDERABLES Edit ed Result - Final Performing Organization Address [facility]/ZIP Co de Phone Number [facility] LAB [address] [place] [address], [place] [phone] * Phosphorus (05/12/2024 5:00 PM EST) Pathologist [facility] Phosphorus 3.5 2.5 - 4.5 mg/dL LAB CHEMISTRY METHOD 05/12/2024 7:33 PM EST [facility] LAB Blood Venous blood specimen / Unknown 05/12/2024 5:00 PM EST 05/12/2024 6:46 PM EST London Avalos MD LAB BLOOD ORDERABLES Vi l Result Performing Organization Address [facility]/ZIP Co de Phone Number [facility] [address] [place] [address], [place] [phone] * Magnesium (05/12/2024 5:00 PM EST) Pathologist [facility] Magnesium 2.0 1.9 - 2.6 mg/dL LAB CHEMISTRY METHOD 05/12/2024 7:33 PM EST [facility] LAB Blood Venous blood specimen / Unknown 05/12/2024 5:00 PM EST 05/12/2024 6:46 PM EST London Avalos MD LAB BLOOD ORDERABLES Vi l Result Performing Organization Address City/[facility]/ZIP Co de Phone Number [facility] [address] [place] [address], [place] [phone] * (ABNORMAL) Comprehensive metabolic panel (05/12/2024 5:00 PM EST) Sodium 140 133 - 145 mmol/L LAB CHEMISTRY METHOD 05/13/2024 9:11 AM EST [facility] LAB Potassium 3.9 3.5 - 5.5 mmol/L LAB CHEMISTRY METHOD 05/13/2024 9:11 AM [facility] LAB Chloride 108 96 - 110 mmol/L LAB CHEMISTRY METHOD 05/13/2024 9:11 AM [facility] LAB CO2 24 21 - 32 mmol/L LAB CHEMISTRY METHOD 05/13/2024 9:11 AM [facility] LAB Anion Gap 8 3 - 11 LAB CHEMISTRY METHOD 05/13/2024 9:11 AM [facility] LAB Glucose 75 70 - 100 mg/dL LAB CHEMISTRY METHOD 05/13/2024 9:11 AM [facility] LAB BUN 13 5 - 25 mg/dL LAB CHEMISTRY METHOD 05/13/2024 9:11 AM [facility] LAB Creatinine 0.60 0.50 - 1.10 mg/dL LAB CHEMISTRY METHOD 05/13/2024 9:11 AM [facility] LAB eGFR 115 >=60 mL/min/1. 73m2 LAB CHEMISTRY METHOD 05/13/2024 9:11 AM [facility] LAB Comment:Calculation based on the??Chronic Kidney Disease Epidemiology Collaboration (CKD-EPI) equation refit??without adjustment for race. BUN/Creatinine Ratio 21.7 LAB CHEMISTRY METHOD 05/13/2024 9:11 AM [facility] LAB Calcium 8.3(L) 8.5 - 10.5 mg/dL LAB CHEMISTRY METHOD 05/13/2024 9:11 AM [facility] LAB AST (SGOT) 18 10 - 42 unit/L LAB CHEMISTRY METHOD 05/13/2024 9:11 AM [facility] LAB ALT (SGPT) 16 10 - 60 unit/L LAB CHEMISTRY METHOD 05/13/2024 9:11 AM [facility] LAB Alkaline Phosphatase 46 42 - 121 unit/L LAB CHEMISTRY METHOD 05/13/2024 9:11 AM [facility] LAB Total Protein 5.8(L) 6.0 - 8.0 g/dL LAB CHEMISTRY METHOD 05/13/2024 9:11 AM EST [facility] LAB Albumin 3.1(L) 3.2 - 5.0 g/dL LAB CHEMISTRY METHOD 05/13/2024 9:11 AM [facility] LAB Total Bilirubin 0.2 0.0 - 1.4 mg/dL LAB CHEMISTRY METHOD 05/13/2024 9:11 AM [facility] LAB Blood Venous blood specimen / Unknown 05/12/2024 5:00 PM EST 05/12/2024 6:46 PM EST London Avalos MD LAB BLOOD ORDERABLES Edit ed Result - Final [facility] LAB [address] [place] [address], documented in this encounter Visit Diagnoses Diagnosis Bariatric surgery status Dysphagia, unspecified Gastric ulcer, unspecified as acute or chronic, 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 Otitis media, unspecified, right ear Epigastric pain Abdominal pain, epigastric Gastrojejunal ulcer, unspecified as acute or chronic, 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 documented in this encounter Care Teams Director Of It Operations Relationship Specialty Start Date End Date Physician, Pcp Unknown PCP - General 05/05/24 documented as of this encounter
--- OUTSIDE RECORDS SUMMARY | 2024-07-17 18:01 | XMS_ITS | Encounter Summary ---
Author Organization [employer] Address [address] [place] [address] Care Team Providers Care Form Grader Operator Name Role Phone Physician, Pcp Unknown Primary Care Provider Louise vailable Encounter Details Date Type Department Care Team (Late st Contact Info) Description 05/19/[address] [facility] - Main Lab 299 [facility] [place] [address] London Avalos MD [address] [place] [address] [address] [place] [address] Bariatric surgery status; Dysphagia, unspecified; Gastric ulcer, [...] Diagnosis Comments CBC WITH AUTO DIFFERENTIAL Routine 05/19/2024 4:10 [...] encounter Results * (ABNORMAL) CBC auto differential (05/19/2024 4:10 PM EST) Pathologist [facility] WBC 9.0 4.8 - 10.8 K/mcL LAB HEMETOLOGY METHOD 05/19/2024 7:15 PM [facility] LAB RBC 4.80 3.80 - 4.80 M/[facility] LAB HEMETOLOGY METHOD 05/19/2024 7:15 PM [facility] LAB Hemoglobin 12.1 11.5 - 16.0 g/dL LAB HEMETOLOGY METHOD 05/19/2024 7:15 PM [facility] LAB Hematocrit 38.2 35.0 - 47.0 % LAB HEMETOLOGY METHOD 05/19/2024 7:15 PM [facility] LAB MCV 79.7 79.0 - 98.0 FL LAB HEMETOLOGY METHOD 05/19/2024 7:15 PM [facility] LAB MCH 25.3(L) 27.0 - 32.0 pcg LAB HEMETOLOGY METHOD 05/19/2024 7:15 PM [facility] LAB MCHC 31.7(L) 32.0 - 37.0 g/dL LAB HEMETOLOGY METHOD 05/19/2024 7:15 PM [facility] LAB RDW 23.6(H) 11.0 - 15.0 % LAB HEMETOLOGY METHOD 05/19/2024 7:15 PM [facility] LAB Platelets 307 130 - 400 K/mcL LAB HEMETOLOGY METHOD 05/19/2024 7:15 PM [facility] LAB MPV 9.3 7.0 - 11.0 FL LAB HEMETOLOGY METHOD 05/19/2024 7:15 PM [facility] LAB NRBC 0.0 <1.0 % LAB HEMETOLOGY METHOD 05/19/2024 7:15 PM [facility] LAB NRBC Absolute 0.00 <0.10 K/mcL LAB HEMETOLOGY METHOD 05/19/2024 7:15 PM [facility] LAB Neutrophils Relative 44.6 % LAB HEMETOLOGY METHOD 05/19/2024 7:15 PM [facility] LAB Lymphocytes Relative 41.7 % LAB HEMETOLOGY METHOD 05/19/2024 7:15 PM [facility] LAB Monocytes Relative 5.9 % LAB HEMETOLOGY METHOD 05/19/2024 7:15 PM [facility] LAB Eosinophils Relative 6.9 % LAB HEMETOLOGY METHOD 05/19/2024 7:15 PM [facility] LAB Basophils Relative 0.6 % LAB HEMETOLOGY METHOD 05/19/2024 7:15 PM [facility] LAB Immature Granulocytes Relative 0.3 % LAB HEMETOLOGY METHOD 05/19/2024 7:15 PM EST [facility] LAB Neutrophils Absolute 4.02 1.50 - 7.00 K/mcL LAB HEMETOLOGY METHOD 05/19/2024 7:15 PM EST [facility] LAB Lymphocytes Absolute 3.75 1.00 - 5.00 K/mcL LAB HEMETOLOGY METHOD 05/19/2024 7:15 PM EST [facility] LAB Monocytes Absolute 0.53 0.20 - 1.00 K/mcL LAB HEMETOLOGY METHOD 05/19/2024 7:15 PM EST [facility] LAB Eosinophils Absolute 0.62(H) 0.00 - 0.50 K/mcL LAB HEMETOLOGY METHOD 05/19/2024 7:15 PM EST [facility] LAB Basophils Absolute 0.05 0.00 - 0.20 K/mcL LAB HEMETOLOGY METHOD 05/19/2024 7:15 PM EST [facility] LAB Immature Granulocytes Absolute 0.03 0.00 - 0.03 K/mcL LAB HEMETOLOGY METHOD 05/19/2024 7:15 PM EST [facility] LAB Blood Venous blood specimen / Unknown 05/19/2024 4:10 PM EST 05/19/2024 6:50 PM EST London Avalos MD LAB BLOOD ORDERABLES Vi l Result [facility] [address] [place] [address], * Magnesium (05/19/2024 4:10 PM EST) Magnesium 2.0 1.9 - 2.6 mg/dL LAB CHEMISTRY METHOD 05/19/2024 7:28 PM EST [facility] LAB Blood Venous blood specimen / Unknown 05/19/2024 4:10 PM EST 05/19/2024 6:44 PM EST London Avalos MD LAB BLOOD ORDERABLES Vi l Result Performing Organization Address City/[facility]/ZIP Co de Phone Number [facility] [address] [place] [address], [place] [phone] * Triglycerides (05/19/2024 4:10 PM EST) Triglycerides 97 0 - 150 mg/dL LAB CHEMISTRY METHOD 05/19/2024 7:28 PM EST [facility] Blood Venous blood specimen / Unknown 05/19/2024 4:10 PM EST 05/19/2024 6:44 PM EST London Avalos MD LAB BLOOD ORDERABLES Vi l Result Performing Organization Address [facility]/ZIP Co de Phone Number [facility] [address] [place] [address], [place] [phone] * Phosphorus (05/19/2024 4:10 PM EST) Pathologist [facility] Phosphorus 4.0 2.5 - 4.5 mg/dL LAB CHEMISTRY METHOD 05/19/2024 7:28 PM EST [facility] LAB Blood Venous blood specimen / Unknown 05/19/2024 4:10 PM EST 05/19/2024 6:44 PM EST London Avalos MD LAB BLOOD ORDERABLES Vi l Result Performing Organization Address City/[facility]/ZIP Co de Phone Number [facility] [address] [place] [address], [place] [phone] * (ABNORMAL) Comprehensive metabolic panel (05/19/2024 4:10 PM EST) Sodium 136 133 - 145 mmol/L LAB CHEMISTRY METHOD 05/19/2024 7:46 PM EST [facility] Potassium 3.9 3.5 - 5.5 mmol/L LAB CHEMISTRY METHOD 05/19/2024 7:46 PM [facility] LAB Chloride 110 96 - 110 mmol/L LAB CHEMISTRY METHOD 05/19/2024 7:46 PM [facility] LAB CO2 19(L) 21 - 32 mmol/L LAB CHEMISTRY METHOD 05/19/2024 7:46 PM [facility] LAB Anion Gap 7 3 - 11 LAB CHEMISTRY METHOD 05/19/2024 7:46 PM [facility] LAB Glucose 81 70 - 100 mg/dL LAB CHEMISTRY METHOD 05/19/2024 7:46 PM [facility] BUN 25 5 - 25 mg/dL LAB CHEMISTRY METHOD 05/19/2024 7:46 PM [facility] LAB Comment:Results verified by repeat testing Creatinine 0.71 0.50 - 1.10 mg/dL LAB CHEMISTRY METHOD 05/19/2024 7:46 PM [facility] LAB eGFR 109 >=60 mL/min/1. 73m2 LAB CHEMISTRY METHOD 05/19/2024 7:46 PM [facility] LAB Comment:Calculation based on the??Chronic Kidney Disease Epidemiology Collaboration (CKD-EPI) equation refit??without adjustment for race. BUN/Creatinine Ratio 35.2 LAB CHEMISTRY METHOD 05/19/2024 7:46 PM [facility] LAB Calcium 8.2(L) 8.5 - 10.5 mg/dL LAB CHEMISTRY METHOD 05/19/2024 7:46 PM [facility] LAB AST (SGOT) 24 10 - 42 unit/L LAB CHEMISTRY METHOD 05/19/2024 7:46 PM [facility] LAB ALT (SGPT) 18 10 - 60 unit/L LAB CHEMISTRY METHOD 05/19/2024 7:46 PM [facility] LAB Alkaline Phosphatase 50 42 - 121 unit/L LAB CHEMISTRY METHOD 05/19/2024 7:46 PM EST [facility] Total Protein 6.4 6.0 - 8.0 g/dL LAB CHEMISTRY METHOD 05/19/2024 7:46 PM EST [facility] Albumin 3.5 3.2 - 5.0 g/dL LAB CHEMISTRY METHOD 05/19/2024 7:46 PM EST [facility] Total Bilirubin 0.2 0.0 - 1.4 mg/dL LAB CHEMISTRY METHOD 05/19/2024 7:46 PM EST [facility] Blood Venous blood specimen / Unknown 05/19/2024 4:10 PM EST 05/19/2024 6:44 PM EST us London Avalos MD LAB BLOOD ORDERABLES Vi dickey Result [facility] [address] [place] [address], documented in this encounter Visit Diagnoses Diagnosis Bariatric surgery status Dysphagia, unspecified Gastric ulcer, unspecified as acute or chronic, 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 Otitis media, unspecified, right ear Epigastric pain Abdominal pain, epigastric Gastrojejunal ulcer, unspecified as acute or chronic, 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 documented in this encounter Care Teams Form Grader Operator Relationship Specialty Start Date End Date Physician, Pcp Unknown PCP - General 05/05/24 documented as of this encounter
--- OUTSIDE RECORDS SUMMARY | 2024-07-17 18:02 | XMS_ITS | Encounter Summary ---
Author Organization [email or web address] Address [address] [place] [address] Care Team Providers Care Keyseating Machine Set Up Operator Name Role Phone Physician, Pcp Unknown Primary Care Provider Louise vailable Encounter Details Date Type Department Care Team (Late st Contact Info) Description 06/10/2024 Lab Requisition [facility] - Main Lab 299 [facility] [place] [address] London Avalos MD [address] [place] [address] [address] [place] [address] Bariatric surgery status; Otitis media, unspecified, right [...] encounter Results * (ABNORMAL) CBC auto differential (06/10/2024 4:00 PM EST) Pathologist [facility] WBC 8.6 4.8 - 10.8 K/mcL LAB HEMETOLOGY METHOD 06/10/2024 6:48 PM [facility] LAB RBC 4.30 3.80 - 4.80 M/mcL LAB HEMETOLOGY METHOD 06/10/2024 6:48 PM [facility] LAB Hemoglobin 11.7 11.5 - 16.0 g/dL LAB HEMETOLOGY METHOD 06/10/2024 6:48 PM [facility] LAB Hematocrit 37.3 35.0 - 47.0 % LAB HEMETOLOGY METHOD 06/10/2024 6:48 PM [facility] LAB MCV 85.9 79.0 - 98.0 FL LAB HEMETOLOGY METHOD 06/10/2024 6:48 PM [facility] LAB MCH 27.0 27.0 - 32.0 pcg LAB HEMETOLOGY METHOD 06/10/2024 6:48 PM [facility] LAB MCHC 31.4(L) 32.0 - 37.0 g/dL LAB HEMETOLOGY METHOD 06/10/2024 6:48 PM [facility] LAB RDW 21.3(H) 11.0 - 15.0 % LAB HEMETOLOGY METHOD 06/10/2024 6:48 PM [facility] LAB Platelets 322 130 - 400 K/mcL LAB HEMETOLOGY METHOD 06/10/2024 6:48 PM [facility] LAB MPV 9.6 7.0 - 11.0 FL LAB HEMETOLOGY METHOD 06/10/2024 6:48 PM [facility] NRBC 0.0 <1.0 % LAB HEMETOLOGY METHOD 06/10/2024 6:48 PM [facility] LAB NRBC Absolute 0.00 <0.10 K/mcL LAB HEMETOLOGY METHOD 06/10/2024 6:48 PM [facility] LAB Neutrophils Relative 53.9 % LAB HEMETOLOGY METHOD 06/10/2024 6:48 PM [facility] Lymphocytes Relative 35.6 % LAB HEMETOLOGY METHOD 06/10/2024 6:48 PM [facility] Monocytes Relative 7.6 % LAB HEMETOLOGY METHOD 06/10/2024 6:48 PM [facility] Eosinophils Relative 2.1 % LAB HEMETOLOGY METHOD 06/10/2024 6:48 PM [facility] Basophils Relative 0.6 % LAB HEMETOLOGY METHOD 06/10/2024 6:48 PM EST [facility] Immature Granulocytes Relative 0.2 % LAB HEMETOLOGY METHOD 06/10/2024 6:48 PM EST [facility] LAB Neutrophils Absolute 4.61 1.50 - 7.00 K/mcL LAB HEMETOLOGY METHOD 06/10/2024 6:48 PM EST [facility] LAB Lymphocytes Absolute 3.05 1.00 - 5.00 K/mcL LAB HEMETOLOGY METHOD 06/10/2024 6:48 PM EST [facility] LAB Monocytes Absolute 0.65 0.20 - 1.00 K/mcL LAB HEMETOLOGY METHOD 06/10/2024 6:48 PM [facility] Eosinophils Absolute 0.18 0.00 - 0.50 K/mcL LAB HEMETOLOGY METHOD 06/10/2024 6:48 PM EST [facility] LAB Basophils Absolute 0.05 0.00 - 0.20 K/mcL LAB HEMETOLOGY METHOD 06/10/2024 6:48 PM EST [facility] LAB Immature Granulocytes Absolute 0.02 0.00 - 0.03 K/mcL LAB HEMETOLOGY METHOD 06/10/2024 6:48 PM EST [facility] LAB Blood Venous blood specimen / Unknown 06/10/2024 4:00 PM EST 06/10/2024 6:18 PM EST us [place] Avalos MD LAB BLOOD ORDERABLES Vi dickey Result [facility] [address] [place] [address], * Triglycerides (06/10/2024 4:00 PM EST) Triglycerides 108 0 - 150 mg/dL LAB CHEMISTRY METHOD 06/10/2024 7:06 PM EST [facility] LAB Blood Venous blood specimen / Unknown 06/10/2024 4:00 PM EST 06/10/2024 6:18 PM EST London Avalos MD LAB BLOOD ORDERABLES Vi l Result Performing Organization Address [facility]/ZIP Co de Phone Number [facility] [address] [place] [address], [place] [phone] * (ABNORMAL) Phosphorus (06/10/2024 4:00 PM EST) Phosphorus 4.6(H) 2.5 - 4.5 mg/dL LAB CHEMISTRY METHOD 06/10/2024 7:06 PM EST [facility] LAB Blood Venous blood specimen / Unknown 06/10/2024 4:00 PM EST 06/10/2024 6:18 PM EST London Avalos MD LAB BLOOD ORDERABLES Vi l Result Performing Organization Address [facility] Co de Phone Number [facility] [address] [place] [address], [place] [phone] * Magnesium (06/10/2024 4:00 PM EST) Pathologist [facility] Magnesium 1.9 1.9 - 2.6 mg/dL LAB CHEMISTRY METHOD 06/10/2024 7:06 PM EST [facility] LAB Blood Venous blood specimen / Unknown 06/10/2024 4:00 PM EST 06/10/2024 6:18 PM EST London Avalos MD LAB BLOOD ORDERABLES Vi l Result Performing Organization Address City/[facility]/ZIP Co de Phone Number [facility] [address] [place] [address], [place] [phone] * (ABNORMAL) Comprehensive metabolic panel (06/10/2024 4:00 PM EST) Sodium 140 133 - 145 mmol/L LAB CHEMISTRY METHOD 06/10/2024 7:14 PM EST [facility] Potassium 3.5 3.5 - 5.5 mmol/L LAB CHEMISTRY METHOD 06/10/2024 7:14 PM [facility] Chloride 107 96 - 110 mmol/L LAB CHEMISTRY METHOD 06/10/2024 7:14 PM [facility] CO2 27 21 - 32 mmol/L LAB CHEMISTRY METHOD 06/10/2024 7:14 PM [facility] Anion Gap 6 3 - 11 LAB CHEMISTRY METHOD 06/10/2024 7:14 PM [facility] Glucose 106(H) 70 - 100 mg/dL LAB CHEMISTRY METHOD 06/10/2024 7:14 PM [facility] BUN 20 5 - 25 mg/dL LAB CHEMISTRY METHOD 06/10/2024 7:14 PM [facility] Creatinine 0.78 0.50 - 1.10 mg/dL LAB CHEMISTRY METHOD 06/10/2024 7:14 PM [facility] LAB eGFR 97 >=60 mL/min/1. 73m2 LAB CHEMISTRY METHOD 06/10/2024 7:14 PM [facility] LAB Comment:Calculation based on the??Chronic Kidney Disease Epidemiology Collaboration (CKD-EPI) equation refit??without adjustment for race. BUN/Creatinine Ratio 25.6 LAB CHEMISTRY METHOD 06/10/2024 7:14 PM [facility] Calcium 8.1(L) 8.5 - 10.5 mg/dL LAB CHEMISTRY METHOD 06/10/2024 7:14 PM [facility] AST (SGOT) 25 10 - 42 unit/L LAB CHEMISTRY METHOD 06/10/2024 7:14 PM [facility] ALT (SGPT) 17 10 - 60 unit/L LAB CHEMISTRY METHOD 06/10/2024 7:14 PM [facility] Alkaline Phosphatase 47 42 - 121 unit/L LAB CHEMISTRY METHOD 06/10/2024 7:14 PM [facility] Total Protein 6.3 6.0 - 8.0 g/dL LAB CHEMISTRY METHOD 06/10/2024 7:14 PM EST [facility] Albumin 3.4 3.2 - 5.0 g/dL LAB CHEMISTRY METHOD 06/10/2024 7:14 PM [facility] Total Bilirubin 0.2 0.0 - 1.4 mg/dL LAB CHEMISTRY METHOD 06/10/2024 7:14 PM EST [facility] Blood Venous blood specimen / Unknown 06/10/2024 4:00 PM EST 06/10/2024 6:18 PM EST us [place] Avalos MD LAB BLOOD ORDERABLES Vi dickey Result [facility] [address] [place] [address], documented in this encounter Visit Diagnoses Diagnosis Bariatric surgery status Otitis media, unspecified, right ear Dysphagia, unspecified Epigastric pain Abdominal pain, epigastric Gastric ulcer, unspecified as acute or chronic, 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 Gastrojejunal ulcer, unspecified as acute or chronic, 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 documented in this encounter Care Teams Keyseating Machine Set Up Operator Relationship Specialty Start Date End Date Physician, Pcp Unknown PCP - General 05/05/24 documented as of this encounter
--- OUTSIDE RECORDS SUMMARY | 2024-07-17 18:02 | XMS_ITS | Clinical Summary ---
Author Organization [facility] Address [address] [place] [address] Care Team Providers Care Orchestra Teacher Name Role Phone Era Yeager Primary Care Provider [phone] Allergies Active Allergy Reactions Criticality Noted Date Comments Ethylene Glycol Dermatitis 05/09/2022 Propylene Glycol Dermatitis 05/09/2022 Trazodone Dizziness,Dry mouth, Hot flashes,Palpitations,Respiratory Distress,Restlessness,Sweating High 05/09/2022 Medications Freestyle Lite test strips TEST 2 TIMES A WEEK 07/26/2021 Active clonazePAM (KlonoPIN) 1 mg tablet Take 1 mg by mouth nightly. 03/17/2022 Active hydrOXYzine HCL (ATARAX) 25 mg tablet Take 25 mg by mouth 2 times a day as needed. 04/16/2022 Active lactulose 10 gram/15 mL solution 04/26/2022 Active lamoTRIgine (LaMICtal) 100 mg tablet TAKE 1/2 TABLET BY MOUTH TWICE A DAY FOR 1 WEEK THEN 1 TABLET TWICE A DAY DIRECTED 09/20/2021 Active oxyCODONE-aceta minophen (PERCOCET) 5-325 mg tablet Take 1 tablet by mouth every 6 hours as needed. 09/09/2021 Active gabapentin (NEURONTIN) 300 mg capsule 04/26/2022 Active Active Problems Problem Noted Date Diagnosed Date H/O meningioma of the brain 05/09/2022 Chronic constipation 05/09/2022 Essential tremor 05/09/2022 Hypothyroidism 05/09/2022 Lichen sclerosus 05/09/2022 Social History Tobacco Use Types Packs/Day Years Used Date Smoking Tobacco: Never Assessed Comments Unknown Sex and Gender Information Value Date Recorded Sex Assigned at Female 05/07/2022 6:54 AM EST Legal Sex Female 11:21 AM EST Gender Identity Female 05/07/2022 6:54 AM EST Sexual Orientation Straight 05/07/2022 6: 54 AM EST Last Filed Vital Signs Vital Sign Reading Time Taken Comments Blood Pressure 112/74 05/09/2022 9:19 AM EST Pulse 82 05/09/2022 9:19 AM EST Temperature - - Respiratory Rate - - Oxygen Saturation - - Inhaled Oxygen Concentration - - Weight 59.1 kg (130 lb 6.4 oz) 05/09/2022 9:19 A M EST Height 157.5 cm (5' 2 ) 05/09/2022 9:19 AM EST Body Mass Index 23.85 05/09/2022 9:19 AM EST Plan of Treatment Health Maintenance Due Date Last Done Comments Cervical Cancer Screening 1982 HIV Screening 1982 HPV and Pap Smear 1982 Hepatitis C Screening 1982 Pap Smear 1982 Varicella Vaccines (1 of 2 - 13+ 2-dose series) 1995 Hepatitis B Vaccines (1 of 3 - 19+ 3-dose series) 2001 DTaP,Tdap,and Td Vaccines (1 - Tdap) 02/06/2004 Mammogram 2022 COVID-19 Vaccine ( - 2023-2 5 season) 2024 Influenza Vaccine (#1) 2024 Alcohol/Substance Use Screening 05/21/2024 Depression Screening and Follow-Up 05/21/2024 Social Drivers of Health Verónica ual Screening 05/21/2024 RSV Vaccine (60+ years old a nd patients) (1 - 1-dose 75+ series) 2057 Pneumococcal Vaccine: Pediat beatrice (0-5 Years) and At-Risk Patients (6-50 Years) Aged Out No longer eligible b ased on patient's age to complete this topic Insurance BCBS OUT OF STATE PPO Care Teams Orchestra Teacher Relationship Specialty Start Date End Date Era Yeager [address] [place] [address] [place] [address] PCP - General Internal Medicine 05/02/22
--- OUTSIDE RECORDS SUMMARY | 2024-07-17 18:02 | XMS_ITS | Encounter Summary ---
Author Organization [facility] Address [address] [place] [address] Care Team Providers Care Jr. Systems Administrator Name Role Phone Physician, Pcp Unknown Primary Care Provider Louise vailable Encounter Details Date Type Department Care Team (Late st Contact Info) Description 05/26/2024 Lab Requisition [facility] - Main Lab [address] [facility] [place] [address] London Avalos MD [address] [place] [address] [address] [place] [address] Bariatric surgery status; Otitis media, unspecified, right [...] Diagnosis Comments CBC WITH AUTO DIFFERENTIAL Routine 05/26/2024 2:00 [...] encounter Results * (ABNORMAL) CBC auto differential (05/26/2024 2:00 PM EST) Pathologist [facility] WBC 8.4 4.8 - 10.8 K/mcL LAB HEMETOLOGY METHOD 05/26/2024 7:35 PM [facility] RBC 4.40 3.80 - 4.80 M/[facility] LAB HEMETOLOGY METHOD 05/26/2024 7:35 PM [facility] Hemoglobin 11.2(L) 11.5 - 16.0 g/dL LAB HEMETOLOGY METHOD 05/26/2024 7:35 PM [facility] Hematocrit 35.5 35.0 - 47.0 % LAB HEMETOLOGY METHOD 05/26/2024 7:35 PM [facility] MCV 81.4 79.0 - 98.0 FL LAB HEMETOLOGY METHOD 05/26/2024 7:35 PM [facility] MCH 25.7(L) 27.0 - 32.0 pcg LAB HEMETOLOGY METHOD 05/26/2024 7:35 PM [facility] MCHC 31.5(L) 32.0 - 37.0 g/dL LAB HEMETOLOGY METHOD 05/26/2024 7:35 PM [facility] RDW 23.9(H) 11.0 - 15.0 % LAB HEMETOLOGY METHOD 05/26/2024 7:35 PM [facility] Platelets 284 130 - 400 K/mcL LAB HEMETOLOGY METHOD 05/26/2024 7:35 PM [facility] MPV 9.5 7.0 - 11.0 FL LAB HEMETOLOGY METHOD 05/26/2024 7:35 PM [facility] NRBC 0.0 <1.0 % LAB HEMETOLOGY METHOD 05/26/2024 7:35 PM [facility] NRBC Absolute 0.00 <0.10 K/mcL LAB HEMETOLOGY METHOD 05/26/2024 7:35 PM [facility] Neutrophils Relative 45.8 % LAB HEMETOLOGY METHOD 05/26/2024 7:35 PM [facility] Lymphocytes Relative 38.7 % LAB HEMETOLOGY METHOD 05/26/2024 7:35 PM [facility] Monocytes Relative 5.9 % LAB HEMETOLOGY METHOD 05/26/2024 7:35 PM [facility] Eosinophils Relative 8.1 % LAB HEMETOLOGY METHOD 05/26/2024 7:35 PM [facility] Basophils Relative 1.1 % LAB HEMETOLOGY METHOD 05/26/2024 7:35 PM [facility] Immature Granulocytes Relative 0.4 % LAB HEMETOLOGY METHOD 05/26/2024 7:35 PM EST [facility] Neutrophils Absolute 3.87 1.50 - 7.00 K/[facility] LAB HEMETOLOGY METHOD 05/26/2024 7:35 PM EST [facility] Lymphocytes Absolute 3.27 1.00 - 5.00 K/mcL LAB HEMETOLOGY METHOD 05/26/2024 7:35 PM EST [facility] Monocytes Absolute 0.50 0.20 - 1.00 K/[facility] LAB HEMETOLOGY METHOD 05/26/2024 7:35 PM EST [facility] Eosinophils Absolute 0.68(H) 0.00 - 0.50 K/mcL LAB HEMETOLOGY METHOD 05/26/2024 7:35 PM EST [facility] Basophils Absolute 0.09 0.00 - 0.20 K/mcL LAB HEMETOLOGY METHOD 05/26/2024 7:35 PM EST [facility] Immature Granulocytes Absolute 0.03 0.00 - 0.03 K/mcL LAB HEMETOLOGY METHOD 05/26/2024 7:35 PM EST [facility] Blood Venous blood specimen / Unknown 05/26/2024 2:00 PM EST 05/26/2024 6:37 PM EST us London Avalos MD LAB BLOOD ORDERABLES Vi dickey Result [facility] [address] [place] [address], * Triglycerides (05/26/2024 2:00 PM EST) Triglycerides 123 0 - 150 mg/dL LAB CHEMISTRY METHOD 05/26/2024 7:56 PM EST [facility] Blood Venous blood specimen / Unknown 05/26/2024 2:00 PM EST 05/26/2024 6:37 PM EST London Avalos MD LAB BLOOD ORDERABLES Vi l Result Performing Organization Address [facility]/ZIP Co de Phone Number [facility] [address] [place] [address], [place] [phone] * (ABNORMAL) Phosphorus (05/26/2024 2:00 PM EST) Phosphorus 5.1(H) 2.5 - 4.5 mg/dL LAB CHEMISTRY METHOD 05/26/2024 7:56 PM EST [facility] Blood Venous blood specimen / Unknown 05/26/2024 2:00 PM EST 05/26/2024 6:37 PM EST London Avalos MD LAB BLOOD ORDERABLES Vi l Result Performing Organization Address [facility] Co de Phone Number [facility] [address] [place] [address], [place] [phone] * Magnesium (05/26/2024 2:00 PM EST) Pathologist [facility] Magnesium 1.9 1.9 - 2.6 mg/dL LAB CHEMISTRY METHOD 05/26/2024 7:56 PM EST [facility] Blood Venous blood specimen / Unknown 05/26/2024 2:00 PM EST 05/26/2024 6:37 PM EST London Avalos MD LAB BLOOD ORDERABLES Vi l Result Performing Organization Address [facility]/ZIP Co de Phone Number [facility] [address] [place] [address], [place] [phone] * (ABNORMAL) Comprehensive metabolic panel (05/26/2024 2:00 PM EST) Sodium 139 133 - 145 mmol/L LAB CHEMISTRY METHOD 05/26/2024 7:57 PM [facility] Potassium 3.4(L) 3.5 - 5.5 mmol/L LAB CHEMISTRY METHOD 05/26/2024 7:57 PM [facility] Chloride 110 96 - 110 mmol/L LAB CHEMISTRY METHOD 05/26/2024 7:57 PM [facility] CO2 20(L) 21 - 32 mmol/L LAB CHEMISTRY METHOD 05/26/2024 7:57 PM [facility] Anion Gap 9 3 - 11 LAB CHEMISTRY METHOD 05/26/2024 7:57 PM [facility] Glucose 147(H) 70 - 100 mg/dL LAB CHEMISTRY METHOD 05/26/2024 7:57 PM [facility] BUN 27(H) 5 - 25 mg/dL LAB CHEMISTRY METHOD 05/26/2024 7:57 PM [facility] Creatinine 0.71 0.50 - 1.10 mg/dL LAB CHEMISTRY METHOD 05/26/2024 7:57 PM [facility] eGFR 109 >=60 mL/min/1. 73m2 LAB CHEMISTRY METHOD 05/26/2024 7:57 PM [facility] Comment:Calculation based on the??Chronic Kidney Disease Epidemiology Collaboration (CKD-EPI) equation refit??without adjustment for race. BUN/Creatinine Ratio 38.0 LAB CHEMISTRY METHOD 05/26/2024 7:57 PM [facility] Calcium 8.4(L) 8.5 - 10.5 mg/dL LAB CHEMISTRY METHOD 05/26/2024 7:57 PM [facility] AST (SGOT) 20 10 - 42 unit/L LAB CHEMISTRY METHOD 05/26/2024 7:57 PM [facility] ALT (SGPT) 17 10 - 60 unit/L LAB CHEMISTRY METHOD 05/26/2024 7:57 PM [facility] Alkaline Phosphatase 43 42 - 121 unit/L LAB CHEMISTRY METHOD 05/26/2024 7:57 PM EST [facility] Total Protein 6.1 6.0 - 8.0 g/dL LAB CHEMISTRY METHOD 05/26/2024 7:57 PM EST [facility] Albumin 3.3 3.2 - 5.0 g/dL LAB CHEMISTRY METHOD 05/26/2024 7:57 PM [facility] Total Bilirubin 0.1 0.0 - 1.4 mg/dL LAB CHEMISTRY METHOD 05/26/2024 7:57 PM [facility] Blood Venous blood specimen / Unknown 05/26/2024 2:00 PM EST 05/26/2024 6:37 PM EST us London Avalos MD LAB BLOOD ORDERABLES Vi dickey Result [facility] [address] [place] [address], documented in this encounter Visit Diagnoses Diagnosis Bariatric surgery status Otitis media, unspecified, right ear Epigastric pain Abdominal pain, epigastric Dysphagia, unspecified Gastric ulcer, unspecified as acute or chronic, 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 Gastrojejunal ulcer, unspecified as acute or chronic, 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 documented in this encounter Care Teams Jr. Systems Administrator Relationship Specialty Start Date End Date Physician, Pcp Unknown PCP - General 05/05/24 documented as of this encounter
--- OUTSIDE RECORDS SUMMARY | 2024-07-17 18:02 | XMS_ITS | Referral Summary ---
Author Organization [facility] Address [address] [place] [address] Care Team Providers Care Sulfonator Operator Name Role Phone Era Yeager Primary Care Provider [phone] Allergies Active Allergy Reactions Criticality Noted Date [...] 05/09/2022 9:19 AM EST Plan of Treatment Not on file Insurance BCBS OUT OF STATE PPO Care Teams Sulfonator Operator Relationship Specialty Start Date End Date Era Yeager [address] [place] [address] [place] [address] PCP - General Internal Medicine 05/02/22
[2024-07-18 05:24] LABS: Triiodothyronine T3 Free 2.7 pg/mL (2.3-4.2)
== END 2024-07-17 14:40 | disposition home or self-care (01) ==
LOC: HO.LAB 14:39
PROVIDERS: PCP Internal Medicine; Visit Provider Student in an Organized Health Care Education/Training Program
DX: E03.9 Hypothyroidism, unspecified (principal)
CPT/HCPCS: 36415; 84443; 84481

== ENCOUNTER 2024-11-19 12:35 | Outpatient (REF) | payer BC, SELFPAY ==
--- NOTE | ~2024-11-19 | US_ITS ---
EXAMINATION: US PELVIS TRANSABDOMINAL AND TRANSVAGINAL HISTORY: R10.2 - Pelvic and perineal pain COMPARISON: Comparison is made with the prior examination dated 03/06/2016. TECHNIQUE: Transabdominal and endovaginal real-time 2D swanson-scale ultrasound was performed. FINDINGS: Uterus: The uterus is surgically absent. Right ovary: The right ovary measures 3.1 x 1.7 x 2.9 cm. The right ovary is normal in size and echotexture. Left ovary: The left ovary measures 2.8 x 1.9 x 1.8 cm. The left ovary is normal in size and echotexture. Pelvic fluid: none. US/US pelvic and transvaginal IMPRESSION: Status post hysterectomy. Otherwise unremarkable pelvic ultrasound. Electronically signed by: Dileep Serrano MD 11/19/2024 01:25 PM EDT
--- OUTSIDE RECORDS SUMMARY | 2024-11-19 13:03 | XMS_ITS | Continuity of Care Document ---
Author Name [facility] Organization [facility] Care Team Providers Care Pulmonologist/Intensivist Name Role Phone [facility] Unavailable Unavailable Social History Combined list of available smoking, tobacco, and other social history from Department of Defense and Veterans Affairs facilities. Social History Type Response Date Comment Sourc e This section is an empty social history section. [facility]
--- OUTSIDE RECORDS SUMMARY | 2024-11-19 13:04 | XMS_ITS | Referral Summary ---
Author Organization [facility] Address [address] [place] [address] Care Team Providers Care Machine Feller Name Role Phone Era Yeager Primary Care Provider [phone] Allergies Active Allergy Reactions Criticality Noted Date [...] BCBS OUT OF STATE PPO Care Teams Machine Feller Relationship Specialty Start Date End Date Era Yeager [address] [place] [address] [place] [address] PCP - General Internal Medicine 05/02/22
--- OUTSIDE RECORDS SUMMARY | 2024-11-19 13:04 | XMS_ITS | Encounter Summary ---
Author Organization [facility] Address [address] [place] [address] Care Team Providers Care Jd Edwards Developer Name Role Phone Physician, Pcp Unknown Primary Care Provider Louise vailable Encounter Details Date Type Department Care Team (Late st Contact Info) Description 05/05/2024 Lab Requisition [facility] - Main Lab [address] [facility] [place] [address] London Avalos MD [address] [place] [address] [address] [place] [address] Bariatric surgery status; Otitis media, unspecified, right [...] auto differential (05/05/2024 4:30 PM EST) Pathologist [facility] WBC 6.8 4.8 - 10.8 K/mcL LAB HEMETOLOGY METHOD 05/05/2024 6:45 PM [facility] RBC 4.30 3.80 - 4.80 M/[facility] LAB HEMETOLOGY METHOD 05/05/2024 6:45 PM [facility] Hemoglobin 10.5(L) 11.5 - 16.0 g/dL LAB HEMETOLOGY METHOD 05/05/2024 6:45 PM [facility] Hematocrit 34.2(L) 35.0 - 47.0 % LAB HEMETOLOGY METHOD 05/05/2024 6:45 PM [facility] MCV 79.9 79.0 - 98.0 FL LAB HEMETOLOGY METHOD 05/05/2024 6:45 PM [facility] MCH 24.5(L) 27.0 - 32.0 pcg LAB HEMETOLOGY METHOD 05/05/2024 6:45 PM [facility] MCHC 30.7(L) 32.0 - 37.0 g/dL LAB HEMETOLOGY METHOD 05/05/2024 6:45 PM [facility] RDW LAB HEMETOLOGY METHOD 05/05/2024 6:45 PM [facility] Comment:Not Measured Platelets 263 130 - 400 K/mcL LAB HEMETOLOGY METHOD 05/05/2024 6:45 PM [facility] MPV 10.1 7.0 - 11.0 FL LAB HEMETOLOGY METHOD 05/05/2024 6:45 PM [facility] NRBC 0.0 <1.0 % LAB HEMETOLOGY METHOD 05/05/2024 6:45 PM [facility] NRBC Absolute 0.00 <0.10 K/mcL LAB HEMETOLOGY METHOD 05/05/2024 6:45 PM [facility] Neutrophils Relative 34.1 % LAB HEMETOLOGY METHOD 05/05/2024 6:45 PM [facility] Lymphocytes Relative 45.5 % LAB HEMETOLOGY METHOD 05/05/2024 6:45 PM [facility] Monocytes Relative 6.8 % LAB HEMETOLOGY METHOD 05/05/2024 6:45 PM [facility] Eosinophils Relative 12.1 % LAB HEMETOLOGY METHOD 05/05/2024 6:45 PM [facility] Basophils Relative 1.2 % LAB HEMETOLOGY METHOD 05/05/2024 6:45 PM [facility] Immature Granulocytes Relative 0.3 % [...] [facility] [address] [place] [address], * Triglycerides (05/05/2024 4:30 PM EST) Triglycerides 65 0 - 150 mg/dL LAB CHEMISTRY METHOD 05/05/2024 9:14 PM EST [facility] Blood Venous blood specimen / Unknown 05/05/2024 4:30 PM EST 05/05/2024 6:07 PM EST London Avalos MD LAB BLOOD ORDERABLES Vi l Result Performing Organization Address City/[facility]/ZIP Co de Phone Number [facility] [address] [place] [address], [place] [phone] * Phosphorus (05/05/2024 4:30 PM EST) Pathologist [facility] Phosphorus 3.7 2.5 - 4.5 mg/dL LAB CHEMISTRY METHOD 05/05/2024 9:14 PM EST [facility] Blood Venous blood specimen / Unknown 05/05/2024 4:30 PM EST 05/05/2024 6:07 PM EST London Avalos MD LAB BLOOD ORDERABLES Vi l Result Performing Organization Address [facility]/ZIP Co de Phone Number [facility] [address] [place] [address], [place] [phone] * Magnesium (05/05/2024 4:30 PM EST) [facility] Magnesium 2.3 1.9 - 2.6 mg/dL LAB CHEMISTRY METHOD 05/05/2024 9:14 PM EST [facility] Blood Venous blood specimen / Unknown 05/05/2024 4:30 PM EST 05/05/2024 6:07 PM EST London Avalos MD LAB BLOOD ORDERABLES Vi l Result Performing Organization Address City/[facility]/ZIP Co de Phone Number [facility] [address] [place] [address], [place] [phone] * (ABNORMAL) Comprehensive metabolic panel (05/05/2024 4:30 PM EST) Sodium 142 133 - 145 mmol/L LAB CHEMISTRY METHOD 05/05/2024 9:15 PM EST [facility] Potassium 3.9 3.5 - 5.5 mmol/L LAB CHEMISTRY METHOD 05/05/2024 9:15 PM [facility] Chloride 113(H) 96 - 110 mmol/L LAB CHEMISTRY METHOD 05/05/2024 9:15 PM [facility] CO2 25 21 - 32 mmol/L LAB CHEMISTRY METHOD 05/05/2024 9:15 PM [facility] Anion Gap 4 3 - 11 LAB CHEMISTRY METHOD 05/05/2024 9:15 PM [facility] Glucose 75 70 - 100 mg/dL LAB CHEMISTRY METHOD 05/05/2024 9:15 PM [facility] BUN 18 5 - 25 mg/dL LAB CHEMISTRY METHOD 05/05/2024 9:15 PM [facility] Creatinine 0.59 0.50 - 1.10 mg/dL LAB CHEMISTRY METHOD 05/05/2024 9:15 PM [facility] eGFR 116 >=60 mL/min/1. 73m2 LAB CHEMISTRY METHOD 05/05/2024 9:15 PM [facility] Comment:Calculation based on the Chronic Kidney Disease Epidemiology Collaboration (CKD-EPI) equation refit without adjustment for race. BUN/Creatinine Ratio 30.5 LAB CHEMISTRY METHOD 05/05/2024 9:15 PM [facility] Calcium 8.1(L) 8.5 - 10.5 mg/dL LAB CHEMISTRY METHOD 05/05/2024 9:15 PM [facility] AST (SGOT) 15 10 - 42 unit/L LAB CHEMISTRY METHOD 05/05/2024 9:15 PM [facility] ALT (SGPT) 13 10 - 60 unit/L LAB CHEMISTRY METHOD 05/05/2024 9:15 PM [facility] Alkaline Phosphatase 44 42 - 121 unit/L LAB CHEMISTRY METHOD 05/05/2024 9:15 PM [facility] Total Protein 5.9(L) 6.0 - [...] [facility] [address] [place] [address], documented in this encounter Visit Diagnoses Diagnosis Bariatric surgery status Otitis media, unspecified, right ear Dysphagia, unspecified Epigastric pain Abdominal pain, epigastric Gastric ulcer, unspecified as acute or chronic, 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 Gastrojejunal ulcer, unspecified as acute or chronic, 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 documented in this encounter Care Teams Jd Edwards Developer Relationship Specialty Start Date End Date Physician, Pcp Unknown PCP - General 05/05/24 documented as of this encounter
== END 2024-11-19 12:36 | disposition home or self-care (01) ==
LOC: HO.HMGCX 12:35
PROVIDERS: PCP Internal Medicine; Visit Provider Internal Medicine
DX: R10.2 Pelvic and perineal pain (principal)
CPT/HCPCS: 76830; 76856

== ENCOUNTER → 2024-11-19 12:38 | Outpatient (BNV) | payer BC, SELFPAY | PROVIDERS: PCP Internal Medicine; Visit Provider Radiology Diagnostic Radiology | DX: R10.2 Pelvic and perineal pain (principal); Z90.710 Acquired absence of both cervix and uterus | CPT/HCPCS: 76830; 76856 ==

== ENCOUNTER 2025-05-20 11:27 | Outpatient (AMB) | payer BC, SELFPAY ==
[2025-05-20 11:39] VITALS: BP 110/70; PULSE 65; TEMP 36.6; O2SAT 96; BMI 26.3
--- NOTE | 2025-05-20 11:39 | MHC.OFFWIV ---
Intake Vital Signs 05/20/25 11:39 Height 5 ft 2 in Weight 144 lb BMI 26.3 BP 110/70 Blood Pressure Location Lt brachial Position Sitting Pulse 65 Pulse Source Pulse Oximeter Temp 97.9 F Temp Source Oral Pulse Oximetry (%) 96 Oxygen Delivery Method Room Air Intake Visit Reasons: EP headaches for weeks Intake Note: pt presents with severe headaches for 1mo+, currently on Bactrim for what she thought was a sinus infection- without improvement. States her neurologist cannot see her until September 2025. Pt states Tylenol is unhelpful, taking ibuprofen which helps the headache but is causing her nausea and upsetting her ulcer, cannot put head down or bend over- experiencing tension down neck and across shoulders and dizziness Patient Tobacco Use Status: Never used Tobacco Allergies hydrocodone (From VICODIN) Allergy (Intermediate, Verified 05/20/25 11:40) GI UPSET propylene glycol (PROPYLENE GLYCOL) Allergy (Intermediate, Verified 05/20/25 11:40) EXTREME BURNING/PAIN/RASH trazodone Allergy (Intermediate, Verified 05/20/25 11:40) Shortness of Breath cobalt Allergy (Verified 05/20/25 11:40) Unknown acetaminophen (Vicodin) Adverse Reaction (Severe, Verified 05/20/25 11:40) Constipation lamotrigine Adverse Reaction (Intermediate, Verified 05/20/25 11:40) foggy propranolol Adverse Reaction (Intermediate, Verified 05/20/25 11:40) inadequate response levetiracetam (From Keppra) Adverse Reaction (Verified 05/20/25 11:40) foggy diamox Adverse Reaction (Intermediate, Uncoded 05/20/25 11:40) metalic taste, did not feel comfortable Do you need a note to return to daycare/school/sports/work: No HPI HPI Comments History of Present Illness Details She presents to office with headache She said hx of chronic migraines Pt sees Dr. Ruff for neurology. Can't be seen until September She does not have any medication for her migraines currently She said daily occurrence and this is her normal Decided to come today because she is tired of the pain No HT or LOC She is on vacation for work and looking to get better before going back to school She has hx of ? ICH on a 2022 MRI and is scheduled to see the ophthalmology in August Of note from that MRI she had stable meningioma. There is no more recent scans available. Pain is 10/10. Worsens with light. Denies change with loud noises. Has been taking Tylenol, Ibuprofen without relief; Ibuprofen causing GI ulcer worsening symptoms Admits to throbbing and pressure behind her eyes, temples and down the back of neck Describes it as tension + associated nausea and dizziness when she puts her head down No cold symptoms such as congestion, post nasal drip or cough She thought maybe sinus symptoms so PCP called her in an antibiotic which did not improve She said kolidascope vision sometimes and sees prisms occasionally No syncope, HT No weakness, numbness, tingling, confusion, slurred speech No recent seizure activity [facility] Medical History Seizure Chest pain Elevated d-dimer Cough Nausea & vomiting Epigastric pain Esophageal candidiasis Lymphedema Oropharyngeal dysphagia Dysphagia De Quervain's tenosynovitis, left Bilateral hand pain Pseudotumor cerebri Anxiety Insomnia Pain of right upper extremity Tremors of nervous system Impacted cerumen of both ears Acute sinusitis Acute right otitis media Goiter Janna's thyroiditis Physical exam Contusion of right forearm Right elbow pain Right wrist pain Right arm pain Fall from slipping on ice Sinus infection De Quervain's tenosynovitis, right Right wrist tendinitis Hypothyroidism Chronic migraine PCOS (polycystic ovarian syndrome) Pain in joint of right wrist Surgical History Hx of tubal ligation History of esophagogastroduodenoscopy (EGD) History of thyroidectomy Hx of hand surgery (12/25/22) H/O right knee surgery History of intestinal obstruction History of lumbar puncture Hx of appendectomy H/O gastric bypass History of partial hysterectomy Family History Mother No problems noted. 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 Current occupational exposures/hazards: No Cognitive needs: No Hearing needs: No Vision needs: Yes Review of Systems Const Denies chills, Denies fever(s), Denies frequent falls, Reports headache(s) and Denies weakness Eyes Denies blurry vision, Denies diplopia, Denies loss of vision and Reports other visual disturbances (sometimes floaters with migraines) ENT Denies vertigo, Reports dizziness, Denies otalgia, Reports headache(s), Reports sinus pain and Denies sore throat Card Denies chest pain, Denies syncope and Denies dyspnea Resp Denies cough and Denies dyspnea GI Denies abdominal pain and Denies vomiting Musc Denies myalgias, Denies numbness and Denies tingling Skin/Breast Denies erythema and Denies rash Neuro Denies Abnormal speech present, Denies confusion, Denies vertigo, Reports dizziness, Denies syncope, Denies frequent falls, Reports headache(s), Denies lack of coordination, Denies focal weakness, Denies loss of vision, Denies numbness, Denies radicular pain, Denies seizure-like activity, Denies Sensory deficit (Neuro), Denies tingling, Denies paresthesias and Denies weakness Psych Denies confusion Physical Exam Exam Exam: General: Non-toxic, NAD. Speaking full sentences. Skin: Warm dry throughout Eye: EOMI, PERRL. No entrapment or nystagmus. HENT: Airway patent. Uvula midline. No pharyngeal erythema or edema. No SUPERVISOR P[employer] HATCH[employer]. Bilateral canals clear. TM non-erythematous, non-bulging. No TM perforation or hemotympanum noted. Respiratory: CTA bilaterally. No wheezes, rales or rhonchi Cardiac: RRR. No murmur MSK: Full ROM extremities. Neurology: A/O x 3. CN 2-12 grossly intact. Finger to nose tracing equal. 5/5 sorter operator strength. Negative pronator drift. Able to maintain balance with rhomberg. Negative astrix. No aphasia or facial droop. Gait without abnormality Psych: Good mood and affect Vital Signs: Last Vital Signs Temp 97.9 F 05/20/25 11:39 Pulse 65 05/20/25 11:39 BP 110/70 05/20/25 11:39 Pulse Ox 96 05/20/25 11:39 Oxygen Delivery Method Room Air 05/20/25 11:39 BMI result Body Mass Index 26.3 Const General: No confusion Orientation/consciousness: No confusion Neuro General: No confusion Speech: No Abnormal speech present Sensory Exam: No Sensory deficit (Neuro) Assessment & Plan Assessment & Plan (1) Migraine: Code(s): G43.909 - Migraine, unspecified, not intractable, without status migrainosus Qualifiers: Migraine type: unspecified Status migrainosus presence: without status migrainosus Intractability: intractable Qualified Code(s): G43.919 - Migraine, unspecified, intractable, without status migrainosus Plan: Patient seen and evaluated. Has years of headaches exactly similar to this and sees neurologist She has tried OTC medicine without relief She has no neurological deficit on examination Discussed [facility] script (sent by Tiffanie Mckenna PA-C due to my password not working for controlled substance online system) Discussed can cause lethargy; no alcohol or driving under the influence. She has had tylenol multiple time and is not considered allergy for constipation (she has been using this week) Discussed ER s/s such as intractibility, confusion, weakness, seizure, loss/double vision, syncope, etc and she gave verbal understanding. Patient gave verbal understanding and had no additional questions or concerns at time of discharge All questions answered Medications: New rcsymylmxg-[id number]-[id number] 50-325-40 mg 1 tab PO Q4-6H PRN 10 tabs 0RF migraines G43.909 - Migraine, unspecified, not intractable, without status migrainosus Coding Level of Care Code Est Pt Level 3 (47701) Diagnoses Intractable migraine without status migrainosus, unspecified migraine type G43.919 Migraine type: unspecified Status migrainosus presence: without status migrainosus Intractability: intractable
--- OUTSIDE RECORDS SUMMARY | 2025-05-20 13:09 | XMS_ITS | Encounter Summary ---
Author Organization [employer] Address [address] [place] [address] Care Team Providers Care Shop Director Name Role Phone Physician, Pcp Unknown Primary Care Provider Louise vailable Encounter Details Date Type Department Care Team (Late st Contact Info) Description 05/19/2024 Lab Requisition [facility] - Main Lab [address] [facility] [place] [address] London Avalos MD [address] [place] [address] 3[address] [place] [address] Bariatric surgery status; Dysphagia, unspecified; Gastric ulcer, [...] differential (05/19/2024 4:10 PM EST) Pathologist [facility] WBC 9.0 4.8 - 10.8 K/mcL LAB HEMETOLOGY METHOD 05/19/2024 7:15 PM [facility] LAB RBC 4.80 3.80 - 4.80 M/[facility] LAB HEMETOLOGY METHOD 05/19/2024 7:15 PM [facility] LAB Hemoglobin 12.1 11.5 - 16.0 g/dL LAB HEMETOLOGY METHOD 05/19/2024 7:15 PM [facility] LAB Hematocrit 38.2 35.0 - 47.0 % LAB HEMETOLOGY METHOD 05/19/2024 7:15 PM [facility] LAB MCV 79.7 79.0 - 98.0 FL LAB HEMETOLOGY METHOD 05/19/2024 7:15 PM [facility] LAB MCH 25.3(L) 27.0 - 32.0 pcg LAB HEMETOLOGY METHOD 05/19/2024 7:15 PM [facility] LAB MCHC 31.7(L) 32.0 - 37.0 g/dL LAB HEMETOLOGY METHOD 05/19/2024 7:15 PM [facility] LAB RDW 23.6(H) 11.0 - 15.0 % LAB HEMETOLOGY METHOD 05/19/2024 7:15 PM [facility] LAB Platelets 307 130 - 400 K/mcL LAB HEMETOLOGY METHOD 05/19/2024 7:15 PM [facility] LAB MPV 9.3 7.0 - 11.0 FL LAB HEMETOLOGY METHOD 05/19/2024 7:15 PM [facility] LAB NRBC 0.0 <1.0 % LAB HEMETOLOGY METHOD 05/19/2024 7:15 PM [facility] LAB NRBC Absolute 0.00 <0.10 K/mcL LAB HEMETOLOGY METHOD 05/19/2024 7:15 PM [facility] LAB Neutrophils Relative 44.6 % LAB HEMETOLOGY METHOD 05/19/2024 7:15 PM [facility] LAB Lymphocytes Relative 41.7 % LAB HEMETOLOGY METHOD 05/19/2024 7:15 PM [facility] LAB Monocytes Relative 5.9 % LAB HEMETOLOGY METHOD 05/19/2024 7:15 PM [facility] LAB Eosinophils Relative 6.9 % LAB HEMETOLOGY METHOD 05/19/2024 7:15 PM [facility] LAB Basophils Relative 0.6 % LAB HEMETOLOGY METHOD 05/19/2024 7:15 PM [facility] LAB Immature Granulocytes Relative 0.3 % LAB HEMETOLOGY METHOD 05/19/2024 7:15 PM EST [facility] LAB Neutrophils Absolute 4.02 1.50 - 7.00 K/mcL LAB HEMETOLOGY METHOD 05/19/2024 7:15 PM EST [facility] LAB Lymphocytes Absolute 3.75 1.00 - 5.00 K/mcL LAB HEMETOLOGY METHOD 05/19/2024 7:15 PM EST [facility] LAB Monocytes Absolute 0.53 0.20 - 1.00 K/mcL LAB HEMETOLOGY METHOD 05/19/2024 7:15 PM EST [facility] LAB Eosinophils Absolute 0.62(H) 0.00 - 0.50 K/mcL LAB HEMETOLOGY METHOD 05/19/2024 7:15 PM EST [facility] LAB Basophils Absolute 0.05 0.00 - 0.20 K/mcL LAB HEMETOLOGY METHOD 05/19/2024 7:15 PM EST [facility] LAB Immature Granulocytes Absolute 0.03 0.00 - 0.03 K/mcL LAB HEMETOLOGY METHOD 05/19/2024 7:15 PM EST [facility] LAB Blood Venous blood specimen / Unknown 05/19/2024 4:10 PM EST 05/19/2024 6:50 PM EST London Avalos MD LAB BLOOD ORDERABLES Vi l Result [facility] [address] [place] [address], * Magnesium (05/19/2024 4:10 PM EST) Magnesium 2.0 1.9 - 2.6 mg/dL LAB CHEMISTRY METHOD 05/19/2024 7:28 PM EST [facility] LAB Blood Venous blood specimen / Unknown 05/19/2024 4:10 PM EST 05/19/2024 6:44 PM EST London Avalos MD LAB BLOOD ORDERABLES Vi l Result Performing Organization Address City/[facility]/ZIP Co de Phone Number [facility] [address] [place] [address], [place] [phone] * Triglycerides (05/19/2024 4:10 PM EST) Triglycerides 97 0 - 150 mg/dL LAB CHEMISTRY METHOD 05/19/2024 7:28 PM EST [facility] Blood Venous blood specimen / Unknown 05/19/2024 4:10 PM EST 05/19/2024 6:44 PM EST London Avalos MD LAB BLOOD ORDERABLES Vi l Result Performing Organization Address [facility]/ZIP Co de Phone Number [facility] [address] [place] [address], [place] [phone] * Phosphorus (05/19/2024 4:10 PM EST) Pathologist [facility] Phosphorus 4.0 2.5 - 4.5 mg/dL LAB CHEMISTRY METHOD 05/19/2024 7:28 PM EST [facility] LAB Blood Venous blood specimen / Unknown 05/19/2024 4:10 PM EST 05/19/2024 6:44 PM EST London Avalos MD LAB BLOOD ORDERABLES Vi l Result Performing Organization Address City/[facility]/ZIP Co de Phone Number [facility] [address] [place] [address], [place] [phone] * (ABNORMAL) Comprehensive metabolic panel (05/19/2024 4:10 PM EST) Sodium 136 133 - 145 mmol/L LAB CHEMISTRY METHOD 05/19/2024 7:46 PM EST [facility] Potassium 3.9 3.5 - 5.5 mmol/L LAB CHEMISTRY METHOD 05/19/2024 7:46 PM [facility] LAB Chloride 110 96 - 110 mmol/L LAB CHEMISTRY METHOD 05/19/2024 7:46 PM [facility] LAB CO2 19(L) 21 - 32 mmol/L LAB CHEMISTRY METHOD 05/19/2024 7:46 PM [facility] LAB Anion Gap 7 3 - 11 LAB CHEMISTRY METHOD 05/19/2024 7:46 PM [facility] LAB Glucose 81 70 - 100 mg/dL LAB CHEMISTRY METHOD 05/19/2024 7:46 PM [facility] LAB BUN 25 5 - 25 mg/dL LAB CHEMISTRY METHOD 05/19/2024 7:46 PM [facility] LAB Comment:Results verified by repeat testing Creatinine 0.71 0.50 - 1.10 mg/dL LAB CHEMISTRY METHOD 05/19/2024 7:46 PM [facility] LAB eGFR 109 >=60 mL/min/1. 73m2 LAB CHEMISTRY METHOD 05/19/2024 7:46 PM [facility] LAB Comment:Calculation based on the Chronic Kidney Disease Epidemiology Collaboration (CKD-EPI) equation refit without adjustment for race. BUN/Creatinine Ratio 35.2 LAB CHEMISTRY METHOD 05/19/2024 7:46 PM [facility] LAB Calcium 8.2(L) 8.5 - 10.5 mg/dL LAB CHEMISTRY METHOD 05/19/2024 7:46 PM [facility] LAB AST (SGOT) 24 10 - 42 unit/L LAB CHEMISTRY METHOD 05/19/2024 7:46 PM [facility] LAB ALT (SGPT) 18 10 - 60 unit/L LAB CHEMISTRY METHOD 05/19/2024 7:46 PM [facility] LAB Alkaline Phosphatase 50 42 - 121 unit/L LAB CHEMISTRY METHOD 05/19/2024 7:46 PM [facility] LAB Total Protein 6.4 6.0 - 8.0 g/dL LAB CHEMISTRY METHOD 05/19/2024 7:46 PM EST [facility] Albumin 3.5 3.2 - 5.0 g/dL LAB CHEMISTRY METHOD 05/19/2024 7:46 PM EST [facility] Total Bilirubin 0.2 0.0 - 1.4 mg/dL LAB CHEMISTRY METHOD 05/19/2024 7:46 PM EST [facility] Blood Venous blood specimen / Unknown 05/19/2024 4:10 PM EST 05/19/2024 6:44 PM EST us London Avalos MD LAB BLOOD ORDERABLES Vi dickey Result [facility] [address] [place] [address], documented in this encounter Visit Diagnoses Diagnosis Bariatric surgery status Dysphagia, unspecified Gastric ulcer, unspecified as acute or chronic, 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 Otitis media, unspecified, right ear Epigastric pain Abdominal pain, epigastric Gastrojejunal ulcer, unspecified as acute or chronic, 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
--- OUTSIDE RECORDS SUMMARY | 2025-05-20 13:09 | XMS_ITS | Encounter Summary ---
Author Organization [employer] Address [address] [place] [address] Care Team Providers Care Sales Architect Name Role Phone Physician, Pcp Unknown Primary Care Provider Louise vailable Encounter Details Date Type Department Care Team (Late st Contact Info) Description 05/05/2024 Lab Requisition [facility] - Main Lab [address] [facility] [place] [address] London Avalos MD [address] [place] [address] [address] [place] [address] Bariatric surgery status; Otitis media, unspecified, right [...] auto differential (05/05/2024 4:30 PM EST) Pathologist [facility] WBC 6.8 4.8 - 10.8 K/mcL LAB HEMETOLOGY METHOD 05/05/2024 6:45 PM [facility] LAB RBC 4.30 3.80 - 4.80 M/[facility] LAB HEMETOLOGY METHOD 05/05/2024 6:45 PM [...] LAB HEMETOLOGY METHOD 05/05/2024 6:45 PM EST [facility] LAB Neutrophils Absolute 2.30 1.50 - 7.00 K/mcL LAB HEMETOLOGY METHOD 05/05/2024 6:45 PM EST [facility] LAB Lymphocytes Absolute 3.07 1.00 - 5.00 K/mcL LAB HEMETOLOGY METHOD 05/05/2024 6:45 PM EST [facility] LAB Monocytes Absolute 0.46 0.20 - 1.00 K/mcL LAB HEMETOLOGY METHOD 05/05/2024 6:45 PM EST [facility] LAB Eosinophils Absolute 0.82(H) 0.00 - 0.50 K/mcL LAB HEMETOLOGY METHOD 05/05/2024 6:45 PM EST [facility] LAB Basophils Absolute 0.08 0.00 - 0.20 K/mcL LAB HEMETOLOGY METHOD 05/05/2024 6:45 PM EST [facility] LAB Immature Granulocytes Absolute 0.02 0.00 - 0.03 K/mcL LAB HEMETOLOGY METHOD 05/05/2024 6:45 PM EST [facility] LAB Blood Venous blood specimen / Unknown 05/05/2024 4:30 PM EST 05/05/2024 6:07 PM EST us London Avalos MD LAB BLOOD ORDERABLES Vi dickey Result [facility] [address] [place] [address], * Triglycerides (05/05/2024 4:30 PM EST) Triglycerides 65 0 - 150 mg/dL LAB CHEMISTRY METHOD 05/05/2024 9:14 PM EST [facility] LAB Blood Venous blood specimen / Unknown 05/05/2024 4:30 PM EST 05/05/2024 6:07 PM EST London Avalos MD LAB BLOOD ORDERABLES Vi l Result Performing Organization Address City/[facility]/ZIP Co de Phone Number [facility] [address] [place] [address], [place] [phone] * Phosphorus (05/05/2024 4:30 PM EST) Pathologist [facility] Phosphorus 3.7 2.5 - 4.5 mg/dL LAB CHEMISTRY METHOD 05/05/2024 9:14 PM EST [facility] LAB Blood Venous blood specimen / Unknown 05/05/2024 4:30 PM EST 05/05/2024 6:07 PM EST London Avalos MD LAB BLOOD ORDERABLES Vi l Result Performing Organization Address [facility]/ZIP Co de Phone Number [facility] [address] [place] [address], [place] [phone] * Magnesium (05/05/2024 4:30 PM EST) [facility] Magnesium 2.3 1.9 - 2.6 mg/dL LAB CHEMISTRY METHOD 05/05/2024 9:14 PM EST [facility] LAB Blood Venous blood specimen / Unknown 05/05/2024 4:30 PM EST 05/05/2024 6:07 PM EST London Avalos MD LAB BLOOD ORDERABLES Vi l Result Performing Organization Address City/[facility]/ZIP Co de Phone Number [facility] [address] [place] [address], [place] [phone] * (ABNORMAL) Comprehensive metabolic panel (05/05/2024 4:30 PM EST) Sodium 142 133 - 145 mmol/L LAB CHEMISTRY METHOD 05/05/2024 9:15 PM EST [facility] Potassium 3.9 3.5 [...] [facility] Comment:Calculation based on the Chronic [...] LAB CHEMISTRY METHOD 05/05/2024 9:15 PM EST [facility] Albumin 3.4 3.2 - 5.0 g/dL LAB CHEMISTRY METHOD 05/05/2024 9:15 PM EST [facility] Total Bilirubin 0.2 0.0 - 1.4 mg/dL LAB CHEMISTRY METHOD 05/05/2024 9:15 PM EST [facility] LAB Blood Venous blood specimen / Unknown 05/05/2024 4:30 PM EST 05/05/2024 6:07 PM EST us London Avalos MD LAB BLOOD ORDERABLES Vi dickey Result [facility] [address] [place] [address], documented in this encounter Visit Diagnoses Diagnosis Bariatric surgery status Otitis media, unspecified, right ear Dysphagia, unspecified Epigastric pain Abdominal pain, epigastric Gastric ulcer, unspecified as acute or chronic, 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 Gastrojejunal ulcer, unspecified as acute or chronic, 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
--- OUTSIDE RECORDS SUMMARY | 2025-05-20 13:09 | XMS_ITS | Clinical Summary ---
Author Organization [address] Address [address] [place] [address] Phone Care Team Providers Care Emergency Department Name Role Phone Physician, Pcp Unknown Primary Care Provider Louise vailable Social History Tobacco Use Types Packs/Day Years [...] Cervical Cancer Screening: P ap Smear 2003 HPV Vaccines (1 - 3-dose SCD M series) 2009 HIV Screening 04/23/2022 Hepatitis C Screening 04/23/2022 Social Influencers of Health Screening 04/23/2022 Depression Screening 05/21/2024 COVID-19 Vaccine (1 - 2024-2 6 season) 2025 Influenza Vaccine (#1) 2025 RSV Immunization Adult Patie nts (1 - 1-dose 75+ series) 2057 HIB Vaccines Aged Out No longer eligi [...] age to complete this topic Meningococcal B Vaccine Aged Out No l onger eligible based on patient's age to complete this topic Pneumococcal Vaccine: Pediat rics (0 to 5 Years) and At-Risk Patients (6 to 49 Years) Aged Out No longer eligible b ased on patient's age to complete this topic RSV Immunization Patients Un alphonse 20 months Aged Out No longer eligible b ased on patient's age to complete this topic Varicella Vaccines Aged Out No longer eligible based on patient's age to complete this topic Insurance [facility] Care Teams Emergency Department Relationship Specialty Start Date End Date Physician, Pcp Unknown PCP - General 05/05/24
--- OUTSIDE RECORDS SUMMARY | 2025-05-20 13:09 | XMS_ITS | Encounter Summary ---
Author Organization [employer] Address [address] [place] [address] Care Team Providers Care Gis Analyst Developer Name Role Phone Physician, Pcp Unknown Primary Care Provider Louise vailable Encounter Details Date Type Department Care Team (Late st Contact Info) Description 05/12/2024 Lab Requisition [facility] - Main Lab 299 [facility] [place] [address] London Avalos MD [address] [place] [address] 3rd [place] [address] Bariatric surgery status; Dysphagia, unspecified; Gastric ulcer, [...] differential (05/12/2024 5:00 PM EST) Pathologist [facility] WBC 7.5 4.8 - 10.8 K/[facility] LAB HEMETOLOGY METHOD 05/12/2024 6:54 PM [facility] LAB RBC 4.30 3.80 - 4.80 M/[facility] LAB HEMETOLOGY METHOD 05/12/2024 6:54 PM [facility] LAB Hemoglobin 10.9(L) 11.5 - 16.0 g/dL LAB HEMETOLOGY METHOD 05/12/2024 6:54 PM [facility] LAB Hematocrit 34.9(L) 35.0 - 47.0 % LAB HEMETOLOGY METHOD 05/12/2024 6:54 PM [facility] LAB MCV 80.6 79.0 - 98.0 FL LAB HEMETOLOGY METHOD 05/12/2024 6:54 PM [facility] LAB MCH 25.2(L) 27.0 - 32.0 pcg LAB HEMETOLOGY METHOD 05/12/2024 6:54 PM [facility] LAB MCHC 31.2(L) 32.0 - 37.0 g/dL LAB HEMETOLOGY METHOD 05/12/2024 6:54 PM [facility] LAB RDW LAB HEMETOLOGY METHOD 05/12/2024 6:54 PM [facility] LAB Comment:Not Measured Platelets 284 130 - 400 K/mcL LAB HEMETOLOGY METHOD 05/12/2024 6:54 PM [facility] LAB MPV 9.6 7.0 - 11.0 FL LAB HEMETOLOGY METHOD 05/12/2024 6:54 PM [facility] LAB NRBC 0.0 <1.0 % LAB HEMETOLOGY METHOD 05/12/2024 6:54 PM [facility] LAB NRBC Absolute 0.00 <0.10 K/mcL LAB HEMETOLOGY METHOD 05/12/2024 6:54 PM [facility] LAB Neutrophils Relative 45.2 % LAB HEMETOLOGY METHOD 05/12/2024 6:54 PM [facility] LAB Lymphocytes Relative 40.8 % LAB HEMETOLOGY METHOD 05/12/2024 6:54 PM [facility] LAB Monocytes Relative 6.2 % LAB HEMETOLOGY METHOD 05/12/2024 6:54 PM [facility] LAB Eosinophils Relative 6.6 % LAB HEMETOLOGY METHOD 05/12/2024 6:54 PM [facility] LAB Basophils Relative 0.9 % LAB HEMETOLOGY METHOD 05/12/2024 6:54 PM [facility] LAB Immature Granulocytes Relative 0.3 % LAB HEMETOLOGY METHOD 05/12/2024 6:54 PM EST [facility] LAB Neutrophils Absolute 3.40 1.50 - 7.00 K/mcL LAB HEMETOLOGY METHOD 05/12/2024 6:54 PM EST [facility] LAB Lymphocytes Absolute 3.07 1.00 - 5.00 K/mcL LAB HEMETOLOGY METHOD 05/12/2024 6:54 PM EST [facility] LAB Monocytes Absolute 0.47 0.20 - 1.00 K/mcL LAB HEMETOLOGY METHOD 05/12/2024 6:54 PM EST [facility] LAB Eosinophils Absolute 0.50 0.00 - 0.50 K/mcL LAB HEMETOLOGY METHOD 05/12/2024 6:54 PM EST [facility] LAB Basophils Absolute 0.07 0.00 - 0.20 K/mcL LAB HEMETOLOGY METHOD 05/12/2024 6:54 PM EST [facility] LAB Immature Granulocytes Absolute 0.02 0.00 - 0.03 K/mcL LAB HEMETOLOGY METHOD 05/12/2024 6:54 PM EST [facility] LAB Blood Venous blood specimen / Unknown 05/12/2024 5:00 PM EST 05/12/2024 6:46 PM EST us London Avalos MD LAB BLOOD ORDERABLES Vi dickey Result [facility] LAB [address] [place] [address], * Triglycerides (05/12/2024 5:00 PM EST) Triglycerides 76 0 - 150 mg/dL LAB CHEMISTRY METHOD 05/13/2024 9:11 AM EST [facility] LAB Blood Venous blood specimen / Unknown 05/12/2024 5:00 PM EST 05/12/2024 6:46 PM EST London Avalos MD LAB BLOOD ORDERABLES Edit ed Result - Final Performing Organization Address [facility]/ZIP Co de Phone Number [facility] LAB [address] [place] [address], [place] [phone] * Phosphorus (05/12/2024 5:00 PM EST) Pathologist [facility] Phosphorus 3.5 2.5 - 4.5 mg/dL LAB CHEMISTRY METHOD 05/12/2024 7:33 PM EST [facility] LAB Blood Venous blood specimen / Unknown 05/12/2024 5:00 PM EST 05/12/2024 6:46 PM EST London Avalos MD LAB BLOOD ORDERABLES Vi l Result Performing Organization Address [facility]/ZIP Co de Phone Number [facility] [address] [place] [address], [place] [phone] * Magnesium (05/12/2024 5:00 PM EST) Pathologist [facility] Magnesium 2.0 1.9 - 2.6 mg/dL LAB CHEMISTRY METHOD 05/12/2024 7:33 PM EST [facility] LAB Blood Venous blood specimen / Unknown 05/12/2024 5:00 PM EST 05/12/2024 6:46 PM EST London Avalos MD LAB BLOOD ORDERABLES Vi l Result Performing Organization Address City/[facility]/ZIP Co de Phone Number [facility] [address] [place] [address], [place] [phone] * (ABNORMAL) Comprehensive metabolic panel (05/12/2024 5:00 PM EST) Sodium 140 133 - 145 mmol/L LAB CHEMISTRY METHOD 05/13/2024 9:11 AM EST [facility] Potassium 3.9 3.5 - 5.5 mmol/L LAB CHEMISTRY METHOD 05/13/2024 9:11 AM [facility] LAB Chloride 108 96 - 110 mmol/L LAB CHEMISTRY METHOD 05/13/2024 9:11 AM [facility] LAB CO2 24 21 - 32 mmol/L LAB CHEMISTRY METHOD 05/13/2024 9:11 AM [facility] LAB Anion Gap 8 3 - 11 LAB CHEMISTRY METHOD 05/13/2024 9:11 AM [facility] LAB Glucose 75 70 - 100 mg/dL LAB CHEMISTRY METHOD 05/13/2024 9:11 AM [facility] BUN 13 5 - 25 mg/dL LAB CHEMISTRY METHOD 05/13/2024 9:11 AM [facility] LAB Creatinine 0.60 0.50 - 1.10 mg/dL LAB CHEMISTRY METHOD 05/13/2024 9:11 AM [facility] LAB eGFR 115 >=60 mL/min/1. 73m2 LAB CHEMISTRY METHOD 05/13/2024 9:11 AM [facility] LAB Comment:Calculation based on the Chronic Kidney Disease Epidemiology Collaboration (CKD-EPI) equation refit without adjustment for race. BUN/Creatinine Ratio 21.7 LAB CHEMISTRY METHOD 05/13/2024 9:11 AM [facility] Calcium 8.3(L) 8.5 - 10.5 mg/dL LAB CHEMISTRY METHOD 05/13/2024 9:11 AM [facility] LAB AST (SGOT) 18 10 - 42 unit/L LAB CHEMISTRY METHOD 05/13/2024 9:11 AM [facility] ALT (SGPT) 16 10 - 60 unit/L LAB CHEMISTRY METHOD 05/13/2024 9:11 AM [facility] Alkaline Phosphatase 46 42 - 121 unit/L LAB CHEMISTRY METHOD 05/13/2024 9:11 AM [facility] Total Protein 5.8(L) 6.0 - 8.0 g/dL LAB CHEMISTRY METHOD 05/13/2024 9:11 AM EST [facility] Albumin 3.1(L) 3.2 - 5.0 g/dL LAB CHEMISTRY METHOD 05/13/2024 9:11 AM [facility] Total Bilirubin 0.2 0.0 - 1.4 mg/dL LAB CHEMISTRY METHOD 05/13/2024 9:11 AM [facility] LAB Blood Venous blood specimen / Unknown 05/12/2024 5:00 PM EST 05/12/2024 6:46 PM EST London Avalos MD LAB BLOOD ORDERABLES Edit ed Result - Final [facility] [address] [place] [address], documented in this encounter Visit Diagnoses Diagnosis Bariatric surgery status Dysphagia, unspecified Gastric ulcer, unspecified as acute or chronic, 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 Otitis media, unspecified, right ear Epigastric pain Abdominal pain, epigastric Gastrojejunal ulcer, unspecified as acute or chronic, 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 documented in this encounter Care Teams Gis Analyst Developer Relationship Specialty Start Date End Date Physician, Pcp Unknown PCP - General 05/05/24 documented as of this encounter
--- OUTSIDE RECORDS SUMMARY | 2025-05-20 13:09 | XMS_ITS | Encounter Summary ---
Author Organization [email or web address] Address [address] [place] [address] Care Team Providers Care Woodworking Machine Operator Name Role Phone Physician, Pcp Unknown Primary Care Provider Louise vailable Encounter Details Date Type Department Care Team (Late st Contact Info) Description 05/26/2024 Lab Requisition [facility] - Main Lab 299 [facility] [place] [address] London Avalos MD [address] [place] [address] 3[address] [place] [address] Bariatric surgery status; Otitis media, unspecified, right [...] auto differential (05/26/2024 2:00 PM EST) Pathologist [facility] WBC 8.4 4.8 - 10.8 K/mcL LAB HEMETOLOGY METHOD 05/26/2024 7:35 PM [facility] LAB RBC 4.40 3.80 - 4.80 M/[facility] LAB HEMETOLOGY METHOD 05/26/2024 7:35 PM [facility] LAB Hemoglobin 11.2(L) 11.5 - 16.0 g/dL LAB HEMETOLOGY METHOD 05/26/2024 7:35 PM [facility] LAB Hematocrit 35.5 35.0 - 47.0 % LAB HEMETOLOGY METHOD 05/26/2024 7:35 PM [facility] LAB MCV 81.4 79.0 - 98.0 FL LAB HEMETOLOGY METHOD 05/26/2024 7:35 PM [facility] LAB MCH 25.7(L) 27.0 - 32.0 pcg LAB HEMETOLOGY METHOD 05/26/2024 7:35 PM [facility] LAB MCHC 31.5(L) 32.0 - 37.0 g/dL LAB HEMETOLOGY METHOD 05/26/2024 7:35 PM [facility] LAB RDW 23.9(H) 11.0 - 15.0 % LAB HEMETOLOGY METHOD 05/26/2024 7:35 PM [facility] LAB Platelets 284 130 - 400 K/mcL LAB HEMETOLOGY METHOD 05/26/2024 7:35 PM [facility] LAB MPV 9.5 7.0 - 11.0 FL LAB HEMETOLOGY METHOD 05/26/2024 7:35 PM [facility] LAB NRBC 0.0 <1.0 % LAB HEMETOLOGY METHOD 05/26/2024 7:35 PM [facility] LAB NRBC Absolute 0.00 <0.10 K/mcL LAB HEMETOLOGY METHOD 05/26/2024 7:35 PM [facility] LAB Neutrophils Relative 45.8 % LAB HEMETOLOGY METHOD 05/26/2024 7:35 PM [facility] LAB Lymphocytes Relative 38.7 % LAB HEMETOLOGY METHOD 05/26/2024 7:35 PM [facility] LAB Monocytes Relative 5.9 % LAB HEMETOLOGY METHOD 05/26/2024 7:35 PM [facility] LAB Eosinophils Relative 8.1 % LAB HEMETOLOGY METHOD 05/26/2024 7:35 PM [facility] LAB Basophils Relative 1.1 % LAB HEMETOLOGY METHOD 05/26/2024 7:35 PM [facility] LAB Immature Granulocytes Relative 0.4 % LAB HEMETOLOGY METHOD 05/26/2024 7:35 PM EST [facility] LAB Neutrophils Absolute 3.87 1.50 - 7.00 K/[facility] LAB HEMETOLOGY METHOD 05/26/2024 7:35 PM EST [facility] LAB Lymphocytes Absolute 3.27 1.00 - 5.00 K/mcL LAB HEMETOLOGY METHOD 05/26/2024 7:35 PM EST [facility] LAB Monocytes Absolute 0.50 0.20 - 1.00 K/[facility] LAB HEMETOLOGY METHOD 05/26/2024 7:35 PM EST [facility] LAB Eosinophils Absolute 0.68(H) 0.00 - 0.50 K/mcL LAB HEMETOLOGY METHOD 05/26/2024 7:35 PM EST [facility] LAB Basophils Absolute 0.09 0.00 - 0.20 K/mcL LAB HEMETOLOGY METHOD 05/26/2024 7:35 PM EST [facility] LAB Immature Granulocytes Absolute 0.03 0.00 - 0.03 K/mcL LAB HEMETOLOGY METHOD 05/26/2024 7:35 PM EST [facility] LAB Blood Venous blood specimen / Unknown 05/26/2024 2:00 PM EST 05/26/2024 6:37 PM EST us London Avalos MD LAB BLOOD ORDERABLES Vi dickey Result [facility] LAB [address] [place] [address], * Triglycerides (05/26/2024 2:00 PM EST) Triglycerides 123 0 - 150 mg/dL LAB CHEMISTRY METHOD 05/26/2024 7:56 PM EST [facility] LAB Blood Venous blood specimen / Unknown 05/26/2024 2:00 PM EST 05/26/2024 6:37 PM EST London Avalos MD LAB BLOOD ORDERABLES Vi l Result Performing Organization Address [facility]/ZIP Co de Phone Number [facility] [address] [place] [address], [place] [phone] * (ABNORMAL) Phosphorus (05/26/2024 2:00 PM EST) Phosphorus 5.1(H) 2.5 - 4.5 mg/dL LAB CHEMISTRY METHOD 05/26/2024 7:56 PM EST [facility] LAB Blood Venous blood specimen / Unknown 05/26/2024 2:00 PM EST 05/26/2024 6:37 PM EST London Avalos MD LAB BLOOD ORDERABLES Vi l Result Performing Organization Address [facility] Co de Phone Number [facility] [address] [place] [address], [place] [phone] * Magnesium (05/26/2024 2:00 PM EST) Pathologist [facility] Magnesium 1.9 1.9 - 2.6 mg/dL LAB CHEMISTRY METHOD 05/26/2024 7:56 PM EST [facility] LAB Blood Venous blood specimen / Unknown 05/26/2024 2:00 PM EST 05/26/2024 6:37 PM EST London Avalos MD LAB BLOOD ORDERABLES Vi l Result Performing Organization Address [facility]/ZIP Co de Phone Number [facility] [address] [place] [address], [place] [phone] * (ABNORMAL) Comprehensive metabolic panel (05/26/2024 2:00 PM EST) Sodium 139 133 - 145 mmol/L LAB CHEMISTRY METHOD 05/26/2024 7:57 PM [facility] Potassium 3.4(L) 3.5 - 5.5 mmol/L LAB CHEMISTRY METHOD 05/26/2024 7:57 PM [facility] LAB Chloride 110 96 - 110 mmol/L LAB CHEMISTRY METHOD 05/26/2024 7:57 PM [facility] LAB CO2 20(L) 21 - 32 mmol/L LAB CHEMISTRY METHOD 05/26/2024 7:57 PM [facility] LAB Anion Gap 9 3 - 11 LAB CHEMISTRY METHOD 05/26/2024 7:57 PM [facility] LAB Glucose 147(H) 70 - 100 mg/dL LAB CHEMISTRY METHOD 05/26/2024 7:57 PM [facility] BUN 27(H) 5 - 25 mg/dL LAB CHEMISTRY METHOD 05/26/2024 7:57 PM [facility] LAB Creatinine 0.71 0.50 - 1.10 mg/dL LAB CHEMISTRY METHOD 05/26/2024 7:57 PM [facility] LAB eGFR 109 >=60 mL/min/1. 73m2 LAB CHEMISTRY METHOD 05/26/2024 7:57 PM [facility] LAB Comment:Calculation based on the Chronic Kidney Disease Epidemiology Collaboration (CKD-EPI) equation refit without adjustment for race. BUN/Creatinine Ratio 38.0 LAB CHEMISTRY METHOD 05/26/2024 7:57 PM [facility] LAB Calcium 8.4(L) 8.5 - 10.5 mg/dL LAB CHEMISTRY METHOD 05/26/2024 7:57 PM [facility] LAB AST (SGOT) 20 10 - 42 unit/L LAB CHEMISTRY METHOD 05/26/2024 7:57 PM [facility] LAB ALT (SGPT) 17 10 - 60 unit/L LAB CHEMISTRY METHOD 05/26/2024 7:57 PM [facility] LAB Alkaline Phosphatase 43 42 - 121 unit/L LAB CHEMISTRY METHOD 05/26/2024 7:57 PM [facility] LAB Total Protein 6.1 6.0 - 8.0 g/dL LAB CHEMISTRY METHOD 05/26/2024 7:57 PM EST [facility] Albumin 3.3 3.2 - 5.0 g/dL LAB CHEMISTRY METHOD 05/26/2024 7:57 PM EST [facility] Total Bilirubin 0.1 0.0 - 1.4 mg/dL LAB CHEMISTRY METHOD 05/26/2024 7:57 PM EST [facility] LAB Blood Venous blood specimen / Unknown 05/26/2024 2:00 PM EST 05/26/2024 6:37 PM EST us London Avalos MD LAB BLOOD ORDERABLES Vi l Result [facility] [address] [place] [address], documented in this encounter Visit Diagnoses Diagnosis Bariatric surgery status Otitis media, unspecified, right ear Epigastric pain Abdominal pain, epigastric Dysphagia, unspecified Gastric ulcer, unspecified as acute or chronic, 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 Gastrojejunal ulcer, unspecified as acute or chronic, 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 documented in this encounter Care Teams Woodworking Machine Operator Relationship Specialty Start Date End Date Physician, Pcp Unknown PCP - General 05/05/24 documented as of this encounter
--- OUTSIDE RECORDS SUMMARY | 2025-05-20 13:09 | XMS_ITS | Encounter Summary ---
Author Organization [employer] Address [address] [place] [address] Care Team Providers Care Contract Designer Name Role Phone Physician, Pcp Unknown Primary Care Provider Louise vailable Encounter Details Date Type Department Care Team (Late st Contact Info) Description 06/10/[address] [facility] - Main Lab [address] [facility] [place] [address] London Avalos MD [address] [place] [address] 3[address] [place] [address] Bariatric surgery status; Otitis media, unspecified, right [...] [facility] LAB RBC 4.30 3.80 - 4.80 M/mcL LAB HEMETOLOGY METHOD 06/10/2024 6:48 PM [facility] LAB Hemoglobin 11.7 11.5 - 16.0 g/dL LAB HEMETOLOGY METHOD 06/10/2024 6:48 PM [facility] LAB Hematocrit 37.3 35.0 - 47.0 % [...] 06/10/2024 6:48 PM EST [facility] Neutrophils Absolute 4.61 1.50 - 7.00 K/mcL LAB HEMETOLOGY METHOD 06/10/2024 6:48 PM EST [facility] Lymphocytes Absolute 3.05 1.00 - 5.00 K/mcL LAB HEMETOLOGY METHOD 06/10/2024 6:48 PM EST [facility] Monocytes Absolute 0.65 0.20 - 1.00 K/mcL LAB HEMETOLOGY METHOD 06/10/2024 6:48 PM [facility] LAB Eosinophils Absolute 0.18 0.00 - 0.50 K/mcL LAB HEMETOLOGY METHOD 06/10/2024 6:48 PM EST [facility] Basophils Absolute 0.05 0.00 - 0.20 K/mcL LAB HEMETOLOGY METHOD 06/10/2024 6:48 PM EST [facility] LAB Immature Granulocytes Absolute 0.02 0.00 - 0.03 K/mcL LAB HEMETOLOGY METHOD 06/10/2024 6:48 PM EST [facility] LAB Blood Venous blood specimen / Unknown 06/10/2024 4:00 PM EST 06/10/2024 6:18 PM EST us London Avalos MD LAB BLOOD ORDERABLES Vi dickey Result [facility] [address] [place] [address], * Triglycerides (06/10/2024 4:00 PM EST) Triglycerides 108 0 - 150 mg/dL LAB CHEMISTRY METHOD 06/10/2024 7:06 PM EST [facility] Blood Venous blood specimen / Unknown 06/10/2024 4:00 PM EST 06/10/2024 6:18 PM EST London Avalos MD LAB BLOOD ORDERABLES Vi l Result Performing Organization Address [facility]/ZIP Co de Phone Number [facility] [address] [place] [address], [place] [phone] * (ABNORMAL) Phosphorus (06/10/2024 4:00 PM EST) Phosphorus 4.6(H) 2.5 - 4.5 mg/dL LAB CHEMISTRY METHOD 06/10/2024 7:06 PM EST [facility] Blood Venous blood specimen / Unknown 06/10/2024 4:00 PM EST 06/10/2024 6:18 PM EST London Avalos MD LAB BLOOD ORDERABLES Vi l Result Performing Organization Address [facility] Co de Phone Number [facility] [address] [place] [address], [place] [phone] * Magnesium (06/10/2024 4:00 PM EST) Pathologist [facility] Magnesium 1.9 1.9 - 2.6 mg/dL LAB CHEMISTRY METHOD 06/10/2024 7:06 PM EST [facility] Blood Venous blood specimen / Unknown 06/10/2024 4:00 PM EST 06/10/2024 6:18 PM EST London Avalos MD LAB BLOOD ORDERABLES Vi l Result Performing Organization Address City/[facility]/ZIP Co de Phone Number [facility] [address] [place] [address], [place] [phone] * (ABNORMAL) Comprehensive metabolic panel (06/10/2024 4:00 PM EST) Sodium 140 133 - 145 mmol/L LAB CHEMISTRY METHOD 06/10/2024 7:14 PM EST [facility] Potassium 3.5 3.5 - 5.5 [...] refit without adjustment for race. BUN/Creatinine Ratio 25.6 LAB [...] LAB CHEMISTRY METHOD 06/10/2024 7:14 PM EST [facility] Albumin 3.4 3.2 - 5.0 g/dL LAB CHEMISTRY METHOD 06/10/2024 7:14 PM EST [facility] Total Bilirubin 0.2 0.0 - 1.4 mg/dL LAB CHEMISTRY METHOD 06/10/2024 7:14 PM EST [facility] Blood Venous blood specimen / Unknown 06/10/2024 4:00 PM EST 06/10/2024 6:18 PM EST us London Avalos MD LAB BLOOD ORDERABLES Vi dickey Result [facility] [address] [place] [address], documented in this encounter Visit Diagnoses Diagnosis Bariatric surgery status Otitis media, unspecified, right ear Dysphagia, unspecified Epigastric pain Abdominal pain, epigastric Gastric ulcer, unspecified as acute or chronic, 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 Gastrojejunal ulcer, unspecified as acute or chronic, 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 documented in this encounter Care Teams Contract Designer Relationship Specialty Start Date End Date Physician, Pcp Unknown PCP - General 05/05/24 documented as of this encounter
--- OUTSIDE RECORDS SUMMARY | 2025-05-20 13:09 | XMS_ITS | Clinical Summary ---
Author Organization [facility] Address [address] [place] [address] Care Team Providers Care Traffic Controller Cable Name Role Phone Era Yeager Primary Care Provider [phone] Allergies Active Allergy Reactions Criticality Noted Date [...] Vaccines (1 - Tdap) 02/06/2004 Mammogram 2022 Alcohol/Substance Use Screening 05/21/2024 Depression Screening and Follow-Up 05/21/2024 Social Drivers of Health Verónica ual Screening 05/21/2024 Influenza Vaccine (#1) 2024 COVID-19 Vaccine (1 - 2024-2 6 season) 2025 Pneumococcal Vaccine: Pediat beatrice (0-5 Years) and At-Risk Patients (6-50 Years) Aged Out No longer eligible b ased on patient's age to complete this topic Insurance BCBS OUT OF STATE PPO Care Teams Traffic Controller Cable Relationship Specialty Start Date End Date Era Yeager [address] [place] [address] [place] [address] PCP - General Internal Medicine 05/02/22
== END 2025-05-20 12:27 | disposition home or self-care (01) ==
PROVIDERS: PCP Internal Medicine; Visit Provider Physician Assistant
DX: G43.919 Migraine, unspecified, intractable, without status migrainosus (principal)